=== PATIENT | female | born 1945 | race Caucasian/White ===

== ENCOUNTER 2019-02-21 10:35 | Emergency (ER) | payer MEDICARE, OTHER, SELFPAY ==
[2019-02-21 10:37] VITALS: BP 148/79; PULSE 64; RESP 17; TEMP 36.3; O2SAT 99; BMI 28.0
[2019-02-21 10:50] VITALS: BP 143/71; PULSE 74; RESP 17
--- NOTE | 2019-02-21 11:01 | ED.VISSUMM ---
- ER Visit Summary Date of Service: 02/21/19 Chief Complaint: Chest pain History of Present Illness: The patient is a 73 F who presents with intermittent chest pain for the past 4-5 days. Patient states she was doing some work in her yard 4-5 days ago. Patient states she gets some pain in her lower substernal area that only last for a couple seconds and then resolves. Patient states this has been intermittent over the last 4-5 days. Patient states nothing makes it better or worse. Patient admits to some intermittent nausea and acid reflux type symptoms. Patient states she feels like she has a weight in her shoulders and they have been sore over the past 4-5 days. Patient has a history of coronary artery disease as well as a family history of coronary artery disease. Patient states she has had 2 stents placed. Patient denies any other cardiac or PE risk factors. Physical Examination: Vital signs are stable. Patient is afebrile. Patient is in no acute distress. Oral mucosa is pink and moist. Neck is supple. Trachea is midline. There is no JVD noted. Heart was regular rate and rhythm. Lungs are clear and equal bilateral. There is some mild reproducible tenderness over the left parasternal area. Abdomen is soft. Bowel sounds are normal. There is no tenderness. There is no guarding noted. Skin is warm dry. Cranial nerves II through XII are intact. There are no focal motor or sensory deficits noted. The remaining physical exam is within normal limits. Test Results: EKG showed normal sinus rhythm with a rate of 66. There are no acute ST or T wave changes. This was unchanged compared to previous EKG dated 11/17/2016. Chest x-ray does not show any acute cardiopulmonary process. CBC, basic metabolic profile, and troponin were obtained and were essentially within normal limits. Emergency Department Course and Treatment: Patient was given aspirin here. Patient was instructed to follow-up with her primary care physician in 5-7 days. Patient understood and was agreeable with the plan. All questions were answered. Disposition: Discharge home Impression: Chest pain This note was generated with Gr[employer] dictation software. It may contain incorrect words, spelling, and punctuation that were not noted in review of the chart prior to signing ED Disposition - Plan for ED Patient: Disposition: Home or Assisted Living Diagnosis: Chest pain Referrals: Gail Turner MD [NON-STAFF] - 3-5 Days
--- NOTE | 2019-02-21 11:04 | ED.DCSUM_ITS ---
- ER Visit Summary Date of Service: 02/21/19 Chief Complaint: Chest pain History of Present Illness: The patient is a 73 F who presents with intermittent chest pain for the past 4-5 days. Patient states she was doing some work in her yard 4-5 days ago. Patient states she gets some pain in her lower substernal area that only last for a couple seconds and then resolves. Patient states this has been intermittent over the last 4-5 days. Patient states nothing makes it better or worse. Patient admits to some intermittent nausea and acid reflux type symptoms. Patient states she feels like she has a weight in her shoulders and they have been sore over the past 4-5 days. Patient has a history of jodi nary artery disease as well as a family history of coronary artery disease. Patient states she has had 2 stents placed. Patient denies any other cardiac or PE risk factors. Physical Examination: Vital signs are stable. Patient is afebrile. Patient is in no acute distress. Oral mucosa is pink and moist. Neck is supple. Trachea is midline. There is no JVD noted. Heart was regular rate and rhythm. Lungs are clear and equal bilateral. There is some mild reproducible tenderness over the left parasternal area. Abdomen is soft. Bowel sounds are normal. There is no tenderness. There is no guarding noted. Skin is warm dry. Cranial nerves II through XII are intact. There are no focal motor or sensory deficits noted. The remaining physical exam is within normal limits. Test Results: EKG showed normal sinus rhythm with a rate of 66. There are no acute ST or T wave changes. This was unchanged compared to previous EKG dated 11/17/2016. Chest x-ray does not show any acute cardiopulmonary process. CBC, basic metabolic profile, and troponin were obtained and were essentially within normal limits. Emergency Department Course and Treatment: Patient was given aspirin here. Patient was instructed to follow-up with her primary care physician in 5-7 days. Patient understood and was agreeable with the plan. All questions were answered. Disposition: Discharge home Impression: Chest pain This note was generated with [employer] dictation software. It may contain incorrect words, spelling, and punctuation that were not noted in review of the chart prior to signing ED Disposition - Plan for ED Patient: Disposition: Home or Assisted Living Diagnosis: Chest pain Referrals: Gail Turner MD [NON-STAFF] - 3-5 Days
--- NOTE | 2019-02-21 11:05 | EKG12_ITS ---
Test Reason : CP Blood Pressure : / mmHG Vent. Rate : 066 BPM Atrial Rate : 066 BPM P-R Int : 168 ms QRS Dur : 070 ms QT Int : 376 ms P-R-T Axes : 020 -25 032 degrees QTc Int : 394 ms Normal sinus rhythm Nonspecific T wave abnormality Abnormal ECG Confirmed by TATUM SY, DANIE ([id number]), scientific publications editor BRADY RODRIGUEZ ([id number]) on 02/22/2019 1:34:44 PM Referred By: CASSI/CONSTANTIN Confirmed By:DANIE WINN MD
--- NOTE | 2019-02-21 11:05 | RAD_ITS ---
STUDY: X-RAY CHEST REASON FOR EXAM: Female, 73 years old. 2 day history of left-sided chest pain and nausea. TECHNIQUE: PA and lateral views of the chest. COMPARISON: Comparison is made with prior study dated November 17, 2016. FINDINGS: EKG electrodes are seen. Stable elevation of the anterior aspect of the right hemidiaphragm. There is no demonstrated pleural abnormality. Evidence of prior coronary artery stenting. Normal mediastinum and mikaela. Normal visualized pulmonary arteries. There is atherosclerotic calcification of the aortic arch with tortuosity. There are degenerative changes of the visualized thoracic spine. Normal visualized ribs, clavicles, and shoulders. Prior cholecystectomy. RAD/Chest PA and Lateral IMPRESSION: No acute abnormality is seen. Electronically Signed: David Maravilla, at 12:12 EDT , Service support ,
[2019-02-21] MEDS: Aspirin 81 MG TAB.CHEW 324 MG PO (11:16)
[2019-02-21 11:23] LABS: Anion Gap 5 (5-15); BUN 17 mg/dL (7-18); BUN/Creat Ratio 14.3 RATIO (10-20); Calcium,Total 9.1 mg/dL (8.5-10.1); Chloride 108 mmol/L (98-107); Creatinine, Serum 1.19 mg/dL (0.55-1.02); EST Glomerular Filtration Rate 47 mL/min (>60); Est Glom Filt Rate - Afr Amer 57 mL/min (>60); Estimated Creatinine Clearance 34.31 ml/min; Glucose 106 mg/dL (74-106); POSITIVE COUNT NO; POSITIVE DIFFERENTIAL NO; Potassium 3.9 mmol/L (3.5-5.1); Sodium Level 140 mmol/L (136-145)
[2019-02-21 11:38] VITALS: BP 140/81; PULSE 63; RESP 13; O2SAT 99
[2019-02-21 11:42] LABS: Hematocrit 43.9 % (37-47); Hemoglobin 14.3 g/dl (12.0-15.0); Red Blood Count 5.07 M/mm3 (4.2-5.4); White Blood Count 5.7 K/mm3 (4.4-11.0)
[2019-02-21 11:43] LABS: Mean Corp Hgb Conc 32.6 g/gl (32-36); Mean Corpuscular Hgb 28.2 pg (27.0-32.0); Mean Corpuscular Volume 86.6 fL (81-99); RBC Distribution Width CV 14.8 % (11.6-14.6); RBC Distribution Width SD 46.8 fl (35.1-43.9)
[2019-02-21 11:44] LABS: Lymphocyte % 22.7 % (19-41); Mean Platelet Vol. 10.6 fl (6.2-12.0); POSITIVE MORPHOLOGY NO; Platelet Count 222 K/mm3 (150-450)
[2019-02-21 11:45] LABS: Absolute Neutrophil Count 3.6 X10^3/uL (2.0-7.7); Basophil% 0.4 % (0-1); Eosinophils% 3.7 % (0-5)
[2019-02-21 11:46] LABS: Absolute Lymphocyte Count 1.29 X10^3/ul (0.83-4.51); Lymphocyte # 1.29 X10^3/ul (4.0)
[2019-02-21 11:47] LABS: Basophil# 0.02 X10^3/uL; Eosinophil# 0.21 X10^3/uL; Monocyte# 0.57 X10^3/uL
[2019-02-21 12:00] VITALS: BP 115/69; PULSE 62; RESP 19; O2SAT 99
[2019-02-21 13:00] VITALS: RESP 12
[2019-02-21 13:01] VITALS: BP 123/70; PULSE 58; RESP 14; O2SAT 99
== END 2019-02-21 13:10 | disposition home or self-care (01) ==
PROVIDERS: Emergency Provider Emergency Medicine; Family Provider Internal Medicine; PCP Internal Medicine
DX: R07.9 Chest pain, unspecified (principal); R11.0 Nausea; I25.10 Atherosclerotic heart disease of native coronary artery without angina pectoris; I10 Essential (primary) hypertension; Z79.02 Long term (current) use of antithrombotics/antiplatelets; Z79.82 Long term (current) use of aspirin; Z79.899 Other long term (current) drug therapy; Z95.5 Presence of coronary angioplasty implant and graft; Z82.49 Family history of ischemic heart disease and other diseases of the circulatory system
CPT/HCPCS: 71046; 80048; 84484; 85025; 93005; 99285; A4216

== ENCOUNTER → 2019-05-02 07:35 | Outpatient (CLI) | payer MEDICARE, OTHER, SELFPAY ==
[2019-04-26 15:04] VITALS: BMI 28.1
[2019-05-02 09:08] LABS: AST(SGOT) 15 U/L (15-37); Alanine Aminotransfer ALT/SGPT 20 U/L (13-56); Albumin, Serum 3.6 g/dL (3.2-5.0); Alkaline Phosphatase 91 U/L (45-117); Bilirubin, Direct 0.16 mg/dL (0.00-0.30); Cholesterol 112 mg/dL (200); Globulin 3.6 g/dL (2.2-4.2); High Density Lipoprotein 54 mg/dL; Protein, Total 7.2 g/dL (6.4-8.2); Triglycerides 59 mg/dL; Very Low Density Lipoprotein 12 mg/dL (5-40)
== END ==
PROVIDERS: Family Provider Internal Medicine; PCP Internal Medicine; Referring Provider Internal Medicine Cardiovascular Disease; Visit Provider Internal Medicine Cardiovascular Disease
DX: I25.2 Old myocardial infarction (principal); Z86.74 Personal history of sudden cardiac arrest
CPT/HCPCS: 36415; 80061; 80076

== ENCOUNTER → 2019-05-03 09:44 | Outpatient (CLI) | payer MEDICARE, OTHER, SELFPAY ==
[2019-04-26 15:04] VITALS: BMI 28.1
--- NOTE | 2019-05-03 09:45 | ECHOD_ITS ---
Reason For Study: CHF Procedure This was a 2D Doppler, Color Flow transthoracic echocardiogram. Exam performed in department. Left Ventricle Normal size and thickness. The estimated ejection fraction is 60 %. Stage 1 diastolic dysfunction. Anterior [place] : Akinetic. Right Ventricle Normal size and thickness. Normal systolic function. Atria The left atrium is mildly enlarged. Normal right atrium. Normal atrial septum. Mitral Valve The mitral valve is structurally normal. No prolapse or stenosis seen. Tricuspid Valve Normal tricuspid valve. Trivial tricuspid valve insufficiency. Right ventricular systolic pressure estimated to be 34 mmHg. Aortic Valve Normal aortic valve. Trisinus/trileaflet aortic valve. Pulmonic Valve Normal pulmonic valve. Great Vessels Normal aortic root. Normal arch. Normal inferior vena cava. Inferior vena cava collapse with sniff. Pericardium/Pleural No pericardial effusion. MMode/2D Measurements & Calculations LVIDd: 4.8 cm IVSd: 0.93 cm Ao root diam: 2.8 cm LVIDs: 3.2 cm LVPWd: 0.87 cm RVDd: 3.4 cm FS: 34.3 % LAV(MOD-bp): 79.3 ml LA A4 area: 23.5 cm2 LA dimension(2D): 4.1 cm LAV(MOD-bp) Indexed: 45.4 ml/m2 LAV(MOD-sp2): 75.5 ml LAV(MOD-sp4): 80.0 ml RA A4 area: 13.7 cm2 Time Measurements MV dec time: 0.15 sec Doppler Measurements & Calculations MV E max demetrio: 79.3 cm/sec Lat Peak E' Demetrio: 8.7 cm/sec Med Peak E' Demetrio: 6.0 cm/sec MV A max demetrio: 70.7 cm/sec E/E' lat: 9.1 E/E' med: 13.2 MV E/A: 1.1 Ao V2 max: 122.5 cm/sec LV V1 max: 83.3 cm/sec PA V2 max: 73.8 cm/sec Ao max P.0 mmHg LV V1 max P.8 mmHg TR max demetrio: 267.2 cm/sec TR max P.8 mmHg Interpretation Summary The estimated ejection fraction is 60 %. Anterior [place] : Akinetic. Stage 1 diastolic dysfunction. The left atrium is mildly enlarged. Trivial tricuspid valve insufficiency. Right ventricular systolic pressure estimated to be 34 mmHg. The study was technically limited. There is no comparison study available. Ordering Physician: Scott Braun Referring Physician: Brianna Mcconnell Performed By: Danielle Peters RDCS, RVT
== END ==
PROVIDERS: Family Provider Internal Medicine; PCP Internal Medicine; Referring Provider Internal Medicine Cardiovascular Disease; Visit Provider Internal Medicine Cardiovascular Disease
DX: I50.9 Heart failure, unspecified (principal); Z86.74 Personal history of sudden cardiac arrest
CPT/HCPCS: 93306

== ENCOUNTER → 2019-05-11 13:11 | Outpatient (CLI) | payer MEDICARE, OTHER, SELFPAY ==
[2019-04-26 15:04] VITALS: BMI 28.1
--- NOTE | 2019-05-11 13:13 | STEWCON_ITS ---
Reason For Study: SYNCOPE/NEAR Stress Results Protocol: Jose Protocol WITH DEFINITY Maximum Predicted HR: 145 bpm Target HR: 123 bpm % Maximum Predicted HR: 98 % DurationHeart Rate Stage (mm:ss) (bpm) BP Comment BASELINE 65 142/802.5 CC DEFINITY STAGE 1 3:00 106 122/84 STAGE 2 3:00 120 142/80 STAGE 3 1:31 142 / 1 CC DEFINITY RECOVERY 78 120/78 Stress Duration: 7:31 mm:ss Maximum Stress HR: 142 bpm Baseline Echocardiogram Findings The estimated ejection fraction is 65 %. Stress Echo Wall motion Data Resting WM Intermediate WM Stress WM Resting Wall Motion Wall Motion Stress No regional wall motion No regional wall motion abnormalities noted. abnormalities noted. EKG Data The baseline ECG displays normal sinus rhythm. The patient exercised according to the regular Jose protocol for a total duration of 7:31. The maximum heart rate attained was 142 beats per minute. This was 97% of maximum predicted heart rate. The patient exercised into stage 3 of the Jose protocol. During stress, there were no ST or T wave changes noted to suggest ischemia. No clinical angina was noted. Interpretation Summary The estimated ejection fraction is 65 %. Normal, adequate, treadmill echocardiogram. Negative for ischemia by EKG and echocardiographic anterior. No anginal symptoms noted. Rare PVC noted. Appropriate blood pressure response to exercise. Average exercise capacity for age. Final LVEF is 75%. Test terminated due to dyspnea, target heart rate achieved, and leg discomfort. Decreased sensitivity due to poor echo windows requiring Definity agent. No complications. The study was technically difficult. Contrast injection was performed. Ordering Physician: Scott Braun Referring Physician: Scott Braun Performed By: Radha Nash, SIACS, RVT
== END ==
PROVIDERS: Family Provider Internal Medicine; PCP Internal Medicine; Referring Provider Internal Medicine Cardiovascular Disease; Visit Provider Internal Medicine Cardiovascular Disease
DX: R55 Syncope and collapse (principal); Z86.74 Personal history of sudden cardiac arrest; Z95.5 Presence of coronary angioplasty implant and graft
CPT/HCPCS: 93017; 93350; Q9957; A4216; C8928

== ENCOUNTER → 2019-10-28 09:11 | Outpatient (CLI) | payer MEDICARE, OTHER, SELFPAY ==
[2019-10-27 11:28] VITALS: BMI 28.0
[2019-10-28 10:37] LABS: AST(SGOT) 13 U/L (15-37); Alanine Aminotransfer ALT/SGPT 18 U/L (13-56); Albumin, Serum 3.8 g/dL (3.2-5.0); Alkaline Phosphatase 97 U/L (45-117); Bilirubin, Direct 0.21 mg/dL (0.00-0.30); Cholesterol 116 mg/dL (200); Globulin 3.6 g/dL (2.2-4.2); High Density Lipoprotein 50 mg/dL; Protein, Total 7.4 g/dL (6.4-8.2); Triglycerides 71 mg/dL; Very Low Density Lipoprotein 14 mg/dL (5-40)
== END ==
PROVIDERS: Family Provider Internal Medicine; PCP Internal Medicine; Referring Provider Internal Medicine Cardiovascular Disease; Visit Provider Internal Medicine Cardiovascular Disease
DX: E78.5 Hyperlipidemia, unspecified (principal)
CPT/HCPCS: 36415; 80061; 80076

== ENCOUNTER → 2020-05-21 08:25 | Outpatient (CLI) | payer MEDICARE, OTHER, SELFPAY ==
[2019-10-27 11:28] VITALS: BMI 28.0
[2020-05-21 10:29] LABS: AST(SGOT) 19 U/L (15-37); Alanine Aminotransfer ALT/SGPT 22 U/L (13-56); Albumin, Serum 3.7 g/dL (3.2-5.0); Alkaline Phosphatase 103 U/L (45-117); Bilirubin, Direct 0.23 mg/dL (0.00-0.30); Cholesterol 115 mg/dL (200); Globulin 3.7 g/dL (2.2-4.2); High Density Lipoprotein 52 mg/dL; Protein, Total 7.4 g/dL (6.4-8.2); Triglycerides 69 mg/dL; Very Low Density Lipoprotein 14 mg/dL (5-40)
== END ==
PROVIDERS: PCP Internal Medicine; Referring Provider Internal Medicine Cardiovascular Disease; Visit Provider Internal Medicine Cardiovascular Disease
DX: E78.5 Hyperlipidemia, unspecified (principal)
CPT/HCPCS: 36415; 80061; 80076

== ENCOUNTER → 2021-01-31 07:50 | Outpatient (CLI) | payer MEDICARE, OTHER, SELFPAY ==
[2020-05-24 10:04] VITALS: BMI 26.7
[2021-01-31 09:22] LABS: AST(SGOT) 18 U/L (15-37); Alanine Aminotransfer ALT/SGPT 23 U/L (13-56); Albumin, Serum 3.7 g/dL (3.2-5.0); Alkaline Phosphatase 110 U/L (45-117); Bilirubin, Direct 0.21 mg/dL (0.00-0.30); Cholesterol 125 mg/dL (200); Globulin 3.8 g/dL (2.2-4.2); High Density Lipoprotein 60 mg/dL; Protein, Total 7.5 g/dL (6.4-8.2); Triglycerides 66 mg/dL; Very Low Density Lipoprotein 13 mg/dL (5-40)
== END ==
PROVIDERS: Internal Medicine Cardiovascular Disease; PCP Internal Medicine; Referring Provider Nurse Practitioner Family; Visit Provider Nurse Practitioner Family
DX: E78.5 Hyperlipidemia, unspecified (principal)
CPT/HCPCS: 36415; 80061; 80076

== ENCOUNTER → 2021-07-31 08:28 | Outpatient (CLI) | payer MEDICARE, OTHER, SELFPAY ==
[2021-07-31 10:50] LABS: AST(SGOT) 19 U/L (15-37); Alanine Aminotransfer ALT/SGPT 25 U/L (13-56); Albumin, Serum 3.6 g/dL (3.2-5.0); Alkaline Phosphatase 130 U/L (45-117); Bilirubin, Direct 0.19 mg/dL (0.00-0.30); Cholesterol 132 mg/dL (200); Globulin 4.3 g/dL (2.2-4.2); High Density Lipoprotein 62 mg/dL; Protein, Total 7.9 g/dL (6.4-8.2); Triglycerides 76 mg/dL; Very Low Density Lipoprotein 15 mg/dL (5-40)
== END ==
PROVIDERS: Referring Provider Nurse Practitioner Family; Visit Provider Nurse Practitioner Family
DX: E78.5 Hyperlipidemia, unspecified (principal)
CPT/HCPCS: 36415; 80061; 80076

== ENCOUNTER 2021-12-24 07:15 | Emergency (ER) | payer MEDICARE, OTHER, SELFPAY ==
[2021-12-24 07:16] VITALS: BP 143/95; PULSE 65; RESP 18; TEMP 36.6; O2SAT 99; BMI 29.2
--- NOTE | 2021-12-24 07:35 | EX.ED.UPPERE ---
HPI History of Present Illness Chief Complaint: Upper Extremity Injury Informant: patient Narrative Narrative: Patient is a 76-year-old female, [id number], presenting with 2 to 3 days of left wrist pain. Patient states she was in [place] when she started to notice pain in her left wrist. Since then the pain has gotten worse. It radiates up to her elbow. It is worse when she moves her wrist. She takes a daily Tylenol but notes that she is on Brilinta so she is not sure what else she can take for pain. She denies a history of gout. She denies associated numbness or tingling. She does feel like her wrist is little bit swollen and warm. She denies any trauma or injury. Denies any prior difficulty with her wrist. She denies any systemic symptoms. No other complaints at this time. [facility] Medical History (Updated 12/24/21 @ 08:[address] 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) Hyperlipidemia Syncope and collapse Home Medications aspirin 81 mg PO DAILY 03/12/16 [History Last Taken 02/21/19] cholecalciferol (vitamin D3) 50 mcg (2,000 unit) capsule 2,000 unit PO DAILY 04/22/19 [History Last Taken Unknown] nitroglycerin 0.4 mg sublingual tablet 0.4 mg SUBLINGUAL Q5-15M PRN 04/22/19 [History Last Taken Unknown] amlodipine 2.5 mg tablet 2.5 mg PO DAILY #90 tab 12/23/21 [Rx Last Taken Unknown] atorvastatin 40 mg tablet 40 mg PO QHS #90 tab 12/23/21 [Rx Last Taken Unknown] esomeprazole magnesium 20 mg capsule,delayed release 20 mg PO DAILY #90 cap 12/23/21 [Rx Last Taken Unknown] metoprolol succinate 50 mg tablet,extended release 24 hr 50 mg PO DAILY #90 tab 12/23/21 [Rx Last Taken Unknown] ticagrelor 90 mg tablet 90 mg PO BID #180 tab 12/23/21 [Rx Last Taken Unknown] naproxen [Naprosyn] 500 mg PO BID PRN #14 tab 12/24/21 [Rx Last Taken Unknown] Allergy/AdvReac Type Severity Reaction Status Date / Time sertraline [From Zoloft] Allergy Unknown Verified 12/24/21 07:18 simvastatin [From Zocor] Allergy Unknown Verified 12/24/21 07:18 lisinopril AdvReac Unknown unknown Verified 12/24/21 07:18 Family History Mother CAD (coronary artery disease) Diabetes Brother CAD (coronary artery disease) Brother CAD (coronary artery disease) Diabetes Surgical History Stented coronary artery (07/21/16) Social History Smoking Status: Never smoker ROS ROS ED Constitutional Constitutional ED: Denies chills or fever(s) Eyes Eyes: Denies blurry vision ENT ENT ED: Denies sore throat Cardiovascular Cardiovascular: Denies chest pain or palpitations Respiratory/Chest Respiratory/Chest: Denies cough or dyspnea Gastrointestinal Gastrointestinal: Denies abdominal pain or nausea Musculoskeletal Musculoskeletal: Reports other Details: left wrist pain ; Denies myalgias Integumentary Denies rash Neurologic Neurologic: Denies headache(s), paresthesias or weakness Psychiatric Psychiatric: Denies depression EXAM Physical Exam Const Vital Signs: 12/24/21 07:16 Temperature 97.9 F Temperature Source Temporal Pulse Rate 65 Respiratory Rate 18 Blood Pressure 143/95 H Blood Pressure Mean 111 Pulse Ox 99 Oxygen Delivery Method Room Air Positive well nourished and well developed General Appearance ED: well developed HEENT normocephalic and atraumatic Eyes PERRL Neck supple Neck Narrative: normal ROM Chest Wall inspection of chest normal Resp normal respiratory effort and clear to auscultation bilaterally Cardio regular rate, regular rhythm and no murmurs Cardio Narrative: 2+ bilateral radial pulses Extremity Extremity Narrative: Patient has mild warmth of the left wrist most pronounced over the distal radius. No associated erythema or obvious effusion. Range of motion intact but it is tender/uncomfortable. No short arc pain. Normal movement with intrinsic and extrinsic hand movements. No pinpoint palpable bony tenderness. No snuffbox tenderness. No reproduction of pain with Tinel's test. Patient's pain is most reproduced with extension and abduction of the wrist. No tenderness of the hands, fingers, shoulder or elbow. 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 Sensorium / Orientation: alert Motor Exam: Negative for muscle tone abnormal Psych mental status grossly normal Skin Lesions: no lesions Rashes: no rashes MDM MDM MDM Narrative Medical decision making narrative: Patient evaluated for 2 to 3 days of atraumatic left wrist pain. She is left-hand dominant. No outward signs of infection or cellulitis. No systemic symptoms. Differential includes gout versus pseudogout versus tendinitis versus osteoarthritis. Vital signs are significant only for mild hypertension. Patient is given a dose of NSAID in the emergency room. X-ray obtained does show chondrocalcinosis of the left wrist. I suspect she could have pseudogout versus tendinitis causing her symptoms. Will be placed in a wrist splint for comfort and started on NSAID therapy. Discussed with patient that if she is not having systemic signs, fever or any risk factors I do not think joint aspiration is indicated at this time. Patient is agreeable with this. Patient is given referral with orthopedics for outpatient follow-up. Is counseled on return precautions such as worsening pain, developing redness, fever or chills. Discharge Plan Triage Chief Complaint: Upper Extremity Injury ED Provider: Ayana Cook Dx/Rx/DC Orders Clinical Impression: Chondrocalcinosis of left wrist Instructions: ED Osteoarthritis Prescriptions: New naproxen [Naprosyn] 500 mg tablet 500 mg PO BID PRN (Reason: pain) Qty: 14 RF: 0 No Action nitroglycerin 0.4 mg tablet, sublingual 0.4 mg SUBLINGUAL Q5-15M PRN (Reason: Chest Pain) RF: 0 cholecalciferol (vitamin D3) 2,000 unit capsule 2,000 unit PO DAILY RF: 0 aspirin 81 MG tablet,chewable 81 mg PO DAILY RF: 0 amlodipine 2.5 mg tablet 2.5 mg PO DAILY Qty: 90 RF: 3 atorvastatin 40 mg tablet 40 mg PO QHS Qty: 90 RF: 3 esomeprazole magnesium [Nexium 24HR] 20 mg capsule,delayed release(DR/EC) 20 mg PO DAILY Qty: 90 RF: 3 metoprolol succinate 50 mg tablet extended release 24 hr 50 mg PO DAILY Qty: 90 RF: 3 ticagrelor 90 mg tablet 90 mg PO BID Qty: 180 RF: 3 Primary Care Provider: Brianna Mcconnell Referrals: Brianna Mcconnell MD [Primary Care Provider] - Hermann Conde DO [STAFF PHYSICIAN] - Activity Restrictions/Additional Instructions: Wear the splint as needed for comfort. It is especially helpful at night when you are sleeping. Your x-ray shows mild chondrocalcinosis as well as some inflammation at the base of your thumb. I suspect this is from pseudogout. Disposition Disposition: Home, Self Care Discharge Date/Time: 12/24/21 08:52
--- NOTE | 2021-12-24 07:40 | RAD_ITS ---
STUDY: X-RAY - LEFT WRIST REASON FOR EXAM: Left wrist pain after crocheting last night. TECHNIQUE: 3 view(s) of the wrist were obtained. COMPARISON: None. FINDINGS: Normal visualized distal radius and ulna. Normal radiocarpal articulation. Normal distal radioulnar articulation. Normal carpal bones. Normal carpal articulations. There is joint space narrowing of the carpometacarpal articulation of the thumb. Normal second through fifth carpometacarpal articulations. Normal visualized metacarpal bones. There is mild chondrocalcinosis in the triangular fibrocartilage and lunotriquetral ligament. RAD/Wrist min 3 Views IMPRESSION: Arthrosis of the first carpometacarpal articulation. Mild chondrocalcinosis. Electronically Signed: Sudeep Cobos MD at 8:13 EST ,
[2021-12-24] MEDS: Naproxen 250 MG Tablet 500 MG PO (08:38)
[2021-12-24 08:51] VITALS: RESP 16
== END 2021-12-24 08:52 | disposition home or self-care (01) ==
PROVIDERS: Emergency Provider Emergency Medicine; PCP Internal Medicine; Visit Provider Emergency Medicine
DX: M11.232 Other chondrocalcinosis, left wrist (principal); I10 Essential (primary) hypertension; I25.10 Atherosclerotic heart disease of native coronary artery without angina pectoris; E78.5 Hyperlipidemia, unspecified; Z79.02 Long term (current) use of antithrombotics/antiplatelets; Z79.82 Long term (current) use of aspirin; Z79.1 Long term (current) use of non-steroidal anti-inflammatories (NSAID); Z79.899 Other long term (current) drug therapy
CPT/HCPCS: 73110; 99283

== ENCOUNTER 2022-01-29 07:51 | Outpatient (CLI) | payer MEDICARE, OTHER, SELFPAY ==
[2022-01-29 08:41] LABS: AST(SGOT) 19 U/L (15-37); Alanine Aminotransfer ALT/SGPT 23 U/L (13-56); Albumin, Serum 3.6 g/dL (3.2-5.0); Alkaline Phosphatase 132 U/L (45-117); Bilirubin, Direct 0.16 mg/dL (0.00-0.30); Cholesterol 132 mg/dL (200); Globulin 4.1 g/dL (2.2-4.2); High Density Lipoprotein 60 mg/dL; Protein, Total 7.7 g/dL (6.4-8.2); Triglycerides 67 mg/dL; Very Low Density Lipoprotein 13 mg/dL (5-40)
== END 2022-01-29 23:59 | disposition home or self-care (01) ==
LOC: LAB 07:54
PROVIDERS: PCP Internal Medicine; Referring Provider Nurse Practitioner Family; Visit Provider Nurse Practitioner Family
DX: E78.00 Pure hypercholesterolemia, unspecified (principal); E78.5 Hyperlipidemia, unspecified
CPT/HCPCS: 36415; 80061; 80076

== ENCOUNTER 2022-03-03 06:58 | Outpatient (CLI) | payer MEDICARE, OTHER, SELFPAY ==
--- NOTE | 2022-03-03 07:04 | ECHOD_ITS ---
Reason For Study: CAD/ASHD Procedure This was a 2D Doppler, Color Flow transthoracic echocardiogram. The exam was of adequate technical quality. Exam performed in department. Left Ventricle Normal LV size. Apical false tendon noted. Segmental dysfunction with preserved ejection fraction (see wall motion). The estimated ejection fraction is 60 %. No evidence for diastolic dysfunction. Anterior [place] : Hypokinetic. Inferior [place] : Akinetic. Lateral [place] : Hypokinetic. Septal [place] : Akinetic. Right Ventricle Normal RV size. Normal systolic function. Atria The left atrium is mildly enlarged. Normal right atrium. No doppler evidence for ASD. Mitral Valve There is no mitral annular calcification. Normal mitral valve. Trivial mitral valve insufficiency. Tricuspid Valve Normal tricuspid valve. Mild tricuspid valve insufficiency. Right ventricular systolic pressure estimated to be 24 mmHg. Aortic Valve Trisinus/trileaflet aortic valve. Mild focal aortic valve calcification. Pulmonic Valve The pulmonic valve is not well visualized. Great Vessels Normal sized aortic root. Pericardium/Pleural No pericardial effusion. MMode/2D Measurements & Calculations LVIDd: 4.2 cm IVSd: 0.95 cm Ao root diam: 2.8 cm LVIDs: 2.9 cm LVPWd: 0.94 cm RVDd: 2.7 cm FS: 31.2 % LAV(MOD-bp): 44.7 ml LA A4 area: 16.4 cm2 LA dimension(2D): 4.5 cm LAV(MOD-bp) Indexed: 25.8 ml/m2 LAV(MOD-sp2): 45.5 ml LAV(MOD-sp4): 44.6 ml RA A4 area: 14.1 cm2 Time Measurements MV dec time: 0.26 sec Doppler Measurements & Calculations MV E max demetrio: 57.9 cm/sec Lat Peak E' Demetrio: 7.2 cm/sec Med Peak E' Demetrio: 7.0 cm/sec MV A max demetrio: 78.7 cm/sec E/E' lat: 8.0 E/E' med: 8.3 MV E/A: 0.74 Ao V2 max: 135.1 cm/sec LV V1 max: 95.0 cm/sec PA V2 max: 85.6 cm/sec Ao max P.3 mmHg LV V1 max P.6 mmHg TR max demetrio: 230.4 cm/sec TR max P.2 mmHg ECHO/Echo Complete Interpretation Summary Segmental dysfunction with preserved ejection fraction (see wall motion). The estimated ejection fraction is 60 %. Apical false tendon noted. The left atrium is mildly enlarged. Trivial mitral valve insufficiency. Mild tricuspid valve insufficiency. Mild focal aortic valve calcification. Right ventricular systolic pressure estimated to be 24 mmHg. No evidence for diastolic dysfunction. Ordering Physician: Chirag Brothers Referring Physician: Brianna Mcconnell Performed By: Danielle Peters, LAURA, RVT
--- NOTE | 2022-03-03 17:37 | STRESSREP_ITS ---
Stress Test Report Date: 03-03-2022 Procedure: Exercise tolerance test/imaging study Indications: CAD; PCI Consent: Per the patient Procedure: The patient exercised on a Jose protocol for 4 minutes completing Stage I and 1 minute of Stage II achieving a peak heart rate of 134 bpm (93% predicted maximal heart rate) with a peak blood pressure 156/78 mmHg and a peak MET capacity of 7 METs. The baseline ECG demonstrated sinus rhythm; low voltage QRS; poor R wave progression. The peak exercise ECG demonstrated approximately 1 mm of horizontal/upsloping ST segment depression in leads II, III, aVF, and V4 through V6 with gradual resolution towards baseline in recovery. There were no cardiac dysrhythmias pretest, during exercise, or recovery. The functional capacity was considered average. There was no complaint of chest discomfort during exercise or recovery. The examination was discontinued secondary to dyspnea. Impression: 1. Technically adequate (percent predicted maximal heart rate greater than 85%) exercise tolerance test 2. Peak exercise ECG with approximately 1 mm of horizontal/upsloping ST segment depression in leads II, III, aVF, and V4 through V6 with gradual resolution towards baseline in recovery 3. There were no cardiac dysrhythmias pretest, during exercise, or recovery 4. Nuclear images pending Myocardial perfusion imaging study: Technique: The patient was injected with 11.1 mCi of technetium 99m Cardiolite and subsequently rest SPECT Cardiolite nuclear imaging was obtained in the horizontal long, vertical long, and short axis views. The patient exercised on a Jose protocol for 4 minutes completing Stage I and 1 minute of Stage II achieving a peak heart rate of 134 bpm (93% predicted maximal heart rate) with a peak blood pressure 156/78 mmHg and a peak MET capacity of 7 METs. The patient was injected with 33.4 mCi of technetium 99m Cardiolite and subsequently stress SPECT Cardiolite nuclear imaging was obtained in the horizontal long, vertical long, and short axis views. A gated Cardiolite study at peak stress was obtained. Interpretation: Rest and stress SPECT Cardiolite nuclear imaging status post realignment, normalization, and attenuation correction, demonstrates the appearance of diminished myocardial perfusion/tracer uptake in the apical areas without significant change between rest and stress. There is diminished end-systolic thickening and brightening in the aforementioned areas. The gated Cardiolite study demonstrates myocardial thickening and inward wall motion. The reported LVEF is 75%. Impression: 1. Rest and stress SPECT Cardiolite nuclear imaging demonstrate myocardial perfusion changes compatible with an area of previous myocardial injury/infarction involving the apical areas with no myocardial perfusion changes considered diagnostic for associated stress-induced myocardial ischemia. 2. The gated Cardiolite study reports an LVEF of 75%. This note was generated with [email or web address] software. It may contain incorrect words, spelling, and punctuation that were not noted in checking the note before signing.
== END 2022-03-03 23:59 | disposition home or self-care (01) ==
LOC: CVS 07:01
PROVIDERS: PCP Internal Medicine; Referring Provider Internal Medicine Cardiovascular Disease; Visit Provider Internal Medicine Cardiovascular Disease
DX: I25.10 Atherosclerotic heart disease of native coronary artery without angina pectoris (principal); R07.9 Chest pain, unspecified; R94.31 Abnormal electrocardiogram [ECG] [EKG]; Z95.5 Presence of coronary angioplasty implant and graft
CPT/HCPCS: 78452; 93017; 93306; A9500; A4216

== ENCOUNTER 2022-03-12 06:50 | Day surgery (SDC) | payer MEDICARE, OTHER, SELFPAY ==
--- NOTE | 2022-03-05 08:38 | RAD_ITS ---
STUDY: X-RAY CHEST REASON FOR EXAM: Female, 76 years old. Chest Pain TECHNIQUE: PA and lateral views of the chest. COMPARISON: Comparison is made with prior study dated 02/21/2019. FINDINGS: Stable elevation of the anterior aspect of the right hemidiaphragm. Evidence of prior coronary artery stenting. Normal size heart. Normal mediastinum and mikaela. Normal visualized pulmonary arteries. There is atherosclerotic calcification of the aortic arch with tortuosity. There are degenerative changes of the visualized thoracic spine. Normal visualized ribs, clavicles, and shoulders. There is no demonstrated abnormality of the visualized soft tissue structures of the upper abdomen. RAD/Chest PA and Lateral IMPRESSION: Stable examination. No acute abnormality is seen. Electronically Signed: David Maravilla MD at 15:42 EDT ,
[2022-03-05 09:14] LABS: Hematocrit 42.9 % (37-47); Hemoglobin 13.7 g/dL (12.0-15.0); Mean Corp Hgb Conc 31.9 g/dL (32-36); Mean Corpuscular Hgb 27.3 pg (27.0-32.0); Mean Corpuscular Volume 85.6 fL (81-99); Mean Platelet Vol. 10.8 fl (6.2-12.0); Platelet Count 255 K/mm3 (150-450); RBC Distribution Width SD 47.2 fl (35.1-43.9); Red Blood Count 5.01 M/mm3 (4.2-5.4); White Blood Count 5.8 K/mm3 (4.4-11.0)
[2022-03-05 09:27] LABS: Partial Thromboplast Time 25.4 Seconds (24.1-36.2); Prothrombin Time (Protime)PT. 12.7 SECONDS (11.7-14.9)
[2022-03-05 09:40] LABS: Anion Gap 5 (5-15); BUN 16 mg/dL (7-18); BUN/Creat Ratio 14.8 RATIO (10-20); Calcium,Total 9.3 mg/dL (8.5-10.1); Chloride 112 mmol/L (98-107); Creatinine, Serum 1.08 mg/dL (0.55-1.02); EST Glomerular Filtration Rate 52 mL/min (>60); Est Glom Filt Rate - Afr Amer 63 mL/min (>60); Glucose 97 mg/dL (74-106); Potassium 3.9 mmol/L (3.5-5.1); Sodium Level 142 mmol/L (136-145)
[2022-03-11 06:51] VITALS: BMI 27.4
--- NOTE | 2022-03-11 07:50 | PCM.HP.BLA ---
History and Physical Date of Admission: 03/12/22 [facility] [address] [place] [address] [phone] OFFICE VISITDate of Service: 02/05/22 MR#:[id number]: SUZANNA DEL ROSARIORep #:[id number] Provider:Dr. Chirag Brothers, STEPHANge/Sex: 76/F [facility]igned HPI HPI History of Present Illness Details: This is a 76-year-old white female who presents today for outpatient cardiovascular follow-up of a history of CAD, anterior VT, cardiopulmonary arrest, status post LAD PCI (07-21-2016-[facility]-Promus 2.75x38 drug-eluting stent), superimposed upon hyperlipidemia and hypertension who was previously been followed by my former colleague Dr. Scott Braun. She states overall she believes she is done relatively well. However she does admit she gets intermittent episodes of left upper extremity/left forearm throbbing discomfort. She is not sure if this is related to her cardiac disease process or a noncardiac issue. She states this is somewhat different than what she experienced during her acute coronary syndrome event. She notes that she has had no acute orthopnea or PND or peripheral pitting edema. There has been no ongoing palpitations. She states if she is pushed or stressed she can feel as if she might want to become weak and lose consciousness. She had lipid labs performed on 01-29-2022. Her total cholesterol was 132 with an LDL of 59 and an HDL of 60. Her triglycerides were 67. Intake Vital Signs 02/05/22 13:06 Height 5 ft 3 in Weight: 155 lb 2 oz BP 134/70 H Blood Pressure Location Lt brachial Position Sitting Respiration 16 Pulse 68 Pulse Source Auscultation Intake Visit Reasons: 1 Y FU ( DJN PATIENT ) Esol Teacher Assistant Required: No Accompanied by: Self Allergies sertraline [From Zoloft] Allergy (Verified 02/05/22 13:09) Unknown simvastatin [From Zocor] Allergy (Verified 02/05/22 13:09) Unknown lisinopril Adverse Reaction (Unknown, Verified 02/05/22 13:09) unknown Medications aspirin 81 mg PO DAILY 03/12/16 [History Confirmed 02/05/22] cholecalciferol (vitamin D3) 50 mcg (2,000 unit) capsule 2,000 unit PO DAILY 04/22/19 [History Confirmed 02/05/22] amlodipine 2.5 mg tablet 2.5 mg PO DAILY #90 tab 12/23/21 [Rx Confirmed 02/05/22] atorvastatin 40 mg tablet 40 mg PO QHS #90 tab 12/23/21 [Rx Confirmed 02/05/22] esomeprazole magnesium 20 mg capsule,delayed release 20 mg PO DAILY #90 cap 12/23/21 [Rx Confirmed 02/05/22] metoprolol succinate 50 mg tablet,extended release 24 hr 50 mg PO DAILY #90 tab 12/23/21 [Rx Confirmed 02/05/22] ticagrelor 90 mg tablet 90 mg PO BID #180 tab 12/23/21 [Rx Confirmed 02/05/22] nitroglycerin 0.4 mg sublingual tablet 0.4 mg SUBLINGUAL Q5-15M PRN #25 tab 02/05/22 [Rx Confirmed 02/05/22] FOR[facility]LY [facility], [facility] Medical History Atherosclerotic heart disease of [place] coronary artery without angina pectoris Essential hypertension 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) Hyperlipidemia Syncope and collapse Surgical History History of cholecystectomy History of hysterectomy Stented coronary artery (07/21/16) Family History Mother CAD (coronary artery disease) Diabetes Brother CAD (coronary artery disease) Brother CAD (coronary artery disease) Diabetes Social History Smoking Status: Never smoker ROS Const Const: Negative for fatigue, weakness, frequent falls, excessive sweating, weight gain or weight loss Eyes Eyes: Negative for transient loss of vision, blurry vision or change in vision ENT ENT: Positive for dizziness (when I feel Im under pressure I feel like I could pass out; random); Negative for balance problems Cardio Chest Pain: Yes Character: other (like I have indigestion) Location: epigastric Exacerbation: other (belching, takes a drink) Palpitations: No Edema: None Muscle aches with walking: None Resp Respiratory: Negative for SOB with activity or SOB at rest GI GI: Negative vomiting or vomiting blood/hematemesis : Negative for hematuria Musc Musc: Negative for muscle aches/ myalgia, muscle weakness, joint pain or balance problems Skin Skin: Negative non-healing lesions or rash Neuro Neuro: Positive for dizziness (when I feel Im under pressure I feel like I could pass out; random), lightheadedness (when I feel Im under pressure I feel like I could pass out) and near syncope; Negative for orthostatic symptoms, frequent falls, weakness or blurry vision Jayson Hematologic/Lymphatic: Negative for easy bleeding Endo Endo: Negative for fatigue or excessive sweating Psych Psych: Negative for anxiety or depression Allergy Allergy/Immunology: Negative for hives and Negative for rash Cardiology Exam Const Appearance: cooperative, healthy appearing, comfortable, no acute distress, well developed and well groomed Nutritional Appearance: well nourished and overweight Orientation: alert, awake and oriented x3 Head Head: normal to inspection Ears: hearing grossly normal bilaterally Nose: external nose normal Face and Sinus: face symmetric Eyes Eyelids: eyelids normal Conjunctivae: conjunctivae normal Pupils: PERRL EOM: EOM intact bilaterally Neck Neck: normal visual inspection, full ROM and no JVD Carotids: normal carotid upstroke Chest Chest inspection: normal inspection of the chest, symmetric chest movement and normal respiratory effort; Negative cough Auscultation: Bilateral: Clear to Auscultation Cardio Rate: regular rate Rhythm: regular rhythm Heart sounds: S1 normal and S2 normal; Negative rub, gallop or murmur GI GI: normal to inspection, soft and bowel sounds present Neuro General: patient alert, patient awake, patient oriented x3 and moves all extremities Skin Skin: no rashes or lesions noted Extremities Pulses: Normal: Right Posterior Tibial Pulse, Left Posterior Tibial Pulse, Right Radial Pulse and Left Radial Pulse Lower Extremity Edema: None: Bilateral Psych Psychological: normal affect Supplemental Info Supplemental Information Patient had an event monitor done in 2017 which showed intermittent SVT. This is been treated with metoprolol, and has not returned. Her previous stress test was a walking nuclear stress test on 03/13/2016 at [facility] was a treadmill/MPI which was negative for inducible ischemia. Patient underwent repeat echocardiogram in 04/2019 which showed the following: The estimated ejection fraction is 60 %. Anterior [place] : Akinetic. Stage 1 diastolic dysfunction. The left atrium is mildly enlarged. Trivial tricuspid valve insufficiency. Right ventricular systolic pressure estimated to be 34 mmHg. The study was technically limited. There is no comparison study available. In addition she underwent a treadmill/echocardiogram on 05/11/2019 which was negative for inducible ischemia. Labs: LDL Cholesterol 59 mg/dL (0-130) HDL Cholesterol 60 mg/dL (40-) Triglycerides 67 mg/dL (-199) VLDL Cholesterol 13 mg/dL (5-40) Diagnostics: Electrocardiogram Echocardiogram Stress Echocardiogram Stress Test NM Chest X-Ray Pulmonary: No Data to Display Assessment and Plan Assessment and Plan (1) Atherosclerotic heart disease of [place] coronary artery without angina pectoris: Status: Chronic Qualifiers: [place] vs. transplanted heart: [place] heart Qualified Code(s): I25.10 - Atherosclerotic heart disease of [place] coronary artery without angina pectoris Comment: Stent to LAD (2.5 X 14 [place] ROS[place])07/25/[address] Raj Rizzo @ [facility]; and again 07/21/2016 (Promus Premier 2.75 X 38 mm) per Dr. Samuel Brooks @ [facility]. Also, 40% tubular stenosis noted in proximal to mid RCA per [facility] 07/21/16. Orders: Orders: Echo Complete Today Nuclear Stress Test - Treadmla Today Plan - Dr. Chirag Brothers MD: At the present time she is going to continue her current medical therapy. Her left upper extremity symptoms are somewhat mixed. However, based upon her history they are concerning for any element of cardiovascular involvement. Thus she will be asked to have reassessment of her coronary physiology with an exercise tolerance test/imaging study. She will also be asked to have reassessment of her left ventricular wall motion, which has been abnormal in the past, to evaluate for any new left ventricular wall motion abnormalities that would raise additional concern of progression of CAD, etc. Depending upon her study results she may or may not need reevaluation in the cardiac catheterization laboratory. (2) Stented coronary artery: Status: Chronic Comment: Stent to LAD (2.5 X 14 [place] ROS[place])07/25/[address] Raj Rizzo @ [facility]; and again 07/21/2016 (Promus Premier 2.75 X 38 mm) per Dr. Samuel Brooks @ [facility]. Orders: Orders: Echo Complete Today Nuclear Stress Test - Treadmil Today Plan - Dr. Chirag Brothers MD: Her previous PCI procedure was reviewed. She will continue her current medical management and follow-up. 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 Chirag Brothers MD: She apparently had a history of a cardiopulmonary arrest with her acute coronary syndrome. This led to an emergent transfer to [facility] where she underwent diagnostic cardiac catheterization and subsequent LAD PCI. (4) Hyperlipidemia: Status: Chronic Qualifiers: Hyperlipidemia type: unspecified Qualified Code(s): E78.5 - Hyperlipidemia, unspecified Orders: Orders: Echo Complete Today Nuclear Stress Test - Treadmil Today Plan - Dr. Chirag Brothers MD: Her lipids were reviewed. They appear to be under reasonably good control. She will continue her medical management. (5) Essential hypertension: Status: Chronic Orders: Orders: Echo Complete Today Nuclear Stress Test - Treadmil Today Plan - Dr. Chirag Brothers MD: Her blood pressure appears to be reasonably well controlled. She will continue medical management. Plan Details Other Medications: New: nitroglycerin 0.4 mg sublingual Q5-15M PRN 25 tabs 1RF Chest Pain Additional Comments: Thank you for allowing me to participate in the care of your patient. Please don't hesitate to call if any issues arise. This note was generated using a voice recognition system and there may be incorrect words, spelling or punctuation that were not noted when reviewing the office note prior to saving. Follow Up: 6 Months (PFM ) COVID (Procedure Consent) Procedure Criteria Procedure Criteria: Yes Elective The surgeon/proceduralist and patient have discussed in detail the risk of exposure to and/or potential harm posed by the COVID-19 virus with having a surgery/procedure at this time versus the risk of delaying the surgery/procedure. It is not possible to know either the risk of delaying the surgery or procedure or chance of getting an infection with perfect accuracy, but a joint decision was made between the patient and the surgeon/proceduralist to proceed at this time with the scheduled surgery/procedure as indicated on the consent form. Coding Level of Care Code Off vis,est,level 5 Diagnoses Atherosclerotic heart disease of [place] coronary artery without angina pectoris I25.10 [place] vs. transplanted heart: [place] heart Stented coronary artery Z95.5 History of sudden cardiac arrest successfully resuscitated Z86.74 Hyperlipidemia E78.5 Hyperlipidemia type: unspecified Essential hypertension I10 Coding Level of Care Code Off vis,est,level 5 Diagnoses Atherosclerotic heart disease of [place] coronary artery without angina pectoris I25.10 [place] vs. transplanted heart: [place] heart Stented coronary artery Z95.5 History of sudden cardiac arrest successfully resuscitated Z86.74 Hyperlipidemia E78.5 Hyperlipidemia type: unspecified Essential hypertension I10 02/05/22 1357<Electronically signed by Chirag Brothers MD>Date Chirag Brothers MD Cosigner Signature:Date (if applicable) CC: Dr. Brianna Mcconnell MD ~ Assessment & Plan Addt'l Comments Addendum: The patient underwent further evaluation with a transthoracic echocardiogram on 03-03-2022. The results are noted below. Interpretation Summary Segmental dysfunction with preserved ejection fraction (see wall motion). The estimated ejection fraction is 60 %. Apical false tendon noted. The left atrium is mildly enlarged. Trivial mitral valve insufficiency. Mild tricuspid valve insufficiency. Mild focal aortic valve calcification. Right ventricular systolic pressure estimated to be 24 mmHg. No evidence for diastolic dysfunction. The patient underwent further evaluation with a stress nuclear imaging study on 03-03-2022. The results are noted below. Stress Test Report Date: 03-03-2022 Procedure: Exercise tolerance test/imaging study Indications: CAD; PCI Consent: Per the patient Procedure: The patient exercised on a Jose protocol for 4 minutes completing Stage I and 1 minute of Stage II achieving a peak heart rate of 134 bpm (93% predicted maximal heart rate) with a peak blood pressure 156/78 mmHg and a peak MET capacity of 7 METs. The baseline ECG demonstrated sinus rhythm; low voltage QRS; poor R wave progression. The peak exercise ECG demonstrated approximately 1 mm of horizontal/upsloping ST segment depression in leads II, III, aVF, and V4 through V6 with gradual resolution towards baseline in recovery. There were no cardiac dysrhythmias pretest, during exercise, or recovery. The functional capacity was considered average. There was no complaint of chest discomfort during exercise or recovery. The examination was discontinued secondary to dyspnea. Impression: 1. Technically adequate (percent predicted maximal heart rate greater than 85%) exercise tolerance test 2. Peak exercise ECG with approximately 1 mm of horizontal/upsloping ST segment depression in leads II, III, aVF, and V4 through V6 with gradual resolution towards baseline in recovery 3. There were no cardiac dysrhythmias pretest, during exercise, or recovery 4. Nuclear images pending Myocardial perfusion imaging study: Technique: The patient was injected with 11.1 mCi of technetium 99m Cardiolite and subsequently rest SPECT Cardiolite nuclear imaging was obtained in the horizontal long, vertical long, and short axis views. The patient exercised on a Jose protocol for 4 minutes completing Stage I and 1 minute of Stage II achieving a peak heart rate of 134 bpm (93% predicted maximal heart rate) with a peak blood pressure 156/78 mmHg and a peak MET capacity of 7 METs. The patient was injected with 33.4 mCi of technetium 99m Cardiolite and subsequently stress SPECT Cardiolite nuclear imaging was obtained in the horizontal long, vertical long, and short axis views. A gated Cardiolite study at peak stress was obtained. Interpretation: Rest and stress SPECT Cardiolite nuclear imaging status post realignment, normalization, and attenuation correction, demonstrates the appearance of diminished myocardial perfusion/tracer uptake in the apical areas without significant change between rest and stress. There is diminished end-systolic thickening and brightening in the aforementioned areas. The gated Cardiolite study demonstrates myocardial thickening and inward wall motion. The reported LVEF is 75%. Impression: 1. Rest and stress SPECT Cardiolite nuclear imaging demonstrate myocardial perfusion changes compatible with an area of previous myocardial injury/infarction involving the apical areas with no myocardial perfusion changes considered diagnostic for associated stress-induced myocardial ischemia. 2. The gated Cardiolite study reports an LVEF of 75%. The patient's case was reviewed. Based upon the patient's history, clinical concerns, and subsequent objective findings it was felt reasonable to patient be considered for repeat definitive evaluation of her coronary status with diagnostic cardiac catheterization. The procedure and risks have been discussed with the patient. She was agreeable to this approach. Addendum: I have re-examined the patient. There are no clinical changes since date of exam
--- NOTE | 2022-03-12 09:02 | CL.D_ITS ---
Patient Name: SUZANNA DEL ROSARIO Study Date: 03/12/2022 Performing: Chirag Brothers MD Ht: 62.99 inches 160 cm : 1945 Wt: 154.32 lbs 70 kg Age: 76 Gender: female BSA: 1.73 PROCEDURE(S) PERFORMED [id number]-([id number])[facility] CLINICAL PROFILE AND INDICATIONS Indications: Worsening Angina, Suspected CAD Heart Failure: None Stress/Imaging Date: 03/03/2022tress Test with SPECT MPI: Positive Intermediate Risk (abnormal E CG portion / unremarable perfusion portion) Angina Classification Anginal Classification w/in 2 Weeks: CCS III CAD Presentations: Other: worsening angina CONCLUSIONS [place] Multivessel CAD LAD: stent: patent RECOMMENDATIONS Risk factor modification Medical therapy Surgery consult for coronary revascularization DESCRIPTION OF PROCEDURE The patient arrived to the procedure lab. The risks and benefits of the procedure as well as a full d escription of our services here and current unavailability of surgical backup were fully explained to the patient and/or their significant other prior to the catheterization. The Timeout was completed, verifying the correct patient and procedure. The patient's procedural site was prepped and draped in the usual fashion. Local anesthetic was given subcutaneously to right radial region with Lidocaine 2% . Using a modified Seldinger technique, arterial access was obtained via the right radial artery, a 6 Fr sheath was inserted. Left Coronary Artery selective angiography was performed in multiple views u sing a 5 Fr. 4.0 [place] catheter. Right Coronary Artery selective angiography was then performed in mu ltiple views using a 5 Fr. JR 4 catheter.The arterial sheath was pulled and a TR Band was applied for hemostasis 14cc air. Sheath flushed prior to removal. CORONARY ANGIOGRAPHY DOMINANCE: Right Dominant LEFT HEART ASSESSMENT Left Ventricular Ejection Fraction: Not assessed LEFT MAIN: Mild calcification LEFT ANTERIOR DESCENDING ARTERY: OSTIAL LAD: 85 % Stenosis PROX LAD: Mild calcification MID LAD: Previously placed stent is patent CIRCUMFLEX ARTERY: Mild luminal irregularities RIGHT CORONARY ARTERY: Severe calcification Mild luminal irregularities MID RCA: eccentric: 50 % Stenosis COMPLICATIONS No Complications PROCEDURE MEDICATIONS Fentanyl 50 mcg IV Versed 1 mg IV Fentanyl 50 mcg IV Versed 1 mg IV Oxygen: 2 L/min via nasal cannula Heparin given IA 03/12/2022 08:15:37 Nitro 100 mcg INDU 03/12/2022 08:24:32 Verapamil 2.5mg, Ntg 100mcgs, 3000 units of Heparin given IA 03/12/2022 08:15:37 SUMMARY OF HEMODYNAMIC DATA Time AIR REST ECG 07:11:57 Art 140/65 (95) 08:08:28 AO 157/75 (110) SA 08:17:38 Signed By Chirag Brothers MD On 03/12/2022 09:01:35 Chirag Brothers MD
== END 2022-03-12 11:00 | disposition home or self-care (01) ==
PROVIDERS: PCP Internal Medicine; Referring Provider Internal Medicine Cardiovascular Disease; Visit Provider Internal Medicine Cardiovascular Disease
DX: I25.119 Atherosclerotic heart disease of native coronary artery with unspecified angina pectoris (principal); I10 Essential (primary) hypertension; E78.5 Hyperlipidemia, unspecified; R07.9 Chest pain, unspecified; Z79.02 Long term (current) use of antithrombotics/antiplatelets; Z79.82 Long term (current) use of aspirin; Z79.899 Other long term (current) drug therapy; I25.2 Old myocardial infarction; Z95.5 Presence of coronary angioplasty implant and graft; Z86.74 Personal history of sudden cardiac arrest
CPT/HCPCS: 36415; 71046; 80048; 85027; 85610; 85730; 93454; 99152; 99153; Q9967; C1769; C1894

== ENCOUNTER 2022-03-30 02:40 | Emergency (ER) | payer MEDICARE, OTHER, SELFPAY ==
[2022-03-30 02:41] VITALS: BP 147/78; PULSE 76; RESP 13; TEMP 36.2; O2SAT 97; BMI 27.8
--- NOTE | 2022-03-30 03:17 | EDS_ITS ---
HPI History of Present Illness Chief Complaint: Other, Pain/Inj Narrative Narrative: Patient is a 76-year-old female with history of hypertension and coronary artery disease. She states that 2 to 3 weeks ago she underwent work-up by her blow machine tender starch spraying secondary to recurrent chest discomfort. She states that they did a heart cath which showed she has some stenosis/blockage but that it would not be amenable to stent placement. Therefore is recommended she see a specialist up in [place] to discuss need for bypass or further intervention. Patient states she has been taking her medication as directed but over the past 3 to 5 days has been having persistent irritation of neck and upper back discomfort and thoughts of anxiety. She states that is difficult to sleep secondary to this and because of her persistent muscle tension and anxiety presents for evaluation [facility] Medical History Abnormal ECG during exercise stress test Atherosclerotic heart disease of [place] coronary artery without angina pectoris Chest pain Essential hypertension 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) History of left heart catheterization (LHC) (~03/12/22) Hyperlipidemia Syncope and collapse Home Medications aspirin 81 mg PO DAILY 03/12/16 [History Last Taken 03/12/22] cholecalciferol (vitamin D3) 50 mcg (2,000 unit) capsule 2,000 unit PO DAILY 04/22/19 [History Last Taken Unknown] amlodipine 2.5 mg tablet 2.5 mg PO DAILY #90 tab 12/23/21 [Rx Last Taken 03/12/22] atorvastatin 40 mg tablet 40 mg PO QHS #90 tab 12/23/21 [Rx Last Taken Unknown] esomeprazole magnesium 20 mg capsule,delayed release 20 mg PO DAILY #90 cap 12/23/21 [Rx Last Taken Unknown] metoprolol succinate 50 mg tablet,extended release 24 hr 50 mg PO DAILY #90 tab 12/23/21 [Rx Last Taken 03/12/22] nitroglycerin 0.4 mg sublingual tablet 0.4 mg SUBLINGUAL Q5-15M PRN #25 tab 02/05/22 [Rx Last Taken Unknown] isosorbide mononitrate 30 mg tablet,extended release 24 hr 30 mg PO DAILY #30 tab 03/12/22 [Rx Last Taken Unknown] diazepam [Valium] 5 mg PO TID PRN 5 Days #15 tab 03/30/22 [Rx Last Taken Unknown] ticagrelor [Brilinta] 90 mg PO BID 03/30/22 [History Last Taken Unknown] Allergy/AdvReac Type Severity Reaction Status Date / Time sertraline [From Zoloft] Allergy Unknown Verified 03/30/22 02:44 simvastatin [From Zocor] Allergy Unknown Verified 03/30/22 02:44 lisinopril AdvReac Unknown unknown Verified 03/30/22 02:44 Family History Mother CAD (coronary artery disease) Diabetes Brother CAD (coronary artery disease) Brother CAD (coronary artery disease) Diabetes Surgical History History of cholecystectomy History of hysterectomy Stented coronary artery (07/21/16) Social History Smoking Status: Never smoker ROS ROS ED Constitutional Constitutional ED: Denies chills or fever(s) ENT ENT ED: Denies sore throat Cardiovascular Cardiovascular: Denies chest pain Respiratory/Chest Respiratory/Chest: Denies cough or dyspnea Gastrointestinal Gastrointestinal: Denies abdominal pain, diarrhea, nausea or vomiting Genitourinary Genitourinary ED: Denies dysuria Musculoskeletal Musculoskeletal: Reports back pain, myalgias and neck pain Integumentary Denies rash Neurologic Neurologic: Denies headache(s) Hematologic/Lymphatic Hematologic/Lymphatic: Reports easy bleeding and easy bruising EXAM Physical Exam Const Vital Signs: 03/30/22 02:41 03/30/22 02:45 Temperature 97.2 F L Temperature Source Temporal Pulse Rate 76 Respiratory Rate 13 Respiratory Pattern Normal Blood Pressure 147/78 H Blood Pressure Mean 101 Pulse Ox 97 Oxygen Delivery Method Room Air Positive well nourished and well developed General Appearance ED: well developed Eyes PERRL and EOMs intact bilaterally Neck Neck Narrative: No bony deformity or step-off of the cervical spine no midline pain on palpation. There is bilateral paracervical tension and spasm noted that worsens with palpation. No meningeal signs Resp normal respiratory effort and clear to auscultation bilaterally Cardio regular rate and regular rhythm Rate: other Other Details: Radial pulses are plus 2 out of 4 bilaterally are equal and symmetric GI normal to inspection, nondistended, normoactive bowel sounds, non-tender, non- distended and no masses GI Narrative: No voluntary guarding or rigidity no pulsatile mass Auscultation: normoactive bowel sounds Palpation: soft Extremity normal to inspection Extremity Narrative: No asymmetric edema no pitting edema negative Homans' sign bilaterally Neuro oriented x3 and CN's II-XII intact bilaterally Sensorium / Orientation: alert Motor Exam: strength 5/5 throughout Psych Mood & Affect: anxious Skin no rashes or lesions noted Skin Narrative: No overlying soft tissue changes to suggest trauma or infection MDM MDM MDM Narrative Medical decision making narrative: Patient presented to the ER slightly hypertensive but does have a history of this and otherwise had stable vitals. She is recently underwent a cardiac work-up with stress test and echo. These results were reviewed and showed a preserved ejection fraction and overall chronic changes consistent with her previous IN. At this time her symptoms appear to be related more to anxiety and muscle tension/spasm. We discussed possible blood work and EKG because of her medical history but patient states that she is already had a work-up for her heart and knows that she needs to see the specialist and does not feel that repeat evaluation at this time would be helpful. Therefore she was given IM Toradol and Norflex because of the muscle tension and spasm as well as oral Valium. On reevaluation she has improvement of symptoms. Therefore as her history and exam is most consistent with muscle tension from anxiety and her vitals are stable I do not feel there is need for further work-up. Patient be placed on Valium to act as both a anoxia lytic and muscle relaxer to help get her through until she can see her specialist but is otherwise safe for discharge. Discharge Plan Triage Chief Complaint: Other, Pain/Inj ED Provider: Tr Hernadez Dx/Rx/DC Orders Clinical Impression: Anxiety, Essential hypertension, Muscle spasm Instructions: Anxiety Disorders Tx Therapy, ED Muscle Spasm Prescriptions: New diazepam [Valium] 5 mg tablet 5 mg PO TID PRN (Reason: anxiety/muscle spasm) 5 Days Qty: 15 RF: 0 No Action cholecalciferol (vitamin D3) 2,000 unit capsule 2,000 unit PO DAILY RF: 0 nitroglycerin 0.4 mg tablet, sublingual 0.4 mg SUBLINGUAL Q5-15M PRN (Reason: Chest Pain) Qty: 25 RF: 1 aspirin 81 MG tablet,chewable 81 mg PO DAILY RF: 0 Brilinta 90 mg tablet 90 mg PO BID RF: 0 amlodipine 2.5 mg tablet 2.5 mg PO DAILY Qty: 90 RF: 3 atorvastatin 40 mg tablet 40 mg PO QHS Qty: 90 RF: 3 esomeprazole magnesium [Nexium 24HR] 20 mg capsule,delayed release(DR/EC) 20 mg PO DAILY Qty: 90 RF: 3 metoprolol succinate 50 mg tablet extended release 24 hr 50 mg PO DAILY Qty: 90 RF: 3 isosorbide mononitrate 30 mg tablet extended release 24 hr 30 mg PO DAILY Qty: 30 RF: 12 Primary Care Provider: Brianna Mcconnell Referrals: Brianna Mcconnell MD [Primary Care Provider] - Disposition Disposition: Home, Self Care
[2022-03-30] MEDS: Orphenadrine 60 MG/2 ML Ampul IM (03:22)
[2022-03-30] MEDS: diazePAM 5 MG Tablet 2.5 MG PO (03:22)
[2022-03-30] MEDS: Ketorolac 15 MG/ML Vial IM (03:22)
[2022-03-30 04:23] VITALS: BP 142/74; PULSE 74; RESP 17; O2SAT 98
== END 2022-03-30 04:26 | disposition home or self-care (01) ==
PROVIDERS: Emergency Provider Emergency Medicine; PCP Internal Medicine; Visit Provider Emergency Medicine
DX: F41.9 Anxiety disorder, unspecified (principal); M62.838 Other muscle spasm; I10 Essential (primary) hypertension; I25.10 Atherosclerotic heart disease of native coronary artery without angina pectoris; E78.5 Hyperlipidemia, unspecified; I25.2 Old myocardial infarction; Z79.02 Long term (current) use of antithrombotics/antiplatelets; Z79.899 Other long term (current) drug therapy; Z79.82 Long term (current) use of aspirin
CPT/HCPCS: 96372; 99283

== ENCOUNTER 2022-03-31 17:26 | Emergency (ER) | payer MEDICARE, OTHER, SELFPAY ==
[2022-03-31 17:26] VITALS: BP 144/73; PULSE 76; RESP 15; TEMP 36; O2SAT 97; BMI 26.9
--- NOTE | 2022-03-31 19:34 | EDS_ITS ---
HPI History of Present Illness Chief Complaint: Other, Pain/Inj Informant: patient Onset/Context/Timing Onset: Days (3) Context: Gradual Onset Timing: Continuous Quality: Stabbing Location: Neck Worsened by: Movement Relieved by: Nothing Narrative Narrative: Patient presents with neck pain and headache that has been constant for the past 3 days. Patient was seen here in the emergency department recently and had injections in her neck which helped on the left but not on the right. Patient describes her pain as stabbing. Patient states it is worse with certain movements. Patient denies any paresthesias or weakness. Patient states the pain radiates into her shoulders bilaterally and into her head. Patient states she was given a prescription for Valium which has not been helping. [facility] Medical History Abnormal ECG during exercise stress test Atherosclerotic heart disease of [place] coronary artery without angina pectoris Chest pain Essential hypertension 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) History of left heart catheterization (LHC) (~03/12/22) Hyperlipidemia Syncope and collapse Home Medications aspirin 81 mg PO DAILY 03/12/16 [History Last Taken 03/12/22] cholecalciferol (vitamin D3) 50 mcg (2,000 unit) capsule 2,000 unit PO DAILY 04/22/19 [History Last Taken Unknown] amlodipine 2.5 mg tablet 2.5 mg PO DAILY #90 tab 12/23/21 [Rx Last Taken 03/12/22] atorvastatin 40 mg tablet 40 mg PO QHS #90 tab 12/23/21 [Rx Last Taken Unknown] esomeprazole magnesium 20 mg capsule,delayed release 20 mg PO DAILY #90 cap 12/23/21 [Rx Last Taken Unknown] metoprolol succinate 50 mg tablet,extended release 24 hr 50 mg PO DAILY #90 tab 12/23/21 [Rx Last Taken 03/12/22] nitroglycerin 0.4 mg sublingual tablet 0.4 mg SUBLINGUAL Q5-15M PRN #25 tab 02/05/22 [Rx Last Taken Unknown] isosorbide mononitrate 30 mg tablet,extended release 24 hr 30 mg PO DAILY #30 tab 03/12/22 [Rx Last Taken Unknown] ticagrelor [Brilinta] 90 mg PO BID 03/30/22 [History Last Taken Unknown] cyclobenzaprine 10 mg PO QHS PRN PRN #20 tablet 03/31/22 [Rx Last Taken Unknown] Allergy/AdvReac Type Severity Reaction Status Date / Time sertraline [From Zoloft] Allergy Unknown Verified 03/31/22 19:11 simvastatin [From Zocor] Allergy Unknown Verified 03/31/22 19:11 lisinopril AdvReac Unknown unknown Verified 03/31/22 19:11 Family History Mother CAD (coronary artery disease) Diabetes Brother CAD (coronary artery disease) Brother CAD (coronary artery disease) Diabetes Surgical History History of cholecystectomy History of hysterectomy Stented coronary artery (07/21/16) Social History Smoking Status: Never smoker ROS ROS ED Constitutional Constitutional ED: Denies chills or fever(s) Eyes Eyes: Denies blurry vision or change in vision ENT ENT ED: Denies rhinorrhea or sore throat Cardiovascular Cardiovascular: Denies chest pain or palpitations Respiratory/Chest Respiratory/Chest: Denies cough or dyspnea Gastrointestinal Gastrointestinal: Denies nausea or vomiting Genitourinary Genitourinary ED: Denies dysuria or hematuria Musculoskeletal Musculoskeletal: Reports neck pain; Denies back pain Integumentary Denies abscess or rash Neurologic Neurologic: Reports headache(s); Denies weakness Allergic/Immunologic Allergic/Immunologic ED: Denies mouth swelling or urticaria EXAM Physical Exam Const Vital Signs: 03/31/22 17:26 03/31/22 19:12 Temperature 96.8 F L Temperature Source Temporal Pulse Rate 76 Respiratory Rate 15 Respiratory Effort Normal Blood Pressure 144/73 H Blood Pressure Mean 96 Pulse Ox 97 Oxygen Delivery Method Room Air Positive well nourished and well developed General Appearance ED: well developed and NAD HEENT Reports moist mucous membranes Neck Neck Narrative: There is tenderness over the cervical spine paraspinal muscles. There is no edema or ecchymosis. There is no bony crepitance or step-off. Range of motion was limited in all motions of the cervical spine secondary to pain. Strength is 5/5 bilaterally upper extremities. There are no sensory deficits noted. Radial pulses are equal bilateral. Resp normal respiratory effort and clear to auscultation bilaterally Cardio regular rate and regular rhythm Back/Spine Cervical Spine: cervical spine tenderness Neuro oriented x3, CN's II-XII intact bilaterally and no sensory deficits noted Sensorium / Orientation: alert Motor Exam: strength 5/5 throughout Psych mental status grossly normal MDM MDM MDM Narrative Medical decision making narrative: X-rays of the cervical spine were obtained. There are 3 views. On my interpretation, there is no acute fracture or spondylolisthesis. There are degenerative changes noted. Radiologist also interpreted the x-rays and agrees. Patient was instructed to stop taking her Valium. Patient was given a prescription for Flexeril to take at bedtime. Patient was instructed to use moist heat to the area. Patient was instructed to follow-up with her primary care physician in 3-5 days. Patient understood and was agreeable with the plan. All questions were answered. Radiography Diagnostic Testing: Clinical Impression(s) from Imaging Studies Cervical Spine X-Ray 03/31/22 19:50 IMPRESSION: Multilevel degenerative changes. Electronically Signed: Cornelius Barrow MD ([place]) at 20:15 EDT Reading Location ID and State: [facility] / [place] , Service support , Discharge Plan Triage Chief Complaint: Other, Pain/Inj ED Provider: Leland Gerardo Dx/Rx/DC Orders Clinical Impression: Acute cervical myofascial strain, Muscle spasm Instructions: ED Neck Sprain or Strain, ED Neck Spasm, No Trauma Prescriptions: New cyclobenzaprine [cyclobenzaprine] 10 MG tablet 10 mg PO QHS PRN PRN (Reason: Muscle Spasm) Qty: 20 RF: 0 Discontinued diazepam [Valium] 5 mg tablet 5 mg PO TID PRN (Reason: anxiety/muscle spasm) 5 Days Qty: 15 RF: 0 No Action cholecalciferol (vitamin D3) 2,000 unit capsule 2,000 unit PO DAILY RF: 0 nitroglycerin 0.4 mg tablet, sublingual 0.4 mg SUBLINGUAL Q5-15M PRN (Reason: Chest Pain) Qty: 25 RF: 1 aspirin 81 MG tablet,chewable 81 mg PO DAILY RF: 0 Brilinta 90 mg tablet 90 mg PO BID RF: 0 amlodipine 2.5 mg tablet 2.5 mg PO DAILY Qty: 90 RF: 3 atorvastatin 40 mg tablet 40 mg PO QHS Qty: 90 RF: 3 esomeprazole magnesium [Nexium 24HR] 20 mg capsule,delayed release(DR/EC) 20 mg PO DAILY Qty: 90 RF: 3 metoprolol succinate 50 mg tablet extended release 24 hr 50 mg PO DAILY Qty: 90 RF: 3 isosorbide mononitrate 30 mg tablet extended release 24 hr 30 mg PO DAILY Qty: 30 RF: 12 Primary Care Provider: Brianna Mcconnell Referrals: Brianna Mcconnell MD [Primary Care Provider] - 3-5 Days Disposition Disposition: Home, Self Care
--- NOTE | 2022-03-31 19:50 | RAD_ITS ---
STUDY: X-RAY - CERVICAL SPINE REASON FOR EXAM: Female, 76 years old. MUSCLE NECK SORENESS. NO INJURY. VERY STIFF NECK. TECHNIQUE: 3 view(s) of the cervical spine were obtained. COMPARISON: None FINDINGS: Normal anterior atlantoaxial articulation. Normal odontoid process. There is straightening of the normal cervical lordosis. There is multi-level endplate spondylosis. There is multi-level degenerative disc disease with multilevel disc space narrowing and uncovertebral hypertrophy. No spondylolisthesis. The soft tissue structures are unremarkable. RAD/Cerv Spine 2 or 3 Views IMPRESSION: Multilevel degenerative changes. Electronically Signed: Cornelius Barrow MD ([place]) at 20:15 EDT ,
[2022-03-31] MEDS: Morphine 4 MG/ML Syringe IM (20:00)
--- NOTE | 2022-03-31 21:17 | ED.RN ---
Patient has not set up follow-up with pcp AND states she will do it if the pain is not better in a few days. states this is because she is focused on her heart appts and has that follow up soon at [facility].
[2022-03-31 21:29] VITALS: PULSE 74; RESP 17
== END 2022-03-31 21:30 | disposition home or self-care (01) ==
PROVIDERS: Emergency Provider Emergency Medicine; PCP Internal Medicine; Visit Provider Emergency Medicine
DX: S16.1XXA Strain of muscle, fascia and tendon at neck level, initial encounter (principal); M62.838 Other muscle spasm; X58.XXXA Exposure to other specified factors, initial encounter; I25.10 Atherosclerotic heart disease of native coronary artery without angina pectoris; I10 Essential (primary) hypertension; E78.5 Hyperlipidemia, unspecified; Z79.82 Long term (current) use of aspirin; Z95.5 Presence of coronary angioplasty implant and graft
CPT/HCPCS: 72040; 90471; 96372; 99284; A4216

== ENCOUNTER → 2022-07-01 | Outpatient (CLI) | payer MEDICARE, OTHER, SELFPAY ==
--- NOTE | 2022-07-01 08:06 | CR.ITP_ITS ---
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 Personal Learning Style:: Audio/Visual, Written Barriers to Learning: Vision Impairment Stage of change r/t lifestyle modifications:: Contemplation Gave educational material for:: Treating Heart Disease, Emotions & Heart Disease, Stress Management & Relaxation, Sleep Disorders & Heart Disease, How The Heart Works, What it means to have Heart Disease, How Coronary Artery Disease is Diagnosed, Heart Procedures, What Heart Medications Do, Risk Factors & Modifications, Living an Active Life, Nutrition - Education/Goals Individual Counseling: Initial Assessment: Abnormal Cholesterol Levels, High Blood Pressure Cardiac Rehabilitation Goals: 1. Maintain the individual as the primary focus of care. 2. To improve the patient's quality of life. 3. Identification of cardiac risk factors and provide cardiac risk factor management. 4. Enhance the psychosocial status of the patient. 5. Reconditioning enough to allow the patient to resume customary activities. 6. Control symptoms of cardiac disease Personal Goals: Initial Assessment: Get back to work, or to resume activities faster, Improve muscle strength and endurance Scale for measuring improvement of personal goals: Enter appropriate number in Comments. 2 = Unchanged. 3 = Slightly Better. 4 = Moderate Improvement. 5 = Met my Goal - Diagnosis & Disease Process Outcomes/Goals: Pt IDs own risk factors & lifestyle modifications by Session 10, Verbalizes symptoms of angina & response by session 3., Pt independently manages Plan/Interventions: Assist Pt to ID & engage in lifestyle modification to reduce CVD risk, Instruct on individual risk factors, Review symptoms of angina & emergency actions, Review secondary diagnosis & identify educational needs. - Safety Referral to Physical Therapy: No Referral to [facility] Case Management: No Fall Risk Assessed:: Yes Assistive Devices:: None Exercise - Initial Assessment - Visit Date of Eval: 07/01/22 Session #:: 0 - Pre-cardiac rehab evaluation Mets: Pre-: >7 METS for 30 minutes by discharge - Physician Prescribed Exercise Modalities: Treadmill, Airdyne, NuStep Frequency: 3x/week for 12 weeks [36 sessions] Intensity: 60-80% of age predicted maximum heart rate reserve Target Heart Rate:: 93-121 Resting Blood Pressure: 110/68 EKG Type: Normal Sinus Rhythm Current Physical Activity or Exercising minutes: Physically Active daily - Outcomes & Goals Goals:: Verbalizes understanding of THR, RPE & goal METS by session 6, Documents in home exercise log/reports 30 min aerobic 5 day/wk by DC, Demonstrates accurate pulse taking by DC - Intervention & Plan Exercise Program Goals: Instruct on personal THR & RPE, Instruct on MET level & personal MET goal, Show patient to take own pulse /validate performance until accurate, Instruct on home exercise - Physical Activity Home Exercise Physical Activity - Home Exercise: Safe Exercise, Warm-up, Self-monitoring, Cool-Down, Home Exercise > 30 min Daily, Sitting Time <3 hours/daily - Outcomes & Goals Outcomes/Goals: Demonstrates correct Warm-up/exercise Cool-Down (S3) if = 2.5 METs, Verbalizes symptoms of exercise intolerance by Session 3 (S3), Demonstrate safe equipment use (S3) & follows exercise prescrition (6) - Intervention & Plan Plan/Intervention: Instruct warm-up & cool-down if exercising at > 2 METs, Instruct on symptoms of exercise intolerance & actions to take, Instruct & monitor on saf, Assess intial functional capacity & safety risk Nutrition - Initial Assessment - Program Goals Nutrition Program Goals: LDL <100 optimal. 100 - 129 Near optimal. 130 - 159 Borderline High. 160 - 189 High. Total Cholesterol <200 desirable. 200 - 239 Borderline High. >/= 240 High. HDL < 40 Low >/=60 High. Triglycerides <150 desirable. <199 optimal. VlDL 5 - 40. HgbA1C <7%. BMI <25 Patient has diagnosis of Hyperlipidemia (ICD E78)?: Yes - Visit Date of Assessment:: 07/01/22 Session #:: 0 - Pre-cardiac rehab evaluation - Cholesterol/Lipids Triglycerides (mg/dL): 67 Total Cholesterol (mg/dL): 132 LDL Cholesterol (mg/dL): 59 HDL Cholesterol (mg/dL): 60 Lipid Medication: Atorvastatin Determine presence & major risk factors that modify LDL goal: Hypertension or hypertensive medication, Family history of premature CHD in Male < 55 years: female <65 yearsFa, Age men > 45 years; women >/= 55 years Outcomes/Goals: Pt IDs own risk factors & lifestyle modifications by Session 10, Verbalizes symptoms of angina & response by session 3., Pt independently manages Intervention/Plan: Instruct on personal lipid levels & lipid goals/NCEP guidelines, Instruct on cholesterol Referral to dietitian:: Yes - Diabetes (Other Core Measures) Diabetes Type: Not Applicable - Weight Mgt (Other Care) Not Applicable: Yes Height: 5 ft 3 in Weight:: 152 lb BMI: 26.9 Diagnosis Overweight/Obesity BMI> 30% ICD-10 E66: No Diagnosis High BMI/Morbid Obesity BMI> 35% ICD-10 Z68: No Outcomes/Goals: Pt sets, maintains & shows weight loss goal & trend during rehab Intervention/Plan: Instruct on ideal BMI & set weight loss goal w/patient - Healthy Eating Habits Will attend diet classes:: Yes Outcomes/Goals:: Consume diet rich in vegs,fruits,whole grain/high fiber,fish,lean meat, Limit sat/trans fats,cholesterol & added salts & sugars Intervention/Plan:: Assess current eating habits - Education Gave educational materials for:: Healthy eating Nutrition - 30-Day Assessment Nutrition - 60-Day Assessment Nutrition - 90-Day Assessment Nutrition - Final Assessment Medical - Initial Assessment - Visit Date of Eval: 07/01/22 Session #:: 0 - Pre-cardiac rehab evaluation - Medication Compliance Preventative Medication(s):: Aspirin, Statin/lipid, Beta siena H/O mental health issues: depression, anxiety, or addiction?: No Doesn?t believe in the benefits of treatment?: No Believes medications are unnecessary or harmful?: No Has a concern about medication side effects?: No Expresses concern over the cost of medications?: No Outcomes/Goals: Verbalizes medications,desired effect & common side effects @ DC, Pt self-reports following medication regimen, Keeps card in wallet w/medications listed by DC Interventions/plans: Instruct on medication effects & side effects, Review medication list w/patient every two weeks, Instruct importance of taking meds as ordered & assist problem solving - Tobacco Use Tobacco Use: Non-smoker - Hypertension Hypertension Diagnosis:: Hypertension ICD-10 I10 Resting Blood Pressure:: 110/68 [place] [employer] Hypertension Guidelines: [place] [employer] Hypertension Guidelines. Normal BP Less than 120/80. Elevated BP 120/80. Hypertension Stage 1: BP 130-139/80-89. Hypertesnion Stage 2: BP 140 or higher/90 or higher. Hypertension Crisis: BP higher than 180/120 Outcomes/Goals: Able to verbalize/achieve optimal blood pressure <130/80, Incorporates diet changes & exercise for blood pressure control by DC Interventions/plan: Instruct on optimal blood pressure, hypertension & medi cations, Instruct on effects of sodium, alcohol, stress, exercise &hypertension - Tobacco Cessation Referral Smoking Cessation Referral:: No Individual Education/Counseling:: No Education Schedule Given:: Yes Medical- 30-Day Assessment Medical- 60-Day Assessment Medical- 90-Day Assessment Medical - Final Assessment Psychosocial - Initial Assess - VIsit Date of Eval: 07/01/22 Session #:: 0 - Pre-cardiac rehab evaluation Not Applicable: Yes History of previous Mental disease:: No - Psychosocial Test Tool Used:: [employer] Power QOL Cardiac, PHQ-9 Questionnaire phq-9 Severity: Severity. 1-4 Minimal Depression. 5-9 Mild Depression. 10-14 Moderate Depression. 15-19 Moderately Sever Depression. 20-27 Severe Depression. Rule: - Referral to Behavioral Health PS - Interventions: Yes Attend Stress Management Classes, No Referral to Behavioral Health if PHQ-9 score >9:, No Referral to [facility], No Referral to Physician if PHQ-9 if score is 5-9: - Outcomes/Goals: See list Psychosocial Outcomes/Goals:: ID's personal stressors & 2 strategies to manage stress by discharge - Intervention/Plan: See List Interventions/Plan:: Assess stressors,coping strategies & signs of derpression on admission, Instruct/assist pt to develop coping & personal stress Mgt stra tegies, Instruct patient to recognize signs & symptoms of depression, Instruct patient to recog Psychosocial - 30-Day Assess Psychosocial - 60-Day Assess Psychosocial - 90-Day Assess Psychosocial - Final Assessmen Patient Health Questionnaire Initial Assessment 1. Little interest or pleasure in doing things: Not at all 2. Feeling down, depressed, or hopeless: Not at all 3. Trouble falling or staying asleep, or sleeping too much: Several days 4. Feeling tired or having little energy: Several days 5. Poor appetite or overeating: Not at all 6. Feeling bad about yourself -- or that you are a failure or have let yourself or your family down: Not at all 7. Trouble concentrating on things, such as reading the newspaper or watching television: Not at all 8. Moving or speaking so slowly that other people could have noticed. Or the opposite - being so fidgety or restless that you have been moving around a lot more than usual: Not at all 9. Thoughts that you would be better off , or of hurting yourself in some way: Not at all Total Score: 2 MIGUEL-Q SV Test - Statements CAD is a disease of the arteries in the heart: False Examples of risk factors for heart disease: True Angina is chest pain or discomfort: True The benefits of resistance training include: True Eating more meat and dairy products: I Don't Know Anti-platelet medications such as aspirin are important: I Don't Know The only effective way to manage stress: I Don't Know An exercise warm-up slowly increases heart rate: I Don't Know Prepared, processed foods usually have high sodium: I Don't Know Depression is common after a heart attack: I Don't Know The statin medications lower cholesterol: I Don't Know To control blood pressure, lower the amount of sodium: I Don't Know If someone gets chest discomfort during walking: False Transfats are partially hydrogenated vegetable oils: True Sleep apnea that is not treated increases the risk: True To control cholesterol, one should become a vegetarian: False Someone knows if he/she is exercising at the right level: True Diabetes cannot be prevented with exercise & health eating: True Stress is a large risk for heart attack: True A diet that can help lower blood pressure is rich in: True - Total Score Total Correct Responses: 10 Self-Efficacy Initial Assessment We would like to know how confident you are in doing certain activities. Please select your confidence level for:: Select your confidence level for the following using the scale 1-10 where 1 is not at all confident and 10 is totally confident. Your score is the average of all 6 responses. Fatigue: How confident are you that you can keep the fatigue caused by your disease from interfering with the things you want to do? Select Number: 8 Physical Discomfort or Pain: How confident are you that you can keep the physical discomfort or pain of your disease from interfering with the things you want to do? Select Number: 8 Emotional Distress: How confident are you that you can keep the emotional distress caused by your disease from interfering with the things you want to do? Select Number: 8 Other Symptoms or Health Problems: How confident are you that you can keep other symptoms or health problems from interfering with the things you want to do? Select Number: 9 Different Tasks and Activities: How confident are you that you can do the different tasks and activities needed to manage your health condition so as to reduce your need to see a doctor? Select Number: 8 Medication: How confident are you that you can do things other than just taking medication to reduce how much your illness affects your everyday life? Select Number: 9 Total Score:: 8 Nutrition Survey - Nutrition Survey Initial Have you lost >10 lbs over the past 2 months without trying?: No Are you following a special diet at home for diabetes, low fat, or low salt?: No Are you interested in meeting with a dietitian for help understanding your diet?: No Do you eat less than 3 meals a day?: No Do you eat fatty meats (husain, sausage, ribs, etc), fried foods, desserts, large amounts of salad dressings, margarine, butter, or cheese most days?: No Do you have food allergies? [Enter types in comment field]: No Do you eat in restaurants more than 3 times a week?: No Do you season food with salt, seasoning salt, or garlic salt?: No Do you used canned, boxed, frozen meals, or soups, seasoning packets?: No Total Score:: 0
--- NOTE | 2022-07-01 08:06 | PCM.CR.HP2 ---
CR - History & Physical - General Arrival date:: 07/01/22 Arrival time:: 08:00 Date of Referral:: 06/25/22 - Previously referred 05/13/22 and declined at that time Date of CR Evaluation:: 07/01/22 Referring Physician: Dr. Chirag Brothers Primary Diagnosis: S/P CABG - History of Present Cardiac Event Onset Date: Enter Onset Date of cardiac illnesses in Comment field below Acute Myocardial Infarction within 12 months:: Yes - anterior wall UT 07/21/2016 w/cardiac arrest Coronary Artery Bypass Graft:: Yes - 05/13/22 GARZA to LAD, SVG to OM1, SVG to OM2, SVG to PDA PTCA or coronary stenting:: Yes - LAD PCI 07/21/2016 @ [facility] Type of Symptoms:: Syncope and collapse, periods of dizziness, a lot of fatigue and lack of energy Interventions with present event:: heart cath and recommended surgery at [facility] Were there any complications?: None, recovering well. She wants to do CR but not sure she wants 12 weeks - Sleep Disorder Evaluation Hx of Sleep Apnea: No Do you snore loudly (louder than talking or can be heard through closed doors)?: No Do you often feel tired/ fatigued/ sleepy during daytime?: No Has anyone observed you stop breathing during sleep?: No History of Hypertension (for STOP score): Yes STOP Results: Negative - Medications Home Medications: Ambulatory Orders Medication Instructions Recorded aspirin 81 mg chewable tablet 81 mg PO DAILY 03/12/16 cholecalciferol (vitamin D3) 50 2,000 unit PO DAILY 04/22/19 mcg (2,000 unit) capsule atorvastatin 40 mg tablet 40 mg PO QHS #90 tabs 12/23/21 nitroglycerin 0.4 mg sublingual 0.4 mg sublingual Q5-15M PRN Chest 02/05/22 tablet Pain #25 tabs acetaminophen 500 mg tablet 500 mg PO Q6H PRN 06/24/22 esomeprazole magnesium 20 mg 20 mg PO DAILY PRN 06/24/22 capsule,delayed release (Nexium 24HR) metoprolol tartrate 50 mg tablet 50 mg PO DAILY 06/24/22 - Allergies Allergies/Adverse Reactions: Allergies sertraline [From Zoloft] Allergy (Verified 06/24/22 13:09) Unknown simvastatin [From Zocor] Allergy (Verified 06/24/22 13:09) Unknown lisinopril Adverse Reaction (Unknown, Verified 06/24/22 13:09) unknown Advanced Directives - Advanced Directives Living Will: Yes Advance Directives Information Provided: No Advance Directives on File: No - not sure but thinks it may be DNR Order?:: No - MOLST See MOLST form: No Past Medical History - Covid-19 Screening Fever: No Unexplained muscle aches: No Current respiratory symptoms: No Upper respiratory infections symptoms: No Gastro-intestinal symptoms: No Nwp-Tcps-[id number] symptoms: No Has tested positive for COVID-19 in last 30 days: No Date of testin07/01/22 - had vaccines and one booster Had contact w/person w/symptoms or Covid-19 (+) last 14 days: No Has High Risk Exposures ID'd by Health dept/Inf Control team: No 65 years or older:: Yes Lives in Assisted Living facility:: No Has a chronic lung disease or moderate to severe asthma:: No Has a serious heart condition:: Yes Immunocompromised:: No Severely obese (Body Mass Index of 40 or higher):: No Diabetic:: No Has chronic kidney disease undergoing dialysis:: No Has liver disease:: No - Past Medical Illness Medical History: Past Medical History (Last Reviewed 06/24/22 @ 13:39 by Maira Hinkle PA, PA) Abnormal ECG during exercise stress test R94.31 Atherosclerotic heart disease of [place] coronary artery without angina pectoris I25.10 Stent to LAD (2.5 X 14 [place])07/25/[address] Raj Rizzo @ [facility]; and again 07/21/2016 (Promus Premier 2.75 X 38 mm) per Dr. Samuel Brooks @ [facility]. Also, 40% tubular stenosis noted in proximal to mid RCA per [facility] 07/21/16. Chest pain R07.9 Essential hypertension I10 History of anterior wall myocardial infarction Onset Date: 07/21/16 I25.2 X2:07/25/08 and again on 07/21/16 (2nd event= v-fib arrest, resuscitated) History of left heart catheterization (LHC) Onset Date: ~03/12/22 Z98.890 LEFT MAIN: Mild calcification; LEFT ANTERIOR DESCENDING ARTERY: OSTIAL LAD: 85 % Stenosis; PROX LAD: Mild calcification MID LAD: Previously placed stent is patent; CIRCUMFLEX ARTERY: Mild luminal irregularities; RIGHT CORONARY ARTERY: Severe calcification, Mild luminal irregularities MID RCA: eccentric: 50 % Stenosis; RECOMMENDATION: Surgery consult for coronary revascularization per cardiac cath 03/12/22 Hyperlipidemia E78.5 Syncope and collapse R55 - Past Surgical History Surgical History: Past Surgical History (Last Reviewed 06/24/22 @ 13:17 by Julia Gabriel) History of cholecystectomy Z90.49 History of coronary artery bypass surgery Onset Date: ~05/13/22 Z95.1 CABG x4- GARZA to side mid LAD, SVG to side OM1, SVG to side OM2, SVG to side PDA Dr. Lakhani CF [facility] 05/13/22 History of hysterectomy Z90.710 Stented coronary artery Onset Date: 07/21/16 Z95.5 Stent to LAD (2.5 X 14 [place])07/25/[address] Raj Rizzo @ [facility]; and again 07/21/2016 (Promus Premier 2.75 X 38 mm) per Dr. Samuel Brooks @ [facility]. 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 Left click = Reports ([place]) Review of Present Symptoms: Reports: Wound Healing, Dizziness/Lightheadedness - Recently this Thursday had a syncopal episode while working outside in the heat. Most likely from the heat, was checked out by squad., Fatigue, Appetite - Normal - okay, but have always eaten small meals., Sleep - Normal. Denies: Shortness of Breath with Exertion, Angina, Heart Arrhythmia/Irregularities, Appetite - Special Diet - do try to watch salt intake, Sexual Changes - Pain Is Patient Pain Free?: Yes Pain Location: none, lower extremity - Right leg still has some minor swelling and nerve pain in the right leg from the vein grafting Pain Level: 0/10 Risk Factor Assessment - Chief Complaint Chief Complaint: 77yr old female patient of Dr. Brothers presents to cardiac rehab following S/P CABG on 05/13/2022. She is recovering well. She initially declined CR previously, but would now like to do a few weeks of CR. She is not sure she would like to do the full 12 weeks. She has done CR before following her Stent to the LAD at the [facility]. - Vital Signs Temperature: 97.1 F Respiratory Rate: 16 Pulse Ox: 96 Blood Pressure: 110/68 - Pulse Pulse Rate: 76 - Hypertension How long have you been treated?: 20 maybe longer since about the age of 49; family history of hypertension On medication(s)?: Yes; Blood Pressure Sitting - Left Arm: 110/68 - Stress Stress: - - Frustration; since January and the surgery etc. escalating issues, just want it to be done. - Blood Cholesterol/Lipids Total Cholesterol (mg/dL) Goal = less than 200 mg/dL: 132 HDL Cholesterol (mg/dL) Goal = less than 40 mg/dL: 60 LDL Cholesterol (mg/dL) Goal = less than 70 mg/dL: 59 Triglycerides (mg/dL) Goal = less than 150 mg/dL: 67 - Obesity Height: 5 ft 3 in Weight:: 152 lb Weight in Pounds: 152.0 lbs Weight Source: Estimated by Patient Body Mass Index (BMI): 26.9 Nutritional Referral for Obesity: No - Physical Inactivity Physical Inactivity: Reg Exercise 30 min/day - Risk Stratification Risk Guidelines: Lowest Risk: Risk Factor for Smoking, Risk Factor for Dyslipidemia, Risk Factor for Diabetes, Risk Factor for Obesity, Risk Factor for Hypertension, Risk Factor for Sedentary Lifestyle, Risk Factor for Depression - Family History Family History: Family History (Last Reviewed 06/24/22 @ 13:17 by Julia Gabriel) Mother CAD (coronary artery disease) Diabetes Brother CAD (coronary artery disease) Brother CAD (coronary artery disease) Diabetes Motivation - Motivation to Participate On a scale of 1 to 10, how prepared are you to commit to attending program?: 8 - Agreeable to [address] Deneen bailey maybe quit at 6 weeks. May consider the full 12 weeks. What do you see as barriers to successfully being able to complete the program?: none What do you see as the benefits of succesfully completing the program? In other words, what do you hope to get out of participating in the program?: Identify issues, being able to know limits, getting back to normal activity Are there issues you are dealing with that will interfere with completing the program?: nerve pain in right leg from vein grafting- regular Do you have a spouse or signficant other, family or friends who will help support you to complete the program?: Yes
[2022-07-01 09:01] VITALS: BP 110/68; PULSE 76; RESP 16; TEMP 36.2; O2SAT 96; BMI 26.9
[2022-07-01 10:11] VITALS: BP 110/68; BMI 26.9
== END | disposition home or self-care (01) ==
LOC: CR 07:52
PROVIDERS: PCP Internal Medicine; Referring Provider Internal Medicine Cardiovascular Disease; Visit Provider Internal Medicine Cardiovascular Disease
DX: Z00.00 Encounter for general adult medical examination without abnormal findings (principal)

== ENCOUNTER 2022-07-23 09:30 | Outpatient (RCR) | payer MEDICARE, OTHER, SELFPAY ==
[2022-07-01 10:11] VITALS: BMI 26.9
--- NOTE | 2022-07-04 09:39 | PCM.CR.ITP ---
Diagnosis Nutrition - Initial Assessment Nutrition - 30-Day Assessment Nutrition - 60-Day Assessment Nutrition - 90-Day Assessment Nutrition - Final Assessment Medical - Initial Assessment Medical- 30-Day Assessment Medical- 60-Day Assessment Medical- 90-Day Assessment Medical - Final Assessment Psychosocial - Initial Assess Psychosocial - 30-Day Assess Psychosocial - 60-Day Assess Psychosocial - 90-Day Assess Psychosocial - Final Assessmen Nutrition Survey
== END 2022-07-23 23:59 ==
LOC: CR 09:30
PROVIDERS: PCP Internal Medicine; Referring Provider Internal Medicine Cardiovascular Disease; Visit Provider Internal Medicine Cardiovascular Disease
DX: I25.10 Atherosclerotic heart disease of native coronary artery without angina pectoris (principal); Z95.1 Presence of aortocoronary bypass graft
CPT/HCPCS: 93798

== ENCOUNTER → 2022-08-06 | Outpatient (CLI) | payer MEDICARE, OTHER, SELFPAY ==
[2022-07-31 07:33] VITALS: BMI 26.9
[2022-08-06 09:49] LABS: AST(SGOT) 17 U/L (15-37); Alanine Aminotransfer ALT/SGPT 19 U/L (13-56); Albumin, Serum 3.4 g/dL (3.2-5.0); Alkaline Phosphatase 107 U/L (45-117); Bilirubin, Direct 0.13 mg/dL (0.00-0.30); Cholesterol 108 mg/dL (200); Globulin 4.1 g/dL (2.2-4.2); High Density Lipoprotein 49 mg/dL; Protein, Total 7.5 g/dL (6.4-8.2); Triglycerides 52 mg/dL; Very Low Density Lipoprotein 10 mg/dL (5-40)
== END | disposition home or self-care (01) ==
LOC: LAB 08:02
PROVIDERS: PCP Internal Medicine; Referring Provider Nurse Practitioner Family; Visit Provider Nurse Practitioner Family
DX: E78.5 Hyperlipidemia, unspecified (principal)
CPT/HCPCS: 36415; 80061; 80076

== ENCOUNTER 2022-08-22 09:30 | Outpatient (RCR) | payer MEDICARE, OTHER, SELFPAY ==
[2022-07-01 10:11] VITALS: BMI 26.9
--- NOTE | 2022-07-31 07:16 | CR.ITP_ITS ---
Diagnosis Exercise - 30-day Assessment - Visit Date of Eval: 07/31/22 Session #:: 12 - Physician Prescribed Exercise Modalities: Treadmill, Airdyne, NuStep Frequency: 3x/week for 12 weeks [36 sessions] Intensity: 60-80% of age predicted maximum heart rate reserve Duration: 30 - 45 minutes Current METSs:: 4.0 Target Heart Rate:: 93-121 Current RPE:: 12-13 Maximum Excercise HR:: 106 Resting Blood Pressure: 100/62 Maximum Exercise Blood Pressure: 122/68 EKG Type: NSR to sinus tach with rare PAC, PVC Current Physical Activity or Exercising minutes: 40:24 - Outcomes & Goals Goals:: Verbalizes understanding of THR, RPE & goal METS by session 6, Documents in home exercise log/reports 30 min aerobic 5 day/wk by DC, Demonstrates accurate pulse taking by DC Comment:: Patient is able to verbalize importance of exercising in THRR - Intervention & Plan Exercise Program Goals: Instruct on personal THR & RPE, Instruct on MET level & personal MET goal, Show patient to take own pulse /validate performance until accurate, Instruct on home exercise Comment:: Keith return demonstration of pulse taking skill - 30-day Reassessments 30 day Reassessments:: Progressing - Physical Activity Home Exercise Physical Activity - Home Exercise: Safe Exercise, Warm-up, Self-monitoring, Cool-Down, Home Exercise > 30 min Daily, Sitting Time <3 hours/daily - Outcomes & Goals Outcomes/Goals: Demonstrates correct Warm-up/exercise Cool-Down (S3) if = 2.5 METs, Verbalizes symptoms of exercise intolerance by Session 3 (S3), Demonstrate safe equipment use (S3) & follows exercise prescrition (6) - Intervention & Plan Plan/Intervention: Instruct warm-up & cool-down if exercising at > 2 METs, Instruct on symptoms of exercise intolerance & actions to take, Instruct & monitor on saf, Assess intial functional capacity & safety risk - 30-day Reassessments 30 day Reassessments:: Progressing Reassessment Notes & Comments:: Patient is able to safely operate equipment and follow her exercise prescription w/o assistance Nutrition - Initial Assessment Nutrition - 30-Day Assessment - Program Goals Nutrition Program Goals: LDL <100 optimal. 100 - 129 Near optimal. 130 - 159 Borderline High. 160 - 189 High. Total Cholesterol <200 desirable. 200 - 239 Borderline High. >/= 240 High. HDL < 40 Low >/=60 High. Triglycerides <150 desirable. <199 optimal. VlDL 5 - 40. HgbA1C <7%. BMI <25 Patient has diagnosis of Hyperlipidemia (ICD E78)?: Yes - Visit Date of Assessment:: 07/31/22 Session #:: 12 - No recent labs drawn since admitting to [facility] - Cholesterol/Lipids Determine presence & major risk factors that modify LDL goal: Hypertension or hypertensive medication, Age men > 45 years; women >/= 55 years Outcomes/Goals: Pt IDs own risk factors & lifestyle modifications by Session 10, Verbalizes symptoms of angina & response by session 3., Pt independently manages Additional outcomes/goals: Patient taking statin medication regularly. Intervention/Plan: Instruct on personal lipid levels & lipid goals/NCEP guidelines, Instruct on cholesterol Referral to dietitian:: Yes - Medical Nutrition therapy 30-day Reassessments:: Progressing - Diabetes (Other Core Measures) Diabetes Type: Not Applicable - Weight Mgt (Other Care) Not Applicable: Yes Height: 5 ft 3 in Weight:: 152 lb BMI: 26.9 Diagnosis Overweight/Obesity BMI> 30% ICD-10 E66: No Diagnosis High BMI/Morbid Obesity BMI> 35% ICD-10 Z68: No Intervention/Plan: Instruct on ideal BMI & set weight loss goal w/patient 30 day Reassessments:: Met Reassessment Notes & Comments:: patient at appropriate BMI - Healthy Eating Habits Will attend diet classes:: Yes Outcomes/Goals:: Consume diet rich in vegs,fruits,whole grain/high fiber,fish,lean meat, Limit sat/trans fats,cholesterol & added salts & sugars Intervention/Plan:: Assess current eating habits 30-day Reassessments:: Met Reassessment Notes & Comments:: patient at appropriate BMI Nutrition - 60-Day Assessment Nutrition - 90-Day Assessment Nutrition - Final Assessment Core - Initial Assessment Core - 30-Day Assessment - Visit Date of Eval: 07/31/22 Session #:: 12 - Medication Compliance Preventative Medication(s):: Aspirin, Statin/lipid, Beta siena H/O mental health issues: depression, anxiety, or addiction?: No Doesn?t believe in the benefits of treatment?: No Believes medications are unnecessary or harmful?: No Has a concern about medication side effects?: No Expresses concern over the cost of medications?: No Outcomes/Goals: Verbalizes medications,desired effect & common side effects @ DC, Pt self-reports following medication regimen, Keeps card in wallet w/medications listed by DC Comments:: Patient follows prescription medications and is able to verbalize medication safety. Interventions/plans: Instruct on medication effects & side effects, Review medication list w/patient every two weeks, Instruct importance of taking meds as ordered & assist problem solving Comment: Patient follows prescription medications and is able to verbalize medication safety. 30-day Reassessments:: Met - Tobacco Use Tobacco Use: Non-smoker - Hypertension Hypertension Diagnosis:: Hypertension ICD-10 I10 Resting Blood Pressure:: 100/62 [place] [employer] Hypertension Guidelines: [place] [employer] Hypertension Guidelines. Normal BP Less than 120/80. Elevated BP 120/80. Hypertension Stage 1: BP 130-139/80-89. Hypertesnion Stage 2: BP 140 or higher/90 or higher. Hypertension Crisis: BP higher than 180/120 Peak Exercise Blood Pressure:: 164/80 Outcomes/Goals: Able to verbalize/achieve optimal blood pressure <130/80, Incorporates diet changes & exercise for blood pressure control by DC Interventions/plan: Instruct on optimal blood pressure, hypertension & medications, Instruct on effects of sodium, alcohol, stress, exercise &hypertension 30 day Reassessments:: Met Reassessment Notes & Comments:: With medication, patient is controlling BPs - Tobacco Cessation Referral Smoking Cessation Referral:: No Individual Education/Counseling:: No Education Schedule Given:: Yes - Patient participating in group education classes Core - 60-Day Assessment Core - 90 Day Assessment Core - Final Assessment Psychosocial - Initial Assess Psychosocial - 30-Day Assess - VIsit Date of Eval: 07/31/22 Session #:: 12 Not Applicable: Yes History of previous Mental disease:: No - Psychosocial Test Tool Used:: PHQ-9 Questionnaire phq-9 Severity: Severity. 1-4 Minimal Depression. 5-9 Mild Depression. 10-14 Moderate Depression. 15-19 Moderately Sever Depression. 20-27 Severe Depression. Rule: - Referral to Behavioral Health PS - Interventions: Yes Attend Stress Management Classes, No Referral to Behavioral Health if PHQ-9 score >9:, No Referral to [facility], No Referral to Physician if PHQ-9 if score is 5-9: - Outcomes/Goals: See list Psychosocial Outcomes/Goals:: ID's personal stressors & 2 strategies to manage stress by discharge - Intervention/Plan: See List Interventions/Plan:: Assess stressors,coping strategies & signs of derpression on admission, Instruct/assist pt to develop coping & personal stress Mgt strategies, Instruct patient to recognize signs & symptoms of depression, Instruct patient to recog - 30-day Reassessments: 30 day Reassessments:: Met Reassessment Notes & Comments:: Patient utilizes stress & relaxation techniques. Psychosocial - 60-Day Assess Psychosocial - 90-Day Assess Psychosocial - Final Assessmen Patient Health Questionnaire 30-Day Re-eval Assessment 1. Little interest or pleasure in doing things: Not at all 2. Feeling down, depressed, or hopeless: Not at all 3. Trouble falling or staying asleep, or sleeping too much: Not at all 4. Feeling tired or having little energy: Not at all 5. Poor appetite or overeating: Not at all 6. Feeling bad about yourself -- or that you are a failure or have let yourself or your family down: Not at all 7. Trouble concentrating on things, such as reading the newspaper or watching television: Not at all 8. Moving or speaking so slowly that other people could have noticed. Or the opposite - being so fidgety or restless that you have been moving around a lot more than usual: Not at all 9. Thoughts that you would be better off , or of hurting yourself in some way: Not at all How difficult have these problems made it for you to do your work, take care of things at home, or get along with other people?: Not difficult at all Total Score: 0 Self-Efficacy 30-Day Re-eval Assessment We would like to know how confident you are in doing certain activities. Please select your confidence level for:: Select your confidence level for the following using the scale 1-10 where 1 is not at all confident and 10 is totally confident. Your score is the average of all 6 responses. Fatigue: How confident are you that you can keep the fatigue caused by your disease from interfering with the things you want to do? Select Number: 9 Physical Discomfort or Pain: How confident are you that you can keep the physical discomfort or pain of your disease from interfering with the things you want to do? Select Number: 9 Emotional Distress: How confident are you that you can keep the emotional distress caused by your disease from interfering with the things you want to do? Select Number: 9 Other Symptoms or Health Problems: How confident are you that you can keep other symptoms or health problems from interfering with the things you want to do? Select Number: 9 Different Tasks and Activities: How confident are you that you can do the different tasks and activities needed to manage your health condition so as to reduce your need to see a doctor? Select Number: 9 Medication: How confident are you that you can do things other than just taking medication to reduce how much your illness affects your everyday life? Select Number: 9 Total Score:: 9 Nutrition Survey
[2022-07-31 07:33] VITALS: BP 100/62; BP 164/80; BMI 26.9
== END 2022-08-22 23:59 ==
LOC: CR 09:30
PROVIDERS: PCP Internal Medicine; Referring Provider Internal Medicine Cardiovascular Disease; Visit Provider Internal Medicine Cardiovascular Disease
DX: I25.10 Atherosclerotic heart disease of native coronary artery without angina pectoris (principal); Z95.1 Presence of aortocoronary bypass graft
CPT/HCPCS: 93798

== ENCOUNTER 2022-09-12 09:30 | Outpatient (RCR) | payer MEDICARE, OTHER, SELFPAY ==
[2022-07-31 07:33] VITALS: BMI 26.9
[2022-08-23 01:36] VITALS: BP 100/62; BP 164/80
--- NOTE | 2022-09-01 11:16 | PCM.CR.ITP ---
Diagnosis Exercise - 60-day Assessment - Visit Date of Eval: 09/01/22 Session #:: 25 - Physician Prescribed Exercise Modalities: Treadmill, Rower, Airdyne, NuStep, SciFit, Lateral [place] Frequency: 3x/week for 12 weeks [36 sessions] Intensity: 60-80% of age predicted maximum heart rate reserve Current METSs:: 4.5 Target Heart Rate:: 93-121 Current RPE:: 12-16 Maximum Excercise HR:: 118 Resting Blood Pressure: 102/58 Maximum Exercise Blood Pressure: 144/80 - Outcomes & Goals Goals:: Verbalizes understanding of THR, RPE & goal METS by session 6, Documents in home exercise log/reports 30 min aerobic 5 day/wk by DC, Demonstrates accurate pulse taking by DC, Other additional outcome/goals: see below - Intervention & Plan Exercise Program Goals: Instruct on personal THR & RPE, Instruct on MET level & personal MET goal, Show patient to take own pulse /validate performance until accurate, Instruct on home exercise, Other additional plan/int - 30-day Reassessments 30 day Reassessments:: Progressing - METS explained - Physical Activity Home Exercise Physical Activity - Home Exercise: Safe Exercise, Warm-up, Self-monitoring, Cool-Down, Home Exercise > 30 min Daily, Sitting Time <3 hours/daily - Outcomes & Goals Outcomes/Goals: Demonstrates correct Warm-up/exercise Cool-Down (S3) if = 2.5 METs, Verbalizes symptoms of exercise intolerance by Session 3 (S3), Demonstrate safe equipment use (S3) & follows exercise prescrition (6), Other: See below - Intervention & Plan Plan/Intervention: Instruct warm-up & cool-down if exercising at > 2 METs, Instruct on symptoms of exercise intolerance & actions to take, Instruct & monitor on saf, Assess intial functional capacity & safety risk, Other See below - 30-day Reassessments 30 day Reassessments:: Progressing - safe exercise explained Nutrition - Initial Assessment Nutrition - 30-Day Assessment Nutrition - 60-Day Assessment - Program Goals Nutrition Program Goals: LDL <100 optimal. 100 - 129 Near optimal. 130 - 159 Borderline High. 160 - 189 High. Total Cholesterol <200 desirable. 200 - 239 Borderline High. >/= 240 High. HDL < 40 Low >/=60 High. Triglycerides <150 desirable. <199 optimal. VlDL 5 - 40. HgbA1C <7%. BMI <25 Patient has diagnosis of Hyperlipidemia (ICD E78)?: Yes - Visit Date of Assessment:: 09/01/22 Session #:: 25 - Cholesterol/Lipids (Other Core Measures) Determine presence & major risk factors that modify LDL goal: Hypertension or hypertensive medication, Low HDL cholesterol <40 mg/dL*, Family history of premature CHD in Male < 55 years: female <65 yearsFa, Age men > 45 years; women >/= 55 years Outcomes/Goals: Pt IDs own risk factors & lifestyle modifications by Session 10, Verbalizes symptoms of angina & response by session 3., Pt independently manages, Other Additional Outcomes/Goals: Intervention/Plan: Advocate for lipid panel cholesterol medication if applicable, Instruct on personal lipid levels & lipid goals/NCEP guidelines, Instruct on cholesterol, Other additional plan/int 30-day Reassessments:: Progressing - labs encouraged - Diabetes (Other Core Measures) Diabetes Type: Not Applicable - Weight Mgt (Other Care) Height: 5 ft 3 in Weight:: 68.266 kg BMI: 26.6 Diagnosis Overweight/Obesity BMI> 30% ICD-10 E66: No Diagnosis High BMI/Morbid Obesity BMI> 35% ICD-10 Z68: No Outcomes/Goals: Pt sets, maintains & shows weight loss goal & trend during rehab, Other additional outcomes/goals Intervention/Plan: Instruct on ideal BMI & set weight loss goal w/patient, Assist pt to ID & incorporate diet changes for weight loss by S9, Refer to Structured Weight Loss program as appropriate, Encourage goal of using 250-300dcal per session for weight loss, Other additional plan/interventions 30 day Reassessments:: Progressing - nutrition referral - Healthy Eating Habits Will attend diet classes:: Yes Outcomes/Goals:: Consume diet rich in vegs,fruits,whole grain/high fiber,fish,lean meat, Limit sat/trans fats,cholesterol & added salts & sugars, Other additional outcome/goals: Intervention/Plan:: Assess current eating habits, Other Additional plan/interventions 30-day Reassessments:: Progressing - nutrition referral - Education Gave educational materials for:: Signs & symptoms of hypoglycemia, Signs & symptoms of hyperglycemia, Relate diabetes to coronary artery disease, Healthy eating Nutrition - 90-Day Assessment Nutrition - Final Assessment Core - Initial Assessment Core - 30-Day Assessment Core - 60-Day Assessment - Visit Date of Eval: 09/01/22 Session #:: 25 - Medication Compliance Preventative Medication(s):: Aspirin, Statin/lipid, Beta siena H/O mental health issues: depression, anxiety, or addiction?: No Doesn?t believe in the benefits of treatment?: No Believes medications are unnecessary or harmful?: No Has a concern about medication side effects?: No Expresses concern over the cost of medications?: No Outcomes/Goals: Verbalizes medications,desired effect & common side effects @ DC, Pt self-reports following medication regimen, Keeps card in wallet w/medications listed by DC, Other additional outcome/goals: Interventions/plans: Instruct on medication effects & side effects, Review medication list w/patient every two weeks, Instruct importance of taking meds as ordered & assist problem solving, Other additional 30-day Reassessments:: Progressing - encouragfed to take meds properly - Tobacco Use Tobacco Use: Non-smoker Do you use smokeless tobacco?: No - Hypertension Hypertension Diagnosis:: Hypertension ICD-10 I10 Resting Blood Pressure:: 102/58 [place] [employer] Hypertension Guidelines: [place] [employer] Hypertension Guidelines. Normal BP Less than 120/80. Elevated BP 120/80. Hypertension Stage 1: BP 130-139/80-89. Hypertesnion Stage 2: BP 140 or higher/90 or higher. Hypertension Crisis: BP higher than 180/120 Peak Exercise Blood Pressure:: 144/80 Outcomes/Goals: Able to verbalize/achieve optimal blood pressure <130/80, Incorporates diet changes & exercise for blood pressure control by DC, Other additional outcomes/goals Interventions/plan: Instruct on optimal blood pressure, hypertension & medications, Instruct on effects of sodium, alcohol, stress, exercise &hypertension, Other additional plan/interventions 30 day Reassessments:: Progressing - encourageed to take meds - Tobacco Cessation Referral Smoking Cessation Referral:: No Individual Education/Counseling:: No Education Schedule Given:: Yes Core - 90 Day Assessment Core - Final Assessment Psychosocial - Initial Assess Psychosocial - 30-Day Assess Psychosocial - 60-Day Assess - VIsit Date of Eval: 09/01/22 Session #:: 25 History of previous Mental disease:: No Psychosocial - 90-Day Assess Psychosocial - Final Assessmen Patient Health Questionnaire 60-Day Re-eval Assessment 1. Little interest or pleasure in doing things: Not at all 2. Feeling down, depressed, or hopeless: Not at all 3. Trouble falling or staying asleep, or sleeping too much: Not at all 4. Feeling tired or having little energy: Not at all 5. Poor appetite or overeating: Not at all 6. Feeling bad about yourself -- or that you are a failure or have let yourself or your family down: Not at all 7. Trouble concentrating on things, such as reading the newspaper or watching television: Not at all 8. Moving or speaking so slowly that other people could have noticed. Or the opposite - being so fidgety or restless that you have been moving around a lot more than usual: Not at all 9. Thoughts that you would be better off , or of hurting yourself in some way: Not at all How difficult have these problems made it for you to do your work, take care of things at home, or get along with other people?: Not difficult at all Total Score: 0 Self-Efficacy 60-Day Re-eval Assessment We would like to know how confident you are in doing certain activities. Please select your confidence level for:: Select your confidence level for the following using the scale 1-10 where 1 is not at all confident and 10 is totally confident. Your score is the average of all 6 responses. Fatigue: How confident are you that you can keep the fatigue caused by your disease from interfering with the things you want to do? Select Number: 9 Physical Discomfort or Pain: How confident are you that you can keep the physical discomfort or pain of your disease from interfering with the things you want to do? Select Number: 9 Emotional Distress: How confident are you that you can keep the emotional distress caused by your disease from interfering with the things you want to do? Select Number: 9 Other Symptoms or Health Problems: How confident are you that you can keep other symptoms or health problems from interfering with the things you want to do? Select Number: 9 Different Tasks and Activities: How confident are you that you can do the different tasks and activities needed to manage your health condition so as to reduce your need to see a doctor? Medication: How confident are you that you can do things other than just taking medication to reduce how much your illness affects your everyday life? Nutrition Survey
[2022-09-01 11:22] VITALS: BP 102/58; BP 144/80; BMI 26.6
== END 2022-09-22 23:59 ==
LOC: CR 09:30
PROVIDERS: PCP Internal Medicine; Referring Provider Internal Medicine Cardiovascular Disease; Visit Provider Internal Medicine Cardiovascular Disease
DX: I25.10 Atherosclerotic heart disease of native coronary artery without angina pectoris (principal); Z95.1 Presence of aortocoronary bypass graft
CPT/HCPCS: 93798

== ENCOUNTER → 2023-02-13 | Outpatient (CLI) | payer MEDICARE, OTHER, SELFPAY ==
[2022-09-01 11:22] VITALS: BMI 26.6
[2023-02-13 10:54] LABS: AST(SGOT) 23 U/L (15-37); Alanine Aminotransfer ALT/SGPT 21 U/L (13-56); Albumin, Serum 3.6 g/dL (3.2-5.0); Alkaline Phosphatase 97 U/L (45-117); Bilirubin, Direct 0.16 mg/dL (0.00-0.30); Cholesterol 118 mg/dL (200); Globulin 3.9 g/dL (2.2-4.2); High Density Lipoprotein 57 mg/dL; Protein, Total 7.5 g/dL (6.4-8.2); Triglycerides 70 mg/dL; Very Low Density Lipoprotein 14 mg/dL (5-40)
== END | disposition home or self-care (01) ==
LOC: LAB 08:46
PROVIDERS: PCP Internal Medicine; Referring Provider Physician Assistant Medical; Visit Provider Physician Assistant Medical
DX: E78.00 Pure hypercholesterolemia, unspecified (principal)
CPT/HCPCS: 36415; 80061; 80076

== ENCOUNTER → 2023-03-16 | Outpatient (CLI) | payer MEDICARE, OTHER, SELFPAY ==
[2022-09-01 11:22] VITALS: BMI 26.6
--- NOTE | 2023-03-16 14:06 | STRESSREP ---
Stress Test Report Exercise myocardial perfusion stress test. 77-year-old lady with a history of chest pain Stress protocol: Resting EKG demonstrates normal sinus rhythm with a rate of 70 bpm resting blood pressure is 136/70 mmHg. The patient exercised according to the regular Jose protocol for a total duration of 6 minutes attaining a maximum heart rate of 137 bpm which was 96% of maximum predicted heart rate; the maximum workload was 7 metabolic equivalents. At rest there were no ST or T wave changes noted to suggest ischemia and at peak exercise upsloping ST changes only were noted which did not meet the criteria for ischemia. No clinical angina was noted the test was terminated due to the target heart rate being achieved/fatigue. The peak blood pressure was 130/72 mmHg. Rate-pressure product was 23,200. Myocardial perfusion protocol. 11.7 mCi of technetium 99m sestamibi was injected at rest. The patient exercised according to regular Jose protocol for total duration of 6 minutes and at peak exercise 33.6 mCi of technetium 99m sestamibi was injected stress images were obtained stress and rest images were reconstructed in comparing the short axis vertical long and horizontal long axis. Gated images were also obtained. Perfusion SPECT analysis: Review of the stress images demonstrate normal uptake of tracer noted in all areas of the myocardium. There is a defect however noted in the apex on the stress images. The resting images similarly demonstrate normal uptake of tracer noted in all areas of the myocardium, except the apex which has a small area of a defect. No areas of reversibility are noted to suggest ischemia, and a previous apical infarct is present. Gated SPECT analysis: The gated ejection fraction is 68%. Conclusion: Normal exercise myocardial perfusion stress test at a moderate workload. Previous apical infarct is noted Preserved ejection fraction.
== END | disposition home or self-care (01) ==
LOC: CVS 06:46
PROVIDERS: PCP Internal Medicine; Referring Provider Nurse Practitioner Gerontology; Visit Provider Nurse Practitioner Gerontology
DX: R07.9 Chest pain, unspecified (principal); Z95.1 Presence of aortocoronary bypass graft
CPT/HCPCS: 78452; 93017; A9500; A4216

== ENCOUNTER → 2023-07-29 | Outpatient (CLI) | payer MEDICARE, OTHER, SELFPAY ==
[2022-09-01 11:22] VITALS: BMI 26.6
[2023-07-29 09:47] LABS: Hematocrit 47.5 % (37-47); Hemoglobin 15.3 g/dL (12.0-15.0); Mean Corp Hgb Conc 32.2 g/dL (32-36); Mean Corpuscular Hgb 27.6 pg (27.0-32.0); Mean Corpuscular Volume 85.6 fL (81-99); Mean Platelet Vol. 10.8 fl (6.2-12.0); Platelet Count 233 K/mm3 (150-450); RBC Distribution Width CV 13.6 % (11.6-14.6); RBC Distribution Width SD 42.5 fl (35.1-43.9); Red Blood Count 5.55 M/mm3 (4.2-5.4)
[2023-07-29 10:24] LABS: Bilirubin, Direct 0.17 mg/dL (0.00-0.30); Cholesterol 120 mg/dL (200); High Density Lipoprotein 56 mg/dL; Triglycerides 80 mg/dL; Very Low Density Lipoprotein 16 mg/dL (5-40)
[2023-07-29 11:12] LABS: Hemoglobin A1c 5.7 % (3.8-5.6)
== END | disposition home or self-care (01) ==
PROVIDERS: PCP Internal Medicine; Referring Provider Physician Assistant Medical; Visit Provider Physician Assistant Medical
DX: I12.9 Hypertensive chronic kidney disease with stage 1 through stage 4 chronic kidney disease, or unspecified chronic kidney disease (principal); N18.31 Chronic kidney disease, stage 3a; E78.5 Hyperlipidemia, unspecified; R73.03 Prediabetes
CPT/HCPCS: 36415; 80061; 82248; 83036; 85027

== ENCOUNTER 2023-08-21 04:05 | Emergency (ER) | payer MEDICARE, OTHER, SELFPAY ==
[2022-09-01 11:22] VITALS: BMI 26.6
[2023-08-21 04:06] VITALS: BP 184/82; PULSE 67; RESP 18; TEMP 35.6; O2SAT 98; BMI 27.6
[2023-08-21 05:02] LABS: Bacteria 0 SEEN /hpf (None Seen); Color, Urine Yellow (Yellow); Glucose, Dipstick Normal (Normal); Ketone-Dipstick Negative (Negative); Leukocyte Esterase-Dipstick 100 /ul (Negative); Mucous, Urine 0 SEEN /hpf (<or=2+); Nitrite-Dipstick Negative (Negative); Occult Blood-Urine Negative /ul (Negative); Protein-Dipstick 15 mg/dl (Negative); Red Blood Cells-Urine 0 SEEN /hpf (0-5); Urine Bilirubin Dipstick Negative (Negative); Urine Clarity Clear (Clear); Urine Urobilinogen Normal (Normal)
--- NOTE | 2023-08-21 05:06 | EDS_ITS ---
HPI History of Present Illness Chief Complaint: Complaint Informant: patient and spouse/S.O. Narrative Narrative: Patient is a 78-year-old female with past medical history of CAD hypertension hyperlipidemia. She states that she was treated for a urinary tract infection on July 29. She states she was treated with Keflex and did feel like symptoms improved while she was on the medication. However she states that after stopping it she has had return of a burning sensation in the genital region with lower abdominal pain. She states that she was also placed on a prescription cream that she rubs on the vaginal tissue as this appears to be sore as well. She denies any lesions. She states that despite doing this she still had persistent burning and has concerned that the UTI may be returning and therefore comes in for evaluation. [facility] Medical History Abnormal ECG during exercise stress test Atherosclerotic heart disease of [place] coronary artery without angina pectoris Chest pain Essential hypertension 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) History of left heart catheterization (LHC) (~03/12/22) Hyperlipidemia Syncope and collapse Home Medications aspirin 81 mg chewable tablet 81 mg PO DAILY 03/12/16 [History Last Taken 03/12/22] cholecalciferol (vitamin D3) 50 mcg (2,000 unit) capsule 2,000 unit PO DAILY 04/22/19 [History Last Taken Unknown] acetaminophen 500 mg tablet 500 mg PO Q6H PRN pain 06/24/22 [History Last Taken Unknown] nitroglycerin 0.4 mg sublingual tablet 0.4 mg sublingual Q5-15M PRN Chest Pain #25 tabs 08/11/22 [Rx Last Taken Unknown] atorvastatin 40 mg tablet 40 mg PO QHS #90 tabs 02/19/23 [Rx Last Taken Unknown] metoprolol succinate 50 mg tablet,extended release 24 hr 50 mg PO DAILY #90 tabs 02/19/23 [Rx Last Taken Unknown] phenazopyridine 200 mg tablet (Pyridium) 200 mg PO TID 3 days #9 tabs 08/21/23 [Rx Last Taken Unknown] Allergy/AdvReac Type Severity Reaction Status Date / Time sertraline [From Zoloft] Allergy Unknown Verified 08/21/23 04:06 simvastatin [From Zocor] Allergy Unknown Verified 08/21/23 04:06 lisinopril AdvReac Unknown unknown Verified 08/21/23 04:06 Family History (Reviewed 08/03/23 @ 09:24 by Brittany Gutierrez INSULATION BATTING MACHINE OPERATOR, INSULATION BATTING MACHINE OPERATOR-C) Mother CAD (coronary artery disease) Diabetes Brother CAD (coronary artery disease) Brother CAD (coronary artery disease) Diabetes Surgical History (Reviewed 08/03/23 @ 09:24 by Brittany Gutierrez INSULATION BATTING MACHINE OPERATOR, INSULATION BATTING MACHINE OPERATOR-C) History of cholecystectomy History of coronary artery bypass surgery (~05/13/22) History of hysterectomy Stented coronary artery (07/21/16) Social History Smoking Status: Never smoker alcohol intake: never substance use type: does not use caffeine: No ROS ROS ED Constitutional Constitutional ED: Denies chills or fever(s) ENT ENT ED: Denies sore throat Cardiovascular Cardiovascular: Denies chest pain Respiratory/Chest Respiratory/Chest: Denies cough or dyspnea Gastrointestinal Gastrointestinal: Reports abdominal pain; Denies diarrhea, nausea or vomiting Genitourinary Genitourinary ED: Reports dysuria; Denies hematuria or urinary frequency Musculoskeletal Musculoskeletal: Reports back pain Integumentary Denies rash Neurologic Neurologic: Denies headache(s) Hematologic/Lymphatic Hematologic/Lymphatic: Denies easy bleeding or easy bruising EXAM Physical Exam Const Vital Signs: 08/21/23 04:06 Temperature 96.1 F L Temperature Source Temporal Pulse Rate 67 Respiratory Rate 18 Blood Pressure 184/82 H Blood Pressure Mean 116 Pulse Ox 98 Oxygen Delivery Method Room Air Positive well nourished and well developed General Appearance ED: well developed HEENT HEENT Narrative: Normocephalic atraumatic Eyes PERRL and EOMs intact bilaterally General Eye ED: Negative for scleral icterus Neck supple Resp normal respiratory effort and clear to auscultation bilaterally Cardio regular rate and regular rhythm Rate: other Other Details: Radial and carotid pulses are equal and symmetric GI non-distended and no masses GI Narrative: Abdomen is soft and nondistended with normoactive bowel sounds. There is mild pain to palpation in the suprapubic region without voluntary guarding or rigidity. No organomegaly noted. No pulsatile mass or fluid wave. Auscultation: normoactive bowel sounds Palpation: soft Narrative: Patient has mild excoriation of the labial [place] consistent with vulvovaginitis. No obvious abscess or cellulitis noted. No physical exam findings suggest Kevon's gangrene. Back/Spine no CVA tenderness Extremity normal to inspection Neuro oriented x3, CN's II-XII intact bilaterally and no sensory deficits noted Sensorium / Orientation: alert Motor Exam: strength 5/5 throughout Psych mental status grossly normal Skin no rashes or lesions noted MDM MDM MDM Narrative Medical decision making narrative: Patient presented to ER hypertensive which she has a past medical history of and otherwise with stable vitals. With her report of burning in the genital region there is concern for retained or new urinary tract infection. There is also concern for allergic or chemical urethritis or even potential vulvovaginitis. Patient could also have soft tissue skin infection such as cellulitis or herpes. Based on her stable vitals and lack of flank pain I do not feel need for laboratory testing other than a urine sample at this time. The urine sample shows 100 leukocyte esterase but no bacteria and there is mild contamination with 5-10 epithelial cells. The patient's general exam reveals mild soft tissue irritation consistent with a vulvovaginitis but no secondary findings of infection such as cellulitis abscess or Kevon's gangrene. Therefore at this time patient be given Pyridium to help with the burning sensation while urine culture is pending but do not feel need for antibiotics as no bacteria was noted on today's urine sample. History & Record Review Discussion w/independent historian: Patient and Significant other Lab Data Attestation: I reviewed the patient's lab results. Labs: Laboratory Results - last 24 hr 08/21/23 04:20 Urine Color Yellow Urine Clarity Clear Urine pH 7.0 Ur Specific [place] 1.010 Urine Protein 15 H Urine Glucose (UA) Normal Urine Ketones Negative Urine Occult Blood Negative Urine Nitrite Negative Urine Bilirubin Negative Urine Urobilinogen Normal Ur Leukocyte Esterase 100 H Urine RBC 0 SEEN Urine WBC 0-5 SEEN Ur Squamous Epith Cells 5-10 SEEN Urine Bacteria 0 SEEN Urine Mucus 0 SEEN Discharge Plan Triage Chief Complaint: Complaint ED Provider: Tr Hernadez Dx/Rx/DC Orders Clinical Impression: Dysuria, Essential hypertension, History of anterior wall myocardial infarction Instructions: ED Dysuria, Uncertain Cause (Adult), ED Urethritis Infec Vs Inflam ... Prescriptions: New phenazopyridine [Pyridium] 200 mg tablet 200 mg PO TID 3 Days Qty: 9 0RF No Action cholecalciferol (vitamin D3) 2,000 unit capsule 2,000 unit PO DAILY nitroglycerin 0.4 mg tablet, sublingual 0.4 mg SUBLINGUAL Q5-15M PRN (Reason: Chest Pain) Qty: 25 3RF metoprolol succinate 50 mg tablet extended release 24 hr 50 mg PO DAILY Qty: 90 3RF atorvastatin 40 mg tablet 40 mg PO QHS Qty: 90 3RF aspirin 81 MG tablet,chewable 81 mg PO DAILY Patient Comments: Heart health acetaminophen 500 mg tablet 500 mg PO Q6H PRN (Reason: pain) Primary Care Provider: Brianna Mcconnell Referrals: Brianna Mcconnell MD [Primary Care Provider] - Activity Restrictions/Additional Instructions: Your urine sample showed no bacteria today. The urine be sent for culture because of your persistent pain with urination however. If the culture grows out infection you will be notified and placed on an antibiotic. If you develop a fever over 100.4 or have any further concerns or worsening symptoms please return to the ER for repeat evaluation. It typically takes 48 to 72 hours for culture to result Disposition Disposition: Home, Self Care
[2023-08-21 05:10] LABS: Squamous Epithelial Cells - UA 5-10 SEEN /hpf (5-10); White Blood Cells 0-5 SEEN /hpf (0-5)
[2023-08-21] MEDS: Phenazopyridine 95 MG Tablet 190 MG PO (06:14)
[2023-08-21 06:44] VITALS: BP 156/61; PULSE 78; RESP 18
== END 2023-08-21 06:45 | disposition home or self-care (01) ==
PROVIDERS: Emergency Provider Emergency Medicine; PCP Internal Medicine; Visit Provider Emergency Medicine
DX: R30.0 Dysuria (principal); I25.10 Atherosclerotic heart disease of native coronary artery without angina pectoris; I10 Essential (primary) hypertension; R10.30 Lower abdominal pain, unspecified; E78.5 Hyperlipidemia, unspecified; Z79.82 Long term (current) use of aspirin; Z79.899 Other long term (current) drug therapy
CPT/HCPCS: 81001; 87086; 87088; 99282

== ENCOUNTER → 2024-02-15 | Outpatient (CLI) | payer MEDICARE, OTHER, SELFPAY ==
[2022-09-01 11:22] VITALS: BMI 26.6
[2024-02-15 10:21] LABS: AST(SGOT) 20 U/L (15-37); Alanine Aminotransfer ALT/SGPT 17 U/L (13-56); Albumin, Serum 3.6 g/dL (3.2-5.0); Alkaline Phosphatase 102 U/L (45-117); Bilirubin, Direct 0.34 mg/dL (0.00-0.30); Cholesterol 113 mg/dL (200); Globulin 3.6 g/dL (2.2-4.2); High Density Lipoprotein 56 mg/dL; Protein, Total 7.2 g/dL (6.4-8.2); Triglycerides 61 mg/dL; Very Low Density Lipoprotein 12 mg/dL (5-40)
== END | disposition home or self-care (01) ==
LOC: LAB 08:23
PROVIDERS: PCP Internal Medicine; Referring Provider Physician Assistant Medical; Visit Provider Physician Assistant Medical
DX: E78.00 Pure hypercholesterolemia, unspecified (principal)
CPT/HCPCS: 36415; 80061; 80076

== ENCOUNTER → 2024-10-10 | Outpatient (CLI) | payer MEDICARE, OTHER, SELFPAY ==
[2022-09-01 11:22] VITALS: BMI 26.6
[2024-10-10 11:36] LABS: AST(SGOT) 17 U/L (15-37); Alanine Aminotransfer ALT/SGPT 20 U/L (13-56); Albumin, Serum 3.7 g/dL (3.2-5.0); Alkaline Phosphatase 118 U/L (45-117); Bilirubin, Direct 0.19 mg/dL (0.00-0.30); Cholesterol 117 mg/dL (200); High Density Lipoprotein 56 mg/dL; Protein, Total 7.7 g/dL (6.4-8.2); Triglycerides 82 mg/dL; Very Low Density Lipoprotein 16 mg/dL (5-40)
== END | disposition home or self-care (01) ==
PROVIDERS: PCP Internal Medicine; Referring Provider Physician Assistant Medical; Visit Provider Physician Assistant Medical
DX: E78.00 Pure hypercholesterolemia, unspecified (principal)
CPT/HCPCS: 36415; 80061; 80076

== ENCOUNTER → 2025-07-28 | Outpatient (CLI) | payer MEDICARE, OTHER, SELFPAY ==
[2022-09-01 11:22] VITALS: BMI 26.6
[2025-07-28 10:34] LABS: AST(SGOT) 23 U/L (<=31); Alanine Aminotransfer ALT/SGPT 15 U/L (<=34); Albumin, Serum 4.1 g/dL (3.4-4.8); Alkaline Phosphatase 99 U/L (35-104); Bilirubin, Direct 0.32 mg/dL (0.00-0.30); Cholesterol 116 mg/dL (<=200); Globulin 3.1 g/dL (2.2-4.2); Low Density Lipoprotein Calc. 46 mg/dL; Triglycerides 60 mg/dL; Very Low Density Lipoprotein 12 mg/dL (5-40); cholesterol:hdl ratio screen 2.00
== END | disposition home or self-care (01) ==
LOC: LAB 09:18
PROVIDERS: PCP Internal Medicine; Referring Provider Nurse Practitioner Gerontology; Visit Provider Nurse Practitioner Gerontology
DX: E78.00 Pure hypercholesterolemia, unspecified (principal)
CPT/HCPCS: 36415; 80061; 80076

== ENCOUNTER 2025-10-25 10:28 | Emergency (ER) | payer MEDICARE, OTHER, SELFPAY ==
[2022-09-01 11:22] VITALS: BMI 26.6
[2025-10-25 10:31] VITALS: BP 162/77; PULSE 62; RESP 18; TEMP 36.6; O2SAT 97; BMI 28.2
[2025-10-25 10:35] VITALS: BP 173/67; PULSE 62; RESP 16; O2SAT 98
--- NOTE | 2025-10-25 10:48 | EKG12_ITS ---
Test Reason : Blood Pressure : */* mmHG Vent. Rate : 65 BPM Atrial Rate : 65 BPM P-R Int : 168 ms QRS Dur : 74 ms QT Int : 406 ms P-R-T Axes : 4 -28 38 degrees QTcB Int : 422 ms Normal sinus rhythm Inferior infarct , age undetermined Possible Anterior infarct , age undetermined Abnormal ECG Confirmed by TATUM SY, DANIE ([id number]), medical editor DALI GRAHAM ([id number]) on 10/27/2025 9:03:12 AM Referred By: Confirmed By: DANIE WINN MD
--- NOTE | 2025-10-25 10:49 | EX.ED.DYSGE1 ---
HPI History of Present Illness Chief Complaint: Syncope Detail of Chief Complaint: Syncope Informant: patient and spouse/S.O. Narrative Narrative: Patient presents to the emergency department with complaint syncopal episode this morning. Patient states that she was standing in the kitchen stirring some oatmeal to go on top of a dessert when she started feeling hot and lightheaded and nauseated. She tried to sit down and states that she became unresponsive and twitched a few times. She then came to again and then passed out again. Patient vomited and had an episode of diarrhea. states she has had syncopal episodes before but patient does not recall. She has not been ill recently. She does have heart history with four-vessel CABG in 2021. She denies chest pain or palpitations or racing heart. Currently feels improved. [facility] Medical History History of left heart catheterization (LHC) (~03/12/22) Chest pain Abnormal ECG during exercise stress test Syncope and collapse 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) Essential hypertension Hyperlipidemia Atherosclerotic heart disease of [place] coronary artery without angina pectoris Home Medications ?Medication ?Instructions ?Recorded ?Last Taken ?Type aspirin 81 mg chewable tablet 81 mg PO DAILY 03/12/16 03/12/22 History cholecalciferol (vitamin D3) 50 2,000 unit PO DAILY 04/22/19 Unknown History mcg (2,000 unit) capsule nitroglycerin 0.4 mg sublingual 0.4 mg sublingual Q5-15M PRN Chest 02/18/24 Unknown Rx tablet Pain #25 tabs atorvastatin 40 mg tablet 40 mg PO QHS #90 tabs 08/03/25 Unknown Rx metoprolol succinate 50 mg 50 mg PO DAILY #90 tabs 08/03/25 Unknown Rx tablet,extended release 24 hr cephalexin 500 mg capsule 500 mg PO Q8H #21 caps 10/25/25 Unknown Rx Allergy/AdvReac Type Severity Reaction Status Date / Time sertraline (From Zoloft) Allergy Unknown Verified 10/25/25 10:30 simvastatin (From Zocor) Allergy Unknown Verified 10/25/25 10:30 lisinopril AdvReac Unknown unknown Verified 10/25/25 10:30 Family History Mother CAD (coronary artery disease) Diabetes Brother CAD (coronary artery disease) Brother CAD (coronary artery disease) Diabetes Surgical History History of coronary artery bypass surgery (~05/13/22) History of hysterectomy History of cholecystectomy Stented coronary artery (07/21/16) Social History Smoking Status: Never smoker alcohol intake: never substance use type: does not use caffeine: No ROS ROS ED Review of Systems ROS Unobtainable: other Constitutional Constitutional ED: Reports lethargy; Denies chills, fever(s), sweats or weight loss Eyes Eyes: Denies blurry vision, change in vision or diplopia ENT ENT ED: Denies rhinorrhea or sore throat Cardiovascular Cardiovascular: Reports chest pain and racing heartbeat; Denies orthopnea Respiratory/Chest Respiratory/Chest: Denies cough, dyspnea, dyspnea on exertion, orthopnea or sputum Gastrointestinal Gastrointestinal: Reports diarrhea, nausea and vomiting; Denies abdominal pain Genitourinary Genitourinary ED: Denies dysuria, hematuria or urinary frequency Musculoskeletal Musculoskeletal: Denies arthralgias, back pain, myalgias or neck pain Integumentary Denies abscess, Abrasions or rash Neurologic Neurologic: Denies headache(s) or weakness Psychiatric Psychiatric: Denies anxiety, depression or suicidal thoughts Endocrine Endocrinology: Denies polydipsia, polyphagia or polyuria Hematologic/Lymphatic Hematologic/Lymphatic: Denies easy bleeding, easy bruising or lymphadenopathy Allergic/Immunologic Allergic/Immunologic ED: Denies mouth swelling, tongue swelling or urticaria EXAM Physical Exam Const Vital Signs: 10/25/25 10:31 10/25/25 10:31 10/25/25 10:35 Temperature 98 F Temperature Source Oral Pulse Rate 62 62 Pulse Rate [Lying] Pulse Rate [Sitting (for 1 minute prior to obtaining)] Pulse Rate [Standing (for 1 minute prior to obtaining)] Respiratory Rate 18 16 Respiratory Effort Normal Non-Labored Respiratory Pattern Normal Blood Pressure 162/77 H 173/67 H Blood Pressure [Lying] Blood Pressure [Sitting (for 1 minute prior to obtaining)] Blood Pressure [Standing (for 1 minute prior to obtaining)] Blood Pressure Mean 105 102 Blood Pressure Mean [Lying] Blood Pressure Mean [Sitting (for 1 minute prior to obtaining)] Blood Pressure Mean [Standing (for 1 minute prior to obtaining)] Pulse Ox 97 98 Oxygen Delivery Method Room Air Room Air 10/25/25 11:04 10/25/25 12:33 10/25/25 13:15 Temperature Temperature Source Pulse Rate 65 74 Pulse Rate [Lying] 70 Pulse Rate [Sitting (for 1 minute prior to obtaining)] 73 Pulse Rate [Standing (for 1 minute prior to obtaining)] 72 Respiratory Rate 18 16 Respiratory Effort Respiratory Pattern Blood Pressure 135/84 H 159/77 H Blood Pressure [Lying] 137/69 H Blood Pressure [Sitting (for 1 minute prior to obtaining)] 155/81 H Blood Pressure [Standing (for 1 minute prior to obtaining)] 159/77 H Blood Pressure Mean 101 104 Blood Pressure Mean [Lying] 91 Blood Pressure Mean [Sitting (for 1 minute prior to obtaining)] 105 Blood Pressure Mean [Standing (for 1 minute prior to obtaining)] 104 Pulse Ox 100 100 Oxygen Delivery Method Room Air Room Air Positive well nourished and well developed General Appearance ED: well developed and NAD HEENT Reports TM's clear and moist mucous membranes normocephalic and atraumatic; Negative for trauma or tenderness Tympanic Membrane ED: Yes TM's clear Eyes PERRL and EOMs intact bilaterally General Eye ED: Negative for pale conjunctiva or scleral icterus Neck no lymphadenopathy, supple and no JVD General: Negative for tenderness Chest Wall inspection of chest normal and palpation of chest normal Chest: Negative for tenderness Resp normal respiratory effort and clear to auscultation bilaterally Effort and Inspection: Negative for respiratory distress or pain with movement Auscultation: Negative for rhonchi, wheezes or diminished lung sounds Cardio regular rate, regular rhythm, S1 normal heart sound, S2 normal heart sound and no murmurs Peripheral Pulses: pulses 2+ throughout GI normal to inspection, nondistended, normoactive bowel sounds, soft to palpation, non-tender, non-distended and no masses Back/Spine no CVA tenderness and no thoracic nor lumbar tenderness Extremity normal to inspection General Extremety ED: Negative for edema General Extremity: Negative for edema Neuro oriented x3, CN's II-XII intact bilaterally, no sensory deficits noted and gait normal Sensorium / Orientation: awake, alert, oriented to person, oriented to place and oriented to time Motor Exam: strength 5/5 throughout and strength abnormal Psych mental status grossly normal Skin no rashes or lesions noted and no wounds MDM MDM MDM Narrative Medical decision making narrative: Patient presents to the emergency department with syncopal episode at home while in the kitchen standing in working. Clinically suspect vasovagal episode. She feels markedly improved currently. She had no chest pain or shortness of breath or palpitations. She does have coronary artery disease history. IV line established. EKG obtained on arrival shows sinus rhythm with rate of 65 bpm with old inferior infarct noted. CBC with differential obtained showed a WBC count of 6.7 with hemoglobin 14 and platelet count of 230. Chemistries unremarkable. Troponin was normal at 10. 2-hour delta troponin was normal at 7. Urinalysis obtained was positive for UTI. Patient had orthostatic vital signs that were negative. I did start patient on Rocephin 1 g IV. I also sent a urine culture. Again suspect vasovagal episode. Will also treat for UTI. Advised to push fluids and follow-up with primary care physician within next 3 to 5 days. Advised to return if chest pain, recurrent syncope, or condition should worsen anyway. Lab Data Attestation: I reviewed the patient's lab results. Labs: Laboratory Results - last 24 hr 10/25/25 10/25/25 10/25/25 10:33 12:00 13:05 WBC 6.7 RBC 5.20 Hgb 14.4 Hct 45.4 MCV 87.3 MCH 27.7 MCHC 31.7 L RDW Std Deviation 44.8 H RDW Coeff of [place] 14.0 Plt Count 230 MPV 10.7 Immature Gran % (Auto) 0.400 Neut % (Auto) 53.6 Lymph % (Auto) 24.0 [place] % (Auto) 8.8 Eos % (Auto) 12.3 H Baso % (Auto) 0.9 Absolute Neuts (auto) 3.6 Absolute Lymphs (auto) 1.60 Nucleated RBC % 0 Sodium 142 Potassium 4.4 Chloride 105 Carbon Dioxide 26.6 Anion Gap 10 BUN 13 Creatinine 1.12 Estim Creat Clear Calc 37.54 L Est GFR (MDRD) Non-Af 49 L BUN/Creatinine Ratio 11.7 Glucose 108 H Calcium 9.7 Troponin T High Sens 10 Troponin T Hi Sens 2 Hr 7 Urine Color Yellow Urine Clarity [place]. Cloud[place] Urine pH 7.0 Ur Specific [place] 1.010 Urine Protein 30 H Urine Glucose (UA) Normal Urine Ketones Negative Urine Occult Blood 10 H Urine Nitrite Positive H Urine Bilirubin Negative Urine Urobilinogen Normal Ur Leukocyte Esterase 500 H Urine RBC 0 SEEN Urine WBC 10-25 SEEN Ur Squamous Epith Cells 0-5 SEEN Urine Bacteria 2+ Urine Mucus 0 SEEN EKG Initial EKG: Attestation: I personally reviewed and interpreted this EKG as follows: Comments: Sinus rhythm with ventricular rate of 65 bpm with old inferior infarct noted Discharge Plan Triage Chief Complaint: Syncope ED Provider: Nunu Cruz Dx/Rx/DC Orders Clinical Impression: Syncope and collapse, Urinary tract infection Instructions: ED Fainting, Vagal Reaction, ED Cystitis Female Adult Prescriptions: New cephalexin 500 mg capsule 500 mg PO Q8H Qty: 21 0RF No Action cholecalciferol (vitamin D3) 2,000 unit capsule 2,000 unit PO DAILY nitroglycerin 0.4 mg tablet, sublingual 0.4 mg SUBLINGUAL Q5-15M PRN (Reason: Chest Pain) Qty: 25 3RF atorvastatin 40 mg tablet 40 mg PO QHS Qty: 90 3RF metoprolol succinate 50 mg tablet extended release 24 hr 50 mg PO DAILY Qty: 90 3RF aspirin 81 MG tablet,chewable 81 mg PO DAILY Patient Comments: Heart health Primary Care Provider: Brianna Mcconnell Referrals: Brianna Mcconnell MD [Primary Care Provider, Internal Medicine] - 3-5 Days Print Language: Sami Disposition Disposition: Home, Self Care
[2025-10-25 11:04] VITALS: BP 135/84; PULSE 65; RESP 18; O2SAT 100
[2025-10-25] MEDS: 0.9% Normal Saline (1000mL) 1,000 ML 1000 ML IV (11:04)
[2025-10-25 11:11] LABS: Hematocrit 45.4 % (37-47); Hemoglobin 14.4 g/dL (12.0-15.0); Immature Granulocytes Count 0.030 X10^3/uL (0.0-0.0); Mean Corp Hgb Conc 31.7 g/dL (32-36); Mean Corpuscular Volume 87.3 fL (81-99); Mean Platelet Vol. 10.7 fl (6.2-12.0); NRBC Flagged by Analyzer 0 % (0-5); Platelet Count 230 K/mm3 (150-450); RBC Distribution Width CV 14.0 % (11.6-14.6); RBC Distribution Width SD 44.8 fl (35.1-43.9); Red Blood Count 5.20 M/mm3 (4.2-5.4); White Blood Count 6.7 K/mm3 (4.4-11.0)
[2025-10-25 11:30] LABS: Troponin T High Sensitivity 10 ng/L (<=14)
[2025-10-25 11:31] LABS: Anion Gap 10 (5-15); BUN 13 mg/dL (4-19); BUN/Creat Ratio 11.7 RATIO (10-20); Calcium,Total 9.7 mg/dL (7.6-11.0); Carbon Dioxide 26.6 mmol/L (21.0-32.0); Chloride 105 mmol/L (98-108); Estimated Creatinine Clearance 37.54 ml/min (50-250); Glucose 108 mg/dL (70-99); Potassium 4.4 mmol/L (3.3-5.1)
[2025-10-25 12:09] LABS: Mucous, Urine 0 SEEN /hpf (<or=2+); Red Blood Cells-Urine 0 SEEN /hpf (0-5)
[2025-10-25 12:15] LABS: Color, Urine Yellow (Yellow); Glucose, Dipstick Normal (Normal); Ketone-Dipstick Negative (Negative); Leukocyte Esterase-Dipstick 500 /ul (Negative); Nitrite-Dipstick Positive (Negative); Occult Blood-Urine 10 /ul (Negative); Protein-Dipstick 30 mg/dl (Negative); Specific Gravity, Urine 1.010 (1.002-1.030); Urine Bilirubin Dipstick Negative (Negative)
[2025-10-25 12:26] LABS: Squamous Epithelial Cells - UA 0-5 SEEN /hpf (5-10)
[2025-10-25 12:33] VITALS: BP 137/69; BP 155/81; BP 159/77; PULSE 70; PULSE 72; PULSE 73
[2025-10-25 13:15] VITALS: BP 159/77; PULSE 74; RESP 16; O2SAT 100
[2025-10-25 13:43] LABS: Troponin T High Sens 2 HR 7 ng/L (<=14)
[2025-10-25 14:36] VITALS: BP 148/77; PULSE 74; RESP 16; TEMP 36.7; O2SAT 100
== END 2025-10-25 14:37 | disposition home or self-care (01) ==
PROVIDERS: Emergency Provider Emergency Medicine; PCP Internal Medicine; Visit Provider Emergency Medicine
DX: N39.0 Urinary tract infection, site not specified (principal); R55 Syncope and collapse; I10 Essential (primary) hypertension; E78.5 Hyperlipidemia, unspecified; I25.2 Old myocardial infarction; I25.10 Atherosclerotic heart disease of native coronary artery without angina pectoris; Z95.1 Presence of aortocoronary bypass graft; Z79.82 Long term (current) use of aspirin; Z79.899 Other long term (current) drug therapy
CPT/HCPCS: 80048; 81001; 84484; 85025; 87077; 87086; 87088; 87186; 93005; 96361; 96365; 96366; 99285; A4216

== ENCOUNTER 2025-11-04 23:38 | Emergency (ER) | payer MEDICARE, OTHER, SELFPAY ==
[2022-09-01 11:22] VITALS: BMI 26.6
[2025-11-04 23:39] VITALS: BP 160/95; PULSE 69; RESP 15; TEMP 36.8; O2SAT 99; BMI 28.3
--- NOTE | 2025-11-05 00:05 | EX.ED.DYSGE1 ---
HPI History of Present Illness Chief Complaint: Chest Pain Informant: patient and spouse/S.O. Narrative Narrative: Patient is 80-year-old female with history of hypertension hyperlipidemia and known CAD with quadruple bypass in 2021. She states that she was at home this evening and she laid down in bed and then she noticed some upper abdominal discomfort and nausea. She states that she got up and took some Tums but did not have any symptom improvement and then felt like the pain was trying to radiate towards the left shoulder. Because of her past cardiac history she called EMS and was brought in for evaluation Patient does state however that they were recently around her son who has been sick with nausea and vomiting for the last few days. [facility] Medical History History of left heart catheterization (LHC) (~03/12/22) Chest pain Abnormal ECG during exercise stress test Syncope and collapse 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) Essential hypertension Hyperlipidemia Atherosclerotic heart disease of [place] coronary artery without angina pectoris Home Medications ?Medication ?Instructions ?Recorded ?Last Taken ?Type aspirin 81 mg chewable tablet 81 mg PO DAILY 03/12/16 03/12/22 History cholecalciferol (vitamin D3) 50 2,000 unit PO DAILY 04/22/19 Unknown History mcg (2,000 unit) capsule nitroglycerin 0.4 mg sublingual 0.4 mg sublingual Q5-15M PRN Chest 02/18/24 Unknown Rx tablet Pain #25 tabs atorvastatin 40 mg tablet 40 mg PO QHS #90 tabs 08/03/25 Unknown Rx metoprolol succinate 50 mg 50 mg PO DAILY #90 tabs 08/03/25 Unknown Rx tablet,extended release 24 hr cephalexin 500 mg capsule 500 mg PO Q8H #21 caps 10/25/25 Unknown Rx dicyclomine 20 mg tablet 20 mg PO 4X/DAY PRN Abdominal 11/05/25 Unknown Rx bloating/spasm #28 tabs ondansetron 4 mg disintegrating 4 mg PO TID PRN nausea and 11/05/25 Unknown Rx tablet vomiting #21 tabs Allergy/AdvReac Type Severity Reaction Status Date / Time sertraline (From Zoloft) Allergy Unknown Verified 11/04/25 23:39 simvastatin (From Zocor) Allergy Unknown Verified 11/04/25 23:39 lisinopril AdvReac Unknown unknown Verified 11/04/25 23:39 Family History Mother CAD (coronary artery disease) Diabetes Brother CAD (coronary artery disease) Brother CAD (coronary artery disease) Diabetes Surgical History History of coronary artery bypass surgery (~05/13/22) History of hysterectomy History of cholecystectomy Stented coronary artery (07/21/16) Social History Smoking Status: Never smoker alcohol intake: never substance use type: does not use caffeine: No ROS ROS ED Constitutional Constitutional ED: Denies chills or fever(s) Eyes Eyes: Denies blurry vision or change in vision ENT ENT ED: Denies sore throat Cardiovascular Cardiovascular: Reports chest pain; Denies palpitations or racing heartbeat Respiratory/Chest Respiratory/Chest: Denies cough or dyspnea Gastrointestinal Gastrointestinal: Reports abdominal pain and nausea; Denies diarrhea or vomiting Genitourinary Genitourinary ED: Denies dysuria Musculoskeletal Musculoskeletal: Denies back pain or myalgias Integumentary Denies rash Neurologic Neurologic: Denies headache(s) Hematologic/Lymphatic Hematologic/Lymphatic: Denies easy bleeding or easy bruising EXAM Physical Exam Const Vital Signs: 11/04/25 23:39 11/04/25 23:41 11/05/25 00:38 Temperature 98.2 F Temperature Source Oral Pulse Rate 69 59 L Respiratory Rate 15 14 Respiratory Effort Normal Non-Labored Blood Pressure 160/95 H 141/63 H Blood Pressure Mean 116 89 Pulse Ox 99 96 Oxygen Delivery Method Room Air Room Air 11/05/25 01:00 11/05/25 02:00 11/05/25 02:44 Temperature 98.2 F Temperature Source Pulse Rate 59 L 58 L 62 Respiratory Rate 16 16 16 Respiratory Effort Blood Pressure 141/63 H 125/75 H 157/71 H Blood Pressure Mean 89 91 99 Pulse Ox 97 96 97 Oxygen Delivery Method Room Air Room Air 11/05/25 03:00 11/05/25 04:00 Temperature Temperature Source Pulse Rate 59 L 62 Respiratory Rate 16 16 Respiratory Effort Blood Pressure 151/71 H 148/71 H Blood Pressure Mean 97 96 Pulse Ox 100 100 Oxygen Delivery Method Room Air Room Air Positive well nourished and well developed General Appearance ED: well developed; Negative for pallor HEENT HEENT Narrative: Normocephalic atraumatic Eyes PERRL and EOMs intact bilaterally General Eye ED: Negative for scleral icterus Neck supple and no JVD Chest Wall palpation of chest normal Chest Narrative: No bony deformity or subcutaneous emphysema noted Resp normal respiratory effort and clear to auscultation bilaterally Cardio regular rate and regular rhythm Rate: other Other Details: Regular rate and rhythm without murmurs rubs or gallops Radial and carotid pulses are equal and symmetric GI non-distended and no masses GI Narrative: Abdomen is soft and nondistended with hyperactive bowel sounds. There is mild pain with palpation in the midepigastric region No voluntary guarding or rigidity or pulsatile mass No peritoneal sign Auscultation: hyperactive bowel sounds Palpation: soft Extremity normal to inspection Extremity Narrative: No asymmetric edema no pitting edema negative Homans' sign bilaterally Neuro oriented x3, CN's II-XII intact bilaterally and no sensory deficits noted Sensorium / Orientation: alert Motor Exam: strength 5/5 throughout Psych Mood & Affect: anxious Skin no rashes or lesions noted and no wounds General Skin Exam: Negative for jaundice or pallor MDM MDM MDM Narrative Medical decision making narrative: Patient arrived to the ER hypertensive but has a past medical history of this and otherwise with stable vitals. She reported experiencing upper abdominal discomfort and nausea this evening. There is a possibility that her symptoms are related to gastritis or gastroenteritis especially as she reports that her son was recently sick with similar symptoms. Patient also could have potential pancreatitis. However she does have a significant cardiovascular history and as a female could present atypically so in order to assess for acute coronary syndrome or cardiac dysrhythmia an EKG was obtained and she was placed on the administrative volunteer. EKG revealed normal sinus rhythm without ischemic changes. This was compared to her EKG from October 25 and was very similar in nature. She was kept on administrative volunteer and there was no cardiac dysrhythmia noted. Chest x-ray revealed no acute lung pathology such as pneumonia or pneumothorax or perforated viscus. Her initial troponin was 15 with a 2-hour trended up to 22 and the 4-hour trended back down to a value of 16. These values are slightly elevated from October 25 when they were 10 and 7. However as they are overall flat and ultimately downtrending at this time and the patient is pain-free I do feel that she would be safe for discharge. I did discuss with the patient because of her significant cardiac history and the fact these values are slightly elevated compared to October 25 about potential admission. When I discussed the case with the hospitalist as well she inform me that if she is brought in for further cardiac workup that she would not have any further testing such as stress test or echo until Thursday. I informed the patient and her that we can admit her for further cardiac workup but for essentially the next 24 hours she would just be sitting in the hospital bed as we do not perform those test on the weekend. The patient states she is pain-free and her enzymes are downtrending and therefore she would prefer to follow-up with her lab systems analyst and have these test performed as an outpatient. She does understand that if her symptoms worsen at any point that she can return to the ER and possibly be admitted for further workup at that time. However as patient's blood pressure has improved her pain has remained resolved and her troponins are downtrending we will discharge home with outpatient follow-up History & Record Review Discussion w/independent historian: Patient and Significant other Lab Data Attestation: I reviewed the patient's lab results. Labs: Laboratory Results - last 24 hr 11/04/25 11/05/25 11/05/25 23:45 00:15 02:10 WBC 7.7 RBC 4.88 Hgb 13.5 Hct 42.4 MCV 86.9 MCH 27.7 MCHC 31.8 L RDW Std Deviation 43.6 RDW Coeff of Sylvester 13.7 Plt Count 248 MPV 10.8 Immature Gran % (Auto) 0.300 Neut % (Auto) 46.8 L Lymph % (Auto) 32.8 [place] % (Auto) 7.7 Eos % (Auto) 11.5 H Baso % (Auto) 0.9 Absolute Neuts (auto) 3.6 Absolute Lymphs (auto) 2.51 Nucleated RBC % 0 Sodium 142 Potassium 4.0 Chloride 103 Carbon Dioxide 27.4 Anion Gap 11 BUN 17 Creatinine 1.09 Estim Creat Clear Calc 38.60 L Est GFR (MDRD) Non-Af 51 L BUN/Creatinine Ratio 16.0 Glucose 99 Calcium 10.5 Magnesium 2.1 Total Bilirubin 0.42 Direct Bilirubin 0.21 AST 17 ALT 13 Alkaline Phosphatase 109 H Troponin T High Sens 15 H D Troponin T Hi Sens 2 Hr 22 H Troponin T Hi Sens 4Hr Total Protein 6.9 Albumin 3.9 Globulin 3.0 Lipase 61 11/05/25 04:04 WBC RBC Hgb Hct MCV MCH MCHC RDW Std Deviation RDW Coeff of Sylvester Plt Count MPV Immature Gran % (Auto) Neut % (Auto) Lymph % (Auto) [place] % (Auto) Eos % (Auto) Baso % (Auto) Absolute Neuts (auto) Absolute Lymphs (auto) Nucleated RBC % Sodium Potassium Chloride Carbon Dioxide Anion Gap BUN Creatinine Estim Creat Clear Calc Est GFR (MDRD) Non-Af BUN/Creatinine Ratio Glucose Calcium Magnesium Total Bilirubin Direct Bilirubin AST ALT Alkaline Phosphatase Troponin T High Sens Troponin T Hi Sens 2 Hr Troponin T Hi Sens 4Hr 16 H Total Protein Albumin Globulin Lipase Radiography Diagnostic Testing: Clinical Impression(s) from Imaging Studies Chest X-Ray 11/05/25 00:10 IMPRESSION: No Acute Findings. Reading Location: [facility] Chest x-ray as interpreted by the emergency medicine physician reveals no acute infiltrate pneumothorax or pleural effusion Management Discussion w/another healthcare provider: Hospitalist Discharge Plan Triage Chief Complaint: Chest Pain ED Provider: Tr Hernadez Dx/Rx/DC Orders Clinical Impression: Nonspecific chest pain, Hyperlipidemia, Essential hypertension Instructions: ED Chest Pain, Uncertain Cause, ED Gastroenteritis, Viral (Adult) Prescriptions: New dicyclomine 20 mg tablet 20 mg PO 4X/DAY PRN (Reason: Abdominal bloating/spasm) Qty: 28 0RF ondansetron 4 mg tablet,disintegrating 4 mg PO TID PRN (Reason: nausea and vomiting) Qty: 21 0RF No Action cholecalciferol (vitamin D3) 2,000 unit capsule 2,000 unit PO DAILY nitroglycerin 0.4 mg tablet, sublingual 0.4 mg SUBLINGUAL Q5-15M PRN (Reason: Chest Pain) Qty: 25 3RF atorvastatin 40 mg tablet 40 mg PO QHS Qty: 90 3RF metoprolol succinate 50 mg tablet extended release 24 hr 50 mg PO DAILY Qty: 90 3RF aspirin 81 MG tablet,chewable 81 mg PO DAILY Patient Comments: Heart DediServe cephalexin 500 mg capsule 500 mg PO Q8H Qty: 21 0RF Primary Care Provider: CRISTIAN COLLINS Referrals: Brianna Mcconnell MD [Med Staff - Job Service Consultant, Internal Medicine] Hardik Adame MD [Med Staff - Active Staff, Cardiology] Activity Restrictions/Additional Instructions: Your workup today revealed just mild elevation to your troponin/heart marker compared to October 25. Your EKG did not show any signs of heart attack or active heart damage. However because of your significant past cardiac history and the fact has been almost 3 years since your last complete cardiac workup I recommend you contact your lab systems analyst/Dr. Adame and discussed outpatient stress test and/or echocardiogram to further evaluate your heart. Continue all your home medications as directed by your doctor. If you have any worsening symptoms or further concerns return to the ER for repeat evaluation Print Language: Cuban Disposition Disposition: Home, Self Care
--- NOTE | 2025-11-05 00:10 | RAD_ITS ---
PROCEDURE: CHEST 1 VIEW (PORTABLE) 11/04/2025 REASON FOR EXAM: CHEST PAIN TECHNIQUE: Frontal view of the chest. COMPARISON: 03/05/2022 FINDINGS: Hardware: Sternotomy wires are present. Heart: The heart size is normal. Lungs: The lungs are clear. No pneumothorax or pleural effusion. Bones: The bones are unremarkable. RAD/Chest 1 View (Portable) IMPRESSION: No Acute Findings. Reading Location: [facility]
--- OUTSIDE RECORDS SUMMARY | 2025-11-05 00:13 | XMS RPT_ITS | CCD ---
Author Organization [facility] Care Team Providers Care Return Agent Name Role Phone MIKEYJUANCHO MCCRAYNETH Unavailable Unavailable MIKEY, DAWSON Unavailable Unavailable [facility] Unavailable Unavailable MIKEY, DAWSON Unavailable Unavailable MIKEY, DAWSON Unavailable Unavailable [facility] Unavailable Unavailable Dr. Marielena Ramirez Primary Care Provider Dr. Marielena Ramirez Referring Provider Dr. Chirag Brothers Attending Provider Dr. Chirag Brothers Referring Provider [phone] Dr. Chirag Brothers Other Provider Marielena Ramirez MD Primary Care Provider Chirag Brothers F Unavailable Jihan RN, Rani Unavailable Unavailable Marielena Ramirez MD Primary Care Provider Chirag Brothers F Unavailable Dr. Marielena Ramirez Primary Care Provider Dr. Chirag Brothers Attending Provider [phone] Dr. Marielena Ramirez Referring Provider Manan BERNSTEIN, AMANDEEP Bunch Attending Provider Dr. Marielena Ramirez Primary Care Provider Dr. Chirag Brothers Attending Provider [phone] Matt CAMPO, LIZ Soto Attending Provider Marielena Ramirez MD Primary Care Provider Chirag Brothers F Unavailable Dr. Marielena Ramirez Primary Care Provider Dr. Marielena Ramirez Referring Provider Matt TONGUE STITCHER, TONGUE STITCHER-C Brittany Attending Provider Matt TONGUE STITCHER, TONGUE STITCHER-C Brittany Referring Provider Matt TONGUE STITCHER, TONGUE STITCHER-C Brittany Other Provider [phone] Dr. Sanjeev Márquez Attending Provider Dr. Marielena Ramirez Primary Care Provider Dr. Marielena Ramirez Referring Provider Matt TONGUE STITCHER, TONGUE STITCHER-C Brittany Attending Provider Deneen SY, Chirag Metz Unavailable Dr. Marielena Ramirez Primary Care Provider Dr. 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 Marielena Ramirez MD Primary Care Provider Matt CAMPO-C, Brittany Attending Provider Matt CAMPO-C, Brittany Referring Provider [phone] Dr. Marielena Ramirez MD Referring Provider Dr. Hardik Adame MD Attending Provider Enedina, Marielena Primary Care Unavailable Brittany Gutierrez Referring Unavailable Brittany Gutierrez Attending Unavailable Ganta, Marielena Referring Unavailable Ganta, Marielena Primary Care Unavailable Maira Travis Attending Unavail able Ganta, Marielena Primary Care Unavailable Maira Travis Referring Unavail able Maira Travis Attending Unavail able Hardik Adame Attending Unavailable Ganta, Marielena Referring Unavailable Ganta, Marielena Primary Care Unavailable GANTA, MARIELENA Referring Unavailable GANTA, MARIELENA Primary Care Unavailable ARLEEN RIVERA Attending Unavailable GANTA, MARIELENA Primary Care Unavailable GANTA, MARIELENA Primary Care Unavailable OLDER ARLEEN Attending Unavailable Allergies Allergy Classification Reported Allergen(s) Allergy Type Date of Onset Reaction(s) Facility (20 sources) lisinopril; Translations: [LISINOPRIL] Drug Allergy 5 Unknown [facility] Repository (20 sources) sertraline; Translations: [SERTRALINE HCL] Drug Allergy 5 Unknown [facility] Repository (17 sources) Sertraline Drug Allergy 2 Unknown [facility] (20 sources) Simvastatin; Translations: [SIMVASTATIN] Drug Allergy 2 Unknown [facility] Work Phone: (20 sources) Isosorbide; Translations: [ISOSORBIDE] Drug Allergy 2 Other: See Comments [facility] (1 source) Sertraline Drug Allergy 5 [facility] Repository (1 source) Simvastatin Drug Allergy 5 [facility] Repository Medications Current Medications Medication Drug Class(es) Dates Sig (Normalized) Sig (Original) aspirin 81 mg chewable tablet (20 sources) Platelet Aggregation Inhibitor, Nonsteroidal Anti-inflammatory Drug Start: 05-19-2022 End: 06-18-2023 take 2 tablets by mouth once daily, then take 1 tablet by mouth once daily aspirin 81 mg chewable tablet Take 2 tablets by mouth once daily for 30 days, THEN 1 tablet once daily. 420 tablet 0 05/19/2022 06/16/2022 Discontinued Start: 03-12-2016 End: 07-16-2023 take 1 tablet by mouth once daily Aspirin 81 MG tablet,chewable Active 81 mg PO DAILY March 12, 2016 12:00am Start: 02-19-2009 aspirin(ECOTRI N LOW STRENGTH 81 MG TAB) Take one(1) tablet daily. 0 02/19/2009 Active Comment on above: Take one(1) tablet d aily. Take 2 tablets by mo uth once daily for 30 days, THEN 1 tablet once daily. Take 1 tablet by andree once daily for 30 days, THEN 1 tablet once daily. cephalexin 500 mg oral capsule (4 sources) Cephalosporin Antibacterial Start: 3 End: 3 take 1 capsule by mouth twice daily cephALEXin (KEFLEX) 500 mg capsule Take 1 capsule by mouth twice daily for 7 days. 14 capsule 0 07/29/2023 08/05/2023 Active Start: 04-22-2022 End: 04-29-2022 take 1 capsule by mouth twice daily cephALEXin (KEFLEX) 500 mg capsule Take 1 capsule by mouth twice daily for 7 days. 14 capsule 0 04/22/2022 04/29/2022 Discontinued (Course of therapy completed) Comment on above: Take 1 capsule by mo [facility] twice daily for 7 days. chlorhexidine gluconate 1.2 mg/ml mouthwash (3 sources) Start: End: Chlorhexidine Gluconate (PERIDEX) 0.12 % solution Use 15 mL as instructed twice daily for 5 days. Rinse around mouth for 30 seconds then expectorate 150 mL 0 05/07/2022 05/12/2022 Active Comment on above: Use 15 mL as instruc raymond twice daily for 5 days. Rinse around mouth for 30 seconds then expectorate cholecalciferol 0.05 mg oral capsule (20 sources) Vitamin D Start: take 1 capsule by mouth once daily Cholecalciferol (Vitamin D3) 2,000 unit capsule Active 2000 U PO DAILY April 22, 2019 12:00am Start: 03-12-2016 End: 04-22-2019 take 1 capsule by mouth once daily Cholecalciferol (Vitamin D3) 5,000 UNIT capsule Discontinued 5000 U PO DAILY March 12, 2016 12:00am April 22, 2019 3:52pm Start: 08-31-2012 take 1 tablet by andree once daily Cholecalciferol, Vitamin D3, 2,000 unit Tab Take 1 tablet by mouth once daily. 0 08/31/2012 Active Comment on above: Take 1 tablet by andree once daily. miconazole nitrate 40 mg/ml vaginal cream (3 sources) Azole Antifungal Start: 02-20-2023 End: 02-23-2023 Miconazole Nitrate (MONISTAT 3) 200 mg/5 gram (4 %) crea Indications: Burning with urination Use 1 Applicator vaginally once daily for 3 days. 25 g 0 02/20/2023 02/23/2023 Active Comment on above: Use 1 Applicator vag inally once daily for 3 days. mupirocin 0.02 mg/mg topical ointment (3 sources) RNA Synthetase Inhibitor Antibacterial Start: 05-08-2022 End: 05-14-2022 mupirocin (BACTROBAN) 2 % ointment Apply a small amount in each nostril using a cotton swab twice daily for 5 days before surgery and once the morning of surgery. 22 g 0 05/08/2022 05/14/2022 Active Comment on above: Apply a small amount in each nostril using a cotton swab twice daily for 5 days before surgery and once the morning of surgery. nystatin 100 unt/mg / triamcinolone acetonide 0.001 mg/mg topical ointment (16 sources) Polyene Antifungal, Corticosteroid Start: 07-23-2023 End: 04-25-2024 nystatin-triamcinolon e (MYCOLOG) ointment use sparingly twice daily 15 g 04/25/2024 Active Comment on above: use sparingly twice daily predniSONE 10 mg oral tablet (1 source) Start: 04-26-2024 End: 05-11-2024 predniSONE (DELTASONE) 10 mg tablet Take 4 tabs daily x5 days, then 2 tabs daily for 5 days, then 1 tab daily for 5 days. 35 tablet 0 04/26/2024 05/11/2024 Active Completed/Discontinued Medications Medication Drug Class(es) Dates Sig (Normalized) Sig (Original) acetaminophen 500 mg oral tablet (20 sources) Start: 06-24-2022 End: 10-17-2024 take 1 tablet by mouth every six hours as needed for pain Acetaminophen 500 mg tablet Discontinued 500 mg PO EVERY 6 HOURS as needed for pain June 24, 2022 1:12pm October 17, 2024 11:53am Start: 05-30-2022 End: 06-24-2022 take 2 tablets by mouth every six hours as needed Acetaminophen 500 mg tablet Discontinued 1000 mg PO EVERY 6 HOURS as needed May 30, 2022 12:00am June 24, 2022 1:15pm Start: 05-30-2022 End: 06-24-2022 take 1000 mg by mouth every six hours Acetaminophen Discontinued 1000 MG PO EVERY 6 HOURS May 30, 2022 12:00am June 24, 2022 1:15pm Start: 05-18-2022 take 2 tablets by mo ut four times daily acetaminophen (TYLENOL) 500 mg tablet Take 2 tablets by mouth four times daily. 05/18/2022 Active Start: 04-29-2022 End: 04-29-2022 take 2 tablets by mouth once acetaminophen (TYLENOL EX TRA STRENGTH) 500 mg tablet Take 2 tablets by mouth one time only for 1 dose. 2 tablet 0 04/29/2022 04/29/2022 acetaminophen (T YLENOL ORAL) Take 1,000 mg by mouth. Am of 05-13-22 0 Active Comment on above: Take 2 tablets by mo uth one time only for 1 dose. Take 1,000 mg by andree th. Am of 05-13-22 Take 2 tablets by mo uth four times daily. amLODIPine 2.5 mg oral tablet (20 sources) Dihydropyridine Calcium Channel [facility] Start: 04-22-20 End: 05-30-20 take 1 tablet by mouth once daily Amlodipine 2.5 mg tablet Discontinued 2.5 mg PO DAILY 90 December 23, 2021 10:14am May 30, 2022 9:11am Start: 03-12-2016 End: 04-22-2019 take 2.5 mg by mouth once daily Amlodipine 5 MG tablet Discontinued 2.5 mg PO DAILY March 12, 2016 12:00am April 22, 2019 3:51pm Start: 03-12-2016 End: 04-22-2019 take 2.5 mg by mouth once daily Amlodipine Discontinued 2.5 MG PO DAILY March 12, 2016 12:00am April 22, 2019 3:51pm Comment on above: Take 1 tablet by andree once daily. ascorbic acid 500 mg oral tablet (20 sources) Vitamin C Start: 2 End: 2 take 1 tablet by mouth once daily Ascorbic Acid (Vitamin C) 500 mg tablet Discontinued 500 mg PO DAILY May 30, 2022 12:00am June 24, 2022 1:13pm Comment on above: Take 1 tablet by andree once daily. atorvastatin 40 mg oral tablet (20 sources) HMG-CoA Reductase Inhibitor Start: 9 End: 5 take 1 tablet by mouth at bedtime Atorvastatin 40 mg tablet Discontinued 40 mg PO AT BEDTIME 90 December 23, 2021 10:14am August 11, 2022 11:29am Start: 11-17-2016 End: 04-22-2019 Atorvastatin 80 MG tablet Discontinued 40 mg PO DAILY November 17, 2016 1:00am April 22, 2019 3:51pm Start: 11-17-2016 End: 04-22-2019 take 40 mg by mouth once daily Atorvastatin Discontinu ed 40 MG PO DAILY November 17, 2016 1:00am April 22, 2019 3:51pm Comment on above: Take 1 tablet by andree th once daily. betamethasone 0.5 mg/ml / clotrimazole 10 mg/ml topical cream (11 sources) Azole Antifungal, Corticosteroid Start: End: clotrimazole-betameth asone (LOTRISONE) cream Indications: Dermatitis contact , Chafing Apply 1 application to affected area twice daily. 45 g 2 02/26/2023 04/25/2024 Discontinued (Course of therapy completed) Comment on above: Apply 1 application to affected area twice daily. cyclobenzaprine hydrochloride 10 mg oral tablet (13 sources) Muscle Relaxant Start: End: take 1 tablet by mouth at bedtime as needed for muscle spasms Cyclobenzaprine 10 MG tablet Discontinued 10 mg PO AT BEDTIME NEEDED as needed for Muscle Spasm 20 0 March 31, 2022 9:19pm June 24, 2022 1:13pm diazePAM 5 mg oral tablet (20 sources) Benzodiazepine Start: End: take 1 tablet by mouth three times daily as needed for anxiety Diazepam (Valium) 5 mg tablet Discontinued 5 mg PO THREE TIMES A DAY as needed for anxiety/muscle spasm 15 5 0 March 30, 2022 4:14am March 31, 2022 9:20pm Anxiety Muscle spasm Anxiety disorder, unspecified Other muscle spasm Comment on above: Take 5 mg by mouth t hree times daily. docusate sodium 50 mg / sennosides, long-term 8.6 mg oral tablet (18 sources) Start: End: Sennosides-Docusate Sodium (Senna-S) 8.6-50 mg tablet Discontinued 1 NMA PO TWICE A DAY May 30, 2022 12:00am June 24, 2022 1:15pm Start: 05-18-2022 End: 05-21-2022 take 1 tablet by mouth twice daily senna-docusate (SENNA-S) 8.6-50 mg per tablet Take 1 tablet by mouth twice daily. 0 05/18/2022 05/21/2022 Discontinued (Course of therapy completed) Comment on above: Take 1 tablet by andree th twice daily. esomeprazole 20 mg delayed release oral capsule (20 sources) Proton Pump Inhibitor Start: 1 End: 3 take 1 capsule by mouth once daily Esomeprazole Magnesium (Nexium 24hr) 20 mg capsule,delayed release(DR/EC) Discontinued 20 mg PO DAILY 90 December 23, 2021 10:14am June 24, 2022 1:15pm Comment on above: Take 1 capsule by mo [facility] once daily. famotidine 20 mg oral tablet (20 sources) Histamine-2 Receptor Antagonist Start: 1 End: 1 take 1 tablet by mouth twice daily Famotidine 20 mg tablet Discontinued 20 mg PO TWICE A DAY February 06, 2021 12:00am February 06, 2021 10:32am Start: 10-27-2019 End: 05-24-2020 take 10 mg by mouth twice daily Famotidine 20 mg tablet Discontinued 10 mg PO TWICE A DAY October 27, 2019 1:00am May 24, 2020 10:14am Start: 10-27-2019 End: 05-24-2020 take 10 mg by mouth twice daily Famotidine Discontinued 10 MG PO TWICE A DAY October 27, 2019 1:00am May 24, 2020 10:14am ferrous sulfate 325 mg oral tablet (20 sources) Start: 05-30-2022 End: 06-24-2022 take 1 tablet by mouth once daily Ferrous Sulfate 325 mg (65 mg iron) tablet Discontinued 325 mg PO DAILY May 30, 2022 12:00am June 24, 2022 1:13pm Start: 05-18-2022 End: 06-17-2022 take 1 tablet by mouth once daily at breakfast ferrous sulfate 325 mg (65 mg iron) tablet Take 1 tablet by mouth daily with breakfast. 30 tablet 0 05/18/2022 06/16/2022 Discontinued (Course of therapy completed) Comment on above: Take 1 tablet by andree daily with breakfast. fluconazole 150 mg oral tablet (9 sources) Azole Antifungal Start: 07-23-20 End: 04-25-20 fluconazole (DIFLUCAN) 150 mg tablet Take 1 tablet today and Repeat in 3 days 2 tablet 0 07/23/2023 04/25/2024 Discontinued (Course of therapy completed) Comment on above: Take 1 tablet today and Repeat in 3 days folic acid 1 mg oral tablet (20 sources) Start: 05-19-20 End: 06-24-20 take 1 tablet by mouth once daily Folic Acid 1 mg tablet Discontinued 1 mg PO DAILY May 30, 2022 12:00am June 24, 2022 1:14pm Comment on above: Take 1 tablet by andree th once daily. 24 hr isosorbide mononitrate 30 mg extended release oral tablet (20 sources) Nitrate Vasodilator Start: 03-12-20 End: 05-30-20 take 1 tablet by mouth once daily, then take 1 tablet by mouth every twenty-four hours Isosorbide Mononitrate 30 mg tablet extended release 24 hr Discontinued 30 mg PO DAILY 21 11March 12, 2022 9:18am May 30, 2022 9:10am Comment on above: Take 30 mg by mouth once daily. lidocaine 0.04 mg/mg medicated patch (6 sources) Antiarrhythmic, Amide Local Anesthetic Start: 05-19-20 End: 05-21-20 apply 1 dose transdermal route once daily lidocaine (SALONPAS) 4 % patch Apply 1 Patch as directed once daily. 0 05/19/2022 05/21/2022 Discontinued (Course of therapy completed) Comment on above: Apply 1 Patch as dir ected once daily. magnesium oxide 400 mg oral capsule (20 sources) Start: 05-30-20 End: 06-24-20 take 1 capsule by mouth once daily Magnesium Oxide 400 mg magnesium capsule Discontinued 400 mg PO DAILY May 30, 2022 12:00am June 24, 2022 1:14pm Start: 05-19-2022 End: 06-16-2022 take 1 tablet by mouth once daily magnesium oxide (MAG-OX) 400 mg (241.3 mg magnesium) tablet Take 1 tablet by mouth once daily for 14 days. 14 tablet 0 05/19/2022 06/16/2022 Discontinued (Course of therapy completed) Comment on above: Take 1 tablet by andree th once daily for 14 days. 24 hr metoprolol succinate 50 mg extended release oral tablet (20 sources) beta-Adrenergic [facility] Start: 05-14-2023 take 1 tablet by mouth every hour metoprolol succinate ER (TOPROL XL) 50 mg 24 hr tablet Take 1 tablet by mouth every afternoon. 05/14/2023 Active Start: 08-11-2022 End: 08-03-2025 take 1 tablet by mouth once daily Metoprolol Succinate 50 mg tablet extended release 24 hr Discontinued 50 mg PO DAILY 90 October 17, 2024 11:57am August 03, 2025 10:55am Start: 06-24-2022 End: 08-11-2022 take 1 tablet by mouth once daily Metoprolol Tartrate 50 mg tablet Discontinued 50 mg PO DAILY June 24, 2022 1:11pm August 11, 2022 11:03am Start: 05-30-2022 End: 06-24-2022 take 1 tablet by mouth twice daily Metoprolol Tartrate 50 mg tablet Discontinued 50 mg PO TWICE A DAY May 30, 2022 12:00am June 24, 2022 1:15pm Start: 05-18-2022 End: 07-23-2023 take 1 tablet by mouth every twelve hours metoprolol tartrate, short acting, (LOPRESSOR) 50 mg tablet Take 1 tablet by mouth every 12 hours. 60 tablet 0 05/18/2022 07/23/2023 Discontinued Start: 05-13-2022 End: 05-13-2022 metoprolol tartrate, short a cting, (LOPRESSOR) 25 mg tablet Take 1 tablet by mouth one time only for 1 dose. Take am of surgery, once dose, by 0530 am 1 tablet 0 05/13/2022 05/13/2022 Active Start: 04-22-2019 End: 05-30-2022 take 1 tablet by mouth once daily Metoprolol Succinate 50 mg tablet extended release 24 hr Discontinued 50 mg PO DAILY 90 December 23, 2021 10:14am May 30, 2022 9:08am Start: 03-12-2016 End: 04-22-2019 take 1 tablet by mouth once daily Metoprolol Tartrate 50 MG tablet Discontinued 50 mg PO DAILY March 12, 2016 12:00am April 22, 2019 3:50pm Comment on above: Take 1 tablet by andree once daily. Take 1 tablet by [facility] one time only for 1 dose. Take am of surgery, once dose, by 0530 am Take 1 tablet by andree every 12 hours. Take 1 tablet by andree every afternoon. naproxen 500 mg oral tablet (17 sources) Nonsteroidal Anti-inflammatory Drug Start: End: take 1 tablet by mouth twice daily as needed for pain Naproxen (Naprosyn) 500 mg tablet Discontinued 500 mg PO TWICE A DAY as needed for pain 14 0 December 24, 2021 1:00am February 05, 2022 1:10pm nitroglycerin 0.4 mg sublingual tablet (20 sources) Nitrate Vasodilator Start: End: Nitroglycerin 0.4 mg tablet, sublingual Discontinued 0.4 mg SL every 5 to 15 minutes as needed for Chest Pain 25 August 11, 2022 11:29am February 18, 2024 10:09am Comment on above: Dissolve 1 tablet un yolanda the tongue as needed. FOR CHEST PAIN. IF NO RELIEF CALL 911 Dissolve 1 tablet un yolanda the tongue every 5 minutes as needed for chest pain. Place one(1) tablet on tongue as needed for chest pain. If no pain relief call 911. omeprazole 20 mg delayed release oral capsule (20 sources) Proton Pump Inhibitor Start: End: take 1 capsule by mouth once daily Omeprazole 20 mg capsule,delayed release(DR/EC) Discontinued 20 mg PO DAILY April 22, 2019 12:00am April 26, 2019 3:24pm Comment on above: Take 20 mg by mouth once daily. pantoprazole 20 mg delayed release oral tablet (7 sources) Proton Pump Inhibitor Start: End: take 1 tablet by mouth once daily pantoprazole DR (PROTONIX) 20 mg tablet Take 1 tablet by mouth once daily. 30 tablet 2 03/23/2020 04/29/2022 Discontinued Comment on above: Take 1 tablet by andree once daily. phenazopyridine hydrochloride 200 mg oral tablet (4 sources) Start: 023 End: take 1 tablet by mouth three times daily Phenazopyridine (Pyridium) 200 mg tablet Discontinued 200 mg PO THREE TIMES A DAY 9 3 0 August 21, 2023 12:00am February 18, 2024 9:52am polyethylene glycol 3350 01376 mg powder for oral solution (6 sources) Osmotic Laxative Start: End: polyethylene glycol 3350 (MIRALAX, GLYCOLAX) 17 gram packet Take 1 Packet by mouth once daily. Dissolve dose in 4 - 8 ounces of liquid and take as directed. 0 05/19/2022 05/21/2022 Discontinued (Course of therapy completed) Comment on above: Take 1 Packet by andree once daily. Dissolve dose in 4 - 8 ounces of liquid and take as directed. raNITIdine 150 mg oral tablet (20 sources) Histamine-2 Receptor Antagonist Start: End: take 1 tablet by mouth once daily Ranitidine Hcl (Acid Control (Ranitidine)) 150 mg tablet Discontinued 150 mg PO DAILY April 26, 2019 12:00am October 27, 2019 12:33pm Start: 03-12-2016 End: 04-22-2019 take 1 tablet by mouth twice daily Ranitidine Hcl 150 MG tablet Discontinued 150 mg PO TWICE A DAY March 12, 2016 12:00am April 22, 2019 3:53pm ticagrelor 90 mg oral tablet (20 sources) Start: 11-17-2016 End: 05-30-2022 take 1 tablet by mouth twice daily Ticagrelor 90 mg tablet Discontinued 90 mg PO TWICE A DAY 180 3 December 23, 2021 10:14am March 30, 2022 2:44am Comment on above: Take 1 tablet by [facility] twice daily. traMADol hydrochloride 50 mg oral tablet (18 sources) Opioid Agonist Start: 05-30-2022 End: 06-24-2022 take 1 tablet by mouth twice daily as needed Tramadol 50 mg tablet Discontinued 50 mg PO TWICE A DAY as needed May 30, 2022 12:00am June 24, 2022 1:14pm Start: 05-18-2022 End: 05-23-2022 take 1 tablet by mouth every twelve hours traMADol (ULTRAM) 50 mg tablet Indications: S/P CABG x 3 Take 1 tablet by mouth every 12 hours for 5 days. 10 tablet 0 05/18/2022 05/21/2022 Discontinued (Course of therapy completed) Comment on above: Take 1 tablet by andree th every 12 hours for 5 days. Problems Active Problems Problem Classification Problem Date Documented Date Episodic/Chronic Abdominal pain (2 sources) Left inguinal pain; Translations: [Left lower quadrant pain] 04-25-2024 Episodic Acute posthemorrhagic anemia (2 sources) Acute posthemorrhagic anemia; Translations: [Acute posthemorrhagic anemia] Episodic Allergic reactions (1 source) Contact dermatitis; Translations: [Unspecified contact dermatitis, unspecified cause] Episodic Anxiety disorders (14 sources) Anxiety; Translations: [Anxiety disorder, unspecified] 2022 Chronic Chronic kidney disease (20 sources) Chronic kidney disease stage 3; Translations: [CKD (chronic kidney disease) stage 3, GFR 30-59 ml/min] Onset: 8 10-21-2018 Chronic Chronic kidney disease (2 sources) Chronic kidney disease; Translations: [Stage 3a chronic kidney disease (HCC)] Onset: 3 Coronary atherosclerosis and other heart disease (20 sources) Atherosclerotic heart disease of [place] coronary artery without angina pectoris; Translations: [History of myocardial infarction] Onset: 9 Resolved: 3 Chronic Comment on above: X2:07/25/08 and again on 07/21/16 (2nd event= v-fib arrest, resuscitated) Stent to LAD (2.5 X 14 [place])07/25/[address] Raj Rizzo @ [facility]; and again 07/21/2016 (Promus Premier 2.75 X 38 mm) per Dr. Samuel Brooks @ [facility]. Also, 40% tubular stenosis noted in proximal to mid RCA per [facility] 07/21/16. Deficiency and other anemia (1 source) Anemia; Translations: [Anemia, unspecified] Episodic Disorders of lipid metabolism (20 sources) Hyperlipidemia; Translations: [Hyperlipidemia, unspecified] Onset: 5 Chronic Esophageal disorders (20 sources) Gastroesophageal reflux disease without esophagitis; Translations: [Gastro-esophageal reflux disease without esophagitis] Onset: 8 10-21-2018 Chronic Essential hypertension (20 sources) Essential hypertension; Translations: [Essential (primary) hypertension] Onset: 08-29-200 5 Chronic Genitourinary symptoms and ill-defined conditions (10 sources) Scalding pain on urination ; Translations: [Dysuria] Episodic Gout and other crystal arthropathies (17 sources) Chondrocalcinosis of joint of left wrist; Translations: [Other chondrocalcinosis, left wrist] 01-01-2022 Chronic Hypertension with complications and secondary hypertension (20 sources) Hypertensive renal disease; Translations: [Hypertensive chronic kidney disease with stage 1 through stage 4 chronic kidney disease, or unspecified chronic kidney disease] Onset: 3 02-03-2023 Chronic Immunizations and screening for infectious disease (1 source) Encounter for immunization; Translations: [Need for influenza vaccination] Onset: Episodic Mycoses (2 sources) Candidiasis; Translations: [Candidiasis, unspecified] 07-23-2023 Episodic Nonspecific chest pain (20 sources) Chest pain; Translations: [Chest pain, unspecified] Episodic Nutritional deficiencies (20 sources) Vitamin D deficiency; Translations: [Vitamin D deficiency, unspecified] Onset: 2 08-31-2012 Chronic Other aftercare (5 sources) Patient encounter status; Translations: [Other assisted (current) drug therapy] 07-07-2023 Episodic Other circulatory disease (1 source) History of angioplasty; Translations: [Peripheral vascular angioplasty status with implants and grafts] Chronic Other circulatory disease (17 sources) H/O: cardiovascular disease; Translations: [Personal history of sudden cardiac arrest] 04-22-2019 Episodic Comment on above: V-fib arrest, defibr illated X 3 on 07/21/2016>stent to LAD @ [facility] 07/21/2016 Other circulatory disease (5 sources) Personal history of sudden cardiac arrest; Translations: [Personal history of sudden cardiac arrest] Episodic Other circulatory disease (1 source) Carotid bruit; Translations: [Other specified symptoms and signs involving the circulatory and respiratory systems] Episodic Other connective tissue disease (14 sources) Spasm; Translations: [Other muscle spasm] 2022 Episodic Other inflammatory condition of skin (1 source) Chafing of skin; Translations: [Erythema intertrigo] Episodic Other lower respiratory disease (3 sources) Multiple nodules of lung; Translations: [Other nonspecific abnormal finding of lung field] Episodic Other non-traumatic joint disorders (1 source) Pain in left hip; Translations: [Left hip pain] Onset: 5 Episodic Other nutritional; endocrine; and metabolic disorders (1 source) Hypocalcemia; Translations: [Hypocalcemia] Chronic Other screening for suspected conditions (not mental disorders or infectious disease) (16 sources) Cardiovascular stress test abnormal; Translations: [Abnormal electrocardiogram [ECG] [EKG]] 03-04-2022 Episodic Other skin disorders (7 sources) Keloidal surgical scar; Translations: [Hypertrophic scar] 02-19-2023 Episodic Other skin disorders (1 source) Hypertrophic scar; Translations: [Keloid scar] 02-19-2023 Episodic Other upper respiratory infections (1 source) Viral upper respiratory tract infection; Translations: [Acute upper respiratory infection, unspecified] 10-23-2023 Episodic Screening and history of mental health and substance abuse codes (2 sources) Encounter for screening for depression; Translations: [Encounter for screening examination for other mental health and behavioral disorders] Onset: 5 Episodic Sprains and strains (13 sources) Strain of neck muscle; Translations: [Strain of muscle, fascia and tendon at neck level, initial encounter] 04-08-2022 Episodic Syncope (19 sources) Syncope and collapse; Translations: [Syncope and collapse] Episodic Unclassified (1 source) Unknown / UNK(Unknown) Onset: 8 Past or Other Problems Problem Classification Problem Date Documented Date Episodic/Chronic Coronary atherosclerosis and other heart disease (20 sources) Stented coronary artery; Translations: [Presence of coronary angioplasty implant and graft] Onset: 6 Episodic Comment on above: Stent to LAD (2.5 X 14 [place] ROSAL[place])07/25/[address] Raj Rizzo @ [facility]; and again 07/21/2016 (Promus Premier 2.75 X 38 mm) per Dr. Samuel Brooks @ [facility]. Diabetes mellitus without complication (8 sources) Diabetes mellitus; Translations: [Type 2 diabetes mellitus without complications] Onset: 5 Resolved: 3 10-27-2013 Chronic Diabetes mellitus without complication (20 sources) Impaired glucose tolerance; Translations: [Impaired glucose tolerance (oral)] Onset: 3 10-27-2013 Episodic Epilepsy; convulsions (20 sources) Seizure; Translations: [Unspecified convulsions] Onset: 8 Resolved: 3 04-11-2008 Episodic Other aftercare (1 source) Other assisted (current) drug therapy; Translations: [Medication management] Onset: 5 Episodic Other bone disease and musculoskeletal deformities (20 sources) Osteopenia; Translations: [Other specified disorders of bone density and structure, unspecified site] Onset: 2 08-20-2012 Episodic Residual codes; unclassified (15 sources) History of cardiac catheterization; Translations: [Other specified postprocedural states] Onset: 2 03-12-2022 Episodic Comment on above: LEFT MAIN: Mild calc ification; LEFT ANTERIOR DESCENDING ARTERY: OSTIAL LAD: 85 % Stenosis; PROX LAD: Mild calcificationMID LAD: Previously placed stent is patent;CIRCUMFLEX ARTERY: Mild luminal irregularities; RIGHT CORONARY ARTERY: Severe calcification, Mild luminal irregularitiesMID RCA: eccentric: 50 % Stenosis; RECOMMENDATION: Surgery consult for coronary revascularization per cardiac cath 03/12/22 Urinary tract infections (10 sources) Cystitis; Translations: [Cystitis, unspecified without hematuria] Onset: 7 Resolved: 5 Episodic Results Test Name Value Interpretation Reference Range Facility [facility] 08-16-2025 CNOV Office Visit (INTMWS ) DANIELJessicaVENUS E ([id number]) 1945 F Date Time Provider Department 08/16/25 10:20 AM ARLEEN RIVERA INTJAMES During your visit today, we recorded the following information about you: Pulse Respiration Blood pressure Weight 61/minute 16/minute 130/78 69.4 kg Arleen Rivera APRN.CNP 08/16/2025 11:00 AM Signed Venus Lopez Marilyn is a 80 year old female here for a Medicare wellness visit. Medicare Health Risk Assessment General Health Very good Exercise: Minutes/Day 30 min Exercise: Days/Week 5 days Alcohol: Daily Use Never Alcohol: Drinks/Day Patient does not drink Alcohol: 6 or more drinks Never Feel off balance No Concerns: Teeth/Dentures No Concerns: Sexual function No Troubled by feelings None of the above Frequency: Eating healthy diet Nearly every day ADLs requiring help None of the above Safety precautions in home/vehicle Yes Smoke, vape, chews tobacco No Difficulty hearing No Difficulty seeing No Current Providers Specialists: I have reviewed specialist-related care of the patient in the medical record. Medical/Family history review Reviewed and updated problem list, medical/surgical/fami ly/social history, medications, and allergies. Opioid use review Opioid Medications (last 90 days) No data to display Anxiety/Depression screening PHQ-2 Score: 0 (Lower risk for depression) EMILY-2 Score: 0 (Lower risk for anxiety) Recommendation: no further intervention at this time Cognitive screening Mini Cog Score: 3 Cognitive screening reviewed and No further action needed (score 3-5). Functional Observation Was the patient's Timed Up AND Go test unsteady or >= 12 seconds? No Advance Care Planning Patient did not wish or was not able to name a surrogate decision maker or provide an advance care plan Measurements BP 130/78 Pulse 61 Resp 16 Wt 69.4 kg (153 lb) SpO2 99% BMI 27.10 kg/m? Vision Screening: Follows with optometry/ophthalmolo gy Assessment/Plan Medicare annual wellness visit, subsequent (Z00.00) - Counseled on healthy diet and regular exercise - Fall avoidance information provided - Personalized prevention plan provided - Discussed need for and benefit of weight loss. BMI 27.10 kg/(m2) CC: Patient presents with: Medicare Wellness Exam: Annual Medicare Wellness Immunizations: Flu vaccination HPI Venus Sanders is a 80 year old female who presents today for medicare wellness and has questions about arthritic pain. Has chronic left hip arthritic pain which tylenol does not help with and was wondering if she could take naproxen. Her takes this and she has taken his and it helps better. Last xray in 2023 showing mild hip arthritis. Denies weakness, falls, edema, redness, fever, chills, or injury. REVIEW OF SYSTEMS General: no fevers, no chills, no night sweats, no recurrent infections, no change in appetite, no change in energy, and no significant changes in weight Respiratory: no cough, no wheezing, no shortness of breath, no hemoptysis Cardiovascular: no chest pain, no chest pressure, no palpitations, and no swelling PAST MEDICAL HISTORY Diagnosis Date Cardiac arrest with ventricular fibrillation (HCC) defibrillated x 3 on 07/21/2016 Coronary disease stent in 2007 with balloon angioplasty of left circumflex Depressive disorder, not elsewhere classified Esophageal reflux Herpes zoster without mention of complication Other acute and subacute form of ischemic heart disease 07/23/08 [place] Other and unspecified hyperlipidemia 07/21/2005 Other convulsions 04/11/2008 STEMI (ST elevation myocardial infarction) (HCC) 07/21/2016 Type II or unspecified type diabetes mellitus without mention of complication, not stated as uncontrolled 07/21/2005 Unspecified essential hypertension 07/21/2005 PAST SURGICAL HISTORY Procedure Laterality Date CABG (4) VEIN GRAFTS AND ARTERIAL GRAFT(S) 05/13/2022 GARZA to LAD, SVG to OM1, OM2, and PDA CHOLECYSTECTOMY 11/23/1982 STENT PLACEMENT 07/25/2008 Thru heart cath. at [facility] TOTAL ABDOMINAL HYSTERECT W/WO RMVL TUBE OVARY at age 48 ALLERGIES Imdur [Isosorbide], Simvastatin, Zestril [Lisinopril], and Zoloft [Sertraline Hcl] MEDICATIONS nystatin-triamcinolon e (MYCOLOG) ointment use sparingly twice daily metoprolol succinate ER (TOPROL XL) 50 mg 24 hr tablet Take 1 tablet by mouth every afternoon. nitroglycerin sublingual (NITROQUICK) 0.4 mg SL tablet Dissolve 1 tablet under the tongue every 5 minutes as needed for chest pain. aspirin 81 mg chewable tablet Take 1 tablet by mouth once daily for 30 days, THEN 1 tablet once daily. acetaminophen (TYLENOL) 500 mg tablet Take 2 tablets by mouth four times daily. atorvastatin (LIPITOR) 40 mg tablet Take 1 tablet by mouth once daily. Cholecalciferol, Vitamin D3, 2,000 unit Tab Take 1 tablet by mouth once daily. FAMILY HIST (more content not included)... [facility] Telephone (INTMWS) MARILYNVENUS ([id number]) 1945 F Date Time Provider Department 08/16/25 MARIELENA RAMIREZ During your visit today, we recorded the following information about you: Julio C Linda RN 08/16/2025 3:04 PM Signed Pt reports she was seen in Arleen's office today and there is a medication on her list she would like removed. Tylenol 500 mg take 2 tabs 4 x's daily. States she has not taken this in years and doesn't want it on her list in case she goes to the hospital and they think she has to take tylenol 4 x's a day, and start giving it to her. Arleen Rivera APRN.CNP 08/18/2025 12:53 PM Signed Removed Arleen Rivera APRN.CNP Allergies As of Date: 08/16/2025 Noted Allergy Reaction IMDUR (ISOSORBIDE) 04/29/2022 14 - Other: See Comments Comments: Severe headaches SIMVASTATIN 07/07/2022 16 - Unknown ZESTRIL (LISINOPRIL) 07/21/2005 16 - Unknown ZOLOFT (SERTRALINE HCL) 07/21/2005 16 - Unknown Date Reviewed: 08/16/2025 Reviewed by: Arleen Rivera APRN.CNP - Fully Assessed Reason for Visit: Medication Problem [65] Prescriptions as of 08/18/2025 - nystatin-triamcinolon e (MYCOLOG) ointment use sparingly twice daily - metoprolol succinate ER (TOPROL XL) 50 mg 24 hr tablet Take 1 tablet by mouth every afternoon. - nitroglycerin sublingual (NITROQUICK) 0.4 mg SL tablet Dissolve 1 tablet under the tongue every 5 minutes as needed for chest pain. - aspirin 81 mg chewable tablet Take 1 tablet by mouth once daily for 30 days, THEN 1 tablet once daily. - atorvastatin (LIPITOR) 40 mg tablet Take 1 tablet by mouth once daily. - Cholecalciferol, Vitamin D3, 2,000 unit Tab Take 1 tablet by mouth once daily. Problem List As Of Date 08/16/2025 Noted Resolved Hyperlipidemia [E78.5] 07/21/2005 Type II or unspecified type diabetes mellitus w*07/21/2005 10/27/2013 Essential hypertension [I10] 07/21/2005 UTI (urinary tract infection) [N39.0] 10/21/2007 09/05/2015 Other convulsions [R56.9] 04/11/2008 10/23/2023 Atherosclerosis of [place] coronary artery of na*02/14/2009 Osteopenia [M85.80] 08/20/2012 Vitamin d deficiency [E55.9] 08/31/2012 Glucose intolerance (impaired glucose tolerance*10/27/2013 Other and unspecified hyperlipidemia [E78.5] 07/21/2005 S/P coronary artery stent placement [Z95.5] 10/01/2016 Gastroesophageal reflux disease without esophag*10/21/2018 Stage 3a chronic kidney disease (HCC) [N18.31] 10/21/2018 CAD in [place] artery [I25.10] 05/13/2022 02/03/2023 Hypertensive kidney disease with stage 3a chron*02/03/2023 Medications Discontinued During This Encounter Prescriptions - acetaminophen (TYLENOL) 500 mg tablet (Discontinued) Take 2 tablets by mouth four times daily. Encounter Status:Closed by ARLEEN RIVERA on 08/18/25 [facility] Cardiology Visit Reporton Cardiology Visit Report [facility] [address] [place] [address]. [address] [place] [address] OFFICE VISIT Date of Service: 08/03/25 MR#: [id number] Acct: [id number] Name: VENUS SANDERS Rep #: [id number] : 1945 Provider: Dr. Hardik hoover MD Age/Sex: 80/F Location: [facility] [place] Status: Signed HPI HPI History of Present Illness Details: Patient is 80-year-old white female that comes in today for monitoring of her cardiovascular status. Patient gives a long history of coronary disease status post stenting followed by bypass graft surgery in April 2022. She received a GARZA to the LAD and a vein graft to the OM1 branch OM 2 branch and PDA of the right coronary artery 3 different vein grafts. She also has a history of hypertension and hyperlipidemia. The patient reports that she has been doing fairly well in her home environment she works in the garden in her flower bed without restrictions. She denies any PND orthopnea denies any lower extremity edema. She does not remember the events leading up to her cardiac issues as she had a sudden cardiac . She was resuscitated and then life flighted to [place] where she underwent the bypass graft surgery. The patient's last stress test February 2023 showed an old previous apical infarct with a preserved ejection fraction and was otherwise unremarkable. Intake Vital Signs 10/17/24 10:36 08/03/25 10:31 Height 5 ft 3 in 5 ft 3 in Weight: 150 lb 151 lb BMI 26.5 26.7 BP 134/79 H 133/81 H Blood Pressure Location Lt brachial Rt brachial Position Sitting Sitting Respiration 18 18 Pulse 58 L 54 L Pulse Source Monitor Monitor Pulse Oximetry (%) 99 97 Oxygen Delivery Method room air Intake Visit Reasons: 10 M Corporate Buyer Required: No Accompanied by: Is patient in pain?: No Allergies sertraline (From Zoloft) Allergy (Verified 08/03/25 10:31) Unknown simvastatin (From Zocor) Allergy (Verified 08/03/25 10:31) Unknown lisinopril Adverse Reaction (Unknown, Verified 08/03/25 10:31) unknown Medications ???Medication ???Instructions ???Recorded ???Confirmed ???Type aspirin 81 mg chewable tablet 81 mg PO DAILY 03/12/16 08/03/25 H istory cholecalciferol (vitamin D3) 50 2,000 unit PO DAILY 04/22/1908/03 History mcg (2,000 unit) capsule nitroglycerin 0.4 mg sublingual 0.4 mg sublingual Q5-15M PRN Chest 02/18/24 08/03/25 Rx tablet Pain #25 tabs atorvastatin 40 mg tablet 40 mg PO QHS #90 tabs 08/03/2510/17 Rx metoprolol succinate 50 mg 50 mg PO DAILY #90 tabs 08/03/25 0 08/03/25 Rx tablet,extended release 24 hr Have you fallen in the past year?: No PFSH Medical History History of left heart catheterization (LHC) ( 03/12/22) Chest pain Abnormal ECG during exercise stress test Syncope and collapse 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) Essential hypertension Hyperlipidemia Atherosclerotic heart disease of [place] coronary artery without angina pectoris Surgical History History of coronary artery bypass surgery ( 05/13/22) History of hysterectomy History of cholecystectomy Stented coronary artery (07/21/16) Family History Mother CAD (coronary artery disease) Diabetes Brother CAD (coronary artery disease) Brother CAD (coronary artery disease) Diabetes Social History Smoking Status: Never smoker alcohol intake: never substance use type: does not use caffeine: No ROS Const Const: Positive for fatigue; Negative for weakness ENT ENT: Negative for dizziness or balance problems Cardio Chest Pain: No Palpitations: No Edema: None Muscle aches with walking: None Resp Respiratory: Negative for SOB with activity, SOB at rest or SOB orthopnea SOB lying down GI GI: Negative nausea, vomiting or heartburn Musc Musc: Negative for muscle weakness or balance problems Neuro Neuro: Negative for dizziness, lightheadedness, near syncope, syncope or weakness Endo Endo: Positive for fatigue Cardiology Exam Const Appearance: cooperative, healthy appearing, comfortable, no acute distress and well developed Head Head: normal to inspection Eyes General: appearance normal, both eyes and all related structures Neck Neck: normal visual inspection and no JVD Carotids: Negative bruit Chest Chest inspection: normal inspection of the chest and midline sternotomy incision Auscultation: Bilateral: Clear to Auscultation Cardio Rate: regular rate Rhythm: regular rhythm Heart sounds: S1 normal and S2 normal; Negative rub, gallop or murmur GI GI: normal to inspection Neur (more content not included)... Normal [facility] Bilirubin directOrdered By: Brittany Gutierrez on 07-28-2025 Bilirubin.direct [Mass/Vol] 0.32 mg/dL High 0.00-0.30 [facility] Bilirubin, totalOrdered By: Brittany Gutierrez on 07-28-2025 Bilirubin [Mass/Vol] 0.71 mg/dL 0.00-1.30 [facility] Calculated very low density lipoprotein (VLDL) cholesterol measurementOrdered By: Brittany Gutierrez on 07-28-2025 Calculated very low density lipoprotein (VLDL) cholesterol measurement 12 mg/dL 5-40 [facility] LDL calc ser/plasOrdered By: Brittany Gutierrez on 07-28-2025 Cholesterol in LDL [Mass/Vol] 46 mg/dL [facility] Comment on above: Xobdigvvdh=814-549 m g/dL & Higher Hvhv=338 mg/dL or greaterFriedwald Equation for LDL-C Laboratory - Chemistry and C hemistry - challengeOrdered By: Brittany Gutierrez on 07-28-2025 AST [Catalytic activity/Vol] 23 U/L <32 [facility] Lipid Profileon 07-28-2025 CHOL:HDL 2.00 Normal [facility] Comment on above: Performed By: #### L 500.3400, L500.4100 #### [facility] [address] [place], [place], [id number] Cholesterol [Mass/Vol] 116 mg/dL Normal <=200 [facility] Comment on above: Result Comment: Chol esterol level, Desirable <200 mg/dL Borderline high cholesterol 200-239 mg/dL High cholesterol >=240 mg/dL Recommendations of the NCEP Adult Treatment Panel for the following risk-cutoff thresholds for the [place] population. Performed By: #### L 500.3400, L500.4100 #### [facility] [address] [place], [place], [id number] Cholesterol in HDL [Mass/Vol] 58 mg/dL Normal [facility] Comment on above: Result Comment: Christie onal Cholesterol Education Program (NCEP) guidelines: <40 mg/dL: Low HDL-cholesterol (major risk factor for CHD) >= 60 mg/dL: High HDL-cholesterol (negative risk factor for CHD) HDL-cholesterol is affected by a number of factors, e.g. smoking, exercise, hormones, sex and age. Performed By: #### L 500.3400, L500.4100 #### [facility] [address] [place], [address] (841) Cholesterol in LDL [Mass/Vol] 46 mg/dL Normal [facility] Comment on above: Result Comment: Bord npgtyr=529-438 mg/dL Higher Twrg=192 mg/dL or greater Friedwald Equation for LDL-C Performed By: #### L 500.3400, L500.4100 #### [facility] [address] [place], [address] Cholesterol in VLDL [Mass/Vol] 12 mg/dL Normal 5-40 [facility] Comment on above: Performed By: #### L 500.3400, L500.4100 #### [facility] [address] [place], [address] Triglyceride [Mass/Vol] 60 mg/dL Normal [facility] Comment on above: Result Comment: The drugs N-Acetylcysteine and Metamizole may falsely depress this assay. Normal range: <150 mg/dL Borderline High: 150-199 mg/dL High: 200-499 mg/dL Very High: >500 mg/dL Performed By: #### L 500.3400, L500.4100 #### [facility] [address] [place], [address] Liver Profileon 07-28-2025 Albumin [Mass/Vol] 4.1 g/dL Normal 3.4-4.8 [facility] Comment on above: Performed By: #### L 500.3400, L500.4100 #### [facility] [address] [place], [address] ALK PHOS 99 U/L Normal 35-104 [facility] Comment on above: Performed By: #### L 500.3400, L500.4100 #### [facility] [address] [place], [address] ALT [Catalytic activity/Vol] 15 U/L Normal <=34 [facility] Comment on above: Performed By: #### L 500.3400, L500.4100 #### [facility] [address] [place], [address] AST [Catalytic activity/Vol] 23 U/L Normal <=31 [facility] Comment on above: Performed By: #### L 500.3400, L500.4100 #### [facility] [address] [place], [address] Bilirubin [Mass/Vol] 0.71 mg/dL Normal 0.00-1.30 [facility] Comment on above: Performed By: #### L 500.3400, L500.4100 #### [facility] [address] [place], [address] Bilirubin.direct [Mass/Vol] 0.32 mg/dL High 0.00-0.30 [facility] Comment on above: Performed By: #### L 500.3400, L500.4100 #### [facility] [address] [place], [address] Globulin (S) [Mass/Vol] 3.1 g/dL Normal 2.2-4.2 [facility] Comment on above: Performed By: #### L 500.3400, L500.4100 #### [facility] [address] [place], [address] T PROT 7.2 g/dL Normal 5.9-8.4 [facility] Comment on above: Performed By: #### L 500.3400, L500.4100 #### [facility] [address] [place], [address] Screening total cholesterol/ high density lipoprotein (HDL) cholesterol ratioOrdered By: Brittany Gutierrez on 07-28-2025 Cholesterol.total/Choles terol in HDL [Mass ratio] 2.00 {ratio} [facility] Serum globulin measurementOr dered By: Brittany Gutierrez on 07-28-2025 Globulin (S) [Mass/Vol] 3.1 g/dL 2.2-4.2 [facility] Serum or plasma alanine anderson otransferase (ALT) measurementOrdered By: Brittany Gutierrez on 07-28-2025 ALT [Catalytic activity/Vol] 15 U/L <35 [facility] Serum or plasma albumin lindsey urement (mass/volume)Ordered By: Brittany Gutierrez on 07-28-2025 Albumin [Mass/Vol] 4.1 g/dL 3.4-4.8 [facility] Serum or plasma alkaline adrienne sphatase measurementOrdered By: Brittany Gutierrez on 07-28-2025 ALP [Catalytic activity/Vol] 99 U/L 35-104 [facility] Serum or plasma cholesterol in HDL measurement (mass/volume)Ordered By: Brittany Gutierrez on 07-28-2025 Cholesterol in HDL [Mass/Vol] 58 mg/dL >40 [facility] Comment on above: National Cholesterol Education Program (NCEP) guidelines:<40 mg/dL: Low HDL-cholesterol (major risk factor for CHD)>= 60 mg/dL: High HDL-cholesterol (negative risk factor for CHD)HDL-cholesterol is affected by a number of factors, e.g. smoking, exercise, hormones, sex and age. Serum or plasma cholesterol measurement (mass/volume)Ordered By: Brittany Gutierrez on 07-28-2025 Cholesterol [Mass/Vol] 116 mg/dL <201 [facility] Comment on above: Cholesterol level, D esirable <200 mg/dLBorderline high cholesterol 200-239 mg/dLHigh cholesterol >=240 mg/dLRecommendations of the NCEP Adult Treatment Panel for the following risk-cutoff thresholds for the [place] population. Total proteinOrdered By: Thang Gutierrez on 07-28-2025 Protein [Mass/Vol] 7.2 g/dL 5.9-8.4 [facility] Triglycerides measurementOrd ered By: Brittany Gutierrez on 07-28-2025 Triglyceride [Mass/Vol] 60 mg/dL <199 [facility] Comment on above: The drugs N-Acetylcy steine and Metamizole may falsely depress this assay. Normal range: <150 mg/dLBorderline High: 150-199 mg/dLHigh: 200-499 mg/dLVery High: >500 mg/dL CNOVon 02-06-2025 CNOV Office Visit (INTMWS ) VENUS SANDERS ([id number]) 1945 F Date Time Provider Department 02/06/25 10:40 AM ARLEEN RIVERA During your visit today, we recorded the following information about you: Pulse Respiration Blood pressure Weight 68/minute 16/minute 112/70 68 kg Arleen Rivera APRN.CNP 02/06/2025 12:01 PM Signed CC: Patient presents with: Recheck: Follow up HPI Venus Sanders is a 79 year old female who presents today for routine follow up. HTN w/CKD and HLD: Ms. Sanders denies headache, chest pain, palpitations, dyspnea, and peripheral edema. Patient denies any side effects of her medication(s) and is compliant with their regimen. She does not check BP's generally. Venus denies regular aerobic exercise. She watches her diet for sodium, low fat and low cholesterol most of the time. Last 3 Encounter BP Readings: Date: BP: 02/06/2025 112/70 04/25/2024 112/72 10/23/2023 120/72 Known osteoarthritis of left hip. Currently not taking anything for hip. Started with some throbbing pain to area last night. Currently not bad but was there last night Just wants to know what she can take if it hurts again at night. No injury or cause and just seems come certain times a year. Denies swelling, redness, falls, loss of feeling, fever, or injury. REVIEW OF SYSTEMS See HPI PAST MEDICAL HISTORY Diagnosis Date Cardiac arrest with ventricular fibrillation (HCC) defibrillated x 3 on 07/21/2016 Coronary disease stent in 2007 with balloon angioplasty of left circumflex Depressive disorder, not elsewhere classified Esophageal reflux Herpes zoster without mention of complication Other acute and subacute form of ischemic heart disease 07/23/08 [place] Other and unspecified hyperlipidemia 07/21/2005 Other convulsions 04/11/2008 STEMI (ST elevation myocardial infarction) (HCC) 07/21/2016 Type II or unspecified type diabetes mellitus without mention of complication, not stated as uncontrolled 07/21/2005 Unspecified essential hypertension 07/21/2005 PAST SURGICAL HISTORY Procedure Laterality Date CABG (4) VEIN GRAFTS AND ARTERIAL GRAFT(S) 05/13/2022 GARZA to LAD, SVG to OM1, OM2, and PDA CHOLECYSTECTOMY 11/23/1982 STENT PLACEMENT 07/25/2008 Thru heart cath. at [facility] TOTAL ABDOMINAL HYSTERECT W/WO RMVL TUBE OVARY at age 48 ALLERGIES Imdur [Isosorbide], Simvastatin, Zestril [Lisinopril], and Zoloft [Sertraline Hcl] MEDICATIONS nystatin-triamcinolon e (MYCOLOG) ointment use sparingly twice daily metoprolol succinate ER (TOPROL XL) 50 mg 24 hr tablet Take 1 tablet by mouth every afternoon. nitroglycerin sublingual (NITROQUICK) 0.4 mg SL tablet Dissolve 1 tablet under the tongue every 5 minutes as needed for chest pain. aspirin 81 mg chewable tablet Take 1 tablet by mouth once daily for 30 days, THEN 1 tablet once daily. acetaminophen (TYLENOL) 500 mg tablet Take 2 tablets by mouth four times daily. atorvastatin (LIPITOR) 40 mg tablet Take 1 tablet by mouth once daily. Cholecalciferol, Vitamin D3, 2,000 unit Tab Take 1 tablet by mouth once daily. FAMILY HISTORY Problem Relation Age of Onset Heart Mother Diabetes Mother Coronary Artery Disease Mother Cataract Mother Social History Tobacco Use Smoking status: Never Smokeless tobacco: Never Vaping Use Vaping status: Never Used Substance Use Topics Alcohol use: No Drug use: No PHYSICAL EXAM BP 112/70 Pulse 68 Resp 16 Wt 68 kg (150 lb) SpO2 97% BMI 26.57 kg/m? General Appearance: well appearing, in no acute distress, alert Lungs: Lungs clear to auscultation. No wheezing, rhonchi, rales. Heart: RRR without murmur, gallop, or rubs. No ectopy Extremities: No deformities, edema, skin discoloration, full Strength Musculoskeletal: Left Hip Full ROM, no tenderness Health maintenance reviewed with patient: Depression Screening Never done Anxiety Screening Never done DTaP,Tdap,Td Vaccine(2 - Td or Tdap) due on 02/14/2019 Shingrix Vaccine(2 of 2) due on 09/23/2022 Covid-19 Vaccine( season) due on 07/24/2024 Advance Directive Discussion due on 11/23/2024 Annual PCP Team Chronic Disease Visit due on 04/25/2025 BP Controlled (<130/80) due on 04/25/2025 LDL Cholesterol due on 01/30/2026 Serum Creatinine due on 01/30/2026 Hemoglobin/Hematocrit due on 01/30/2026 Diabetes Screening due on 01/31/2028 Bone Density Screening Completed Influenza Vaccine Completed RSV Vaccine Completed Pneumococcal Vaccine: 50+ Completed Colorectal Cancer Screening Discontinued DATA REVIEWED: Most recent labs ASSESSMENT/PLAN: 1. Hypertensive kidney disease with stage 3a chronic kidney disease (HCC) - ICD9: 403.90, 585.3, ICD10: I12.9, N18.31 (primary diagnosis) - Controlled - Continue current medications - Recommend home blood pressure monitoring, to bring results to next visit - Encouraged sodium re (more content not included)... Normal [facility] Basic metabolic 2000 panelon 01-30-2025 Anion gap [Moles/Vol] 8 mmol/L Normal 8-15 [facility] Comment on above: Order Comment: Speci men Type: BLOOD SPECIMEN Ordering Facility: [facility] Address: [address] [place] [address] Performed By: #### 2 4331-1, 24231-6 #### [facility] CLIA [id number] [address] [place] [address] [place] Calcium [Mass/Vol] 9.7 mg/dL Normal 8.5-10.2 [facility] Comment on above: Order Comment: Speci men Type: BLOOD SPECIMEN Ordering Facility: [facility] Address: [address] [place] [address] Performed By: #### 2 4331-1, 80323-3 #### [facility] CLIA [id number] [address] [place] [address] [place] Chloride [Moles/Vol] 105 mmol/L Normal 98-107 [facility] Comment on above: Order Comment: Speci men Type: BLOOD SPECIMEN Ordering Facility: [facility] Address: [address] [place] [address] Performed By: #### 2 4331-1, 05215-1 #### [facility] CLIA [id number] [address] [place] [address] [place] CO2 [Moles/Vol] 28 mmol/L Normal 22-30 [facility] Comment on above: Order Comment: Speci men Type: BLOOD SPECIMEN Ordering Facility: [facility] Address: [address] [place] [address] Performed By: #### 2 4331-1, 55135-8 #### [facility] CLIA [id number] [address] [place] [address] [place] Creatinine [Mass/Vol] 1.07 mg/dL High 0.58-0.96 [facility] Comment on above: Order Comment: Speci men Type: BLOOD SPECIMEN Ordering Facility: [facility] Address: [address] [place] [address] Performed By: #### 2 4331-, 93139-8 #### [facility] CLIA [id number] [address] [place] [address] [place] Creatinine and Glomerular filtration rate.predicted panel (S/P/Bld) 53 mL/min/1.73m??? Low >=60 [facility] Comment on above: Order Comment: Speci men Type: BLOOD SPECIMEN Ordering Facility: [facility] Address: [address] [place] [address] Result Comment: Kateryna mated Glomerular Filtration Rate (eGFR) is calculated using the 2020 CKD-EPI creatinine equation. This equation utilizes serum creatinine, sex, and age as parameters. The creatinine assay has traceable calibration to isotope dilution-mass spectrometry. Refer to KDIGO guidelines for clinical interpretation. In patients with unstable renal function, e.g. those with acute kidney injury, the eGFR may not accurately reflect actual GFR. Performed By: #### 2 4331-1, 35207-3 #### [facility] CLIA [id number] [address] [place], [place] [id number] [place] Glucose [Mass/Vol] 91 mg/dL Normal 74-99 [facility] Comment on above: Order Comment: Specclaudia you Type: BLOOD SPECIMEN Ordering Facility: [facility] Address: [address] [place] [address] Result Comment: The [place] Diabetes Association (ADA) provides guidance for cutoff values for fasting glucose and random glucose. The ADA defines fasting as no caloric intake for at least 8 hours. Fasting plasma glucose results between 100 to 125 mg/dL indicate increased risk for diabetes (prediabetes). Fasting plasma glucose results greater than or equal to 126 mg/dL meet the criteria for diagnosis of diabetes. In the absence of unequivocal hyperglycemia, results should be confirmed by repeat testing. In a patient with classic symptoms of hyperglycemia or hyperglycemic crisis, random plasma glucose results greater than or equal to 200 mg/dL meet the criteria for diagnosis of diabetes. Reference: Standards of Medical Care in Diabetes 2016, [place] Diabetes Association. Diabetes Care. 2016.39(Suppl 1). Performed By: #### 2 4331-1, 60257-2 #### [facility] CLIA [id number] [address] [place] [address] [place] Potassium [Moles/Vol] 4.6 mmol/L Normal 3.7-5.1 [facility] Comment on above: Order Comment: Tatyana you Type: BLOOD SPECIMEN Ordering Facility: [facility] Address: [address] [place] [address] Performed By: #### 2 4331-1, 42804-1 #### [facility] CLIA [id number] [address] [place] [address] [place] Sodium [Moles/Vol] 141 mmol/L Normal 136-144 [facility] Comment on above: Order Comment: Tatyana you Type: BLOOD SPECIMEN Ordering Facility: [facility] Address: [address] [place] [address] Performed By: #### 2 4331-1, 61595-1 #### [facility] CLIA [id number] [address] [place] [address] [place] Urea nitrogen [Mass/Vol] 18 mg/dL Normal 7-21 [facility] Comment on above: Order Comment: Speci men Type: BLOOD SPECIMEN Ordering Facility: [facility] Address: [address] [place] [address] Performed By: #### 2 4331-1, 29018-7 #### [facility] CLIA [id number] [address] [place] [address] [place] CBC panel Auto (Bld)on 01-30 Erythrocyte distribution width (RBC) [Ratio] 14.2 % Normal 11.5-15.0 [facility] Comment on above: Order Comment: Speci men Type: BLOOD SPECIMEN Ordering Facility: [facility] Address: [address] [place] [address] Performed By: #### 5 8410-2 #### [facility] CLIA [id number] [address] [place] [address] [place] Hematocrit (Bld) [Volume fraction] 43.5 % Normal 36.0-46.0 [facility] Comment on above: Order Comment: Speci men Type: BLOOD SPECIMEN Ordering Facility: [facility] Address: [address] [place] [address] Performed By: #### 5 8410-2 #### [facility] CLIA [id number] [address] [place] [address] [place] Hemoglobin (Bld) [Mass/Vol] 13.7 g/dL Normal 11.5-15.5 [facility] Comment on above: Order Comment: Speci men Type: BLOOD SPECIMEN Ordering Facility: [facility] Address: [address] [place] [address] Performed By: #### 5 8410-2 #### [facility] CLIA [id number] [address] [place] [address] [place] MCH (RBC) [Entitic mass] 27.2 pg Normal 26.0-34.0 [facility] Comment on above: Order Comment: Speci men Type: BLOOD SPECIMEN Ordering Facility: [facility] Address: [address] [place] [address] Performed By: #### 5 8410-2 #### [facility] CLIA [id number] [address] [place] [address] [place] MCHC (RBC) [Mass/Vol] 31.5 g/dL Normal 30.5-36.0 [facility] Comment on above: Order Comment: Speci men Type: BLOOD SPECIMEN Ordering Facility: [facility] Address: [address] [place] [address] Performed By: #### 5 8410-2 #### [facility] CLIA [id number] [address] [place] [address] [place] MCV (RBC) [Entitic vol] 86.5 fL Normal 80.0-100.0 [facility] Comment on above: Order Comment: Speci men Type: BLOOD SPECIMEN Ordering Facility: [facility] Address: [address] [place] [address] Performed By: #### 5 8410-2 #### [facility] CLIA [id number] [address] [place] [address] [place] Nucleated RBC (Bld) [#/Vol] 10*3/uL Normal <0.01 [facility] Comment on above: Order Comment: Speci men Type: BLOOD SPECIMEN Ordering Facility: [facility] Address: [address] [place] [address] Performed By: #### 5 8410-2 #### [facility] CLIA [id number] [address] [place] [address] [place] Platelet mean volume (Bld) [Entitic vol] 10.5 fL Normal 9.0-12.7 [facility] Comment on above: Order Comment: Speci men Type: BLOOD SPECIMEN Ordering Facility: [facility] Address: [address] [place] [address] Performed By: #### 5 8410-2 #### [facility] CLIA [id number] [address] [place] [address] [place] Platelets (Bld) [#/Vol] 250 10*3/uL Normal 150-400 [facility] Comment on above: Order Comment: Speci men Type: BLOOD SPECIMEN Ordering Facility: [facility] Address: [address] [place] [address] Performed By: #### 5 8410-2 #### [facility] CLIA [id number] [address] [place] [address] [place] RBC (Bld) [#/Vol] 5.03 10*6/uL Normal 3.90-5.20 [facility] Comment on above: Order Comment: Speci men Type: BLOOD SPECIMEN Ordering Facility: [facility] Address: [address] [place] [address] Performed By: #### 5 8410-2 #### [facility] CLIA [id number] [address] [place] [address] [place] WBC (Bld) [#/Vol] 6.60 10*3/uL Normal 3.70-11.00 [facility] Comment on above: Order Comment: Speci men Type: BLOOD SPECIMEN Ordering Facility: [facility] Address: [address] [place] [address] Performed By: #### 5 8410-2 #### [facility] CLIA [id number] [address] [place] [address] [place] Lipid 1996 panelon 5 Cholesterol [Mass/Vol] 117 mg/dL Normal <200 [facility] Comment on above: Order Comment: Speci men Type: BLOOD SPECIMEN Ordering Facility: [facility] Address: [address] [place] [address] Result Comment: <200 mg/dL, Desirable 200-239 mg/dL, Borderline high >239 mg/dL, High Performed By: #### 2 4331-1, 02668-8 #### [facility] CLIA [id number] [facility] [address] OF [facility] Cholesterol in HDL [Mass/Vol] 48 mg/dL Normal >39 [facility] Comment on above: Order Comment: Tatyana you Type: BLOOD SPECIMEN Ordering Facility: [facility] Address: [address] [place] [address] Result Comment: 40-5 9 mg/dL, Acceptable >59 mg/dL, High: Negative risk factor for coronary heart disease <40 mg/dL, Low: Positive risk factor for coronary heart disease Performed By: #### 2 4331-1, 46643-5 #### [facility] CLIA [id number] [address] [place] [address] Cholesterol in LDL [Mass/Vol] 58 mg/dL Normal <100 [facility] Comment on above: Order Comment: Tatyana you Type: BLOOD SPECIMEN Ordering Facility: [facility] Address: [address] [place] [address] Result Comment: <100 mg/dL, Optimal 100-129 mg/dL, Near optimal/above optimal 130-159 mg/dL, Borderline high 160-189 mg/dL, High >189 mg/dL, Very high Secondary prevention optimal LDL Cholesterol levels are recommended to be < 70 mg/dL Performed By: #### 2 4331-1, 57937-6 #### [facility] CLIA [id number] [address] [place] [address] OF [facility] Cholesterol in LDL/Cholesterol in HDL [Mass ratio] 1.21 {ratio} Normal <2.54 [facility] Comment on above: Order Comment: Randyclaudia you Type: BLOOD SPECIMEN Ordering Facility: [facility] Address: [address] [place] [address] Result Comment: Wing curran: 1. National Cholesterol Education Program ATP III Guideline At-A-Glance Quick Desk Reference: National Heart, Lung, and Blood [place]. National Institutes of Health. 2001: NIH Publication No. 01-3305. 2. An International Atherosclerosis Society position paper: global recommendations for the management of dyslipidemia: executive summary, Atherosclerosis. 2014: 232(2):410-413. Performed By: #### 2 4331-1, 38529-0 #### [facility] CLIA [id number] [address] [place] [address] [place] Cholesterol in VLDL [Mass/Vol] 11 mg/dL Normal <30 [facility] Comment on above: Order Comment: Speci men Type: BLOOD SPECIMEN Ordering Facility: [facility] Address: [address] [place] [address] Performed By: #### 2 4331-1, 17369-4 #### [facility] CLIA [id number] [address] [place] [address] [place] Cholesterol non HDL [Mass/Vol] 69 mg/dL Normal <130 [facility] Comment on above: Order Comment: Speci men Type: BLOOD SPECIMEN Ordering Facility: [facility] Address: [address] [place] [address] Result Comment: <130 mg/dL, Optimal 130-159 mg/dL, Near optimal/above optimal 160-189 mg/dL, Borderline high 190-219 mg/dL, High >219 mg/dL, Very high Secondary prevention optimal non HDL Cholesterol levels are recommended to be <100 mg/dL Performed By: #### 2 4331-1, 43350-2 #### [facility] CLIA [id number] [address] [place] [address] [place] Cholesterol.total/Choles terol in HDL [Mass ratio] 2.44 {ratio} Normal <5.10 [facility] Comment on above: Order Comment: Speci men Type: BLOOD SPECIMEN Ordering Facility: [facility] Address: [address] [place] [address] Performed By: #### 2 4331-1, 61502-5 #### [facility] CLIA [id number] [address] [place], [place] [address] [place] FASTING TIME 14 hrs Normal [facility] Comment on above: Order Comment: Speci men Type: BLOOD SPECIMEN Ordering Facility: [facility] Address: [address] [place] [address] Performed By: #### 2 4331-1, 66439-2 #### [facility] CLIA [id number] [address] [place] [address] [place] Triglyceride [Mass/Vol] 56 mg/dL Normal <150 [facility] Comment on above: Order Comment: Speci men Type: BLOOD SPECIMEN Ordering Facility: [facility] Address: [address] [place] [address] Result Comment: <150 mg/dL, Normal 150-199 mg/dL, Borderline high 200-499 mg/dL, High >499 mg/dL, Very high Performed By: #### 2 4331-1, 53623-8 #### [facility] CLIA [id number] [address] [place] [address] [place] CNCOon 01-26-2025 CNCO Letter Text Normal [facility] Cardiology Visit Reporton Cardiology Visit Report [facility] [address] [place] [address] OFFICE VISIT Date of Service: 10/17/24 MR#: [id number] Acct: [id number] Name: VENUS SANDERS Rep #: [id number] : 1945 Provider: AMANDEEP Corrigan Age/Sex: 79/F Location: [facility] Status: Signed HPI HPI History of Present Illness Details: Venus Sanders is a 79-year-old white female who presents today for outpatient cardiovascular follow- up visit. She has a history of CAD, anterior [place], cardiopulmonary arrest, status post LAD PCI (07-21-2016-[facility]-Promus 2.75x38 drug-eluting stent), superimposed upon hyperlipidemia and hypertension. In January of 2022, she was in our office for routine office visit, and she had noted chest discomfort. She underwent a stress test which was abnormal. She then underwent a diagnostic heart catheterization in which she was referred to [facility] for CT surgery. She underwent coronary artery bypass surgery on 05-13-2022 with a GARZA to the LAD, SVG to OM1, SVG to OM 2, SVG to the PDA. From a cardiac standpoint, patient is doing well. She does not have any chest discomfort/heaviness/ tightness. She does not have any worsening symptoms of shortness of breath. She does not have any orthopnea. She denies PND. She does not have any symptoms of congestive heart failure. She does not have any palpitations that she is aware of. She does not have any lightheadedness or dizziness. She does not have any near-syncope or syncope. She does not have any lower extremity edema. She does not have any symptoms of claudication. Intake Vital Signs 02/18/24 09:50 10/17/24 10:36 Height 5 ft 3 in 5 ft 3 in Weight: 156 lb 150 lb BMI 27.6 26.5 BP 112/74 134/79 H Blood Pressure Location Lt brachial Lt brachial Position Sitting Sitting Respiration 18 18 Pulse 86 58 L Pulse Source Monitor Monitor Pulse Oximetry (%) 99 99 Intake Visit Reasons: 9 M [employer]er Required: No Is patient in pain?: No Allergies sertraline (From Zoloft) Allergy (Verified 10/17/24 10:36) Unknown simvastatin (From Zocor) Allergy (Verified 10/17/24 10:36) Unknown lisinopril Adverse Reaction (Unknown, Verified 10/17/24 10:36) unknown Medications ???Medication ???Instructions ???Recorded ???Confirmed ???Type aspirin 81 mg chewable tablet 81 mg PO DAILY 03/12/16 10/17/24 History cholecalciferol (vitamin D3) 50 2,000 unit PO DAILY 04/22/19 10/17/24 History mcg (2,000 unit) capsule nitroglycerin 0.4 mg sublingual 0.4 mg sublingual Q5-15M PRN Chest 02/18/24 10/17/24 Rx tablet Pain #25 tabs atorvastatin 40 mg tablet 40 mg PO QHS #90 tabs 10/17/24 10/17/24 Rx metoprolol succinate 50 mg 50 mg PO DAILY #90 tabs 10/17/24 10/17/24 Rx tablet,extended release 24 hr Have you fallen in the past year?: No Nurse's Note: no medication list, does not know what she is taking [facility] Medical History History of left heart catheterization (LHC) ( 03/12/22) Chest pain Abnormal ECG during exercise stress test Syncope and collapse 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) Essential hypertension Hyperlipidemia Atherosclerotic heart disease of [place] coronary artery without angina pectoris Surgical History History of coronary artery bypass surgery ( 05/13/22) History of hysterectomy History of cholecystectomy Stented coronary artery (07/21/16) Family History Mother CAD (coronary artery disease) Diabetes Brother CAD (coronary artery disease) Brother CAD (coronary artery disease) Diabetes Social History Smoking Status: Never smoker alcohol intake: never substance use type: does not use caffeine: No ROS Const Const: Positive for fatigue; Negative for weakness, fever(s), headache(s), chills, frequent falls, weight gain or weight loss Eyes Eyes: Negative for blind spots, loss of peripheral vision, transient loss of vision, blurry vision, change in vision, double vision, floaters or tunnel vision ENT ENT: Negative for headache(s), dizziness, Nosebleed/epistaxis, balance problems or neck pain Cardio Chest Pain: No Palpitations: No Edema: None Muscle aches with walking: None Resp Respiratory: Negative for SOB with activity, SOB at rest or SOB orthopnea SOB lying down GI GI: Negative nausea, vomiting, heartburn, bloating, vomiting blood/hematemesis, bright, red blood in stools or black,tarry stools Musc Musc: Negative for muscle aches/ myalgia, muscle weakness, joint pain or balance problems Neuro Neuro: Negative for dizzi (more content not included)... Normal [facility] Lipid Profileon 10-10-2024 Cholesterol [Mass/Vol] 117 mg/dL Normal 200 [facility] Comment on above: Result Comment: <200 mg/dL Desirable 200-240 mg/dL Borderline >240 mg/dL High Risk Performed By: #### L 500.3400, L500.4100 #### [facility] [address] [place], [address] Cholesterol in HDL [Mass/Vol] 56 mg/dL Normal [facility] Comment on above: Result Comment: The drugs N-Acetylcysteine and Metamizole may falsely depress this assay. Reference Range HDL <40 mg/dL Low HDL Cholesterol HDL >or= 60 mg/dL High HDL Cholesterol Performed By: #### L 500.3400, L500.4100 #### [facility] [address] [place], [address] Cholesterol in LDL [Mass/Vol] 45 mg/dL Normal 0-130 [facility] Comment on above: Performed By: #### L 500.3400, L500.4100 #### [facility] [address] [place], [address] Cholesterol in VLDL [Mass/Vol] 16 mg/dL Normal 5-40 [facility] Comment on above: Performed By: #### L 500.3400, L500.4100 #### [facility] [address] [place], [address] Triglyceride [Mass/Vol] 82 mg/dL Normal [facility] Comment on above: Result Comment: The drugs N-Acetylcysteine and Metamizole may falsely depress this assay. Serum Triglycerides Reference Interval Normal <150 mg/dL Borderline high 150 - 199 mg/dL High 200 - 499 mg/dL Very High > or = 500 mg/dL Performed By: #### L 500.3400, L500.4100 #### [facility] [address] [place], [address] Liver Profileon 10-10-2024 Albumin [Mass/Vol] 3.7 g/dL Normal 3.2-5.0 [facility] Comment on above: Performed By: #### L 500.3400, L500.4100 #### [facility] [address] [place], [address] ALK P 118 U/L High 45-117 [facility] Comment on above: Performed By: #### L 500.3400, L500.4100 #### [facility] [address] [place], [address] ALT [Catalytic activity/Vol] 20 U/L Normal 13-56 [facility] Comment on above: Performed By: #### L 500.3400, L500.4100 #### [facility] [address] [place], [address] AST [Catalytic activity/Vol] 17 U/L Normal 15-37 [facility] Comment on above: Performed By: #### L 500.3400, L500.4100 #### [facility] [address] [place], [address] Bilirubin [Mass/Vol] 0.60 mg/dL Normal 0.20-1.00 [facility] Comment on above: Result Comment: For patients on eltrombopag therapy, use of Dimension [place] TBIL is not recommended. Performed By: #### L 500.3400, L500.4100 #### [facility] [address] [place], [address] Bilirubin.direct [Mass/Vol] 0.19 mg/dL Normal 0.00-0.30 [facility] Comment on above: Performed By: #### L 500.3400, L500.4100 #### [facility] [address] [place], [address] Globulin (S) [Mass/Vol] 4.0 g/dL Normal 2.2-4.2 [facility] Comment on above: Performed By: #### L 500.3400, L500.4100 #### [facility] [address] [place], [address] T PROT 7.7 g/dL Normal 6.4-8.2 [facility] Comment on above: Performed By: #### L 500.3400, L500.4100 #### [facility] [address] [place], [address] Urinalysis complete panel (U )on 04-25-2024 Bacteria LM.HPF (Urine sed) [#/Area] Negative Negative /HPF [facility] Bilirubin Ql (U) Negative Negative [facility] Clarity (Unsp spec) Clear Clear [facility] Color (U) Yellow Yellow [facility] Epithelial cells LM.HPF (Urine sed) [#/Area] Few /HPF [facility] Glucose Test strip (U) [Mass/Vol] Negative Negative [facility] Hemoglobin Ql (U) Negative Negative [facility] Hyaline casts (Urine sed) [#/Area] 0 /[LPF] 0 /LPF [facility] Interpretation and review of laboratory results Abnormal [facility] Ketones Ql (U) Negative Negative [facility] Leukocyte esterase Test strip Ql (U) 3+ Abnormal Negative [facility] Nitrite Ql (U) Negative Negative [facility] pH (U) 6.0 [pH] NINF - 8.5 [facility] Protein (U) [Mass/Vol] Negative Negative [facility] RBC LM.HPF (Urine sed) [#/Area] 0-2 /HPF 0-2 /HPF [facility] Specific gravity (U) [Rel density] 1.012 1.005 - 1.030 [facility] Urobilinogen Ql (U) 0.2 EU/dL 0.2-1.0 EU/dL [facility] WBC LM.HPF (Urine sed) [#/Area] /[HPF] Abnormal 0-5 /HPF [facility] This test was developed and its performance characteristics determined by [facility]'s Amari Obrien [facility] Pathology and Laboratory Medicine [place] ([facility]). It has not been cleared or approved by the FDA. [facility] is regulated under CLIA as qualified to perform high-complexity testing. This test is used for clinical purposes. It should not be regarded as investigational or for research. [facility] XR Pelvis and Hip - left AP and Lateral frogon 04-25-2024 IMPRESSION: 1. Mild bilateral hip degenerative changes. 2. Bilateral hip chondrocalcinosis. 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: [employer] Transcribe Date/Time: Apr 25 2024 11:18A Dictated by : DARRYL WAGNER MD This examination was interpreted and the report reviewed and electronically signed by: DARRYL WAGNER MD on Apr 25 2024 11:19AM EST DIVISION OF RADIOLOGY * * *Final Report* * * DATE OF EXAM: Apr 25 2024 11:17AM WOX [id number] - XR HIP 3V PELV+ AP/LAT LT / PROCEDURE REASON: Left groin pain * * * * Physician Interpretation * * * * TITLE: XR HIP 3V PELV+ AP/LAT LT CLINICAL INDICATION: Left hip pain TECHNIQUE: AP radiograph of the pelvis and AP/frog leg lateral radiographs of the left hip COMPARISON: None FINDINGS: No acute fracture or dislocation identified. Mild bilateral hip joint space narrowing. Bilateral hip chondrocalcinosis. Degenerative changes of the visualized lower lumbar spine. DIVISION OF RADIOLOGY [facility] * * *Final Report* * * DATE OF EXAM: Apr 25 2024 11:17AM WOX [id number] - XR HIP 3V PELV+ AP/LAT LT / PROCEDURE REASON: Left groin pain * * * * Physician Interpretation * * * * TITLE: XR HIP 3V PELV+ AP/LAT LT CLINICAL INDICATION: Left hip pain TECHNIQUE: AP radiograph of the pelvis and AP/frog leg lateral radiographs of the left hip COMPARISON: None FINDINGS: No acute fracture or dislocation identified. Mild bilateral hip joint space narrowing. Bilateral hip chondrocalcinosis. Degenerative changes of the visualized lower lumbar spine. IMPRESSION IMPRESSION: 1. Mild bilateral hip degenerative changes. 2. Bilateral hip chondrocalcinosis. 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: [facility] Transcribe Date/Time: Apr 25 2024 11:18A Dictated by : DARRYL WAGNER MD This examination was interpreted and the report reviewed and electronically signed by: DARRYL WAGNER MD on Apr 25 2024 11:19AM EST [facility] Radiology Study observation (narrative) [facility] XR Pelvis and Hip - left AP and Lateral frogOrdered By: [facility]cf Provider on 04-25-2024 [facility] Basophil percentageOrdered B y: Maira Hinkle on 02-15-2024 Bilirubin [Mass/Vol] 1.00 mg/dL 0.20-1.00 [facility] Comment on above: For patients on eltr ombopag therapy, use of Dimension [place] TBIL is not recommended. Cholesterol [Mass/Vol] 113 mg/dL <200 [facility] Comment on above: <200 mg/dL Desirable 200-240 mg/dL Borderline >240 mg/dL High Risk Protein [Mass/Vol] 7.2 g/dL 6.4-8.2 [facility] Triglyceride [Mass/Vol] 61 mg/dL <199 [facility] Comment on above: The drugs N-Acetylcy steine and Metamizole may falsely depress this assay.Serum Triglycerides Reference Interval Normal <150 mg/dL Borderline high 150 - 199 mg/dL High 200 - 499 mg/dL Very High > or = 500 mg/dL Direct bilirubinOrdered By: Maira Hinkle on 02-15-2024 Bilirubin.direct [Mass/Vol] 0.34 mg/dL 0.00-0.30 [facility] Laboratory - Chemistry and C hemistry - challengeOrdered By: Maira Hinkle on 02-15-2024 ALP [Catalytic activity/Vol] 102 U/L 45-117 [facility] ALT [Catalytic activity/Vol] 17 U/L 13-56 [facility] Cholesterol in HDL [Mass/Vol] 56 mg/dL >40 [facility] Comment on above: The drugs N-Acetylcy steine and Metamizole may falsely depress this assay. Reference Range HDL <40 mg/dL Low HDL Cholesterol HDL >or= 60 mg/dL High HDL Cholesterol Cholesterol in LDL [Mass/Vol] 45 mg/dL 0-130 [facility] Globulin (S) [Mass/Vol] 3.6 g/dL 2.2-4.2 [facility] No Panel InformationOrdered By: Maira Hinkle on 02-15-2024 VLDL Cholesterol 12 mg/dL 5-40 [facility] Thin prep Papanicolaou smear with manual screeningOrdered By: Maira Hinkle on 02-15-2024 Thin prep Papanicolaou smear with manual screening 3.6 g/dL 3.2-5.0 [facility] Thin prep Papanicolaou smear with manual screening 20 U/L 15-37 [facility] Basophil percentageOrdered B y: Tr Hernadez on 08-21-2023 Basophil percentage 0-5 SEEN /hpf 0-5 [facility] Bilirubin Test strip Ql (U)O rdered By: Tr Hernadez on 08-21-2023 Bilirubin Ql (U) Negative Negative [facility] Ketones Test strip Ql (U)Ord ered By: Tr Hernadez on 08-21-2023 Ketones Ql (U) Negative Negative [facility] Mucus LM Ql (Urine sed)Order ed By: Tr Hernadez on 08-21-2023 Mucus Ql (Urine sed) 0 SEEN /hpf [facility] Nitrite Test strip Ql (U)Ord ered By: Tr Hernadez on 08-21-2023 Nitrite Ql (U) Negative Negative [facility] Protein Test strip Ql (U)Ord ered By: Tr Hernadez on 08-21-2023 Protein Ql (U) 15 mg/dl Negative [facility] Squamous epithelial cells de tection in urine sediment by light microscopyOrdered By: Tr Hernadez on 08-21-2023 Epithelial cells.squamous LM Ql (Urine sed) 5-10 SEEN /hpf 5-10 [facility] Urine blood detectionOrdered By: Tr Hernadez on 08-21-2023 RBC Ql (U) Negative Negative [facility] RBC Ql (U) 0 SEEN /hpf 0-5 [facility] Urine clarityOrdered By: Ramin Hernadez on 08-21-2023 Clarity (U) Clear Clear [facility] Urine color determinationOrd ered By: Tr Hernadez on 08-21-2023 Color (U) Yellow Yellow [facility] Urine glucose detectionOrder ed By: Tr Hernadez on 08-21-2023 Glucose Ql (U) Normal mg/dl Normal [facility] Urine leukocyte esterase det ection by dipstickOrdered By: Tr Hernadez on 08-21-2023 Leukocyte esterase Test strip Ql (U) 100 /ul Negative [facility] Urine pHOrdered By: Tr mon on 08-21-2023 pH (U) 7.0 [pH] 5.0 - 8.0 [facility] Urine sediment bacteria coun t by microscopy (number/high power field)Ordered By: Tr Hernadez on 08-21-2023 Bacteria LM.HPF (Urine sed) [#/Area] 0 /[HPF] None Seen [facility] Urine specific gravity measu rementOrdered By: Tr Hernadez on 08-21-2023 Specific gravity (U) [Rel density] 1.010 1.002-1.030 [facility] Urobilinogen Auto test strip Ql (U)Ordered By: Tr Hernadez on 08-21-2023 Urobilinogen Ql (U) Normal mg/dl Normal [facility] UA DIP, URINE (POC)on 2022 BILIRUBIN UA (POCT) Negative Negative [facility] CLARITY UA (POCT) Slightly Cloudy Cl [facility] COLOR UA (POCT) Other [facility] GLUCOSE UA (POCT) Negative Negative mg/dL [facility] Hemoglobin Ql (U) Negative Negative [facility] KETONE UA (POCT) Negative Negative mg/dL [facility] LEUKOCYTES UA (POCT) Small Abnormal Negative [facility] NITRITE UA (POCT) Negative Negative [facility] PH UA (POCT) 7.0 4.5 - 8.0 [facility] Protein Ql (U) Negative Negative mg/dL [facility] SPECIFIC GRAVITY UA (POCT) 1.010 1.005 - 1.030 [facility] UROBILINOGEN UA (POCT) 0.2 E.U./dL Grec[place] l E.U./dL [facility] Basophil percentageOrdered B y: Maira Hinkle on 07-29-2023 WBC (Bld) [#/Vol] 8.0 10*3/uL 4.4-11.0 [facility] Cholesterol [Mass/Vol] 120 mg/dL <200 [facility] Comment on above: <200 mg/dL Desirable 200-240 mg/dL Borderline >240 mg/dL High Risk Triglyceride [Mass/Vol] 80 mg/dL <199 [facility] Comment on above: The drugs N-Acetylcy steine and Metamizole may falsely depress this assay.Serum Triglycerides Reference Interval Normal <150 mg/dL Borderline high 150 - 199 mg/dL High 200 - 499 mg/dL Very High > or = 500 mg/dL Blood erythrocytes count (nu mber/volume)Ordered By: Maira Hinkle on 07-29-2023 RBC (Bld) [#/Vol] 5.55 10*6/uL 4.2-5.4 [facility] Blood hemoglobin measurement (mass/volume)Ordered By: Maira Hinkle on 07-29-2023 Hemoglobin (Bld) [Mass/Vol] 15.3 g/dL 12.0-15.0 [facility] Blood platelet mean volumeOr dered By: Maira Hinkle on 07-29-2023 Platelet mean volume (Bld) [Entitic vol] 10.8 fL 6.2-12.0 [facility] Determination of erythrocyte mean corpuscular volume (MCV)Ordered By: Maira Hinkle on 07-29-2023 MCV (RBC) [Entitic vol] 85.6 fL 81-99 [facility] Direct bilirubinOrdered By: Maira Hinkle on 07-29-2023 Bilirubin.direct [Mass/Vol] 0.17 mg/dL 0.00-0.30 [facility] Hematocrit Auto (Bld) [Volum e fraction]Ordered By: Maira Hinkle on 07-29-2023 Hematocrit (Bld) [Volume fraction] 47.5 % 37-47 [facility] Laboratory - Hematology and Cell countsOrdered By: Maira Hinkle on 07-29-2023 Erythrocyte distribution width (RBC) [Entitic vol] 42.5 fL 35.1-43.9 [facility] Erythrocyte distribution width (RBC) [Ratio] 13.6 % 11.6-14.6 [facility] MCH (RBC) [Entitic mass] 27.6 pg 27.0-32.0 [facility] MCHC Auto (RBC) [Mass/Vol]Or dered By: Maira Hinkle on 07-29-2023 MCHC (RBC) [Mass/Vol] 32.2 g/dL 32-36 [facility] Platelets bldOrdered By: Garcia Hinkle on 07-29-2023 Platelets (Bld) [#/Vol] 233 10*3/uL 150-450 [facility] Serum or plasma cholesterol in HDL measurement (mass/volume)Ordered By: Maira Hinkle on 07-29-2023 Cholesterol in HDL [Mass/Vol] 56 mg/dL >40 [facility] Comment on above: The drugs N-Acetylcy steine and Metamizole may falsely depress this assay. Reference Range HDL <40 mg/dL Low HDL Cholesterol HDL >or= 60 mg/dL High HDL Cholesterol Serum or plasma cholesterol in VLDL measurement (mass/volume)Ordered By: Maira Hinkle on 07-29-2023 Cholesterol in VLDL [Mass/Vol] 16 mg/dL 5-40 [facility] Serum or plasma low density lipoprotein (LDL) cholesterol measurement (mass/volume)Ordered By: Maira Hinkle on 07-29-2023 Cholesterol in LDL [Mass/Vol] 48 mg/dL 0-130 [facility] Whole blood hemoglobin A1c/t otal hemoglobin ratio (mass fraction)Ordered By: Maira Hinkle on 07-29-2023 HbA1c (Bld) [Mass fraction] 5.7 % 3.8-5.6 [facility] Comment on above: Normal < 5.7 % Predi abetic 5.7 - 6.4 % Diabetic >or= 6.5 % Please note range changes. UA DIP, URINE (POC)on 2022 BILIRUBIN UA (POCT) Negative Negative [facility] CLARITY UA (POCT) Clear [facility] COLOR UA (POCT) Yellow [facility] GLUCOSE UA (POCT) Negative Negative mg/dL [facility] HEMOGLOBIN/BLOOD UA (POCT) Negative Negative [facility] KETONE UA (POCT) Negative Negative mg/dL [facility] LEUKOCYTES UA (POCT) Small Abnormal Negative [facility] NITRITE UA (POCT) Negative Negative [facility] PH UA (POCT) 6.0 4.5 - 8.0 [facility] Protein Ql (U) Negative Negative mg/dL [facility] SPECIFIC GRAVITY UA (POCT) <=1.005 Abnormal 1.005 - 1.030 [facility] UROBILINOGEN UA (POCT) 0.2 E.U./dL Grecia l E.U./dL [facility] Basophil percentageOrdered B y: Maira Hinkle on 02-13-2023 Bilirubin [Mass/Vol] 0.90 mg/dL 0.20-1.00 [facility] Comment on above: For patients on eltr ombopag therapy, use of Dimension [place] TBIL is not recommended. Cholesterol [Mass/Vol] 118 mg/dL <200 [facility] Comment on above: <200 mg/dL Desirable 200-240 mg/dL Borderline >240 mg/dL High Risk Protein [Mass/Vol] 7.5 g/dL 6.4-8.2 [facility] Triglyceride [Mass/Vol] 70 mg/dL <199 [facility] Comment on above: The drugs N-Acetylcy steine and Metamizole may falsely depress this assay.Serum Triglycerides Reference Interval Normal <150 mg/dL Borderline high 150 - 199 mg/dL High 200 - 499 mg/dL Very High > or = 500 mg/dL Direct bilirubinOrdered By: Maira Hinkle on 02-13-2023 Bilirubin.direct [Mass/Vol] 0.16 mg/dL 0.00-0.30 [facility] Laboratory - Chemistry and C hemistry - challengeOrdered By: Maira Hinkle on 02-13-2023 ALP [Catalytic activity/Vol] 97 U/L 45-117 [facility] ALT [Catalytic activity/Vol] 21 U/L 13-56 [facility] Globulin (S) [Mass/Vol] 3.9 g/dL 2.2-4.2 [facility] Serum or plasma albumin lindsey urement (mass/volume)Ordered By: Maira Hinkle on 02-13-2023 Albumin [Mass/Vol] 3.6 g/dL 3.2-5.0 [facility] Serum or plasma cholesterol in HDL measurement (mass/volume)Ordered By: Maira Hinkle on 02-13-2023 Cholesterol in HDL [Mass/Vol] 57 mg/dL >40 [facility] Comment on above: The drugs N-Acetylcy steine and Metamizole may falsely depress this assay. Reference Range HDL <40 mg/dL Low HDL Cholesterol HDL >or= 60 mg/dL High HDL Cholesterol Serum or plasma cholesterol in VLDL measurement (mass/volume)Ordered By: Maira Hinkle on 02-13-2023 Cholesterol in VLDL [Mass/Vol] 14 mg/dL 5-40 [facility] Serum or plasma low density lipoprotein (LDL) cholesterol measurement (mass/volume)Ordered By: Maira Hinkle on 02-13-2023 Cholesterol in LDL [Mass/Vol] 47 mg/dL 0-130 [facility] Thin prep Papanicolaou smear with manual screeningOrdered By: Maira Hinkle on 02-13-2023 Thin prep Papanicolaou smear with manual screening 23 U/L 15-37 [facility] Comment on above: Slight Hemolysis, Re sult may be falsely increased. Basophil percentageon 2021 Bilirubin [Mass/Vol] 0.30 mg/dL 0.20-1.00 [facility] Work Phone: Comment on above: For patients on eltr ombopag therapy, use of Dimension [place] TBIL is not recommended. Cholesterol [Mass/Vol] 108 mg/dL <200 [facility] Work Phone: Comment on above: <200 mg/dL Desirable 200-240 mg/dL Borderline >240 mg/dL High Risk Protein [Mass/Vol] 7.5 g/dL 6.4-8.2 [facility] Work Phone: Triglyceride [Mass/Vol] 52 mg/dL <199 [facility] Work Phone: Comment on above: The drugs N-Acetylcy steine and Metamizole may falsely depress this assay.Serum Triglycerides Reference Interval Normal <150 mg/dL Borderline high 150 - 199 mg/dL High 200 - 499 mg/dL Very High > or = 500 mg/dL Direct bilirubinon 2 Bilirubin.direct [Mass/Vol] 0.13 mg/dL 0.00-0.30 [facility] Work Phone: Laboratory - Chemistry and C hemistry - challengeon 08-06-2022 ALP [Catalytic activity/Vol] 107 U/L 45-117 [facility] Work Phone: ALT [Catalytic activity/Vol] 19 U/L 13-56 [facility] Work Phone: [phone] Globulin (S) [Mass/Vol] 4.1 g/dL 2.2-4.2 [facility] Work Phone: Serum or plasma albumin lindsey urement (mass/volume)on 08-06-2022 Albumin [Mass/Vol] 3.4 g/dL 3.2-5.0 [facility] Work Phone: Serum or plasma cholesterol in HDL measurement (mass/volume)on 08-06-2022 Cholesterol in HDL [Mass/Vol] 49 mg/dL >40 [facility] Work Phone: Comment on above: The drugs N-Acetylcy steine and Metamizole may falsely depress this assay. Reference Range HDL <40 mg/dL Low HDL Cholesterol HDL >or= 60 mg/dL High HDL Cholesterol Serum or plasma cholesterol in VLDL measurement (mass/volume)on 08-06-2022 Cholesterol in VLDL [Mass/Vol] 10 mg/dL 5-40 [facility] Work Phone: Serum or plasma low density lipoprotein (LDL) cholesterol measurement (mass/volume)on 08-06-2022 Cholesterol in LDL [Mass/Vol] 49 mg/dL 0-130 [facility] Work Phone: Thin prep Papanicolaou smear with manual screeningon 08-06-2022 Thin prep Papanicolaou smear with manual screening 17 U/L 15-37 [facility] Work Phone: CNOVon 06-16-2022 CNOV Office Visit (AGVASACC) VENUS SANDERS ([id number]) 1945 F Date Time Provider Department 06/16/22 10:30 AM JENNIFER ADDISON During your visit today, we recorded the following information about you: Pulse Respiration Blood pressure Weight 82/minute 18/minute 118/66 68.9 kg Height 1.6 m Jennifer Addison APRN.[facility] 06/17/2022 7:06 AM Signed HPI: This is a 77 year old woman referred for evaluation of multivessel coronary artery disease and for consideration for bypass surgery. ?She has history of coronary artery disease. ?In 2007 she underwent stenting to the left anterior descending artery. ?In 2015 she presented with acute myocardial infarction and had repeat stenting to the left anterior descending artery. ?Stress echo in 2018 was negative for inducible ischemia and ejection fraction was 65% with a resting wall motion abnormality. She then noted returning symptoms and experienced a syncopal episode.?Cardiolite stress test performed in February of this year showed ejection fraction 75% with resting wall motion abnormality involving the apex with no stress-induced changes. ?Recent eft heart catheterization revealed multivessel coronary disease and she was therefore scheduled for CABG with Dr. Martinez. ? Mrs. Alaniz underwent CABG x?4 (- S/p CABG x?4; (GARZA to LAD, SVG to?OM1, OM2, and PDA)?with Dr. Martinez on 05/13/2022., was transferred to the CVICU in stable condition, successfully extubated in a timely manner. She continued to recover well without complications, and was deemed stable for discharge to home with home healthcare on 05/18/22. Interval events: none, states she is feeling great Venus Sanders reports home recovery as listed below: Episodes of dizziness or syncope: no Chest pain: no Palpitations: no BP: reviewed per home log: not available for review Tolerating diet well without changing bowel habits: yes Fever, chills: no Activities at home with/without SOB or EVRDUZCO: walks - states she is out running errands and grocery shopping without issues. Post surgical pain without pain medications - denies sternal discomfort- ocassional left foot discomfort with swelling. Leg edema: let foot ocassional Sleep: good Energy: good Subjective: Current Outpatient Medications Medication Sig - aspirin 81 mg chewable tablet Take 2 tablets by mouth once daily for 30 days, THEN 1 tablet once daily. - ascorbic acid, vitamin C, (VITAMIN C) 500 mg tablet Take 1 tablet by mouth once daily. - ferrous sulfate 325 mg (65 mg iron) tablet Take 1 tablet by mouth daily with breakfast. - folic acid 1 mg tablet Take 1 tablet by mouth once daily. - metoprolol tartrate, short acting, (LOPRESSOR) 50 mg tablet Take 1 tablet by mouth every 12 hours. - atorvastatin (LIPITOR) 40 mg tablet Take 1 tablet by mouth once daily. - Cholecalciferol, Vitamin D3, 2,000 unit Tab Take 1 tablet by mouth once daily. - acetaminophen (TYLENOL) 500 mg tablet Take 2 tablets by mouth four times daily. (Patient not taking: Reported on 06/16/2022 ) - magnesium oxide (MAG-OX) 400 mg (241.3 mg magnesium) tablet Take 1 tablet by mouth once daily for 14 days. - diazePAM (VALIUM) 5 mg tablet Take 5 mg by mouth three times daily. (Patient not taking: Reported on 05/21/2022) - esomeprazole (NEXIUM) 20 mg capsule Take 1 capsule by mouth once daily. No current facility-administered medications for this visit. Imdur [Isosorbide], Zestril [Lisinopril], and Zoloft [Sertraline Hcl] PAST MEDICAL HISTORY Diagnosis Date - Cardiac arrest with ventricular fibrillation (HCC) defibrillated x 3 on 07/21/2016 - Coronary disease stent in 2007 with balloon angioplasty of left circumflex - Depressive disorder, not elsewhere classified - Esophageal reflux - Herpes zoster without mention of complication - Other acute and subacute form of ischemic heart disease 07/23/08 [place] - Other and unspecified hyperlipidemia 07/21/2005 - Other convulsions 04/11/2008 - STEMI (ST elevation myocardial infarction) (HCC) 07/21/2016 - Type II or unspecified type diabetes mellitus without mention of complication, not stated as uncontrolled 07/21/2005 - Unspecified essential hypertension 07/21/2005 PAST SURGICAL HISTORY Procedure Laterality Date - CABG (4) VEIN GRAFTS AND ARTERIAL GRAFT(S) 05/13/2022 GARZA to LAD, SVG to OM1, OM2, and PDA - CHOLECYSTECTOMY 11/23/1982 - STENT PLACEMENT 07/25/2008 Thru heart cath. at [facility] - TOTAL ABDOMINAL HYSTERECT W/WO RMVL TUBE OVARY at age 48 FAMILY HISTORY Problem Relation Age of Onset - Heart Mother - Diabetes Mother - Coronary Artery Disease Mother - Cataract Mother - Heart Brother - Heart Brother - Diabetes Brother Social History Tobacco Use - Smoking status: Never Smoker - Smokeless tobacco: Never Used Substance Use Topics - Alcohol use: No - Drug use: No (more content not included)... Normal [facility] No Panel Informationon 06-16 [facility] BILLIECristina 05-28-2022 CNPN Telephone ([employer]) VENUS SANDERS ([id number]) 1945 F Date Time Provider Department 05/28/22 HERMANN MARTINEZ BERNADETTEACC During your visit today, we recorded the following information about you: Marcelino José Antonio Chantebeau 05/28/2022 1:16 PM Signed [facility] [phone] fax [phone]. Order forms, operative report and 05/21/22 office visit notes faxed on 05/28/22. Allergies As of Date: 05/28/2022 Noted Allergy Reaction IMDUR (ISOSORBIDE) 04/29/2022 14 - Other: See Comments Comments: Severe headaches ZESTRIL (LISINOPRIL) 07/21/2005 16 - Unknown ZOLOFT (SERTRALINE HCL) 07/21/2005 16 - Unknown Date Reviewed: 05/21/2022 Reviewed by: Jamaica Crenshaw MA - Fully Assessed Reason for Visit: Cardiac Rehab [8264] Cmt: referral to [facility] Prescriptions as of 05/28/2022 - aspirin 81 mg chewable tablet Take 2 tablets by mouth once daily for 30 days, THEN 1 tablet once daily. - acetaminophen (TYLENOL) 500 mg tablet Take 2 tablets by mouth four times daily. - ascorbic acid, vitamin C, (VITAMIN C) 500 mg tablet Take 1 tablet by mouth once daily. - ferrous sulfate 325 mg (65 mg iron) tablet Take 1 tablet by mouth daily with breakfast. - folic acid 1 mg tablet Take 1 tablet by mouth once daily. - magnesium oxide (MAG-OX) 400 mg (241.3 mg magnesium) tablet Take 1 tablet by mouth once daily for 14 days. - metoprolol tartrate, short acting, (LOPRESSOR) 50 mg tablet Take 1 tablet by mouth every 12 hours. - diazePAM (VALIUM) 5 mg tablet Take 5 mg by mouth three times daily. - esomeprazole (NEXIUM) 20 mg capsule Take 1 capsule by mouth once daily. - atorvastatin (LIPITOR) 40 mg tablet Take 1 tablet by mouth once daily. - Cholecalciferol, Vitamin D3, 2,000 unit Tab Take 1 tablet by mouth once daily. Problem List As Of Date 05/28/2022 Noted Resolved Hyperlipidemia [E78.5] 07/21/2005 Type II or unspecified type diabetes mellitus w*07/21/2005 10/27/2013 Essential hypertension [I10] 07/21/2005 UTI (urinary tract infection) [N39.0] 10/21/2007 09/05/2015 CONVULSIONS NEC [R56.9] 04/11/2008 Atherosclerosis of [place] coronary artery of na*02/14/2009 Osteopenia [M85.80] 08/20/2012 Vitamin d deficiency [E55.9] 08/31/2012 Glucose intolerance (impaired glucose tolerance*10/27/2013 Other and unspecified hyperlipidemia [E78.5] 07/21/2005 S/P coronary artery stent placement [Z95.5] 10/01/2016 Gastroesophageal reflux disease without esophag*10/21/2018 CKD (chronic kidney disease) stage 3, GFR 30-59*10/21/2018 CAD in [place] artery [I25.10] 05/13/2022 Encounter Status:Closed by MARCELINO GARCIA on 05/28/22 [facility] CNPN Telephone (AKCRL) VENUS SANDERS ([id number]) 1945 F Date Time Provider Department 05/28/22 JONATHAN MORENO During your visit today, we recorded the following information about you: Jonathan Moreno 05/28/2022 1:52 PM Signed Called and spoke with PT. PT lives closer to [place] and will be conducting her rehab there. Allergies As of Date: 05/28/2022 Noted Allergy Reaction IMDUR (ISOSORBIDE) 04/29/2022 14 - Other: See Comments Comments: Severe headaches ZESTRIL (LISINOPRIL) 07/21/2005 16 - Unknown ZOLOFT (SERTRALINE HCL) 07/21/2005 16 - Unknown Date Reviewed: 05/21/2022 Reviewed by: Jamaica Crenshaw MA - Fully Assessed Reason for Visit: Cardiac Rehab [3551] Cmt: Deferred Prescriptions as of 05/28/2022 - aspirin 81 mg chewable tablet Take 2 tablets by mouth once daily for 30 days, THEN 1 tablet once daily. - acetaminophen (TYLENOL) 500 mg tablet Take 2 tablets by mouth four times daily. - ascorbic acid, vitamin C, (VITAMIN C) 500 mg tablet Take 1 tablet by mouth once daily. - ferrous sulfate 325 mg (65 mg iron) tablet Take 1 tablet by mouth daily with breakfast. - folic acid 1 mg tablet Take 1 tablet by mouth once daily. - magnesium oxide (MAG-OX) 400 mg (241.3 mg magnesium) tablet Take 1 tablet by mouth once daily for 14 days. - metoprolol tartrate, short acting, (LOPRESSOR) 50 mg tablet Take 1 tablet by mouth every 12 hours. - diazePAM (VALIUM) 5 mg tablet Take 5 mg by mouth three times daily. - esomeprazole (NEXIUM) 20 mg capsule Take 1 capsule by mouth once daily. - atorvastatin (LIPITOR) 40 mg tablet Take 1 tablet by mouth once daily. - Cholecalciferol, Vitamin D3, 2,000 unit Tab Take 1 tablet by mouth once daily. Problem List As Of Date 05/28/2022 Noted Resolved Hyperlipidemia [E78.5] 07/21/2005 Type II or unspecified type diabetes mellitus w*07/21/2005 10/27/2013 Essential hypertension [I10] 07/21/2005 UTI (urinary tract infection) [N39.0] 10/21/2007 09/05/2015 CONVULSIONS NEC [R56.9] 04/11/2008 Atherosclerosis of [place] coronary artery of na*02/14/2009 Osteopenia [M85.80] 08/20/2012 Vitamin d deficiency [E55.9] 08/31/2012 Glucose intolerance (impaired glucose tolerance*10/27/2013 Other and unspecified hyperlipidemia [E78.5] 07/21/2005 S/P coronary artery stent placement [Z95.5] 10/01/2016 Gastroesophageal reflux disease without esophag*10/21/2018 CKD (chronic kidney disease) stage 3, GFR 30-59*10/21/2018 CAD in [place] artery [I25.10] 05/13/2022 Encounter Status:Closed by JONATHAN MORENO on 05/28/22 [facility] ANES PRE-OPon 05-23-2022 ANES PRE-OP HNO ID: [id number] Author: Leland Loyola MD Service: Anesthesiology Author Type: Physician Type: Anesthesia Preprocedure Evaluation Filed: 05/29/2022 6:55 AM Note Text: ANESTHESIOLOGY DAY OF SURGERY NOTE : 1945 Procedure Information Anesthesia Start Date/Time: 05/13/22 1447 Procedures: BYPASS GRAFT ARTERY CORONARY ON-PUMP SINGLE CORONARY ARTERIAL GRAFT (N/A Chest) - GARZA TO LAD, SVG TO OM, SVG TO OM, SVG TO PDA BYPASS GRAFT ARTERY CORONARY ON-PUMP USING VENOUS GRAFT(S) AND ARTERIAL GRAFT(S) THREE VENOUS GRAFTS (N/A Chest) ENDOSCOPIC HARVEST VEIN FOR CORONARY ARTERY BYPASS PROCEDURE (N/A ) Location: [place] [address] [place] [address] OR Surgeons: Hermann Martinez MD Estimated body mass index is 30.29 kg/m? as calculated from the following: Height as of this encounter: 160 cm (5' 3). Weight as of this encounter: 77.6 kg (171 lb). Most recent hematocrit and potassium results: Hematocrit 33.0 05/23/2022 Hematocrit (POCT) 20 05/13/2022 Potassium 3.9 05/18/2022 Potassium (POCT) 3.5 05/13/2022 Relevant Problems CARDIO (+) Atherosclerosis of [place] coronary artery of [place] heart without angina pectoris (+) CAD in [place] artery (+) Essential hypertension GI (+) Gastroesophageal reflux disease without esophagitis -RENAL (+) CKD (chronic kidney disease) stage 3, GFR 30-59 ml/min (HCC) NEURO-PSYCH (+) Other convulsions I - PHYSICAL EVALUATION AIRWAY Patient intubated: No. Tracheostomy tube not present Mallampati: II. TM distance: >3 FB. Neck ROM: full ROM without neurological symptoms. Mouth opening: adequate. Short neck: no. Thick neck: no DENTAL Dental findings: teeth intact and poor dentition. II - ANESTHESIA PLAN ASA Score: 4 Anesthetic Plan: general Airway type: ETT NPO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 Treatment Team: Attending Provider: Hermann Martinez MD Transitions of Care Critical Issues: SPECIALIST FOLLOW-UP: Patient could benefit from being seen by senior backup administrator for long-term dietary planning. FOLLOW-UP APPOINTMENTS ALREADY SCHEDULED WITH A [facility] PROVIDER: Follow up with dr martinez/jennifer addison set up technician requested. ALLERGIES Allergen Reactions - Imdur [Isosorbide] Other: See Comments Severe headaches - Zestril [Lisinopril] Unknown - Zoloft [Sertraline * Unknown DISCHARGE MEDICATION: Current Discharge Medication List START taking these medications aspirin 81 mg chewable tablet Take 2 tablets by mouth once daily for 30 days, THEN 1 tablet once (more content not included)... [facility] NURSING PROGon 05-18-2022 NURSING PROG HNO ID: [id number] Author: Nataly Arnold, RN Service: ? Author Type: Registered Nurse Type: Nursing Progress Note Filed: 05/18/2022 10:47 AM Note Text: Nursing Progress Note Patient Name: Venus Sanders Patient Location: [id number]/[place] [address]- Daily Note:spoke with daughter Ann on phone, updated about patient's discharge today. Family will be in to see patient and review instructions with LIP. This note was completed by: Nataly Arnold [facility] XR CHEST 1V FRONTALon 2021 XR CHEST 1V FRONTAL * * *Final Report* * * DATE OF EXAM: May 18 2022 6:34AM AKX [id number] - XR CHEST 1V FRONTAL / PROCEDURE REASON: Post-operative / post-procedure assessment, asymptomatic * * * * Physician Interpretation * * * * EXAMINATION: CHEST RADIOGRAPH (SINGLE VIEW AP OR PA) CLINICAL HISTORY: Post-operative / post-procedure assessment, asymptomatic MQ: XC1_5 Comparison: 05/17/2022 at 07 33 RESULT: Lines, tubes, and devices: Overlying quality assurance monitor leads. Intact median sternotomy wires and sternal plate. Lungs and pleura: Diminished aeration left lung base with atelectasis versus consolidation/pneumon ia and small pleural effusion. No pneumothorax. Cardiomediastinal silhouette: Stable. Other: No significant additional findings. IMPRESSION: Stable appearance of the chest. 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: PSCB Transcribe Date/Time: May 19 2022 7:14A Dictated by : BECKY CANADA MD This examination was interpreted and the report reviewed and electronically signed by: BECKY CANADA MD on May 19 2022 7:15AM EST [id number] Normal [facility] ALLIED HEALTHon 05-17-2022 ALLIED HEALTH HNO ID: [id number] Author: RT Maren(R) Service: Radiology Author Type: Technologist Type: Allied Health Filed: 05/17/2022 7:47 AM Note Text: Radiology Service Progress Note PATIENT NAME: Venus Sanders DATE OF SERVICE: May 17, 2022 TIME: 7:47 AM PATIENT IDENTITY VERIFICATION COMPLETED USING TWO (2) IDENTIFIERS: Name and Date of confirmed by patient verbally and Name and Date of confirmed by identification band. FALL SCREENING: Has the patient had 2 falls in the last year or 1 fall with injury or currently using an Ambulatory Assistive Device (Walker, Cane, Wheelchair, Crutches, etc.)? Inpatient: Screened on floor PATIENT GENDER DATA: Female. status: : No status: NO. PATIENT RELEVANT IMPLANT DATA REVIEWED: Not Applicable RADIOLOGY DEPARTMENT: General X-ray: Exam(s) Completed: Chest X-Ray PERIPHERAL IV DATA: Not applicable SIGNED BY: RT Andrés(R) May 17, 2022 7:47 AM Normal [facility] Basic metabolic 2000 panelon 05-17-2022 Anion gap [Moles/Vol] 5 mmol/L Low 9-18 [facility] Comment on above: Order Comment: Tatyana you Type: BLOOD SPECIMEN Ordering Facility: [facility] Address: [address] [place] [id number] Performed By: #### 2 4321-2 #### [facility] CLIA [id number] 1 [place] [address] [place] Calcium [Mass/Vol] 8.4 mg/dL Low 8.5-10.2 [facility] Comment on above: Order Comment: Tatyana you Type: BLOOD SPECIMEN Ordering Facility: [facility] Address: [address] [address] Performed By: #### 2 4321-2 #### [facility] CLIA [id number] [address] STATES OF [facility] Chloride [Moles/Vol] 109 mmol/L High 97-105 [facility] Comment on above: Order Comment: Speci men Type: BLOOD SPECIMEN Ordering Facility: [facility] Address: [address] [place] [address] Performed By: #### 2 4321-2 #### [facility] CLIA [id number] [address] OF [facility] CO2 [Moles/Vol] 24 mmol/L Normal 22-30 [facility] Comment on above: Order Comment: Speci men Type: BLOOD SPECIMEN Ordering Facility: [facility] Address: [address] [place] [address] Performed By: #### 2 4321-2 #### [facility] CLIA [id number] [address] OF [facility] Creatinine [Mass/Vol] 0.71 mg/dL Normal 0.58-0.96 [facility] Comment on above: Order Comment: Speci men Type: BLOOD SPECIMEN Ordering Facility: [facility] Address: [address] [place] [address] Performed By: #### 2 4321-2 #### [facility] CLIA [id number] [address] [place] [address] ESTIMATED GLOMERULAR FILTRATION RATE 87 mL/min/1.73m??? Normal >=60 [facility] Comment on above: Order Comment: Speci men Type: BLOOD SPECIMEN Ordering Facility: [facility] Address: [address] [place] [address] Result Comment: Kateryna mated Glomerular Filtration Rate (eGFR) is calculated using the 2020 CKD-EPI creatinine equation. This equation utilizes serum creatinine, sex, and age as parameters. The creatinine assay has traceable calibration to isotope dilution-mass spectrometry. Refer to KDIGO guidelines for clinical interpretation. In patients with unstable renal function, e.g. those with acute kidney injury, the eGFR may not accurately reflect actual GFR. Performed By: #### 2 4321-2 #### [facility] CLIA [id number] 1 [place] [address] [place] Glucose [Mass/Vol] 107 mg/dL High 74-99 [facility] Comment on above: Order Comment: Tatyana you Type: BLOOD SPECIMEN Ordering Facility: [facility] Address: [address] [place] [address] Result Comment: The [place] Diabetes Association (ADA) provides guidance for cutoff values for fasting glucose and random glucose. The ADA defines fasting as no caloric intake for at least 8 hours. Fasting plasma glucose results between 100 to 125 mg/dL indicate increased risk for diabetes (prediabetes). Fasting plasma glucose results greater than or equal to 126 mg/dL meet the criteria for diagnosis of diabetes. In the absence of unequivocal hyperglycemia, results should be confirmed by repeat testing. In a patient with classic symptoms of hyperglycemia or hyperglycemic crisis, random plasma glucose results greater than or equal to 200 mg/dL meet the criteria for diagnosis of diabetes. Reference: Standards of Medical Care in Diabetes 2016, [place] [employer] Association. Diabetes Care. 2016.39(Suppl 1). Performed By: #### 2 4321-2 #### [facility] CLIA [id number] 1 [place] [address] [place] Potassium [Moles/Vol] 4.1 mmol/L Normal 3.7-5.1 [facility] Comment on above: Order Comment: Tatyana you Type: BLOOD SPECIMEN Ordering Facility: [facility] Address: [address] [address] Performed By: #### 2 4321-2 #### [facility] CLIA [id number] 1 [place] [address] [place] Sodium [Moles/Vol] 138 mmol/L Normal 136-144 [facility] Comment on above: Order Comment: Tatyana you Type: BLOOD SPECIMEN Ordering Facility: [facility] Address: [address] [address] Performed By: #### 2 4321-2 #### [facility] CLIA [id number] [address] [facility] Urea nitrogen [Mass/Vol] 15 mg/dL Normal 7-21 [facility] Comment on above: Order Comment: Speci men Type: BLOOD SPECIMEN Ordering Facility: [facility] Address: [address] [place] [address] Performed By: #### 2 4321-2 #### [facility] CLIA [id number] [address] CBC panel Auto (Bld)on 05-17 Erythrocyte distribution width (RBC) [Ratio] 15.6 % High 11.5-15.0 [facility] Comment on above: Order Comment: Speci men Type: BLOOD SPECIMENOrdering Facility: [facility] Address: [address] [place] [address] Performed By: #### 5 8410-2 ####[facility] [id number] [address] Hematocrit (Bld) [Volume fraction] 25.0 % Low 36.0-46.0 [facility] Comment on above: Order Comment: Speci men Type: BLOOD SPECIMENOrdering Facility: [facility] Address: [address] [place] [address] Performed By: #### 5 8410-2 ####[facility] [id number] [address] Hemoglobin (Bld) [Mass/Vol] 8.0 g/dL Low 11.5-15.5 [facility] Comment on above: Order Comment: Speci men Type: BLOOD SPECIMENOrdering Facility: [facility] Address: [address] [place] [address] Performed By: #### 5 8410-2 ####[facility] [id number] [address] MCH (RBC) [Entitic mass] 27.2 pg Normal 26.0-34.0 [facility] Comment on above: Order Comment: Speci men Type: BLOOD SPECIMENOrdering Facility: [facility] Address: [address] [place] [address] Performed By: #### 5 8410-2 ####[facility] [id number] [address] MCHC (RBC) [Mass/Vol] 32.0 g/dL Normal 30.5-36.0 [facility] Comment on above: Order Comment: Speci men Type: BLOOD SPECIMENOrdering Facility: [facility] Address: [address] [place] [address] Performed By: #### 5 8410-2 ####[facility] [id number] [address] MCV (RBC) [Entitic vol] 85.0 fL Normal 80.0-100.0 [facility] Comment on above: Order Comment: Speci men Type: BLOOD SPECIMENOrdering Facility: [facility] Address: [address] [place] [address] Performed By: #### 5 8410-2 ####[facility] [id number] [address] Nucleated RBC (Bld) [#/Vol] 10*3/uL Normal <0.01 [facility] Comment on above: Order Comment: Speci men Type: BLOOD SPECIMENOrdering Facility: [facility] Address: [address] [place] [address] Performed By: #### 5 8410-2 ####[facility] LABORATORYCLIA [id number] [address] Platelet mean volume (Bld) [Entitic vol] 10.7 fL Normal 9.0-12.7 [facility] Comment on above: Order Comment: Speci men Type: BLOOD SPECIMENOrdering Facility: [facility] Address: [address] [place] [address] Performed By: #### 5 8410-2 ####[facility] LABORATORYCLIA [id number] [address] [place] Platelets (Bld) [#/Vol] 179 10*3/uL Normal 150-400 [facility] Comment on above: Order Comment: Speci men Type: BLOOD SPECIMENOrdering Facility: [facility] Address: [address] [place] [address] Performed By: #### 5 8410-2 ####[facility] LABORATORYCLIA [id number] [place] [address] [place] RBC (Bld) [#/Vol] 2.94 10*6/uL Low 3.90-5.20 [facility] Comment on above: Order Comment: Speci men Type: BLOOD SPECIMENOrdering Facility: [facility] Address: [address] [place] [address] Performed By: #### 5 8410-2 ####[facility] LABORATORYCLIA [id number] [address] WBC (Bld) [#/Vol] 6.44 10*3/uL Normal 3.70-11.00 [facility] Comment on above: Order Comment: Speci men Type: BLOOD SPECIMENOrdering Facility: [facility] Address: [address] [place] [address] Performed By: #### 5 8410-2 ####[facility] LABORATORYCLIA [id number] [place] [id number] [facility] NURSING PROGon 05-17-2022 NURSING PROG HNO ID: [id number] Author: Brittany Lou RN Service: Nursing Author Type: Registered Nurse Type: Nursing Progress Note Filed: 05/17/2022 8:58 PM Note Text: Spoke with patient's daughter who is a RN and is here from [place] to be Mom's caregiver at discharge. She is very concerned about her parent's nutritional intake. She said they have admitted that together they are really trying to loose weight and seem to be hyper-focused, borderline obsessed with the idea. She said that her Mom admitted that often she just eats a phi cracker for her meal. She has tried to reiterate to the patient how important it is for her to eat enough calories right now to promote healing, especially protein. Her mother did not seem very agreeable to the idea. RN educated patient on the importance of her nutrition to her healing process at this time as well. Patient nodded her head but did not seem happy about the idea. Patient has been eating partial meals yesterday and today. See flow sheet for details. Normal [facility] XR CHEST 2V FRONTAL/LATon XR CHEST 2V FRONTAL/LAT * * *Final Repor t* * * DATE OF EXAM: May 17 2022 7:50AM AKX [id number] - XR CHEST 2V FRONTAL/LAT / PROCEDURE REASON: Post-operative / post-procedure assessment, asymptomatic * * * * Physician Interpretation * * * * EXAMINATION: CHEST RADIOGRAPH (2 VIEW FRONTAL and LATERAL) CLINICAL HISTORY: Post-operative / post-procedure assessment, asymptomatic MQ: XC2_6 EXAM DATE/TIME: 05/17/2022 7:50 AM COMPARISON: 05/16/2022 RESULT: Lines, tubes, and devices: Interval removal of right internal jugular central venous catheter. Lungs and pleura: Small bilateral pleural effusions with associated compressive atelectasis versus consolidation involving the lower lobes bilaterally, left worse than right. No discrete pneumothorax. Pulmonary vascularity within normal limits. Cardiomediastinal silhouette: Cardiac silhouette not enlarged. Status post median sternotomy, hardware intact. Bones and soft tissues: Multilevel age-related degenerative changes of the thoracic and upper lumbar spine. Visualized vertebral body heights appear to be maintained. Cholecystectomy clips. Retained epicardial leads. IMPRESSION: Status post removal of right internal jugular central venous catheter. Small bilateral pleural effusions, left greater than right with associated compressive atelectasis versus consolidation involving the lower lobes. 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: PSCFidel Transcribe Date/Time: May 19 2022 8:34A Dictated by : SHAYLEE VARGAS MD This examination was interpreted and the report reviewed and electronically signed by: SHAYLEE VARGAS MD on May 19 2022 8:42AM EST [id number] Normal [facility] ALLIED HEALTHon 05-16-2022 ALLIED HEALTH HNO ID: [id number] Author: RT Meliton(R) Service: Radiology Author Type: Technologist Type: Allied Health Filed: 05/16/2022 4:59 AM Note Text: Radiology Service Progress Note PATIENT NAME: Venus Sanders DATE OF SERVICE: May 16, 2022 TIME: 4:59 AM PATIENT IDENTITY VERIFICATION COMPLETED USING TWO (2) IDENTIFIERS: Name and Date of confirmed by identification band. FALL SCREENING: Has the patient had 2 falls in the last year or 1 fall with injury or currently using an Ambulatory Assistive Device (Walker, Cane, Wheelchair, Crutches, etc.)? Inpatient: Screened on floor PATIENT GENDER DATA: Female. status: : No status: NO. PATIENT RELEVANT IMPLANT DATA REVIEWED: Not Applicable RADIOLOGY DEPARTMENT: General X-ray: Exam(s) Completed: Chest X-Ray PERIPHERAL IV DATA: Not applicable SIGNED BY: RT Meliton(R) May 16, 2022 4:59 AM Normal [facility] Basic metabolic 2000 panelon 05-16-2022 Anion gap [Moles/Vol] 6 mmol/L Low 9-18 [facility] Comment on above: Order Comment: Speci men Type: BLOOD SPECIMEN [facility]ing Facility: [facility] Address: [address] [place] [address] Performed By: #### 5 8410-2 #### [facility] CLIA [id number] [address] [place] [address] [place] Calcium [Mass/Vol] 7.8 mg/dL Low 8.5-10.2 [facility] Comment on above: Order Comment: Speci avelino Type: BLOOD SPECIMEN Ordering Facility: [facility] Address: [address] [place] [address] Performed By: #### 5 8410-2 #### [facility] CLIA [id number] [address] [place] [address] [place] Chloride [Moles/Vol] 102 mmol/L Normal 97-105 [facility] Comment on above: Order Comment: Speci men Type: BLOOD SPECIMEN [facility]ing Facility: [facility] Address: [address] [place] [address] Performed By: #### 5 8410-2 #### [facility] CLIA [id number] [address] CO2 [Moles/Vol] 19 mmol/L Low 22-30 [facility] Comment on above: Order Comment: Speci men Type: BLOOD SPECIMEN [facility]ing Facility: [facility] Address: [address] [place] [address] Performed By: #### 5 8410-2 #### [facility] CLIA [id number] [address] Creatinine [Mass/Vol] 0.71 mg/dL Normal 0.58-0.96 [facility] Comment on above: Order Comment: Speci men Type: BLOOD SPECIMEN Ordering Facility: [facility] Address: [address] [place] [address] Performed By: #### 5 8410-2 #### [facility] CLIA [id number] [address] ESTIMATED GLOMERULAR FILTRATION RATE 87 mL/min/1.73m??? Normal >=60 [facility] Comment on above: Order Comment: Speci men Type: BLOOD SPECIMEN Ordering Facility: [facility] Address: [address] [place] [address] Result Comment: Kateryna mated Glomerular Filtration Rate (eGFR) is calculated using the 2020 CKD-EPI creatinine equation. This equation utilizes serum creatinine, sex, and age as parameters. The creatinine assay has traceable calibration to isotope dilution-mass spectrometry. Refer to KDIGO guidelines for clinical interpretation. In patients with unstable renal function, e.g. those with acute kidney injury, the eGFR may not accurately reflect actual GFR. Performed By: #### 5 8410-2 #### [facility] CLIA [id number] [address] OF [facility] Glucose [Mass/Vol] 121 mg/dL High 74-99 [facility] Comment on above: Order Comment: Speci men Type: BLOOD SPECIMEN Ordering Facility: [facility] Address: [address] [place] [address] Result Comment: The [place] Diabetes Association (ADA) provides guidance for cutoff values for fasting glucose and random glucose. The ADA defines fasting as no caloric intake for at least 8 hours. Fasting plasma glucose results between 100 to 125 mg/dL indicate increased risk for diabetes (prediabetes). Fasting plasma glucose results greater than or equal to 126 mg/dL meet the criteria for diagnosis of diabetes. In the absence of unequivocal hyperglycemia, results should be confirmed by repeat testing. In a patient with classic symptoms of hyperglycemia or hyperglycemic crisis, random plasma glucose results greater than or equal to 200 mg/dL meet the criteria for diagnosis of diabetes. Reference: Standards of Medical Care in Diabetes 2016, [place] [employer]. Diabetes Care. 2016.39(Suppl 1). Performed By: #### 5 8410-2 #### [facility] CLIA [id number] [address] STATES [facility] Potassium [Moles/Vol] 4.4 mmol/L Normal 3.7-5.1 [facility] Comment on above: Order Comment: Speci men Type: BLOOD SPECIMEN Ordering Facility: [facility] Address: [address] [place] [address] Performed By: #### 5 8410-2 #### [facility] CLIA [id number] [address] [place] Sodium [Moles/Vol] 127 mmol/L Low 136-144 [facility] Comment on above: Order Comment: Randyi avelino Type: BLOOD SPECIMEN Ordering Facility: [facility] Address: [address] [place] [address] Performed By: #### 5 8410-2 #### [facility] CLIA [id number] [address] [place] [facility] Urea nitrogen [Mass/Vol] 18 mg/dL Normal 7-21 [facility] Comment on above: Order Comment: Randyi men Type: BLOOD SPECIMEN Ordering Facility: [facility] Address: [address] [place] [address] Performed By: #### 5 8410-2 #### [facility] CLIA [id number] [address] [facility] CASE MANAGEMon 05-16-2022 CASE MANAGEM HNO ID: [id number] Author: SAUL Whitaker Service: ? Author Type: Business Unit Director Type: Care Mgt Progress Note Filed: 05/16/2022 4:05 PM Note Text: CARE MANAGEMENT PROGRESS NOTE SERVICE DATE: 05/16/2022 SERVICE TIME: 14:30 LOS: 3 days SW attempted to meet with patient to complete initial assessment, but she was not present in her room. SIGNATURE: SAUL Whitaker PATIENT NAME: Venus Sanders DATE: May 16, 2022 TIME: 4:04 PM PAGER/CONTACT #: [phone] Normal [facility] CBC panel Auto (Bld)on 05-16 Erythrocyte distribution width (RBC) [Ratio] 15.2 % High 11.5-15.0 [facility] Comment on above: Order Comment: Tatyana you Type: BLOOD SPECIMEN Ordering Facility: [facility] Address: [address] [place] [address] Performed By: #### 5 8410-2 #### [facility] CLIA [id number] [address] [place] [address] [place] Hematocrit (Bld) [Volume fraction] 22.7 % Low 36.0-46.0 [facility] Comment on above: Order Comment: Tatyana you Type: BLOOD SPECIMEN Ordering Facility: [facility] Address: [address] [place] [address] Performed By: #### 5 8410-2 #### [facility] CLIA [id number] [address] [place] Hemoglobin (Bld) [Mass/Vol] 7.3 g/dL Low 11.5-15.5 [facility] Comment on above: Order Comment: Specclaudia you Type: BLOOD SPECIMEN Ordering Facility: [facility] Address: [address] [place] [address] Performed By: #### 5 8410-2 #### [facility] CLIA [id number] [address] [place] MCH (RBC) [Entitic mass] 27.1 pg Normal 26.0-34.0 [facility] Comment on above: Order Comment: Speci men Type: BLOOD SPECIMEN Ordering Facility: [facility] Address: [address] [place] [address] Performed By: #### 5 8410-2 #### [facility] CLIA [id number] [address] MCHC (RBC) [Mass/Vol] 32.2 g/dL Normal 30.5-36.0 [facility] Comment on above: Order Comment: Speci men Type: BLOOD SPECIMEN Ordering Facility: [facility] Address: [address] [place] [address] Performed By: #### 5 8410-2 #### [facility] CLIA [id number] [address] MCV (RBC) [Entitic vol] 84.4 fL Normal 80.0-100.0 [facility] Comment on above: Order Comment: Speci men Type: BLOOD SPECIMEN Ordering Facility: [facility] Address: [address] [place] [address] Performed By: #### 5 8410-2 #### [facility] CLIA [id number] [address] Nucleated RBC (Bld) [#/Vol] 10*3/uL Normal <0.01 [facility] Comment on above: Order Comment: Speci men Type: BLOOD SPECIMEN [facility]ing Facility: [facility] Address: [address] [place] [address] Performed By: #### 5 8410-2 #### [facility] CLIA [id number] [address] Platelet mean volume (Bld) [Entitic vol] 10.8 fL Normal 9.0-12.7 [facility] Comment on above: Order Comment: Speci men Type: BLOOD SPECIMEN Ordering Facility: [facility] Address: [address] [place] [address] Performed By: #### 5 8410-2 #### [facility] CLIA [id number] [address] [place] Platelets (Bld) [#/Vol] 142 10*3/uL Low 150-400 [facility] Comment on above: Order Comment: Speci men Type: BLOOD SPECIMEN Ordering Facility: [facility] Address: [address] [place] [address] Performed By: #### 5 8410-2 #### [facility] CLIA [id number] [address] [place] [address] [place] RBC (Bld) [#/Vol] 2.69 10*6/uL Low 3.90-5.20 [facility] Comment on above: Order Comment: Speci men Type: BLOOD SPECIMEN Ordering Facility: [facility] Address: [address] [place] [address] Performed By: #### 5 8410-2 #### [facility] CLIA [id number] [address] WBC (Bld) [#/Vol] 7.61 10*3/uL Normal 3.70-11.00 [facility] Comment on above: Order Comment: Speci men Type: BLOOD SPECIMEN Ordering Facility: [facility] Address: [address] [place] [address] Performed By: #### 5 8410-2 #### [facility] CLIA [id number] [address] [facility] NURSING PROGon 05-16-2022 NURSING PROG HNO ID: [id number] Author: Aniya Nicolas RN Service: ? Author Type: Registered Nurse Type: Nursing Progress Note Filed: 05/16/2022 1:56 PM Note Text: 12:54 - Report attempted to 4200 13:05 - Report attempted to 4200, RN unavailable 13:20 - Report given 13:45 - Pt transferred to 4233, VSS, SHAE, RN at bedside, belongings with pt Normal [facility] XR CHEST 1V FRONTALon 2021 XR CHEST 1V FRONTAL * * *Final Report* * * DATE OF EXAM: May 16 2022 4:57AM AKX [id number] - XR CHEST 1V FRONTAL / PROCEDURE REASON: Post-operative / post-procedure assessment, asymptomatic * * * * Physician Interpretation * * * * EXAMINATION: CHEST RADIOGRAPH (SINGLE VIEW AP OR PA) CLINICAL HISTORY: Post-operative / post-procedure assessment, asymptomatic MQ: XC1_5 Comparison: Daily prior chest radiographs. RESULT: Lines, tubes, and devices: Interval removal of left-sided chest tube. Right internal jugular central venous catheter terminating in the cavoatrial region. Overlying cardiac monitoring leads. Lungs and pleura: Improved lung volumes. Improved right basilar aeration. Hypoventilatory changes at the left lung base with possible trace apical pneumothorax and small pleural effusion blunting the lateral costophrenic angle.. Cardiomediastinal silhouette: Stable cardiomediastinal silhouette. Other: Median sternotomy with cerclage wires and stabilization plate. IMPRESSION: Interval removal of left sided chest tube. Improved lung volumes. Improved right basilar aeration. Hypoventilatory changes at the left lung base with possible trace apical pneumothorax and small pleural effusion blunting the lateral costophrenic angle.. 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: MARGARITA Transcribe Date/Time: May 16 2022 6:14A Dictated by : NAINA ZALDIVAR MD This examination was interpreted and the report reviewed and electronically signed by: NAINA ZALDIVAR MD on May 16 2022 6:16AM EST [id number] Normal [facility] ALLIED HEALTHon 05-15-2022 ALLIED HEALTH HNO ID: [id number] Author: RT Marisol(R) Service: Radiology Author Type: Technologist Type: Allied Health Filed: 05/15/2022 4:48 AM Note Text: Radiology Service Progress Note PATIENT NAME: Venus Sanders DATE OF SERVICE: May 15, 2022 TIME: 4:48 AM PATIENT IDENTITY VERIFICATION COMPLETED USING TWO (2) IDENTIFIERS: Name and Date of confirmed by patient verbally and Name and Date of confirmed by identification band. FALL SCREENING: Has the patient had 2 falls in the last year or 1 fall with injury or currently using an Ambulatory Assistive Device (Walker, Cane, Wheelchair, Crutches, etc.)? Inpatient: Screened on floor PATIENT GENDER DATA: Female. status: : No status: NO. PATIENT RELEVANT IMPLANT DATA REVIEWED: Not Applicable RADIOLOGY DEPARTMENT: General X-ray: Exam(s) Completed: Chest X-Ray PERIPHERAL IV DATA: Not applicable SIGNED BY: RT Marisol(R) May 15, 2022 4:48 AM Normal [facility] Basic metabolic 2000 panelon 05-15-2022 Anion gap [Moles/Vol] 5 mmol/L Low 9-18 [facility] Comment on above: Order Comment: Speci men Type: BLOOD SPECIMENOrdering Facility: [facility] Address: [address] [place] [address] Performed By: #### 2 1-2, ####[facility] LABORATORYCLIA [id number] [place] [address] [place] Calcium [Mass/Vol] 7.4 mg/dL Low 8.5-10.2 [facility] Comment on above: Order Comment: Speci men Type: BLOOD SPECIMENOrdering Facility: [facility] Address: [address] [place] [address] Performed By: #### 2 4320-12, ####[facility] LABORATORYCLIA [id number] [place] [address] [place] Chloride [Moles/Vol] 105 mmol/L Normal 97-105 [facility] Comment on above: Order Comment: Speci men Type: BLOOD SPECIMENOrdering Facility: [facility] Address: [address] [place] [address] Performed By: #### 2 2, ####[facility] LABORATORYCLIA [id number] [place] [address] [place] CO2 [Moles/Vol] 20 mmol/L Low 22-30 [facility] Comment on above: Order Comment: Speci men Type: BLOOD SPECIMENOrdering Facility: [facility] Address: [address] [place] [address] Performed By: #### 2 4320-2, ####[facility] LABORATORYCLIA [id number] [address] [place] [facility] Creatinine [Mass/Vol] 0.73 mg/dL Normal 0.58-0.96 [facility] Comment on above: Order Comment: Tatyana you Type: BLOOD SPECIMENOrdering Facility: [facility] Address: [address] [place] [address] Performed By: #### 2 4321-2, 36465-7 ####[facility] [id number] [address] ESTIMATED GLOMERULAR FILTRATION RATE 84 mL/min/1.73m??? Normal >=60 [facility] Comment on above: Order Comment: Tatyana you Type: BLOOD SPECIMENOrdering Facility: [facility] Address: [address] [place] [address] Result Comment: Kateryna mated Glomerular Filtration Rate (eGFR) is calculated using the 2020 CKD-EPI creatinine equation. This equation utilizes serum creatinine, sex, and age as parameters. The creatinine assay has traceable calibration to isotope dilution-mass spectrometry. Refer to KDIGO guidelines for clinical interpretation. In patients with unstable renal function, e.g. those with acute kidney injury, the eGFR may not accurately reflect actual GFR. Performed By: #### 2 4321-2, 87604-4 ####[facility]ITAL[facility] [id number] [address] [place] [facility] Glucose [Mass/Vol] 74 mg/dL Normal 74-99 [facility] Comment on above: Order Comment: Tatyana avelino Type: BLOOD SPECIMENOrdering Facility: [facility] Address: [address] [address] Result Comment: The [place] Diabetes [employer] (ADA) provides guidance for cutoff values for fasting glucose and random glucose. The ADA defines fasting as no caloric intake for at least 8 hours. Fasting plasma glucose results between 100 to 125 mg/dL indicate increased risk for diabetes (prediabetes). Fasting plasma glucose results greater than or equal to 126 mg/dL meet the criteria for diagnosis of diabetes. In the absence of unequivocal hyperglycemia, results should be confirmed by repeat testing. In a patient with classic symptoms of hyperglycemia or hyperglycemic crisis, random plasma glucose results greater than or equal to 200 mg/dL meet the criteria for diagnosis of diabetes. Reference: Standards of Medical Care in Diabetes 2016, [place] [employer]. Diabetes Care. 2016.39(Suppl 1). Performed By: #### 2 4320-2, ####[facility]ORATORYCLIA [id number] [address] [place] Potassium [Moles/Vol] 3.6 mmol/L Low 3.7-5.1 [facility] Comment on above: Order Comment: Speci men Type: BLOOD SPECIMENOrdering Facility: [facility] Address: [address] [place] [address] Performed By: #### 2 2, ####[facility]ORATORYCLIA [id number] [address] [place] [facility] Sodium [Moles/Vol] 130 mmol/L Low 136-144 [facility] Comment on above: Order Comment: Speci men Type: BLOOD SPECIMENOrdering Facility: [facility] Address: [address] [address] Performed By: #### 2 4320-12, ####[facility]ORATORYCLIA [id number] [address] [facility] Urea nitrogen [Mass/Vol] 14 mg/dL Normal 7-21 [facility] Comment on above: Order Comment: Speci men Type: BLOOD SPECIMENOrdering Facility: [facility] Address: [address] [address] Performed By: #### 2 2, ####[facility]ATORYCLIA [id number] [address] [place] CBC panel Auto (Bld)on 05-15 Erythrocyte distribution width (RBC) [Ratio] 15.2 % High 11.5-15.0 [facility] Comment on above: Order Comment: Speci men Type: BLOOD SPECIMEN Ordering Facility: [facility] Address: [address] [address] Performed By: #### 2 4321-2 #### [facility] CLIA [id number] [address] Hematocrit (Bld) [Volume fraction] 22.9 % Low 36.0-46.0 [facility] Comment on above: Order Comment: Speci men Type: BLOOD SPECIMEN Ordering Facility: [facility] Address: [address] [place] [address] Performed By: #### 2 4321-2 #### [facility] CLIA [id number] [address] OF [facility] Hemoglobin (Bld) [Mass/Vol] 7.2 g/dL Low 11.5-15.5 [facility] Comment on above: Order Comment: Speci men Type: BLOOD SPECIMEN Ordering Facility: [facility] Address: [address] [place] [address] Performed By: #### 2 4321-2 #### [place] [facility] CLIA [id number] [address] MCH (RBC) [Entitic mass] 27.6 pg Normal 26.0-34.0 [facility] Comment on above: Order Comment: Speci men Type: BLOOD SPECIMEN Ordering Facility: [facility] Address: [address] [place] [address] Performed By: #### 2 4321-2 #### [facility] CLIA [id number] [address] OF [facility] MCHC (RBC) [Mass/Vol] 31.4 g/dL Normal 30.5-36.0 [facility] Comment on above: Order Comment: Speci men Type: BLOOD SPECIMEN Ordering Facility: [facility] Address: [address] [place] [address] Performed By: #### 2 4321-2 #### [facility] CLIA [id number] [address] MCV (RBC) [Entitic vol] 87.7 fL Normal 80.0-100.0 [facility] Comment on above: Order Comment: Speci men Type: BLOOD SPECIMEN Ordering Facility: [facility] Address: [address] [address] Performed By: #### 2 4321-2 #### [facility] CLIA [id number] [address] Nucleated RBC (Bld) [#/Vol] 10*3/uL Normal <0.01 [facility] Comment on above: Order Comment: Speci men Type: BLOOD SPECIMEN Ordering Facility: [facility] Address: [address] [address] Performed By: #### 2 4321-2 #### [facility] CLIA [id number] [address] [place] Platelet mean volume (Bld) [Entitic vol] 10.7 fL Normal 9.0-12.7 [facility] Comment on above: Order Comment: Speci men Type: BLOOD SPECIMEN Ordering Facility: [facility] Address: [address] [place] [address] Performed By: #### 2 4321-2 #### [facility] CLIA [id number] [address] [place] Platelets (Bld) [#/Vol] 134 10*3/uL Low 150-400 [facility] Comment on above: Order Comment: Speci men Type: BLOOD SPECIMEN Ordering Facility: [facility] Address: [address] [place] [address] Result Comment: Plat elet count confirmed by manual review of peripheral blood smear Performed By: #### 2 4321-2 #### [facility] CLIA [id number] [address] [place] RBC (Bld) [#/Vol] 2.61 10*6/uL Low 3.90-5.20 [facility] Comment on above: Order Comment: Speci men Type: BLOOD SPECIMEN Ordering Facility: [facility] Address: [address] [address] Performed By: #### 2 4321-2 #### [facility] CLIA [id number] 1 [place] [address] [place] WBC (Bld) [#/Vol] 6.88 10*3/uL Normal 3.70-11.00 [facility] Comment on above: Order Comment: Speci men Type: BLOOD SPECIMEN Ordering Facility: [facility] Address: [address] [place] [address] Performed By: #### 2 4321-2 #### [facility] CLIA [id number] [address] [place] Magnesium SerPl-mCncon 05-15 Magnesium [Mass/Vol] 1.9 mg/dL Normal 1.7-2.3 [facility] Comment on above: Order Comment: Speci men Type: BLOOD SPECIMENOrdering Facility: [facility] Address: [address] [place] [address] Performed By: #### 2 4321-2, 38009-4 ####[facility] [id number] [address] [place] PT EDon 05-15-2022 PT ED HNO ID: [id number] Author: Sabi Garibay DTR Service: Nutrition Therapy Author Type: Public Policy Professor Type: Patient Education Filed: 05/15/2022 2:18 PM Note Text: NUTRITION THERAPY PATIENT EDUCATION SERVICE DATE: 05/15/2022 SERVICE TIME: 8 TOPIC: Diet: heart healthy LEARNING ASSESSMENT Individuals Assessed: Patient Preferred Learning Method: : No Preference Barriers to Learning: : None Evident LEARNING RESPONSE Instruction Provided to: Patient and family members: daughter and Patient / Family Response: Verbalizes Understanding Method of Instruction: Teach Back . Individual instruction Written instruction - handouts Verbal instruction Material(s) Provided to Patient: Mediterranean Diet Guidelines and Nutrition Therapy instruction material: Your Sodium-Controlled Diet Follow-Up Plan: Complete - No need for follow-up Referral (Recommendation): n/a MNT Billing: $ Routine Care : 16-30 minutes SIGNATURE: Sabi Garibay DTR PATIENT NAME: Venus Sanders DATE: May 15, 2022 TIME: 2:17 PM PAGER: Normal [facility] XR CHEST 1V FRONTALon 2021 XR CHEST 1V FRONTAL * * *Final Report* * * DATE OF EXAM: May 15 2022 4:48AM AKX 5290 - XR CHEST 1V FRONTAL / PROCEDURE REASON: Post-operative / post-procedure assessment, asymptomatic * * * * Physician Interpretation * * * * EXAMINATION: CHEST RADIOGRAPH (SINGLE VIEW AP OR PA) CLINICAL HISTORY: Post-operative / post-procedure assessment, asymptomatic MQ: XC1_5 Comparison: 05/14/2022 at 04 40 RESULT: Lines, tubes, and devices: Right internal jugular central line with tip in the right atrium. Left-sided chest tube paralleling the left hemidiaphragm. Intact median sternotomy wires and sternal plate. Overlying quality assurance monitor leads. Lungs and pleura: Patchy diminished aeration centrally in both lungs with small lung volumes. Probable trace bilateral pleural effusions. No pneumothorax. Cardiomediastinal silhouette: Stable. Other: No significant additional findings. IMPRESSION: Small lung volumes with probable subsegmental atelectasis. Trace bilateral pleural effusions. 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: PSCFidel Transcribe Date/Time: May 15 2022 7:08A Dictated by : BECKY CANADA MD This examination was interpreted and the report reviewed and electronically signed by: BECKY CANADA MD on May 15 2022 7:09AM EST [id number] Normal [facility] ALLIED HEALTHon 05-14-2022 ALLIED HEALTH HNO ID: [id number] Author: RT Meliton(R) Service: Radiology Author Type: Technologist Type: Allied Health Filed: 05/14/2022 4:53 AM Note Text: Radiology Service Progress Note PATIENT NAME: Venus Sanders DATE OF SERVICE: May 14, 2022 TIME: 4:53 AM PATIENT IDENTITY VERIFICATION COMPLETED USING TWO (2) IDENTIFIERS: Name and Date of confirmed by identification band. FALL SCREENING: Has the patient had 2 falls in the last year or 1 fall with injury or currently using an Ambulatory Assistive Device (Walker, Cane, Wheelchair, Crutches, etc.)? Inpatient: Screened on floor PATIENT GENDER DATA: Female. status: : No status: NO. PATIENT RELEVANT IMPLANT DATA REVIEWED: Not Applicable RADIOLOGY DEPARTMENT: General X-ray: Exam(s) Completed: Chest X-Ray PERIPHERAL IV DATA: Not applicable SIGNED BY: RT Meilton(R) May 14, 2022 4:53 AM Normal [facility] ALLIED HEALTH HNO ID: [id number] Author: RT Patricia(R) Service: Radiology Author Type: Technologist Type: Allied Health Filed: 05/13/2022 10:21 PM Note Text: Radiology Service Progress Note PATIENT NAME: Venus Sanders DATE OF SERVICE: May 13, 2022 TIME: 10:21 PM PATIENT IDENTITY VERIFICATION COMPLETED USING TWO (2) IDENTIFIERS: Name and Date of confirmed by identification band. FALL SCREENING: Has the patient had 2 falls in the last year or 1 fall with injury or currently using an Ambulatory Assistive Device (Walker, Cane, Wheelchair, Crutches, etc.)? Inpatient: Screened on floor PATIENT GENDER DATA: Female. status: : No status: NO. PATIENT RELEVANT IMPLANT DATA REVIEWED: Not Applicable RADIOLOGY DEPARTMENT: General X-ray: Exam(s) Completed: Chest X-Ray PERIPHERAL IV DATA: Not applicable SIGNED BY: RT Patricia(R) May 13, 2022 10:21 PM Normal [facility] ANES POSTPROC EVALon 022 ANES POSTPROC EVAL HNO ID: [id number] Author: Elliot Mejia MD Service: ? Author Type: Physician Type: Anesthesia Postprocedure Evaluation Filed: 05/15/2022 11:22 AM Note Text: POST ANESTHESIA EVALUATION NOTE : 1945 Procedure Summary Date: 05/13/22 Room / Location: [facility] OR 05 / [facility] OR Anesthesia Start: 1446 Anesthesia Stop: 2144 Procedures: BYPASS GRAFT ARTERY CORONARY ON-PUMP SINGLE CORONARY ARTERIAL GRAFT (N/A Chest) BYPASS GRAFT ARTERY CORONARY ON-PUMP USING VENOUS GRAFT(S) AND ARTERIAL GRAFT(S) THREE VENOUS GRAFTS (N/A Chest) ENDOSCOPIC HARVEST VEIN FOR CORONARY ARTERY BYPASS PROCEDURE (N/A ) Diagnosis: Atherosclerosis of [place] coronary artery of [place] heart without angina pectoris Surgeons: Hermann Martinez MD Responsible Provider: Elliot Mejia MD Anesthesia Type: general ASA Status: Not recorded Anesthesia Type: general Airway Type: ETT Last Vitals Vitals Value Taken Time BP 114/67 05/15/22 1100 Temp 36.8 ?C (98.2 ?F) 05/15/22 1100 Pulse 93 05/15/22 1121 Resp 23 05/15/22 1121 SpO2 95 % 05/15/22 1121 Vitals shown include unvalidated device data. Post Anesthesia Patient Status Patient Evaluation: ICU. PACU/ICU Patient Condition: stable. Anticipated Disposition: ICU planned admission. Neurological Status: sedated. Pulmonary Status: on mechanical ventilation Airway Control: intubated on mechanical ventilation. Cardiovascular Status: stable. Pain Management: clinically adequate Postoperative Hydration: acceptable. Intraoperative Events: no significant anesthesia events Post Operative Nausea/Vomiting Status: no significant post operative nausea or vomiting Anesthetic Observations: Recommendation: continue current plan of care and further care per PACU/ICU/floor team. Anesthesia Observations No Documentation SIGNATURE: Elliot Mejia MD PATIENT NAME: Venus Sanders DATE: May 15, 2022 TIME: 11:22 AM CSN: [id number] Normal [facility] ARTERIAL BLOOD GASESon 05-14 BASE DEFICIT, ARTERIAL -6 mmol/L Low -2-0 [facility] Comment on above: Order Comment: Tatyana you Type: BLOOD SPECIMEN Ordering Facility: [facility] Address: [address] [place] [address] Performed By: #### 2 4321-2 #### [facility] CLIA [id number] [address] [place] [address] STATES OF [facility] Body temperature 98.24 [degF] Normal [facility] Comment on above: Order Comment: Tatyana you Type: BLOOD SPECIMEN Ordering Facility: [facility] Address: [address] [address] Performed By: #### 2 4321-2 #### [facility] CLIA [id number] [address] [place] [address] [place] CALCIUM IONIZED, PH CORRECTED 1.13 mmol/L Normal 1.08-1.30 [facility] Comment on above: Order Comment: Tatyana you Type: BLOOD SPECIMEN Ordering Facility: [facility] Address: [address] [address] Performed By: #### 2 4321-2 #### [facility] CLIA [id number] [address] Calcium.ionized (BldV) [Mass/Vol] 1.21 mmol/L Normal 1.08-1.30 [facility] Comment on above: Order Comment: Speci men Type: BLOOD SPECIMEN Ordering Facility: [facility] Address: [address] [place] [address] Performed By: #### 2 4321-2 #### [facility] CLIA [id number] [address] Carboxyhemoglobin (BldA) [Mass fraction] 1.0 % Normal 0.0-2.0 [facility] Comment on above: Order Comment: Speci men Type: BLOOD SPECIMEN Ordering Facility: [facility] Address: [address] [place] [address] Result Comment: Carb oxyhemoglobin Reference Range for Smokers: 2.0-8.0% Performed By: #### 2 4321-2 #### [facility] CLIA [id number] [address] CO2 (Bld) [Partial pressure] 44 mm Hg Normal 36-46 [facility] Comment on above: Order Comment: Speci men Type: BLOOD SPECIMEN Ordering Facility: [facility] Address: [address] [place] [address] Performed By: #### 2 4321-2 #### [facility] CLIA [id number] [address] [place] CO2 [Moles/Vol] 19 mmol/L Low 22-28 [facility] Comment on above: Order Comment: Speci men Type: BLOOD SPECIMEN Ordering Facility: [facility] Address: [address] [place] [address] Performed By: #### 2 4321-2 #### [facility] CLIA [id number] [address] CO2 adjusted to patient's actual temperature (Bld) [Partial pressure] 44 mmHg Normal 36-46 [facility] Comment on above: Order Comment: Speci men Type: BLOOD SPECIMEN Ordering Facility: [facility] Address: [facility] [address] Performed By: #### 2 4321-2 #### [facility] CLIA [id number] [address] FIO2 30 % Normal [facility] Comment on above: Order Comment: Speci men Type: BLOOD SPECIMEN Ordering Facility: [facility] Address: [address] [place] [address] Performed By: #### 2 4321-2 #### [facility] CLIA [id number] [address] Glucose [Mass/Vol] 95 mg/dL Normal 60-105 [facility] Comment on above: Order Comment: Speci men Type: BLOOD SPECIMEN Ordering Facility: [facility] Address: [address] [place] [address] Performed By: #### 2 4321-2 #### [facility] CLIA [id number] [address] HCO3 (Bld) [Moles/Vol] 20 mmol/L Low 22-26 [facility] Comment on above: Order Comment: Speci men Type: BLOOD SPECIMEN Ordering Facility: [facility] Address: [address] [place] [address] Performed By: #### 2 4321-2 #### [facility] CLIA [id number] [address] Hematocrit (Bld) [Volume fraction] 28.7 % Low 36.0-46.0 [facility] Comment on above: Order Comment: Speci men Type: BLOOD SPECIMEN Ordering Facility: [facility] Address: [address] [place] [address] Performed By: #### 2 4321-2 #### [facility] CLIA [id number] [address] Hemoglobin (Bld) [Mass/Vol] 9.3 g/dL Low 11.5-15.5 [facility] Comment on above: Order Comment: Speci men Type: BLOOD SPECIMEN Ordering Facility: [facility] Address: [address] [address] Performed By: #### 2 4321-2 #### [facility] CLIA [id number] [address] Methemoglobin (Bld) [Mass fraction] 1.0 % Normal 0.0-1.5 [facility] Comment on above: Order Comment: Speci men Type: BLOOD SPECIMEN Ordering Facility: [facility] Address: [address] [place] [address] Performed By: #### 2 4321-2 #### [facility] CLIA [id number] [address] O2 THERAPY Positive Normal [facility] Comment on above: Order Comment: Speci men Type: BLOOD SPECIMEN Ordering Facility: [facility] Address: [address] [place] [address] Performed By: #### 2 4321-2 #### [facility] CLIA [id number] [address] Oxygen (Bld) [Partial pressure] 105 mm Hg High 85-95 [facility] Comment on above: Order Comment: Speci men Type: BLOOD SPECIMEN Ordering Facility: [facility] Address: [address] [place] [address] Performed By: #### 2 4321-2 #### [facility] CLIA [id number] [address] Oxygen adjusted to patient's actual temperature (Bld) [Partial pressure] 104 mmHg High 85-95 [facility] Comment on above: Order Comment: Speci men Type: BLOOD SPECIMEN Ordering Facility: [facility] Address: [address] [address] Performed By: #### 2 4321-2 #### [facility] CLIA [id number] [address] OXYGEN SATURATION, ARTERIAL 98 % Normal 95-98 [facility] Comment on above: Order Comment: Speci men Type: BLOOD SPECIMEN Ordering Facility: [facility] Address: [address] [place] [address] Performed By: #### 2 4321-2 #### [facility] CLIA [id number] [address] [place] Oxyhemoglobin (BldA) [Mass fraction] 96 % Normal 95-98 [facility] Comment on above: Order Comment: Speci men Type: BLOOD SPECIMEN Ordering Facility: [facility] Address: [address] [place] [address] Performed By: #### 2 4321-2 #### [facility] CLIA [id number] [address] [place] pH (Bld) 7.27 [pH] Low 7.35-7.45 [facility] Comment on above: Order Comment: Speci men Type: BLOOD SPECIMEN Ordering Facility: [facility] Address: [address] [place] [address] Performed By: #### 2 4321-2 #### [facility] CLIA [id number] [address] pH adjusted to patient's actual temperature (Bld) 7.27 Low 7.35-7.45 [facility] Comment on above: Order Comment: Speci men Type: BLOOD SPECIMEN Ordering Facility: [facility] Address: [address] [place] [address] Performed By: #### 2 4321-2 #### [facility] CLIA [id number] [address] [place] Potassium [Moles/Vol] 4.1 mmol/L Normal 3.5-5.0 [facility] Comment on above: Order Comment: Speci men Type: BLOOD SPECIMEN Ordering Facility: [facility] Address: [address] [place] [address] Performed By: #### 2 4321-2 #### [facility] CLIA [id number] [address] Sodium [Moles/Vol] 138 mmol/L Normal 136-144 [facility] Comment on above: Order Comment: Speci men Type: BLOOD SPECIMEN Ordering Facility: [facility] Address: [address] [place] [address] Performed By: #### 2 4321-2 #### [facility] CLIA [id number] [address] [place] BASE DEFICIT, ARTERIAL -7 mmol/L Low -2-0 [facility] Comment on above: Order Comment: Speci men Type: BLOOD SPECIMEN Ordering Facility: [facility] Address: [address] [place] [address] Performed By: #### 5 8410-2 #### [facility] CLIA [id number] [address] Body temperature 98.6 [degF] Normal [facility] Comment on above: Order Comment: Speci men Type: BLOOD SPECIMEN Ordering Facility: [facility] Address: [address] [place] [address] Performed By: #### 5 8410-2 #### [facility] CLIA [id number] [address] OF [facility] CALCIUM IONIZED, PH CORRECTED 1.17 mmol/L Normal 1.08-1.30 [facility] Comment on above: Order Comment: Speci men Type: BLOOD SPECIMEN Ordering Facility: [facility] Address: [address] [address] Performed By: #### 5 8410-2 #### [facility] CLIA [id number] [address] Calcium.ionized (BldV) [Mass/Vol] 1.22 mmol/L Normal 1.08-1.30 [facility] Comment on above: Order Comment: Speci men Type: BLOOD SPECIMEN Ordering Facility: [facility] Address: [address] [place] [address] Performed By: #### 5 8410-2 #### [facility] CLIA [id number] [address] OF [facility] Carboxyhemoglobin (BldA) [Mass fraction] <1.0 Normal 0.0-2.0 [facility] Comment on above: Order Comment: Speci men Type: BLOOD SPECIMEN Ordering Facility: [facility] Address: [address] [place] [address] Result Comment: Carb oxyhemoglobin Reference Range for Smokers: 2.0-8.0% Performed By: #### 5 8410-2 #### [facility] CLIA [id number] [address] STATES OF [facility] CO2 (Bld) [Partial pressure] 36 mm Hg Normal 36-46 [facility] Comment on above: Order Comment: Speci men Type: BLOOD SPECIMEN Ordering Facility: [facility] Address: [address] [place] [address] Performed By: #### 5 8410-2 #### [facility] CLIA [id number] [address] [place] CO2 [Moles/Vol] 17 mmol/L Low 22-28 [facility] Comment on above: Order Comment: Speci men Type: BLOOD SPECIMEN Ordering Facility: [facility] Address: [address] [place] [address] Performed By: #### 5 8410-2 #### [facility] CLIA [id number] [address] [place] Glucose [Mass/Vol] 141 mg/dL High 60-105 [facility] Comment on above: Order Comment: Speci men Type: BLOOD SPECIMEN Ordering Facility: [facility] Address: [address] [place] [address] Performed By: #### 5 8410-2 #### [facility] CLIA [id number] [address] [place] HCO3 (Bld) [Moles/Vol] 18 mmol/L Low 22-26 [facility] Comment on above: Order Comment: Speci men Type: BLOOD SPECIMEN Ordering Facility: [facility] Address: [address] [place] [address] Performed By: #### 5 8410-2 #### [facility] CLIA [id number] [address] OF [facility] Hematocrit (Bld) [Volume fraction] 29.6 % Low 36.0-46.0 [facility] Comment on above: Order Comment: Speci men Type: BLOOD SPECIMEN Ordering Facility: [facility] Address: [address] [place] [address] Performed By: #### 5 8410-2 #### [facility] CLIA [id number] [address] [place] [facility] Hemoglobin (Bld) [Mass/Vol] 9.6 g/dL Low 11.5-15.5 [facility] Comment on above: Order Comment: Speci men Type: BLOOD SPECIMEN Ordering Facility: [facility] Address: [address] [place] [address] Performed By: #### 5 8410-2 #### [facility] CLIA [id number] [address] OF [facility] Methemoglobin (Bld) [Mass fraction] 1.0 % Normal 0.0-1.5 [facility] Comment on above: Order Comment: Speci men Type: BLOOD SPECIMEN Ordering Facility: [facility] Address: [address] [place] [address] Performed By: #### 5 8410-2 #### [facility] CLIA [id number] [address] OF [facility] O2 THERAPY Ventilator Normal [facility] Comment on above: Order Comment: Speci men Type: BLOOD SPECIMEN Ordering Facility: [facility] Address: [address] [place] [address] Performed By: #### 5 8410-2 #### [facility] CLIA [id number] [address] [place] Oxygen (Bld) [Partial pressure] 131 mm Hg High 85-95 [facility] Comment on above: Order Comment: Speci men Type: BLOOD SPECIMEN Ordering Facility: [facility] Address: [address] [address] Performed By: #### 5 8410-2 #### [facility] CLIA [id number] [address] [place] OXYGEN SATURATION, ARTERIAL 98 % Normal 95-98 [facility] Comment on above: Order Comment: Speci men Type: BLOOD SPECIMEN Ordering Facility: [facility] Address: [address] [place] [address] Performed By: #### 5 8410-2 #### [facility] CLIA [id number] [address] Oxyhemoglobin (BldA) [Mass fraction] 97 % Normal 95-98 [facility] Comment on above: Order Comment: Speci men Type: BLOOD SPECIMEN Ordering Facility: [facility] Address: [address] [place] [address] Performed By: #### 5 8410-2 #### [facility] CLIA [id number] [address] [place] pH (Bld) 7.32 [pH] Low 7.35-7.45 [facility] Comment on above: Order Comment: Speci men Type: BLOOD SPECIMEN Ordering Facility: [facility] Address: [address] [address] Performed By: #### 5 8410-2 #### [facility] CLIA [id number] [address] [place] Potassium [Moles/Vol] 2.6 mmol/L Low 3.5-5.0 [facility] Comment on above: Order Comment: Speci men Type: BLOOD SPECIMEN Ordering Facility: [facility] Address: [address] [place] [address] Performed By: #### 5 8410-2 #### [facility] CLIA [id number] 1 [place] [address] [place] Sodium [Moles/Vol] 139 mmol/L Normal 136-144 [facility] Comment on above: Order Comment: Speci men Type: BLOOD SPECIMEN Ordering Facility: [facility] Address: [address] [place] [address] Performed By: #### 5 8410-2 #### [facility] CLIA [id number] [address] [place] Basic metabolic 2000 panelon 05-14-2022 Anion gap [Moles/Vol] 7 mmol/L Low 9-18 [facility] Comment on above: Order Comment: Speci men Type: BLOOD SPECIMEN Ordering Facility: [facility] Address: [address] [place] [address] Performed By: #### 5 8410-2 #### [facility] CLIA [id number] [address] [place] Calcium [Mass/Vol] 7.7 mg/dL Low 8.5-10.2 [facility] Comment on above: Order Comment: Speci men Type: BLOOD SPECIMEN Ordering Facility: [facility] Address: [address] [place] [address] Performed By: #### 5 8410-2 #### [facility] CLIA [id number] [address] [place] Chloride [Moles/Vol] 112 mmol/L High 97-105 [facility] Comment on above: Order Comment: Speci men Type: BLOOD SPECIMEN Ordering Facility: [facility] Address: [address] [place] [address] Performed By: #### 5 8410-2 #### [facility] CLIA [id number] [address] [place] CO2 [Moles/Vol] 20 mmol/L Low 22-30 [facility] Comment on above: Order Comment: Speci men Type: BLOOD SPECIMEN Ordering Facility: [facility] Address: [address] [place] [address] Performed By: #### 5 8410-2 #### [facility] CLIA [id number] [address] STATES OF [facility] Creatinine [Mass/Vol] 0.75 mg/dL Normal 0.58-0.96 [facility] Comment on above: Order Comment: Specclaudia you Type: BLOOD SPECIMEN Ordering Facility: [facility] Address: [address] [place] [address] Performed By: #### 5 8410-2 #### [facility] CLIA [id number] [address] OF [facility] ESTIMATED GLOMERULAR FILTRATION RATE 82 mL/min/1.73m??? Normal >=60 [facility] Comment on above: Order Comment: Tatyana you Type: BLOOD SPECIMEN Ordering Facility: [facility] Address: [address] [place] [address] Result Comment: Kateryna mated Glomerular Filtration Rate (eGFR) is calculated using the 2020 CKD-EPI creatinine equation. This equation utilizes serum creatinine, sex, and age as parameters. The creatinine assay has traceable calibration to isotope dilution-mass spectrometry. Refer to KDIGO guidelines for clinical interpretation. In patients with unstable renal function, e.g. those with acute kidney injury, the eGFR may not accurately reflect actual GFR. Performed By: #### 5 8410-2 #### [facility] CLIA [id number] [address] OF [facility] Glucose [Mass/Vol] 97 mg/dL Normal 74-99 [facility] Comment on above: Order Comment: Tatyana you Type: BLOOD SPECIMEN Ordering Facility: [facility] Address: [address] [address] Result Comment: The [place] Diabetes Association (ADA) provides guidance for cutoff values for fasting glucose and random glucose. The ADA defines fasting as no caloric intake for at least 8 hours. Fasting plasma glucose results between 100 to 125 mg/dL indicate increased risk for diabetes (prediabetes). Fasting plasma glucose results greater than or equal to 126 mg/dL meet the criteria for diagnosis of diabetes. In the absence of unequivocal hyperglycemia, results should be confirmed by repeat testing. In a patient with classic symptoms of hyperglycemia or hyperglycemic crisis, random plasma glucose results greater than or equal to 200 mg/dL meet the criteria for diagnosis of diabetes. Reference: Standards of Medical Care in Diabetes 2016, [place] [employer] Association. Diabetes Care. 2016.39(Suppl 1). Performed By: #### 5 8410-2 #### [facility] CLIA [id number] [address] [place] Potassium [Moles/Vol] 4.2 mmol/L Normal 3.7-5.1 [facility] Comment on above: Order Comment: Speci men Type: BLOOD SPECIMEN Ordering Facility: [facility] Address: [address] [place] [address] Performed By: #### 5 8410-2 #### [facility] CLIA [id number] [address] [place] Sodium [Moles/Vol] 139 mmol/L Normal 136-144 [facility] Comment on above: Order Comment: Speci men Type: BLOOD SPECIMEN Ordering Facility: [facility] Address: [address] [place] [address] Performed By: #### 5 8410-2 #### [facility] CLIA [id number] 1 [place] [address] [place] Urea nitrogen [Mass/Vol] 9 mg/dL Normal 7-21 [facility] Comment on above: Order Comment: Speci men Type: BLOOD SPECIMEN Ordering Facility: [facility] Address: [address] [place] [address] Performed By: #### 5 8410-2 #### [facility] CLIA [id number] 1 [place] [address] [place] Anion gap [Moles/Vol] 12 mmol/L Normal 9-18 [facility] Comment on above: Order Comment: Speci men Type: BLOOD SPECIMEN Ordering Facility: [facility] Address: [address] [address] Performed By: #### 2 4321-2 #### [facility] CLIA [id number] [address] [place] Calcium [Mass/Vol] 7.9 mg/dL Low 8.5-10.2 [facility] Comment on above: Order Comment: Speci men Type: BLOOD SPECIMEN Ordering Facility: [facility] Address: [address] [address] Performed By: #### 2 4321-2 #### [facility] CLIA [id number] [address] [place] Chloride [Moles/Vol] 111 mmol/L High 97-105 [facility] Comment on above: Order Comment: Speci men Type: BLOOD SPECIMEN Ordering Facility: [facility] Address: [address] [place] [address] Performed By: #### 2 4321-2 #### [facility] CLIA [id number] [address] [facility] CO2 [Moles/Vol] 18 mmol/L Low 22-30 [facility] Comment on above: Order Comment: Speci men Type: BLOOD SPECIMEN Ordering Facility: [facility] Address: [address] [place] [address] Performed By: #### 2 4321-2 #### [facility] CLIA [id number] [address] OF [facility] Creatinine [Mass/Vol] 0.82 mg/dL Normal 0.58-0.96 [facility] Comment on above: Order Comment: Speci men Type: BLOOD SPECIMEN Ordering Facility: [facility] Address: [address] [address] Performed By: #### 2 4321-2 #### [facility] CLIA [id number] [address] [place] ESTIMATED GLOMERULAR FILTRATION RATE 73 mL/min/1.73m??? Normal >=60 [facility] Comment on above: Order Comment: Speci men Type: BLOOD SPECIMEN Ordering Facility: [facility] Address: [address] [place] [address] Result Comment: Kateryna mated Glomerular Filtration Rate (eGFR) is calculated using the 2020 CKD-EPI creatinine equation. This equation utilizes serum creatinine, sex, and age as parameters. The creatinine assay has traceable calibration to isotope dilution-mass spectrometry. Refer to KDIGO guidelines for clinical interpretation. In patients with unstable renal function, e.g. those with acute kidney injury, the eGFR may not accurately reflect actual GFR. Performed By: #### 2 4321-2 #### [facility] CLIA [id number] 1 [place] [address] [place] Glucose [Mass/Vol] 135 mg/dL High 74-99 [facility] Comment on above: Order Comment: Specclaudia you Type: BLOOD SPECIMEN Ordering Facility: [facility] Address: [address] [place] [address] Result Comment: The [place] Diabetes Association (ADA) provides guidance for cutoff values for fasting glucose and random glucose. The ADA defines fasting as no caloric intake for at least 8 hours. Fasting plasma glucose results between 100 to 125 mg/dL indicate increased risk for diabetes (prediabetes). Fasting plasma glucose results greater than or equal to 126 mg/dL meet the criteria for diagnosis of diabetes. In the absence of unequivocal hyperglycemia, results should be confirmed by repeat testing. In a patient with classic symptoms of hyperglycemia or hyperglycemic crisis, random plasma glucose results greater than or equal to 200 mg/dL meet the criteria for diagnosis of diabetes. Reference: Standards of Medical Care in Diabetes 2016, [place] [employer]. Diabetes Care. 2016.39(Suppl 1). Performed By: #### 2 4321-2 #### [facility] CLIA [id number] 1 [place] [address] [place] Potassium [Moles/Vol] 3.0 mmol/L Low 3.7-5.1 [facility] Comment on above: Order Comment: Tatyana you Type: BLOOD SPECIMEN Ordering Facility: [facility] Address: [address] [id number] Performed By: #### 2 4321-2 #### [facility] CLIA [id number] 1 [place] [address] [place] Sodium [Moles/Vol] 141 mmol/L Normal 136-144 [facility] Comment on above: Order Comment: Speci men Type: BLOOD SPECIMEN Ordering Facility: [facility] Address: [address] [address] Performed By: #### 2 4321-2 #### [facility] CLIA [id number] [address] STATES [place] [facility] Urea nitrogen [Mass/Vol] 10 mg/dL Normal 7-21 [facility] Comment on above: Order Comment: Speci men Type: BLOOD SPECIMEN Ordering Facility: [facility] Address: [address] [address] Performed By: #### 2 4321-2 #### [facility] CLIA [id number] [address] [place] [facility] CBC panel Auto (Bld)on 05-14 Erythrocyte distribution width (RBC) [Ratio] 15.0 % Normal 11.5-15.0 [facility] Comment on above: Order Comment: Speci men Type: BLOOD SPECIMEN Ordering Facility: [facility] Address: [address] [address] Performed By: #### 2 4321-2 #### [facility] CLIA [id number] [address] [place] [facility] Hematocrit (Bld) [Volume fraction] 27.7 % Low 36.0-46.0 [facility] Comment on above: Order Comment: Speci men Type: BLOOD SPECIMEN Ordering Facility: [facility] Address: [address] [address] Performed By: #### 2 4321-2 #### [facility] CLIA [id number] [address] [place] Hemoglobin (Bld) [Mass/Vol] 8.9 g/dL Low 11.5-15.5 [facility] Comment on above: Order Comment: Speci men Type: BLOOD SPECIMEN Ordering Facility: [facility] Address: [address] [address] Performed By: #### 2 4321-2 #### [facility] CLIA [id number] [address] MCH (RBC) [Entitic mass] 27.6 pg Normal 26.0-34.0 [facility] Comment on above: Order Comment: Speci men Type: BLOOD SPECIMEN Ordering Facility: [facility] Address: [address] [place] [address] Performed By: #### 2 4321-2 #### [facility] CLIA [id number] [address] MCHC (RBC) [Mass/Vol] 32.1 g/dL Normal 30.5-36.0 [facility] Comment on above: Order Comment: Speci men Type: BLOOD SPECIMEN Ordering Facility: [facility] Address: [address] [place] [address] Performed By: #### 2 4321-2 #### [facility] CLIA [id number] [address] MCV (RBC) [Entitic vol] 85.8 fL Normal 80.0-100.0 [facility] Comment on above: Order Comment: Speci men Type: BLOOD SPECIMEN Ordering Facility: [facility] Address: [address] [place] [address] Performed By: #### 2 4321-2 #### [facility] CLIA [id number] [address] Nucleated RBC (Bld) [#/Vol] 10*3/uL Normal <0.01 [facility] Comment on above: Order Comment: Speci men Type: BLOOD SPECIMEN Ordering Facility: [facility] Address: [address] [place] [address] Performed By: #### 2 4321-2 #### [facility] CLIA [id number] [address] Platelet mean volume (Bld) [Entitic vol] 10.4 fL Normal 9.0-12.7 [facility] Comment on above: Order Comment: Speci men Type: BLOOD SPECIMEN Ordering Facility: [facility] Address: [address] [address] Performed By: #### 2 4321-2 #### [facility] CLIA [id number] [address] Platelets (Bld) [#/Vol] 200 10*3/uL Normal 150-400 [facility] Comment on above: Order Comment: Speci men Type: BLOOD SPECIMEN Ordering Facility: [facility] Address: [address] [place] [address] Performed By: #### 2 4321-2 #### [facility] CLIA [id number] [address] RBC (Bld) [#/Vol] 3.23 10*6/uL Low 3.90-5.20 [facility] Comment on above: Order Comment: Speci men Type: BLOOD SPECIMEN Ordering Facility: [facility] Address: [address] [place] [address] Performed By: #### 2 4321-2 #### [facility] CLIA [id number] [address] [place] [address] WBC (Bld) [#/Vol] 11.58 10*3/uL High 3.70-11.00 [facility] Comment on above: Order Comment: Speci men Type: BLOOD SPECIMEN Ordering Facility: [facility] Address: [address] [place] [address] Performed By: #### 2 4321-2 #### [facility] CLIA [id number] [address] [place] [address] Erythrocyte distribution width (RBC) [Ratio] 14.7 % Normal 11.5-15.0 [facility] Comment on above: Order Comment: Speci men Type: BLOOD SPECIMENOrdering Facility: [facility] Address: [address] [place] [address] Performed By: #### 5 8410-2 ####[facility] [id number] [address] Hematocrit (Bld) [Volume fraction] 29.3 % Low 36.0-46.0 [facility] Comment on above: Order Comment: Speci men Type: BLOOD SPECIMENOrdering Facility: [facility] Address: [address] [place] [address] Performed By: #### 5 8410-2 ####[facility] [id number] [address] OF [facility] Hemoglobin (Bld) [Mass/Vol] 9.4 g/dL Low 11.5-15.5 [facility] Comment on above: Order Comment: Speci men Type: BLOOD SPECIMENOrdering Facility: [facility] Address: [address] [place] [address] Performed By: #### 5 8410-2 ####[facility] [id number] [address] MCH (RBC) [Entitic mass] 27.6 pg Normal 26.0-34.0 [facility] Comment on above: Order Comment: Speci men Type: BLOOD SPECIMENOrdering Facility: [facility] Address: [address] [place] [address] Performed By: #### 5 8410-2 ####[facility] [id number] [address] [place] OF [facility] MCHC (RBC) [Mass/Vol] 32.1 g/dL Normal 30.5-36.0 [facility] Comment on above: Order Comment: Speci men Type: BLOOD SPECIMENOrdering Facility: [facility] Address: [address] [place] [address] Performed By: #### 5 8410-2 ####[facility] [id number] [address] MCV (RBC) [Entitic vol] 85.9 fL Normal 80.0-100.0 [facility] Comment on above: Order Comment: Speci men Type: BLOOD SPECIMENOrdering Facility: [facility] Address: [address] [address] Performed By: #### 5 8410-2 ####[facility]IA [id number] [address] Nucleated RBC (Bld) [#/Vol] 10*3/uL Normal <0.01 [facility] Comment on above: Order Comment: Speci men Type: BLOOD SPECIMENOrdering Facility: [facility] Address: [address] [place] [address] Performed By: #### 5 8410-2 ####[facility] [id number] [address] [place] Platelet mean volume (Bld) [Entitic vol] 10.0 fL Normal 9.0-12.7 [facility] Comment on above: Order Comment: Speci men Type: BLOOD SPECIMENOrdering Facility: [facility] Address: [address] [place] [address] Performed By: #### 5 8410-2 ####[facility]ORYCLIA [id number] [address] [place] Platelets (Bld) [#/Vol] 188 10*3/uL Normal 150-400 [facility] Comment on above: Order Comment: Speci men Type: BLOOD SPECIMENOrdering Facility: [facility] Address: [address] [place] [address] Performed By: #### 5 8410-2 ####[facility]IA [id number] [address] RBC (Bld) [#/Vol] 3.41 10*6/uL Low 3.90-5.20 [facility] Comment on above: Order Comment: Speci men Type: BLOOD SPECIMENOrdering Facility: [facility] Address: [address] [place] [address] Performed By: #### 5 8410-2 ####[facility]ORYCLIA [id number] [address] [place] WBC (Bld) [#/Vol] 12.36 10*3/uL High 3.70-11.00 [facility] Comment on above: Order Comment: Speci men Type: BLOOD SPECIMENOrdering Facility: [facility] Address: [address] [phone] Performed By: #### 5 8410-2 ####[facility]ORYCLIA [id number] [place] [address] [facility] CONSULTon 05-14-2022 CONSULT HNO ID: [id number] Author: Gurpreet Vázquez MD Service: Critical Care Author Type: Physician Type: Consults Filed: 05/14/2022 2:42 AM Note Text: CRITICAL CARE CONSULT NOTE SERVICE DATE: 05/14/2022 SERVICE TIME: 2:08 AM REASON FOR CONSULT: s/p CABG REQUESTING PHYSICIAN: Hermann Martinez MD ADMITTING PROVIDER: Hermann Martinez MD SERVICE DATE: 05/14/2022 SERVICE TIME: 2:08 AM Admission Date: 05/13/2022 AGE: [age] year old LOS: 1 days Subjective Patient seen after CABG 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 and underwent CABG today She was transferred back to the CVICU still waking up Currently on low-dose phenylephrine and a minimal oxygen requirement Objective PROBLEMS: ACTIVE PROBLEM LIST Hyperlipidemia Essential Hypertension Other Convulsions Atherosclerosis of [place] Coronary Artery of [place] Heart Without Angina Pectoris Osteopenia Vitamin D Deficiency Glucose Intolerance (Impaired Glucose Tolerance) Other and Unspecified Hyperlipidemia S/P Coronary Artery Stent Placement Gastroesophageal Reflux Disease Without Esophagitis Ckd (Chronic Kidney Disease) Stage 3, Gfr 30-59 Ml/Min ([facility]) Cad in [place] Artery PAST MEDICAL HISTORY Diagnosis Date - Cardiac arrest with ventricular fibrillation (HCC) defibrillated x 3 on 07/21/2016 - Coronary disease stent in 2007 with balloon angioplasty of left circumflex - Depressive disorder, not elsewhere classified - Esophageal reflux - Herpes zoster without mention of complication - Other acute and subacute form of ischemic heart disease 07/23/08 [place] - Other and unspecified hyperlipidemia 07/21/2005 - Other convulsions 04/11/2008 - STEMI (ST elevation myocardial infarction) ([facility]) 07/21/2016 - Type II or unspecified type diabetes mellitus without mention of complication, not stated as uncontrolled 07/21/2005 - Unspecified essential hypertension 07/21/2005 PAST SURGICAL HISTORY Procedure Laterality Date - CHOLECYSTECTOMY 1982 - STENT PLACEMENT 07/25/08 Thru heart cath. at [facility] - TOTAL ABDOMINAL HYSTERECT W/WO RMVL TUBE OVARY at age 48 Social History Tobacco Use - Smoking status: Never Smoker - Smokeless tobacco: Never Used Substance Use Topics - Alcohol use: No - Drug use: No VITAL SIGNS (last 24hrs min/max): Temp Av.4 ?C (95.8 ?F) Min: 35.2 ?C (95.36 ?F) Max: 36.4 ?C (97.5 ?F) Pulse Av.9 Min: 0 Max: 181 Arterial BP 1 Min: 5/1 Max: 176/113 Cuff BP Min: 93/54 Max: 177/144 Pain Level: 0 Vital signs reviewed. BP 146/73 Pulse 73 Temp (Src) 96.08 ([employer] Thermistor) Resp 31 SpO2 99% O2 Therapy: Ventilator, %FIO2: 30 Temp (24hrs), Av.4 ?C (95.8 ?F), Min:35.2 ?C (95.36 ?F), Max:36.4 ?C (97.5 ?F) NET FLUID BALANCE Intake/Output Summary (Last 24 hours) at 05/14/2022 0208 Last data filed at 05/14/2022 0200 Gross per 24 hour Intake 4907.23 ml Output 2860 ml Net 2047.23 ml MEDICATIONS Current Facility-Administered Medications Medication Dose Route Frequency - cholecalciferol 2,000 Units tab(s) (VITAMIN D3) 2,000 Units ORAL DAILY - atorvastatin 40 mg tab(s) (LIPITOR) 40 mg ORAL DAILY - sodium chloride 0.9 % (flush) 10 mL (BD POSIFLUSH) 10 mL INTRAVENOUS q 12 H - sodium chloride 0.9 % (flush) 20 mL (BD POSIFLUSH) 20 mL INTRAVENOUS PRN - NaCl 0.9% iv flush bag 20 mL INTRAVENOUS PRN - lactated ringers iv infusion 50 mL/hr INTRAVENOUS CONTINUOUS - insulin regular 100 units in NaCl 0.9% 100 mL - [place] CARD SURG NOMOGRAM 0-12 Units/hr INTRAVENOUS CONTINUOUS - insulin regular human 10 Units bolus from bag 10 Units INTRAVENOUS PRN - dextrose 10% iv bolus 12.5 g INTRAVENOUS PRN - albuterol 2.5 mg /3 mL (0.083 %) 2.5 mg (PROVENTIL) 2.5 mg INHALATION q 2 H PRN - vancomycin iv piggyback 1 g in D5W 200 mL (VANCOCIN) 1 g INTRAVENOUS q 12 HR - pantoprazole 40 mg injection (PROTONIX) 40 mg INTRAVENOUS DAILY (6 AM) - ondansetron (PF) 4 mg injection (ZOFRAN) 4 mg INTRAVENOUS q 6 H PRN - potassium chloride iv piggyback 20 mEq/100 mL 20 mEq INTRAVENOUS PRN - magnesium sulfate 2 g in sterile water 50 ml 2 g INTRAVENOUS PRN(NO DISPENSE) - midazolam (PF) 2 mg injection (VERSED) 2 mg INTRAVENOUS q 6 H PRN - acetaminophen 1,000 mg tab(s) (TYLENOL) 1,000 mg ORAL QID - gabapentin 200 mg cap(s) (NEURONTIN) 200 mg ORAL BID - lidocaine 4 % 1 Patch (SALONPAS) 1 Patch TRANSDERMAL DAILY And - lidocaine patch - REMOVE OTHER AT BEDTIME And - lidocaine - VERIFY PATCH OTHER q 8 H - magnesium oxide 400 mg tab(s) (MAG-OX) 400 mg ORAL DAILY - traMADol 50-100 mg tab(s) (ULTRAM) 50-100 mg ORAL q 6 H PRN - morphine 2-4 mg injection 2-4 mg INTRAVENOUS q 1 H PRN - EPINEPHrine 4 mg in NaCl 0.9% 250 mL 0.6-10 mcg/min INTRAVENOUS CONTINUOUS - PHENYLephrine iv infusion 10 mg in NaCl 0.9% 250 mL (MARIXA-SYNEPHRINE) 0-100 mcg/min INTRAVENOUS CONTINUOUS - lactated ringers 250 mL iv bolus 250 mL INTRAVENOUS PRN - dexmedeTOMIDine 400 mcg in (more content not included)... Normal [facility] Magnesium SerPl-mCncon 05-14 Magnesium [Mass/Vol] 2.0 mg/dL Normal 1.7-2.3 [facility] Comment on above: Order Comment: Speci men Type: BLOOD SPECIMEN Ordering Facility: [facility] Address: [address] [place] [address] Performed By: #### 5 8410-2 #### [facility] CLIA [id number] 1 [place] [address] [place] Magnesium [Mass/Vol] 2.3 mg/dL Normal 1.7-2.3 [facility] Comment on above: Order Comment: Speci men Type: BLOOD SPECIMEN Ordering Facility: [facility] Address: [address] [place] [address] Performed By: #### 2 4321-2 #### [facility] CLIA [id number] [address] [place] [id number] [facility] NUTRITIONon 05-14-2022 NUTRITION HNO ID: [id number] Author: Brielle Peres RD Service: Nutrition Therapy Author Type: Registered Dietitian Type: Nutrition Filed: 05/14/2022 11:41 AM Note Text: NUTRITION THERAPY INITIAL ASSESSMENT SERVICE DATE: 05/14/2022 SERVICE TIME: 10:05 REASON FOR VISIT: ERAS Nutrition Assessment: Recommended Malnutrition Diagnosis: No Malnutrition Identified Nutrition Diagnosis: Problem: Increased nutrient needs Related to: Mechanical cause As evidenced by: Procedure/surgery Estimated kilocalorie needs: 5006-7247 Calorie Calculation Method: 25-30 kcals/kg Estimated protein needs (grams): 62-78 Grams protein determined by: 1.2 - 1.5 g/kg;[place] body weight Care Plan: Follow for diet advancement to goal Supplements: Impact AR BID x 5 days post-op per ERAS protocol Monitor and Evaluation: Meet greater than 75% of estimated needs;Monitor fluid/electrolyte balance;Monitor bowel function;Monitor labs, I/Os, vital signs, weight Discharge Recommendations: Diet Diet: Heart Healthy HPI: Patient admitted s/p CABG 05/13. Extubated to BiPAP. Weaned to 2 L NC this morning. Past medical history includes T2DM and HTN Intake History: Nutrition Intake Prior to Admission: Greater than 75% estimated energy needs greater than or equal to 3 months (Family present at bedside report no changes in appetite or intake prior to admission. Normally eats well and is active) Current Intake: NPO Over: 1 day LOS s/p CABG 05/13. Diet advanced to Heart Healthy this morning. Patient has not received anything yet. Reports she does not have an appetite and is out of if from the pain medications Diet Orders (From admission, onward) Start Ordered 05/14/22 0930 DIET HEART HEALTHY START NOW Question: Heart Healthy Answer: 2 GM SODIUM (LOW SAT FAT) 05/14/22 0922 Anthropometrics: Dosing Weight: 52.2 kg (115 lb) Usual Weight: 70.8 kg (156 lb) (Family at bedside report UBW 152 lb, deny any recent changes) Over the last month. Appears stable over the last 2 years per EMR Usual Weight Obtained From: Chart Review There is no height or weight on file to calculate BMI. Overweight Last Wt 04/30/22 : 70.9 kg (156 lb 3.2 oz) 04/29/22 : 70.8 kg (156 lb) 04/22/22 : 70.6 kg (155 lb 9.6 oz) 04/10/22 : 71.7 kg (158 lb) Weight change percentage over time: No significant weight changes Physical Exam: Subcutaneous fat loss: No fat loss Muscle loss: No muscle loss Potential micronutrient deficiency: No deficiency identified Edema/Ascites: No edema GI Symptoms: None Functional Status: Not related to malnutrition status Potential Signs of Inflammation: Angélica-operative period;Tachycardia;Hy pothermia;Leukocytosi s MNT Billing: $ Initial Assessment: 1-15 minutes SIGNATURE: Brielle Peres RD PATIENT NAME: Venus Sanders DATE: May 14, 2022 TIME: 11:37 AM Normal [facility] PT panel Coag (PPP)on 2021 INR Coag (PPP) [Relative time] 1.1 {INR} Normal 0.9-1.3 [facility] Comment on above: Order Comment: Speci men Type: BLOOD SPECIMEN Ordering Facility: [facility] Address: [address] [place] [id number] Result Comment: Sandi min K Antagonist (VKA) Therapeutic Range: INR 2 to 3 (Target INR of 2.5) Note: For patients treated with VKA drugs, such as warfarin, the [place] [employer] 2012 Guideline recommends a therapeutic INR range of 2 to 3 (target INR of 2.5). This recommendation includes high-risk patients with antiphospholipid syndrome with previous arterial or venous thromboembolism, current-generation mechanical or bioprosthetic aortic heart valve replacement. Note: Patients with mechanical aortic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 men Type: BLOOD SPECIMEN Ordering Facility: [facility] Address: [address] [place] [address] Performed By: #### 5 8410-2 #### [facility] CLIA [id number] [address] [place] Platelets (Bld) [#/Vol] 339 10*3/uL Normal 150-400 [facility] Comment on above: Order Comment: Speci men Type: BLOOD SPECIMEN Ordering Facility: [facility] Address: [address] [place] [address] Performed By: #### 5 8410-2 #### [facility] CLIA [id number] [address] [place] RBC (Bld) [#/Vol] 5.06 10*6/uL Normal 3.90-5.20 [facility] Comment on above: Order Comment: Speci men Type: BLOOD SPECIMEN Ordering Facility: [facility] Address: [address] Performed By: #### 5 8410-2 #### [facility] CLIA [id number] [address] [place] WBC (Bld) [#/Vol] 7.75 10*3/uL Normal 3.70-11.00 [facility] Comment on above: Order Comment: Speci men Type: BLOOD SPECIMEN Ordering Facility: [facility] Address: [address] [address] Performed By: #### 5 8410-2 #### [facility] CLIA [id number] [address] [id number] [place] [facility] CNOVon 04-29-2022 CNOV Office Visit (AGVASACC) VENUS SANDERS ([id number]) 1945 F Date Time Provider Department 04/29/22 10:00 AM JENNIFER ADDISON During your visit today, we recorded the following information about you: Pulse Respiration Blood pressure Weight 74/minute 16/minute 130/70 70.8 kg Height 1.6 m Jennifer Addison APRN.CNP 04/30/2022 10:02 AM Signed HISTORY and PHYSICAL CARDIOTHORACIC SURGERY NAME: Venus Sanders HEIGHT: 160 cm WEIGHT: 70.8 kg Intended Procedure: Isolated CABG REDO: No STS SCORE: Prelim STS for isolated CABG: ? Risk of Mortality: 1.197% Renal Failure: 0.629% Permanent Stroke: 1.061% Prolonged Ventilation: 4.093% DSW Infection: 0.095% Reoperation: 2.600% Morbidity or Mortality: 7.330% Short Length of Stay: 46.660% Long Length of Stay: 2.389% HPI: This is a 77 year old woman referred for evaluation of multivessel coronary artery disease and for consideration for bypass surgery. She has history of coronary artery disease. In 2008 she underwent stenting to the left anterior descending artery. In 2015 she presented with acute myocardial infarction and had repeat stenting to the left anterior descending artery. Stress echo in 2018 was negative for inducible ischemia and ejection fraction was 65% with a resting wall motion abnormality. She is now noting exertional fatigue, lack of energy. She denies chest pressure, heaviness, burning. She had a single episode of near syncope in January. Cardiolite stress test performed in February of this year shows ejection fraction 75% with resting wall motion abnormality involving the apex with no stress-induced changes. Left heart catheterization however now shows multivessel coronary disease including: ? Left main: Mild calcification Left anterior descending artery: Ostial 85% stenosis; patent stent Circumflex artery: Mild luminal irregularities Right coronary artery: Severe calcification, mid eccentric 50% stenosis ? Echo shows: Normal ejection fraction 60%; anterior apica hypokinesia; inferoapical akinesia; lateral apical hypokinesia; septal apex akinetic; no valve abnormalities ? Risk factors for coronary disease include hypertension; possible diabetes (she carries diagnosis however hemoglobin A1c was only 5.8 couple of years ago she is on no medications). There is no history of smoking, or other vascular disease. ?She is on chronic Brilinta therapy. Mrs. Sanders presents today for PAT prior to her scheduled CABG with Dr. Martinez 05/13/22. Reports she has continued fatigue and shortness of breath with moderate to heavy exertional activities like climbing a flight of stairs. Denies any recent inpatient hospitalizations, but was treated in urgent care for dysuria and UTI last week. Finished her course of keflex and currently denies any urinary complaints. Repeat UA today reveals normal findings except for high specific gravity. She was recently placed on Imdur, but experienced significant headaches sending her to ER for evaluation last month. She has since stopped the Imdur, and has had cessation of the headaches and no chest pain. Denies any fevers/chills. Denies any prior issues with anesthesia. CXR completed 03/05/22 at outside hospital with no acute abnormalities. Chest CT 04/23/[address] evidence of acute abnormality. A few lung nodules measuring up to 4 mm. Incidental Finding: ?Follow-up Acuity: Incidental Finding: Solid: <6 mm (solitary or multiple) Routing Code: ?N/A Recommendation: No imaging follow-up is recommended Time Frame: ?N/A Comments: ?If there are risk factors for lung malignancy, a follow-up chest CT exam could be obtained in 12 months. I informed Mrs. Sanders of these findings and recommendations at today's visit. PAST MEDICAL HISTORY: PAST MEDICAL HISTORY Diagnosis Date - Cardiac arrest with ventricular fibrillation (HCC) defibrillated x 3 on 07/21/2016 - Coronary disease stent in 2007 with balloon angioplasty of left circumflex - Depressive disorder, not elsewhere classified - Esophageal reflux - Herpes zoster without mention of complication - Other acute and subacute form of ischemic heart disease 07/23/08 [place] - Other and unspecified hyperlipidemia 07/21/2005 - Other convulsions 04/11/2008 - STEMI (ST elevation myocardial infarction) (HCC) 07/21/2016 - Type II or unspecified type diabetes mellitus without mention of complication, not stated as uncontrolled 07/21/2005 - Unspecified essential hypertension 07/21/2005 PAST SURGICAL HISTORY: PAST SURGICAL HISTORY Procedure Laterality Date - CHOLECYSTECTOMY 1982 - STENT PLACEMENT 07/25/08 Thru heart cath. at [facility] - TOTAL ABDOMINAL HYSTERECT W/WO RMVL TUBE OVARY at age 48 FAMILY HISTORY: FAMILY HISTORY Problem Relation Age of Onset - Heart Mother - Diabetes Mother - Coronary Artery (more content not included)... Normal [facility] Comprehensive metabolic 2000 panelon 04-29-2022 Albumin [Mass/Vol] 4.3 g/dL Normal 3.9-4.9 [facility] Comment on above: Order Comment: Speci avelino Type: BLOOD SPECIMEN Ordering Facility: [facility] Address: [address] [place] [address] Performed By: #### 2 4321-2 #### [facility] CLIA [id number] [address] [place] [facility] ALP [Catalytic activity/Vol] 136 U/L High 34-123 [facility] Comment on above: Order Comment: Speci men Type: BLOOD SPECIMEN Ordering Facility: [facility] Address: [address] [place] [address] Performed By: #### 2 4321-2 #### [facility] CLIA [id number] [address] [place] [facility] ALT With P-5'-P [Catalytic activity/Vol] 11 U/L Normal 7-38 [facility] Comment on above: Order Comment: Speci men Type: BLOOD SPECIMEN Ordering Facility: [facility] Address: [address] [place] [address] Performed By: #### 2 4321-2 #### [facility] CLIA [id number] [address] OF [facility] Anion gap [Moles/Vol] 11 mmol/L Normal 9-18 [facility] Comment on above: Order Comment: Speci men Type: BLOOD SPECIMEN Ordering Facility: [facility] Address: [address] [address] Performed By: #### 2 4321-2 #### [facility] CLIA [id number] [address] [place] AST With P-5'-P [Catalytic activity/Vol] 16 U/L Normal 13-35 [facility] Comment on above: Order Comment: Speci men Type: BLOOD SPECIMEN Ordering Facility: [facility] Address: [address] [place] [address] Performed By: #### 2 4321-2 #### [facility] CLIA [id number] [address] [place] Bilirubin [Mass/Vol] 0.7 mg/dL Normal 0.2-1.3 [facility] Comment on above: Order Comment: Speci men Type: BLOOD SPECIMEN Ordering Facility: [facility] Address: [address] [place] [address] Performed By: #### 2 4321-2 #### [facility] CLIA [id number] [address] [place] Calcium [Mass/Vol] 10.1 mg/dL Normal 8.5-10.2 [facility] Comment on above: Order Comment: Speci men Type: BLOOD SPECIMEN Ordering Facility: [facility] Address: [address] [address] Performed By: #### 2 4321-2 #### [facility] CLIA [id number] 1 [place] [address] [place] Chloride [Moles/Vol] 103 mmol/L Normal 97-105 [facility] Comment on above: Order Comment: Speci men Type: BLOOD SPECIMEN Ordering Facility: [facility] Address: [address] [place] [address] Performed By: #### 2 4321-2 #### [facility] CLIA [id number] [address] [place] CO2 [Moles/Vol] 25 mmol/L Normal 22-30 [facility] Comment on above: Order Comment: Specclaudia you Type: BLOOD SPECIMEN Ordering Facility: [facility] Address: [address] [address] Performed By: #### 2 4321-2 #### [facility] CLIA [id number] [address] Creatinine [Mass/Vol] 1.09 mg/dL High 0.58-0.96 [facility] Comment on above: Order Comment: Speci men Type: BLOOD SPECIMEN Ordering Facility: [facility] Address: [address] [place] [address] Performed By: #### 2 4321-2 #### [facility] CLIA [id number] [address] ESTIMATED GLOMERULAR FILTRATION RATE 52 mL/min/1.73m??? Low >=60 [facility] Comment on above: Order Comment: Speci men Type: BLOOD SPECIMEN Ordering Facility: [facility] Address: [address] [place] [address] Result Comment: Kateryna mated Glomerular Filtration Rate (eGFR) is calculated using the 2020 CKD-EPI creatinine equation. This equation utilizes serum creatinine, sex, and age as parameters. The creatinine assay has traceable calibration to isotope dilution-mass spectrometry. Refer to KDIGO guidelines for clinical interpretation. In patients with unstable renal function, e.g. those with acute kidney injury, the eGFR may not accurately reflect actual GFR. Performed By: #### 2 4321-2 #### [facility] CLIA [id number] [address] Glucose [Mass/Vol] 107 mg/dL High 74-99 [facility] Comment on above: Order Comment: Tatyana you Type: BLOOD SPECIMEN Ordering Facility: [facility] Address: [address] [address] Result Comment: The [place] Diabetes Association (ADA) provides guidance for cutoff values for fasting glucose and random glucose. The ADA defines fasting as no caloric intake for at least 8 hours. Fasting plasma glucose results between 100 to 125 mg/dL indicate increased risk for diabetes (prediabetes). Fasting plasma glucose results greater than or equal to 126 mg/dL meet the criteria for diagnosis of diabetes. In the absence of unequivocal hyperglycemia, results should be confirmed by repeat testing. In a patient with classic symptoms of hyperglycemia or hyperglycemic crisis, random plasma glucose results greater than or equal to 200 mg/dL meet the criteria for diagnosis of diabetes. Reference: Standards of Medical Care in Diabetes 2016, [place] Diabetes Association. Diabetes Care. 2016.39(Suppl 1). Performed By: #### 2 4321-2 #### [facility] CLIA [id number] 1 [place] [address] [place] Potassium [Moles/Vol] 4.4 mmol/L Normal 3.7-5.1 [facility] Comment on above: Order Comment: Speci men Type: BLOOD SPECIMEN Ordering Facility: [facility] Address: [address] [place] [address] Performed By: #### 2 4321-2 #### [facility] CLIA [id number] 1 [place] [address] [place] Protein [Mass/Vol] 7.8 g/dL Normal 6.3-8.0 [facility] Comment on above: Order Comment: Speci men Type: BLOOD SPECIMEN Ordering Facility: [facility] Address: [address] [place] [address] Performed By: #### 2 4321-2 #### [facility] CLIA [id number] 1 [place] [address] [place] Sodium [Moles/Vol] 139 mmol/L Normal 136-144 [facility] Comment on above: Order Comment: Speci men Type: BLOOD SPECIMEN Ordering Facility: [facility] Address: [address] [place] [address] Performed By: #### 2 4321-2 #### [facility] CLIA [id number] 1 [place] [address] [place] Urea nitrogen [Mass/Vol] 14 mg/dL Normal 7-21 [facility] Comment on above: Order Comment: Speci men Type: BLOOD SPECIMEN Ordering Facility: [facility] Address: [address] [place] [address] Performed By: #### 2 4321-2 #### [facility] CLIA [id number] [address] [place] [address] HGB A1Con 04-29-2022 Average glucose Estimated from glycated hemoglobin (Bld) [Mass/Vol] 134 mg/dL Normal [facility] Comment on above: Order Comment: Tatyana [facility] Type: BLOOD SPECIMEN Ordering Facility: [facility] Address: [address] [place] [address] Result Comment: eAG: (Estimated average glucose) is a calculated value from HgbA1c and is senior patient account representative of the average blood glucose level in the last 2-3 month period. Performed By: #### 5 8410-2 #### [facility] CLIA [id number] [address] [place] [address] HbA1c (Bld) [Mass fraction] 6.3 % High 4.3-5.6 [facility] Comment on above: Order Comment: [facility] Type: BLOOD SPECIMEN Ordering Facility: [facility] Address: [address] [place] [address] Result Comment: [place] Diabetes Association guidelines indicate that patients with HgbA1c in the range 5.7-6.4% are at increased risk for development of diabetes, and intervention by lifestyle modification may be beneficial. HgbA1c greater or equal to 6.5% is considered diagnostic of diabetes. Performed By: #### 5 8410-2 #### [facility] CLIA [id number] [address] [place] [address] [place] Magnesium SerPl-mCncon 04-29 Magnesium [Mass/Vol] 2.4 mg/dL High 1.7-2.3 [facility] Comment on above: Order Comment: Tatyana [facility] Type: BLOOD SPECIMENOrdering Facility: [facility] Address: [address] [place] [address] Performed By: #### 1 9123-9, 3016-3 ####[employer] [facility]ORYCLIA [id number] [address] [place] PT panel Coag (PPP)on 2021 INR Coag (PPP) [Relative time] {INR} Low 0.9-1.3 [facility] Comment on above: Order Comment: Specclaudia you Type: BLOOD SPECIMEN Ordering Facility: [facility] Address: [address] [place] [address] Result Comment: Sandi min K Antagonist (VKA) Therapeutic Range: INR 2 to 3 (Target INR of 2.5) Note: For patients treated with VKA drugs, such as warfarin, the [place] [employer] 2012 Guideline recommends a therapeutic INR range of 2 to 3 (target INR of 2.5). This recommendation includes high-risk patients with antiphospholipid syndrome with previous arterial or venous thromboembolism, current-generation mechanical or bioprosthetic aortic heart valve replacement. Note: Patients with mechanical aortic valve replacement and additional risk factors for thromboembolic events (atrial fibrillation, previous thromboembolism, LV dysfunction, hypercoagulable conditions) or an older generation mechanical AVR (i.e., ball in-Cage) or any mechanical MVR should have a INR therapeutic range of 2.5 to 3.5 (target INR of 3). Faratt GH, et al. Chest 2012, 141:7S-47S Teresita RA, et al. [facility] 2017, 70: 252-289 Performed By: #### 2 4321-2 #### [facility] CLIA [id number] [address] [place] [facility] PT Coag (PPP) [Time] 10.3 s Normal 9.7-13.0 [facility] Comment on above: Order Comment: Speci avelino Type: BLOOD SPECIMEN Ordering Facility: [facility] Address: [address] [place], [place] [address] Performed By: #### 2 4321-2 #### [facility] CLIA [id number] [address] [place] TSH SerPl-aCncon 04-29-2022 TSH Qn 2.610 m[IU]/L Normal 0.270-4.200 [facility] Comment on above: Order Comment: Speci men Type: BLOOD SPECIMEN Ordering Facility: [facility] Address: [address] [place] [address] Performed By: #### 5 8410-2 #### [facility] CLIA [id number] [address] TYPE AND SCREEN,30 DAYon ABO O Normal [facility] Comment on above: Order Comment: Speci men Type: BLOOD SPECIMENOrdering Facility: [facility] Address: [address] [place] [address] Performed By: #### T SCR30 ####[facility]ANKCLIA [id number] [address] HISTORICAL AB SCR STATUS Negative Normal [facility] Comment on above: Order Comment: Speci men Type: BLOOD SPECIMENOrdering Facility: [facility] Address: [address] [place] [address] Performed By: #### T SCR30 ####[facility]ANKCLIA [id number] [address] Rh Nom (Bld) Positive Normal [facility] Comment on above: Order Comment: Speci men Type: BLOOD SPECIMENOrdering Facility: [facility] Address: [address] [place] [address] Performed By: #### T SCR30 ####[facility]ANKCLIA [id number] 48 [address] [facility] [place] Urinalysis complete panel (U )on 04-29-2022 Bilirubin Ql (U) Negative Negative [facility] Clarity (Unsp spec) Clear Clear [facility] Color (U) Yellow Yellow [facility] Epithelial cells LM.HPF (Urine sed) [#/Area] Few [facility] Glucose Test strip (U) [Mass/Vol] Negative Negative [facility] Hemoglobin Ql (U) Negative Negative [facility] Ketones Ql (U) Negative Negative [facility] Leukocyte esterase Test strip Ql (U) Negative Negative [facility] Nitrite Ql (U) Negative Negative [facility] pH (U) 6.0 [pH] 5.0 - 8.0 [facility] Protein (U) [Mass/Vol] Negative Negative Cl [facility] RBC LM.HPF (Urine sed) [#/Area] 0-3 /HPF 0-3 /HPF [facility] Specific gravity (U) [Rel density] >=1.030 High 1.005 - 1.030 [facility] Urobilinogen Ql (U) 0.2 EU/dL 0.2-1.0 EU/dL Cl [facility] WBC LM.HPF (Urine sed) [#/Area] 0-5 /HPF 0-5 /HPF [facility] Bilirubin Ql (U) Negative Normal Negative [facility] Comment on above: Order Comment: Speci men Type: URINE SPECIMENOrdering Facility: [facility] Address: [address] [place] [address] Performed By: #### 2 4356-8 ####[facility] LABORATORYCLIA [id number] [address] Clarity (Unsp spec) Clear Normal Clear [facility] Comment on above: Order Comment: Speci men Type: URINE SPECIMENOrdering Facility: [facility] Address: [address] [place] [address] Performed By: #### 2 4356-8 ####[facility] HOSPITALIA [id number] [address] [facility] Color (U) Yellow Normal Yellow [facility] Comment on above: Order Comment: Speci men Type: URINE SPECIMENOrdering Facility: [facility] Address: [address] [address] Performed By: #### 2 4356-8 ####[facility] LABORATORYCLIA [id number] [address] Epithelial cells LM.HPF (Urine sed) [#/Area] Few Normal [facility] Comment on above: Order Comment: Speci men Type: URINE SPECIMENOrdering Facility: [facility] Address: [address] [address] Performed By: #### 2 4356-8 ####[facility] LABORATORYCLIA [id number] [address] Glucose Test strip (U) [Mass/Vol] Negative Normal Negative [facility] Comment on above: Order Comment: Speci men Type: URINE SPECIMENOrdering Facility: [facility] Address: [address] [address] Performed By: #### 2 4356-8 ####[facility] LABORATORYCLIA [id number] [address] [facility] Hemoglobin Ql (U) Negative Normal Negative [facility] Comment on above: Order Comment: Speci men Type: URINE SPECIMENOrdering Facility: [facility] Address: [address] [place] [address] Performed By: #### 2 4356-8 ####[facility] LABORATORYCLIA [id number] [address] Ketones Ql (U) Negative Normal Negative [facility] Comment on above: Order Comment: Speci men Type: URINE SPECIMENOrdering Facility: [facility] Address: [address] [place] [address] Performed By: #### 2 4356-8 ####[facility] LABORATORYCLIA [id number] [address] Leukocyte esterase Test strip Ql (U) Negative Normal Negative [facility] Comment on above: Order Comment: Speci men Type: URINE SPECIMENOrdering Facility: [facility] Address: [address] [address] Performed By: #### 2 4356-8 ####[facility] LABORATORYCLIA [id number] [address] [place] Nitrite Ql (U) Negative Normal Negative [facility] Comment on above: Order Comment: Speci men Type: URINE SPECIMENOrdering Facility: [facility] Address: [address] [address] Performed By: #### 2 4356-8 ####[facility]ORATORYCLIA [id number] [place] [address] pH (U) 6.0 [pH] Normal 5.0-8.0 [facility] Comment on above: Order Comment: Speci men Type: URINE SPECIMENOrdering Facility: [facility] Address: [address] [place] [address] Performed By: #### 2 4356-8 ####[facility] LABORATORYCLIA [id number] [address] Protein (U) [Mass/Vol] Negative Normal Negative [facility] Comment on above: Order Comment: Speci men Type: URINE SPECIMENOrdering Facility: [facility] Address: [address] [place] [address] Performed By: #### 2 4356-8 ####[facility] LABORATORYCLIA [id number] [address] [facility] RBC LM.HPF (Urine sed) [#/Area] 0-3 /HPF Normal 0-3 /HPF [facility] Comment on above: Order Comment: Speci men Type: URINE SPECIMENOrdering Facility: [facility] Address: [address] [place] [address] Performed By: #### 2 4356-8 ####[facility] LABORATORYCLIA [id number] [address] Specific gravity (U) [Rel density] >=1.030 High 1.005-1.030 [facility] Comment on above: Order Comment: Speci men Type: URINE SPECIMENOrdering Facility: [facility] Address: [address] [place] [address] Performed By: #### 2 4356-8 ####[facility] LABORATORYCLIA [id number] [address] Urobilinogen Ql (U) 0.2 EU/dL Normal 0.2-1.0 EU/dL [facility] Comment on above: Order Comment: Speci men Type: URINE SPECIMENOrdering Facility: [facility] Address: [address] [place] [address] Performed By: #### 2 4356-8 ####[facility] LABORATORYCLIA [id number] [place] [address] [facility] WBC LM.HPF (Urine sed) [#/Area] 0-5 /HPF Normal 0-5 /HPF [facility] Comment on above: Order Comment: Speci men Type: URINE SPECIMENOrdering Facility: [facility] Address: [address] [address] Performed By: #### 2 4356-8 ####[facility] LABORATORYCLIA [id number] [place] [address] [place] UA DIP, URINE (POC)on 2021 BILIRUBIN UA (POCT) Negative Negative [facility] CLARITY UA (POCT) Slightly Cloudy Cl [facility] COLOR UA (POCT) Other [facility] GLUCOSE UA (POCT) Negative Negative mg/dL [facility] HEMOGLOBIN/BLOOD UA (POCT) Small Abnormal Negative [facility] KETONE UA (POCT) Negative Negative mg/dL [facility] LEUKOCYTES UA (POCT) Moderate Abnormal Negative [facility] NITRITE UA (POCT) Negative Negative [facility] PH UA (POCT) 6.0 4.5 - 8.0 [facility] Protein Ql (U) Trace Abnormal Negative mg/dL [facility] SPECIFIC GRAVITY UA (POCT) 1.015 1.005 - 1.030 [facility] UROBILINOGEN UA (POCT) 0.2 E.U./dL Grecia l E.U./dL [facility] CNPCristina 04-15-2022 CNPN Telephone (AGZA) VENUS SANDERS ([id number]) 1945 F Date Time Provider Department 04/15/22 JENNIFER ADDISON During your visit today, we recorded the following information about you: Jennifer Addison APRN.BILLIE 04/15/2022 9:10 AM Signed MULTI DISCIPLINARY HIGH RISK CARDIAC / AVR TEAM Members present: Dr. Maza, Dr. Martinez, Dr. Jean, Dr. Galdamez, Dr. Brooks, Dr. Astudillo, Dr. Corrales, Kings Stevenson WOOL GRADER, LOGISTICS SUPPORT, Shira Hou WOOL GRADER, LOGISTICS SUPPORT, Camille Clinton, LOGISTICS SUPPORT, Shira Addison WOOL GRADER, LOGISTICS SUPPORT, Radha Dunham PA, Radha Knapp PA, Víctor BERNSTEIN Presenting Physician: Dr. Martinez PATIENT NAME: Venus Sanders DATE: April 15, 2022 Outcome: Venus Sanders 's history and imaging were reviewed by the physicians in attendance. The collaborative recommendation would be to continue with plans for CABG with Dr. Martinez Called patient to communicate this recommendation, and left VM requesting call back. She is already scheduled for PAT on 04/29/22 Jennifer Addison APRN.BILLIE 04/15/22 Allergies As of Date: 04/15/2022 Noted Allergy Reaction ZESTRIL (LISINOPRIL) 07/21/2005 16 - Unknown ZOLOFT (SERTRALINE HCL) 07/21/2005 16 - Unknown Date Reviewed: 04/10/2022 Reviewed by: Jonathan Olson LPN - Fully Assessed Reason for Visit: Patient Update [1234] Prescriptions as of 04/15/2022 - isosorbide mononitrate ER (IMDUR) 30 mg 24 hr tablet Take 30 mg by mouth once daily. - omeprazole (PRILOSEC) 20 mg capsule Take 20 mg by mouth once daily. - pantoprazole DR (PROTONIX) 20 mg tablet Take 1 tablet by mouth once daily. - metoprolol succinate ER (TOPROL XL) 50 mg 24 hr tablet Take 1 tablet by mouth once daily. - amLODIPine (NORVASC) 2.5 mg tablet Take 1 tablet by mouth once daily. - atorvastatin (LIPITOR) 40 mg tablet Take 1 tablet by mouth once daily. - ticagrelor (BRILINTA) 90 mg tablet Take 1 tablet by mouth twice daily. - nitroglycerin sublingual (NITROQUICK) 0.4 mg SL tablet Dissolve 1 tablet under the tongue as needed. FOR CHEST PAIN. IF NO RELIEF CALL 911 - Cholecalciferol, Vitamin D3, 2,000 unit Tab Take 1 tablet by mouth once daily. - aspirin(ECOTRIN LOW STRENGTH 81 MG TAB) Take one(1) tablet daily. Problem List As Of Date 04/15/2022 Noted Resolved Hyperlipidemia [E78.5] 07/21/2005 Type II or unspecified type diabetes mellitus w*07/21/2005 10/27/2013 Essential hypertension [I10] 07/21/2005 UTI (urinary tract infection) [N39.0] 10/21/2007 09/05/2015 CONVULSIONS NEC [R56.9] 04/11/2008 Atherosclerosis of [place] coronary artery of na*02/14/2009 Osteopenia [M85.80] 08/20/2012 Vitamin d deficiency [E55.9] 08/31/2012 Glucose intolerance (impaired glucose tolerance*10/27/2013 Other and unspecified hyperlipidemia [E78.5] 07/21/2005 S/P coronary artery stent placement [Z95.5] 10/01/2016 Gastroesophageal reflux disease without esophag*10/21/2018 CKD (chronic kidney disease) stage 3, GFR 30-59*10/21/2018 Encounter Status:Closed by JENNIFER ADDISON CNP on 04/15/22 [facility] 04-11-2022 ДМИТРИЙ Telephone ([employer]) VENUS SANDERS ([id number]) 1945 F Date Time Provider Department 04/11/22 HERMANN MARTINEZ During your visit today, we recorded the following information about you: Marcelino Garcia 04/11/2022 3:44 PM Signed Phoned pt regarding future appts. Itinerary mailed to pt's home. Carotid US 04/15/22 2:30pm at [facility] on the 1st floor CT Chest 04/22/22 at [facility] on the 1st floor Preadmission instructions 04/29/22 10am COVID test 05/10/22 1pm at Urgent Care is located on the 1st floor at the [facility], [address] [address] CABG 05/13/22 arrival time 6am procedure time 7:30am at [facility]. Allergies As of Date: 04/11/2022 Noted Allergy Reaction ZESTRIL (LISINOPRIL) 07/21/2005 16 - Unknown ZOLOFT (SERTRALINE HCL) 07/21/2005 16 - Unknown Date Reviewed: 04/10/2022 Reviewed by: Jonathan Olson LPN - Fully Assessed Reason for Visit: Orders [681] Schedule Surgery [1330] Primary Visit Diagnosis:Syncope and collapse [R55] Other Visit Diagnoses:Atheroscler osis of [place] coronary artery of [place] heart without angina pectoris [I25.10] Carotid bruit, unspecified laterality [R09.89] Preoperative testing [Z01.818] Stage 3a chronic kidney disease (HCC) [N18.31] Essential hypertension [I10] Glucose intolerance (impaired glucose tolerance) [R73.02] Order(s):SURGICAL REQUEST - ELECTIVE (06/2020) [6916460] Order #: [id number]: 1 US CAROTID ARTERIES [facility] [0573595] Order #: [id number] FUTURE CBC [SQCBC] Order #: [id number] FUTURE COMP METABOLIC PANEL [SQCMP] Order #: [id number] FUTURE PROTHROMBIN TIME/PT [SQPT] Order #: [id number] FUTURE XR CHEST 2V FRONTAL/LAT [2700883] Order #: [id number] FUTURE PRE-PROCEDURE AND PRE-OPERATIVE COVID [SQPOCOVD] Order #: [id number] FUTURE TYPE AND SCREEN,30 DAY [RZJQRB75] Order #: [id number] FUTURE RED BLOOD CELLS, ADULT [SQRCAD] Order #: [id number] HGB A1C [CQEAQ1X] Order #: [id number] FUTURE MAGNESIUM BLD [SQMG1] Order #: [id number] FUTURE TSH BLD [SQTSH] Order #: [id number] FUTURE UA WITH CULTURE IF INDICATED [SQUACII] Order #: [id number] FUTURE Prescriptions as of 04/11/2022 - isosorbide mononitrate ER (IMDUR) 30 mg 24 hr tablet Take 30 mg by mouth once daily. - omeprazole (PRILOSEC) 20 mg capsule Take 20 mg by mouth once daily. - pantoprazole DR (PROTONIX) 20 mg tablet Take 1 tablet by mouth once daily. - metoprolol succinate ER (TOPROL XL) 50 mg 24 hr tablet Take 1 tablet by mouth once daily. - amLODIPine (NORVASC) 2.5 mg tablet Take 1 tablet by mouth once daily. - atorvastatin (LIPITOR) 40 mg tablet Take 1 tablet by mouth once daily. - ticagrelor (BRILINTA) 90 mg tablet Take 1 tablet by mouth twice daily. - nitroglycerin sublingual (NITROQUICK) 0.4 mg SL tablet Dissolve 1 tablet under the tongue as needed. FOR CHEST PAIN. IF NO RELIEF CALL 911 - Cholecalciferol, Vitamin D3, 2,000 unit Tab Take 1 tablet by mouth once daily. - aspirin(ECOTRIN LOW STRENGTH 81 MG TAB) Take one(1) tablet daily. Problem List As Of Date 04/11/2022 Noted Resolved Hyperlipidemia [E78.5] 07/21/2005 Type II or unspecified type diabetes mellitus w*07/21/2005 10/27/2013 Essential hypertension [I10] 07/21/2005 UTI (urinary tract infection) [N39.0] 10/21/2007 09/05/2015 CONVULSIONS NEC [R56.9] 04/11/2008 Atherosclerosis of [place] coronary artery of na*02/14/2009 Osteopenia [M85.80] 08/20/2012 Vitamin d deficiency [E55.9] 08/31/2012 Glucose intolerance (impaired glucose tolerance*10/27/2013 Other and unspecified hyperlipidemia [E78.5] 07/21/2005 S/P coronary artery stent placement [Z95.5] 10/01/2016 Gastroesophageal reflux disease without esophag*10/21/2018 CKD (chronic kidney disease) stage 3, GFR 30-59*10/21/2018 Encounter Status:Closed by JENNIFER ADDISON CNP on 04/11/22 [facility] [place] 04-10-2022 CNOV Office Visit (AGVASACC) VENUS SANDERS ([id number]) 1945 F Date Time Provider Department 04/10/22 10:00 AM HERMANN MARTINEZ During your visit today, we recorded the following information about you: Pulse Respiration Blood pressure Weight 74/minute 16/minute 126/70 71.7 kg Height 1.6 m Jonathan Olson LPN 04/10/2022 10:01 AM Signed CARDIAC REHAB 5 METER WALK TEST SERVICE DATE: 04/10/2022 SERVICE TIME: 0950 ASSESSMENT: 1. 6.00 sec 2. 5.89 sec 3. 5.78 sec SIGNATURE: Jonathan Olson LPN PATIENT NAME: Venus Sanders DATE: April 10, 2022 TIME: 10:00 AM PAGER/CONTACT #: [phone] Luz Hou APRN.CNP 04/10/2022 11:06 AM Signed Prelim STS for isolated CABG: Risk of Mortality: 1.197% Renal Failure: 0.629% Permanent Stroke: 1.061% Prolonged Ventilation: 4.093% DSW Infection: 0.095% Reoperation: 2.600% Morbidity or Mortality: 7.330% Short Length of Stay: 46.660% Long Length of Stay: 2.389% Luz Hou APRN.CNP April 10, 2022 10:29 AM Luz Hou APRN.CNP 04/10/2022 10:55 AM Addendum You came in to see Dr. Martinez today for surgical evaluation of coronary artery disease, by reviewing your images/clinical data, Dr. Martinez recommend the following: - Your coronary artery disease meets indication for bypass surgery. - CT Chest: our office will call you to schedule this test. - Your images will be presented at our multidisciplinary heart team meeting - You will need lab tests prior to surgery: our office will tell you when to get these done, they need to be completed 1-2 weeks prior to your surgery. We can complete the same day as your pre-op teaching appointment. - Our office will call you with your surgery date and time, you will need to be seen by our office one week before surgery for pre-op teaching and to tell you when you should stop your Brilinta. Thanks for coming in to see us today. Please call us if you have any concerns/questions: [phone] Luz Hou APRN.LOGISTICS SUPPORT Cardiothoracic surgery TONGUE STITCHER Hermann Martinez MD 04/10/2022 11:06 AM Signed CARDIOTHORACIC SURGERY CONSULT / HANDP SERVICE DATE: 04/10/2022 SERVICE TIME: 10:56 AM Subjective PRIMARY SERVICE: Cardiothoracic Surgery CHIEF COMPLAINT: Multivessel coronary artery disease HPI: This is a 77 year old woman referred for evaluation of multivessel coronary artery disease and for consideration for bypass surgery. She has history of coronary artery disease. In 2007 she underwent stenting to the left anterior descending artery. In 2015 she presented with acute myocardial infarction and had repeat stenting to the left anterior descending artery. Stress echo in 2018 was negative for inducible ischemia and ejection fraction was 65% with a resting wall motion abnormality. She is now noting exertional fatigue, lack of energy. She denies chest pressure, heaviness, burning. She had a single episode of near syncope in January. Cardiolite stress test performed in February of this year shows ejection fraction 75% with resting wall motion abnormality involving the apex with no stress-induced changes. Left heart catheterization however now shows multivessel coronary disease including: Left main: Mild calcification Left anterior descending artery: Ostial 85% stenosis; patent stent Circumflex artery: Mild luminal irregularities Right coronary artery: Severe calcification, mid eccentric 50% stenosis Echo shows: Normal ejection fraction 60%; anterior apica hypokinesia; inferoapical akinesia; lateral apical hypokinesia; septal apex akinetic; no valve abnormalities Risk factors for coronary disease include hypertension; possible diabetes (she carries diagnosis however hemoglobin A1c was only 5.8 couple of years ago she is on no medications). There is no history of smoking, or other vascular disease. She is on chronic Brilinta therapy. PAST MEDICAL HISTORY Diagnosis Date - Cardiac arrest with ventricular fibrillation (HCC) defibrillated x 3 on 07/21/2016 - Coronary disease stent in 2007 with balloon angioplasty of left circumflex - Depressive disorder, not elsewhere classified - Esophageal reflux - Herpes zoster without mention of complication - Other acute and subacute form of ischemic heart disease 07/23/08 [place] - Other and unspecified hyperlipidemia 07/21/2005 - Other convulsions 04/11/2008 - STEMI (ST elevation myocardial infarction) (HCC) 07/21/2016 - Type II or unspecified type diabetes mellitus without mention of complication, not stated as uncontrolled 07/21/2005 - Unspecified essential hypertension 07/21/2005 PAST SURGICAL HISTORY Procedure Laterality Date - CHOLECYSTECTOMY 1982 - STENT PLACEMENT 07/25/08 Thru heart cath. at [facility] - TOTAL ABDOMINAL HYSTERECT W/WO RMVL TUBE OVARY at age 48 FAMILY HISTORY Problem Relation Age of Onset - Heart Mother (more content not included)... Normal [facility] Basophil percentageon 2021 Chloride [Moles/Vol] 112 mmol/L 98-107 [facility] Work Phone: Glucose [Mass/Vol] 97 mg/dL 74-106 [facility] Work Phone: Potassium [Moles/Vol] 3.9 mmol/L 3.5-5.1 [facility] Work Phone: Sodium [Moles/Vol] 142 mmol/L 136-145 [facility] Work Phone: WBC (Bld) [#/Vol] 5.8 10*3/uL 4.4-11.0 [facility] Work Phone: Blood erythrocytes count (nu mber/volume)on 03-05-2022 RBC (Bld) [#/Vol] 5.01 10*6/uL 4.2-5.4 [facility] Work Phone: Blood hemoglobin measurement (mass/volume)on 03-05-2022 Hemoglobin (Bld) [Mass/Vol] 13.7 g/dL 12.0-15.0 [facility] Work Phone: Blood platelet mean volumeon 03-05-2022 Platelet mean volume (Bld) [Entitic vol] 10.8 fL 6.2-12.0 [facility] Work Phone: Determination of erythrocyte mean corpuscular volume (MCV)on 03-05-2022 MCV (RBC) [Entitic vol] 85.6 fL 81-99 [facility] Work Phone: [phone] Hematocrit Auto (Bld) [Volum e fraction]on 03-05-2022 Hematocrit (Bld) [Volume fraction] 42.9 % 37-47 [facility] Work Phone: [phone] INR in Blood by Coagulation assayon 03-05-2022 INR Coag (Bld) [Relative time] 1.0 {INR} [facility] Work Phone: [phone] Laboratory - Chemistry and C hemistry - challengeon 03-05-2022 CO2 [Moles/Vol] 25.0 mmol/L 21.0-32.0 [facility] Work Phone: [phone] Urea nitrogen/Creatinine [Mass ratio] 14.8 mg/mg 10-20 [facility] Work Phone: Laboratory - Coagulationon 0 03-05-2022 aPTT Coag (Bld) [Time] 25.4 s 24.1-36.2 [facility] Work Phone: [phone] PT Coag (PPP) [Time] 12.7 s 11.7-14.9 [facility] Work Phone: [phone] Laboratory - Hematology and Cell countson 03-05-2022 Erythrocyte distribution width (RBC) [Entitic vol] 47.2 fL 35.1-43.9 [facility] Work Phone: [phone] Erythrocyte distribution width (RBC) [Ratio] 15.0 % 11.6-14.6 [facility] Work Phone: [phone] MCH (RBC) [Entitic mass] 27.3 pg 27.0-32.0 [facility] Work Phone: [phone] MCHC Auto (RBC) [Mass/Vol]on 03-05-2022 MCHC (RBC) [Mass/Vol] 31.9 g/dL 32-36 [facility] Work Phone: No Panel Informationon 03-05 Estimated GFR (MDRD) Amer 63 mL/min >60 [facility] Work Phone: Comment on above: GFR Calc Estimated GFR (MDRD) Non-Af Amer 52 mL/min >60 [facility] Work Phone: Comment on above: Non- GFR Calc Platelets bldon 03-05-2022 Platelets (Bld) [#/Vol] 255 10*3/uL 150-450 [facility] Work Phone: Serum or plasma calcium lindsey urement (mass/volume)on 03-05-2022 Calcium [Mass/Vol] 9.3 mg/dL 8.5-10.1 [facility] Work Phone: Serum or plasma creatinine m easurement (mass/volume)on 03-05-2022 Creatinine [Mass/Vol] 1.08 mg/dL 0.55-1.02 [facility] Work Phone: Comment on above: The validity of the calculated GFR & GFRAA in patients over 70 years has not been determined. Clinical correlation is essential. Serum or plasma urea nitroge n measurement (mass/volume)on 03-05-2022 Urea nitrogen [Mass/Vol] 16 mg/dL 7-18 [facility] Work Phone: Thin prep Papanicolaou smear with manual screeningon 03-05-2022 Thin prep Papanicolaou smear with manual screening 5 5-15 [facility] Work Phone: Basophil percentageon 2021 Bilirubin [Mass/Vol] 0.60 mg/dL 0.20-1.00 [facility] Work Phone: Comment on above: For patients on eltr ombopag therapy, use of Dimension [place] TBIL is not recommended. Cholesterol [Mass/Vol] 132 mg/dL <200 [facility] Work Phone: Comment on above: <200 mg/dL Desirable 200-240 mg/dL Borderline >240 mg/dL High Risk Protein [Mass/Vol] 7.7 g/dL 6.4-8.2 [facility] Work Phone: Triglyceride [Mass/Vol] 67 mg/dL [facility] Work Phone: Comment on above: The drugs N-Acetylcy steine and Metamizole may falsely depress this assay.Serum Triglycerides Reference Interval Normal <150 mg/dL Borderline high 150 - 199 mg/dL High 200 - 499 mg/dL Very High > or = 500 mg/dL Direct bilirubinon Bilirubin.direct [Mass/Vol] 0.16 mg/dL 0.00-0.30 [facility] Work Phone: Laboratory - Chemistry and C hemistry - challengeon 01-29-2022 ALP [Catalytic activity/Vol] 132 U/L 45-117 [facility] Work Phone: ALT [Catalytic activity/Vol] 23 U/L 13-56 [facility] Work Phone: Globulin (S) [Mass/Vol] 4.1 g/dL 2.2-4.2 [facility] Work Phone: Serum or plasma albumin lindsey urement (mass/volume)on 01-29-2022 Albumin [Mass/Vol] 3.6 g/dL 3.2-5.0 [facility] Work Phone: Serum or plasma cholesterol in HDL measurement (mass/volume)on 01-29-2022 Cholesterol in HDL [Mass/Vol] 60 mg/dL [facility] Work Phone: Comment on above: The drugs N-Acetylcy steine and Metamizole may falsely depress this assay. Reference Range HDL <40 mg/dL Low HDL Cholesterol HDL >or= 60 mg/dL High HDL Cholesterol Serum or plasma cholesterol in VLDL measurement (mass/volume)on 01-29-2022 Cholesterol in VLDL [Mass/Vol] 13 mg/dL 5-40 [facility] Work Phone: Serum or plasma low density lipoprotein (LDL) cholesterol measurement (mass/volume)on 01-29-2022 Cholesterol in LDL [Mass/Vol] 59 mg/dL 0-130 [facility] Work Phone: Thin prep Papanicolaou smear with manual screeningon 01-29-2022 Thin prep Papanicolaou smear with manual screening 19 U/L 15-37 [facility] Work Phone: Vital Signs Date Time Vital Sign Value Performing Clinician Joe rivas 08-03-2025 10:31-0400 Body height 160.[address] Marielena Ramirez MD Work Phone: [facility] 08-03-2025 10:31-0400 Body mass index (BMI) [Ratio] 26.7 kg/m2 Dr. Marielena Ramirez MD Work Phone: 8(399)[phone] [place] [address] 08-03-2025 10:31-0400 Body weight 68.[address] Marielena Ramirez MD Work Phone: 1(525)[phone] [place] [address] 08-03-2025 10:31-0400 Diastolic blood pressure 81 mm[Hg] Dr. Marielena Ramirez MD Work Phone: [facility] 08-03-2025 10:31-0400 Heart rate 54 /min Dr. Marielena Ramirez MD Work Phone: 0(025)[phone] [place] [address] 08-03-2025 10:31-0400 Respiratory rate 18 /min Dr. Marielena Ramirez MD Work Phone: [facility] 08-03-2025 10:31-0400 SaO2% (BldA) [Mass fraction] 97 % Dr. Marielena Ramirez MD Work Phone: [facility] 08-03-2025 10:31-0400 Systolic blood pressure 133 mm[Hg] Dr. Marielena Ramirez MD Work Phone: [facility] 02-06-2025 10:34-0400 Body mass index (BMI) [Ratio] 26.57 kg/m2 Arleen Older [employer] Work Phone: [facility] 02-06-2025 10:34-0400 Body weight 68.04 kg Arleen Older [employer] Work Phone: [facility] 02-06-2025 10:34-0400 Diastolic blood pressure 70 mm[Hg] Arleen Older [employer] Work Phone: [facility] 02-06-2025 10:34-0400 Heart rate 68 /min Arleen Older [employer] Work Phone: [facility] 02-06-2025 10:34-0400 Respiratory rate 16 /min Arleen Older [employer] Work Phone: [facility] 02-06-2025 10:34-0400 SaO2% (BldA) [Mass fraction] 97 % Arleen Older [employer] Work Phone: [facility] 02-06-2025 10:34-0400 Systolic blood pressure 112 mm[Hg] Arleen Older [employer] Work Phone: [facility] 04-25-2024 10:35-0400 Diastolic blood pressure 72 mm[Hg] Jenny Kory [employer] Work Phone: [facility] 04-25-2024 10:35-0400 Systolic blood pressure 112 mm[Hg] Jenny Kory [employer] Work Phone: [facility] 04-25-2024 10:16-0400 Body mass index (BMI) [Ratio] 27.1 kg/m2 Jenny Kory [employer] Work Phone: [facility] 04-25-2024 10:16-0400 Body weight 69.4 kg Jenny Kory [employer] Work Phone: [facility] 04-25-2024 10:16-0400 Heart rate 67 /min Jenny Kory [employer] Work Phone: [facility] 04-25-2024 10:16-0400 Respiratory rate 14 /min Jenny Kory [employer] Work Phone: [facility] 04-25-2024 10:16-0400 SaO2% (BldA) [Mass fraction] 99 % Jenny Kory [employer] Work Phone: [facility] 02-18-2024 09:50-0400 Body height 160.[address] Marielena Ramirez Work Phone: [facility] 02-18-2024 09:50-0400 Body mass index (BMI) [Ratio] 27.6 kg/m2 Dr. Marielena Ramirez Work Phone: [facility] 02-18-2024 09:50-0400 Body weight 70.[address] Marielena Ramirez Work Phone: [facility] 02-18-2024 09:50-0400 Diastolic blood pressure 74 mm[Hg] Dr. Marielena Ramirez Work Phone: [facility] 02-18-2024 09:50-0400 Heart rate 86 /min Dr. Marielena Ramirez Work Phone: [facility] 02-18-2024 09:50-0400 Respiratory rate 18 /min Dr. Marielena Ramirez Work Phone: [facility] 02-18-2024 09:50-0400 SaO2% (BldA) [Mass fraction] 99 % Dr. Marielena Ramirez Work Phone: [facility] 02-18-2024 09:50-0400 Systolic blood pressure 112 mm[Hg] Dr. Marielena Ramirez Work Phone: [facility] 10-23-2023 09:46-0500 Body temperature 97.81 [degF] Arleen Older [employer] Work Phone: [facility] 10-23-2023 09:46-0500 Body weight 69.49 kg Arleen Older [employer] Work Phone: [facility] 10-23-2023 09:46-0500 Diastolic blood pressure 72 mm[Hg] Arleen Older [employer] Work Phone: [facility] 10-23-2023 09:46-0500 Heart rate 71 /min Arleen Older [employer] Work Phone: [facility] 10-23-2023 09:46-0500 Respiratory rate 16 /min Arleen Older [employer] Work Phone: [facility] 10-23-2023 09:46-0500 SaO2% (BldA) [Mass fraction] 98 % Arleen Older [employer] Work Phone: [facility] 10-23-2023 09:46-0500 Systolic blood pressure 120 mm[Hg] Arleen Older [employer] Work Phone: [facility] 08-21-2023 06:44-0400 Diastolic blood pressure 61 mm[Hg] Dr. Marielena Ramirez Work Phone: 9(571)458-589205 [place] [address] 08-21-2023 06:44-0400 Heart rate 78 /min Dr. Marielena Ramirez Work Phone: 1(004)058-885748 [place] [address] 08-21-2023 06:44-0400 Respiratory rate 18 /min Dr. Marielena Ramirez Work Phone: 3(756)914-156705 [place] [address] 08-21-2023 06:44-0400 Systolic blood pressure 156 mm[Hg] Dr. Marielena Ramirez Work Phone: 2(354)780-980405 [place] [address] 08-21-2023 04:06-0400 Body height 160.[address] Marielena Ramirez Work Phone: 6(339)190-091348 [place] [address] 08-21-2023 04:06-0400 Body mass index (BMI) [Ratio] 27.6 kg/m2 Dr. Marielena Ramirez Work Phone: 0(283)[phone] [place] [address] 08-21-2023 04:06-0400 Body temperature 96.1 [degF] Dr. Marielena Ramirez Work Phone: 7(026)124-885905 [place] [address] 08-21-2023 04:06-0400 Body weight 70.[address] Marielena Ramirez Work Phone: 1(414)618-763605 [place] [address] 08-21-2023 04:06-0400 SaO2% (BldA) [Mass fraction] 98 % Dr. Marielena Ramirez Work Phone: 4(111)[phone] [place] [address] 08-07-2023 10:01-0400 Body weight 70.76 kg Radha Denbow PA-C Work Phone: [facility] 08-07-2023 10:01-0400 Diastolic blood pressure 72 mm[Hg] Radha Denbow PA-C Work Phone: [facility] 08-07-2023 10:01-0400 Heart rate 60 /min Radha Denbow PA-C Work Phone: [facility] 08-07-2023 10:01-0400 Respiratory rate 16 /min Radha Denbow PA-C Work Phone: [facility] 08-07-2023 10:01-0400 SaO2% (BldA) [Mass fraction] 100 % Radha Denbow PA-C Work Phone: [facility] 08-07-2023 10:01-0400 Systolic blood pressure 118 mm[Hg] Radhatristen Glasgowbow PA-C Work Phone: [facility] 08-03-2023 09:25-0400 Body height 160.[address] Marielena Ramirez Work Phone: [facility] 08-03-2023 09:25-0400 Body mass index (BMI) [Ratio] 27.3 kg/m2 Dr. Marielena Ramirez Work Phone: [facility] 08-03-2023 09:25-0400 Body weight 69.[address] Marielena Ramirez Work Phone: [facility] 08-03-2023 09:25-0400 Diastolic blood pressure 79 mm[Hg] Dr. Marielena Ramirez Work Phone: [facility] 08-03-2023 09:25-0400 Heart rate 61 /min Dr. Marielena Ramirez Work Phone: [facility] 08-03-2023 09:25-0400 Respiratory rate 16 /min Dr. Marielena Ramirez Work Phone: [facility] 08-03-2023 09:25-0400 SaO2% (BldA) [Mass fraction] 100 % Dr. Marielena Ramirez Work Phone: [facility] 08-03-2023 09:25-0400 Systolic blood pressure 134 mm[Hg] Dr. Marielena Ramirez Work Phone: [facility] 07-23-2023 10:58-0400 Diastolic blood pressure 75 mm[Hg] Arleen Older [employer] Work Phone: [facility] 07-23-2023 10:58-0400 Systolic blood pressure 143 mm[Hg] Arleen Older [employer] Work Phone: [facility] 07-23-2023 10:19-0400 Body weight 71.22 kg Arleen Older [employer] Work Phone: [facility] 07-23-2023 10:19-0400 Heart rate 62 /min Arleen Older [employer] Work Phone: [facility] 07-23-2023 10:19-0400 Respiratory rate 16 /min Arleen Older [employer] Work Phone: [facility] 07-23-2023 10:19-0400 SaO2% (BldA) [Mass fraction] 100 % Arleen Older [employer] Work Phone: [facility] 02-26-2023 10:18-0400 Body height 160 cm Rani Kasper [employer] Work Phone: [facility] 02-26-2023 10:18-0400 Body weight 68.95 kg Rani Kasper [employer] Work Phone: [facility] 02-26-2023 10:18-0400 Diastolic blood pressure 70 mm[Hg] Rani Kasper [employer] Work Phone: [facility] 02-26-2023 10:18-0400 Systolic blood pressure 128 mm[Hg] Rani Kasper [employer] Work Phone: [facility] 02-20-2023 09:24-0400 Body temperature 97.9 [degF] Debra Azul APRN.[employer] Work Phone: [facility] 02-20-2023 09:24-0400 Body weight 72.21 kg Debra Azul APRN.[employer] Work Phone: [facility] 02-20-2023 09:24-0400 Diastolic blood pressure 74 mm[Hg] Debra Azul APRN.[employer] Work Phone: [facility] 02-20-2023 09:24-0400 Heart rate 82 /min Debra Azul APRN.[employer] Work Phone: [facility] 02-20-2023 09:24-0400 Respiratory rate 16 /min Debra Azul APRN.[employer] Work Phone: [facility] 02-20-2023 09:24-0400 SaO2% (BldA) [Mass fraction] 98 % Debra Azul APRN.[employer] Work Phone: [facility] 02-20-2023 09:24-0400 Systolic blood pressure 126 mm[Hg] Debra Azul APRN.[employer] Work Phone: [facility] 02-19-2023 09:56-0400 Body height 160.[address] Marielena Ramirez Work Phone: [facility] 02-19-2023 09:56-0400 Body mass index (BMI) [Ratio] 27.1 kg/m2 Dr. Marielena Ramirez Work Phone: [facility] 02-19-2023 09:56-0400 Body weight 69.[address] Marielena Ramirez Work Phone: [facility] 02-19-2023 09:56-0400 Diastolic blood pressure 68 mm[Hg] Dr. Marielena Ramirez Work Phone: [facility] 02-19-2023 09:56-0400 Heart rate 68 /min Dr. Marielena Ramirez Work Phone: [facility] 02-19-2023 09:56-0400 Respiratory rate 18 /min Dr. Marielena Ramirez Work Phone: [facility] 02-19-2023 09:56-0400 Systolic blood pressure 134 mm[Hg] Dr. Marielena Ramirez Work Phone: [facility] 02-05-2023 10:34-0400 Body temperature 97 [degF] Marielena Ramirez MD Work Phone: [facility] 02-05-2023 10:34-0400 Body weight 68.95 kg Marielena Ramirez MD Work Phone: [facility] 02-05-2023 10:34-0400 Diastolic blood pressure 80 mm[Hg] Marielena Ramirez MD Work Phone: [facility] 02-05-2023 10:34-0400 Heart rate 60 /min Marielena Ramirez MD Work Phone: [facility] 02-05-2023 10:34-0400 Respiratory rate 16 /min Marielena Ramirez MD Work Phone: [facility] 02-05-2023 10:34-0400 SaO2% (BldA) [Mass fraction] 99 % Marielena Ramirez MD Work Phone: [facility] 02-05-2023 10:34-0400 Systolic blood pressure 130 mm[Hg] Marielena Ramirez MD Work Phone: [facility] 09-01-2022 11:22-0400 Body height 160.[address] Marielena Ramirez Work Phone: [facility] Work Phone: 09-01-2022 11:22-0400 Body weight 68.[address] Marielena Ramirez Work Phone: [facility] Work Phone: 08-11-2022 10:58-0400 Body height 160.[address] Marielena Ramirez Work Phone: [facility] Work Phone: 08-11-2022 10:58-0400 Body mass index (BMI) [Ratio] 26.5 kg/m2 Dr. Marielena Ramirez Work Phone: [facility] Work Phone: 08-11-2022 10:58-0400 Body weight 68.[address] Marielena Ramirez Work Phone: [facility] Work Phone: 08-11-2022 10:58-0400 Diastolic blood pressure 71 mm[Hg] Dr. Marielena Ramirez Work Phone: [facility] Work Phone: 08-11-2022 10:58-0400 Heart rate 64 /min Dr. Marielena Ramirez Work Phone: [facility] Work Phone: 08-11-2022 10:58-0400 Respiratory rate 14 /min Dr. Marielena Ramirez Work Phone: [facility] Work Phone: 08-11-2022 10:58-0400 Systolic blood pressure 114 mm[Hg] Dr. Marielena Ramirez Work Phone: [facility] Work Phone: 07-31-2022 07:33-0400 Body weight 68.[address] Marielena Ramirez Work Phone: [facility] Work Phone: 07-07-2022 11:22-0400 Body height 160 cm Marielena Ramirez MD Work Phone: [facility] 07-07-2022 11:22-0400 Body temperature 97 [degF] Marielena Ramirez MD Work Phone: [facility] 07-07-2022 11:22-0400 Body weight 68.49 kg Marielena Ramirez MD Work Phone: [facility] 07-07-2022 11:22-0400 Diastolic blood pressure 58 mm[Hg] Marielena Ramirez MD Work Phone: [facility] 07-07-2022 11:22-0400 Heart rate 60 /min Marielena Ramirez MD Work Phone: [facility] 07-07-2022 11:22-0400 Respiratory rate 12 /min Marielena Ramirez MD Work Phone: [facility] 07-07-2022 11:22-0400 SaO2% (BldA) [Mass fraction] 100 % Marielena Ramirez MD Work Phone: [facility] 07-07-2022 11:22-0400 Systolic blood pressure 110 mm[Hg] Marielena Ramirez MD Work Phone: [facility] 07-01-2022 10:11-0400 Body height 160.[address] Marielena Ramirez Work Phone: [facility] Work Phone: 07-01-2022 10:11-0400 Body weight 68.[address] Marielena Ramirez Work Phone: [facility] Work Phone: 07-01-2022 09:01-0400 Body mass index (BMI) [Ratio] 26.9 kg/m2 Dr. Marielena Ramirez Work Phone: [facility] Work Phone: 07-01-2022 09:01-0400 Body temperature 97.1 [degF] Dr. Marielena Ramirez Work Phone: [facility] Work Phone: 07-01-2022 09:01-0400 Diastolic blood pressure 68 mm[Hg] Dr. Marielena Ramirez Work Phone: [facility] Work Phone: 07-01-2022 09:01-0400 Heart rate 76 /min Dr. Marielena Ramirez Work Phone: [facility] Work Phone: 07-01-2022 09:01-0400 Respiratory rate 16 /min Dr. Marielena Ramirez Work Phone: [facility] Work Phone: 07-01-2022 09:01-0400 SaO2% (BldA) [Mass fraction] 96 % Dr. Marielena Ramirez Work Phone: [facility] Work Phone: 07-01-2022 09:01-0400 Systolic blood pressure 110 mm[Hg] Dr. Marielena Ramirez Work Phone: [facility] Work Phone: 06-24-2022 13:05-0400 Body mass index (BMI) [Ratio] 26.9 kg/m2 Dr. Marielena Ramirez Work Phone: [facility] Work Phone: 06-24-2022 13:05-0400 Body weight 68.[address] Marielena Ramirez Work Phone: [facility] Work Phone: 06-24-2022 13:05-0400 Diastolic blood pressure 68 mm[Hg] Dr. Marielena Ramirez Work Phone: [facility] Work Phone: 06-24-2022 13:05-0400 Heart rate 76 /min Dr. Marielena Ramirez Work Phone: [facility] Work Phone: 06-24-2022 13:05-0400 Respiratory rate 16 /min Dr. Marielena Ramirez Work Phone: [facility] Work Phone: 06-24-2022 13:05-0400 Systolic blood pressure 110 mm[Hg] Dr. Marielena Ramirez Work Phone: [facility] Work Phone: 06-16-2022 10:26-0400 Body height 160 cm Jennifer Addison APRN.[employer]IST[employer] Work Phone: [facility] 06-16-2022 10:26-0400 Body weight 68.95 kg Jennifer Addison APRN.[employer]IST[employer] Work Phone: [facility] 06-16-2022 10:26-0400 Diastolic blood pressure 66 mm[Hg] Jennifer Krystle [employer] Work Phone: [facility] 06-16-2022 10:26-0400 Heart rate 82 /min Jennifre Krystle [employer] Work Phone: [facility] 06-16-2022 10:26-0400 Respiratory rate 18 /min Jennifer Krystle [employer] Work Phone: [facility] 06-16-2022 10:26-0400 SaO2% (BldA) [Mass fraction] 99 % Jennifer Krystle [employer] Work Phone: [facility] 06-16-2022 10:26-0400 Systolic blood pressure 118 mm[Hg] Jennifer Krystle [employer] Work Phone: 8(031)295-804570 [place] [address] 05-21-2022 14:06-0400 Body height 160 cm Jennifer Krystle [employer] Work Phone: 7(539)524-513470 [place] [address] 05-21-2022 14:06-0400 Body weight 71.22 kg Jennifer Krystle [employer] Work Phone: 9(123)659-527770 [place] [address] 05-21-2022 14:06-0400 Diastolic blood pressure 70 mm[Hg] Jennifer Krystle [employer] Work Phone: [facility] 05-21-2022 14:06-0400 Heart rate 104 /min Jennifer Krystle [employer] Work Phone: [facility] 05-21-2022 14:06-0400 SaO2% (BldA) [Mass fraction] 95 % Jennifer Krystle [employer] Work Phone: [facility] 05-21-2022 14:06-0400 Systolic blood pressure 112 mm[Hg] Jennifer Krystle [employer] Work Phone: [facility] 04-29-2022 09:52-0400 Body height 160 cm Jennifer Krystle [employer] Work Phone: [facility] 04-29-2022 09:52-0400 Body weight 70.76 kg Jennifer Krystle [employer] Work Phone: [facility] 04-29-2022 09:52-0400 Diastolic blood pressure 70 mm[Hg] Jennifer Addison [employer] Work Phone: [facility] 04-29-2022 09:52-0400 Heart rate 74 /min Jennifer Addison [employer] Work Phone: [facility] 04-29-2022 09:52-0400 Respiratory rate 16 /min Jennifer Addison [employer] Work Phone: [facility] 04-29-2022 09:52-0400 SaO2% (BldA) [Mass fraction] 97 % Jennifer Addison [employer] Work Phone: [facility] 04-29-2022 09:52-0400 Systolic blood pressure 130 mm[Hg] Jennifer Addison [employer] Work Phone: [facility] 04-22-2022 10:12-0400 Body temperature 97.81 [degF] Janeth Tolbert [employer] Work Phone: [facility] 04-22-2022 10:12-0400 Body weight 70.58 kg Janeth Tolbert [employer] Work Phone: [facility] 04-22-2022 10:12-0400 Diastolic blood pressure 80 mm[Hg] Janeth Tolbert [employer] Work Phone: [facility] 04-22-2022 10:12-0400 Heart rate 88 /min Janeth Tolbert [employer] Work Phone: [facility] 04-22-2022 10:12-0400 Respiratory rate 16 /min Janeth Tolbert [employer] Work Phone: [facility] 04-22-2022 10:12-0400 SaO2% (BldA) [Mass fraction] 97 % Janeth Tolbert [employer] Work Phone: [facility] 04-22-2022 10:12-0400 Systolic blood pressure 136 mm[Hg] Janeth Tolbert [employer] Work Phone: [facility] 04-10-2022 09:50-0400 Body height 160 cm Hermann Martinez MD Work Phone: [facility] 04-10-2022 09:50-0400 Body weight 71.67 kg Hermann Martinez MD Work Phone: [facility] 04-10-2022 09:50-0400 Diastolic blood pressure 70 mm[Hg] Hermann Martinez MD Work Phone: [facility] 04-10-2022 09:50-0400 Heart rate 74 /min Hermann Martinez MD Work Phone: [facility] 04-10-2022 09:50-0400 Respiratory rate 16 /min Hermann Martinez MD Work Phone: [facility] 04-10-2022 09:50-0400 SaO2% (BldA) [Mass fraction] 96 % Hermann Martinez MD Work Phone: [facility] 04-10-2022 09:50-0400 Systolic blood pressure 126 mm[Hg] Hermann Martinez MD Work Phone: [facility] 03-31-2022 21:29-0400 Heart rate 74 /min Dr. Marielena Ramirez Work Phone: [facility] Work Phone: 03-31-2022 21:29-0400 Respiratory rate 17 /min Dr. Marielena Ramirez Work Phone: [facility] Work Phone: 03-31-2022 17:26-0400 Body height 160.[address] Marielena Ramirez Work Phone: [facility] Work Phone: 03-31-2022 17:26-0400 Body mass index (BMI) [Ratio] 26.9 kg/m2 Dr. Marielena Ramirez Work Phone: [facility] Work Phone: 03-31-2022 17:26-0400 Body temperature 96.8 [degF] Dr. Marielena Ramirez Work Phone: [facility] Work Phone: 03-31-2022 17:26-0400 Body weight 68.[address] Marielena Ramirez Work Phone: [facility] Work Phone: 03-31-2022 17:26-0400 Diastolic blood pressure 73 mm[Hg] Dr. Marielena Ramirez Work Phone: [facility] Work Phone: 03-31-2022 17:26-0400 SaO2% (BldA) [Mass fraction] 97 % Dr. Marielena Ramirez Work Phone: [facility] Work Phone: 03-31-2022 17:26-0400 Systolic blood pressure 144 mm[Hg] Dr. Marielena Ramirez Work Phone: [facility] Work Phone: 03-30-2022 04:23-0400 Diastolic blood pressure 74 mm[Hg] Dr. Marielena Ramirez Work Phone: [facility] Work Phone: 03-30-2022 04:23-0400 Heart rate 74 /min Dr. Marielena Ramirze Work Phone: [facility] Work Phone: 03-30-2022 04:23-0400 Respiratory rate 17 /min Dr. Marielena Ramirez Work Phone: [facility] Work Phone: 03-30-2022 04:23-0400 SaO2% (BldA) [Mass fraction] 98 % Dr. Marielena Ramirez Work Phone: [facility] Work Phone: 03-30-2022 04:23-0400 Systolic blood pressure 142 mm[Hg] Dr. Marielena Ramirez Work Phone: [facility] Work Phone: 03-30-2022 02:41-0400 Body height 160.[address] Marielena Ramirez Work Phone: [facility] Work Phone: 03-30-2022 02:41-0400 Body mass index (BMI) [Ratio] 27.8 kg/m2 Dr. Marielena Ramirez Work Phone: [facility] Work Phone: 03-30-2022 02:41-0400 Body temperature 97.2 [degF] Dr. Marielena Ramirez Work Phone: [facility] Work Phone: 03-30-2022 02:41-0400 Body weight 71.[address] Marielena Ramirez Work Phone: [facility] Work Phone: 03-12-2022 07:10-0400 Body height 160.[address] Marielena Ramirez Work Phone: [facility] Work Phone: 03-12-2022 07:10-0400 Body weight 70.[address] Marielena Ramirez Work Phone: [facility] Work Phone: 03-11-2022 06:51-0400 Body mass index (BMI) [Ratio] 27.4 kg/m2 Dr. Marielena Ramirez Work Phone: [facility] Work Phone: 02-05-2022 13:06-0400 Body height 160.[address] Marielena Ramirez Work Phone: [facility] Work Phone: 02-05-2022 13:06-0400 Body weight 70.[address] Marielena Ramirez Work Phone: [facility] Work Phone: 02-05-2022 13:06-0400 Diastolic blood pressure 70 mm[Hg] Dr. Marielena Ramirez Work Phone: [facility] Work Phone: 02-05-2022 13:06-0400 Heart rate 68 /min Dr. Marielena Ramirez Work Phone: [facility] Work Phone: 02-05-2022 13:06-0400 Respiratory rate 16 /min Dr. Marielena Ramirez Work Phone: [facility] Work Phone: 02-05-2022 13:06-0400 Systolic blood pressure 134 mm[Hg] Dr. Marielena Ramirez Work Phone: [facility] Work Phone: 12-24-2021 07:51-0500 Respiratory rate 16 /min Dr. Marielena Ramirez Work Phone: [facility] Work Phone: 12-24-2021 06:16-0500 Body mass index (BMI) [Ratio] 29.2 kg/m2 Dr. Marielena aRmirez Work Phone: [facility] Work Phone: 12-24-2021 06:16-0500 Body temperature 97.9 [degF] Dr. Marielena Ramirez Work Phone: [facility] Work Phone: 12-24-2021 06:16-0500 Body weight 74.[address] Marielena Ramirez Work Phone: [facility] Work Phone: 12-24-2021 06:16-0500 Diastolic blood pressure 95 mm[Hg] Dr. Marielena Ramirez Work Phone: [facility] Work Phone: 12-24-2021 06:16-0500 Heart rate 65 /min Dr. Marielena Ramirez Work Phone: [facility] Work Phone: 12-24-2021 06:16-0500 SaO2% (BldA) [Mass fraction] 99 % Dr. Marielena Ramirez Work Phone: [facility] Work Phone: 12-24-2021 06:16-0500 Systolic blood pressure 143 mm[Hg] Dr. Marielena Ramirez Work Phone: [facility] Work Phone: 02-06-2021 10:07-0400 Body mass index (BMI) [Ratio] 27.3 kg/m2 Dr. Marielena Ramirez Work Phone: [facility] Work Phone: Encounters Encounter Date Encounter Type Care Provider Facility Start: 08-16-2025 End: 08-16-2025 ambulatory [facility] Facility:[facility] Start: 08-16-2025 Patient encounter procedure ARLEEN RIVERA [facility] Start: 08-03-2025 End: 08-03-[address] Hardik Adame MD -[facility] Work Phone: Start: 08-03-2025 End: 08-03-[address] Marielena Ramirez MD Work Phone: -[facility] Start: 07-28-2025 End: 07-28-[address] Marielena Ramirez MD Work Phone: -Laboratory Start: 07-28-2025 End: 07-28-2025 Patient encounter procedure Brittany Gutierrez TONGUE STITCHER-C -Laboratory Work Phone: Start: 07-28-2025 End: 07-28-2025 ambulatory [facility] Facility:[facility] Start: 02-06-2025 End: 02-06-2025 [facility] Start: 02-06-2025 End: 02-06-2025 Patient encounter procedure Arleen Rivera APRN.CNP Work Phone: [facility] [place] Comment on above: Hypertensive kidney disease with stage 3a chronic kidney disease (HCC) (Primary Dx); Stage 3a chronic kidney disease (HCC); Hyperlipidemia, unspecified hyperlipidemia type; Encounter for immunization Start: 01-30-2025 End: 01-31-2025 Follow-up encounter Marielena Ramirez MD Work Phone: Internal [facility] Start: 01-30-2025 End: 01-30-2025 ambulatory [facility] Facility:[facility] Start: 01-24-2025 End: 01-27-2025 ambulatory Marielena Ramirez MD Work Phone: Internal Medicine [facility] Start: 12-20-2024 End: 12-20-2024 ambulatory Lori Stoddard MA [facility] Start: 12-20-2024 End: 12-20-2024 Patient encounter procedure Lori Stoddard MA [facility] Comment on above: Population Health Na [facility] Start: 10-17-2024 End: 10-17-2024 ambulatory [facility] Facility:[facility] Start: 10-10-2024 End: 10-10-2024 ambulatory [facility] Facility:[facility] Start: 04-26-2024 Telephone encounter Jenny woodruff APRN.LOGISTICS SUPPORT Work Phone: Internal [facility] Comment on above: Results Start: 04-25-2024 End: 04-25-2024 Subsequent hospital visit by physician Rian [facility] Work Phone: Radiology Comment on above: Left groin pain [R10 .32] Start: 04-25-2024 End: 04-25-2024 Patient encounter procedure Jenny Sagastume WOOL GRADER.LOGISTICS SUPPORT Work Phone: Internal [facility] Comment on above: Left groin pain (Corinna pamela Dx); Dysuria; Essential hypertension Start: 04-12-2024 ambulatory Marielena Neely Work Phone: Internal Medicine [facility] Start: 02-18-2024 End: 02-18-[address] Marielena Ramirez Work Phone: [facility] Work Phone: Start: 02-15-2024 End: 02-15-[address] Marielena Ramirez Work Phone: [facility] Work Phone: Start: 02-15-2024 End: 02-15-[address] Marielena Ramirez Work Phone: [facility]-Laboratory Work Phone: Start: 10-26-2023 Telephone encounter Arleen Rivera APRN.LOGISTICS SUPPORT Work Phone: Internal [facility] Comment on above: Lab Orders Start: 10-23-2023 End: 10-23-2023 Patient encounter procedure Arleen Rivera APRN.LOGISTICS SUPPORT Work Phone: [facility] Comment on above: Hypertensive kidney disease with stage 3a chronic kidney disease (HCC) (Primary Dx); Hyperlipidemia, unspecified hyperlipidemia type; Atherosclerosis of [place] coronary artery of [place] heart without angina pectoris; Viral upper respiratory tract infection Start: 10-06-2023 ambulatory Marielena Neely Work Phone: Internal [facility] Start: 08-21-2023 End: 08-21-2023 Emergency department patient visit Dr. Marielena Ramirez Work Phone: [facility]-Emergency Department Work Phone: Start: 08-19-2023 Telephone encounter Radha Wesley PA-C Work Phone: [facility] Comment on above: Results Start: 08-07-2023 End: 08-07-2023 Patient encounter procedure Radha Aivles PA-C Work Phone: Internal [facility] Comment on above: Hematuria, unspecifi ed type (Primary Dx); Urine leukocytes Start: 08-03-2023 End: 08-03-[address] Marielena Ramirez Work Phone: [facility] [facility] Work Phone: Start: 07-30-2023 Telephone encounter Lori Garcia APRN.LOGISTICS SUPPORT Work Phone: [facility] Comment on above: Results Start: 07-29-2023 End: 07-29-[address] Marielena Ramirez Work Phone: [facility] Work Phone: Start: 07-29-2023 End: 07-29-[address] Marielena Ramirez Work Phone: [facility]-Laboratory Work Phone: Start: 07-23-2023 End: 07-23-2023 Patient encounter procedure Arleen Rivera APRN.LOGISTICS SUPPORT Work Phone: [facility] [place] Comment on above: Essential hypertensi on (Primary Dx); Hyperlipidemia, unspecified hyperlipidemia type; Atherosclerosis of [place] coronary artery of [place] heart without angina pectoris; Prediabetes; Stage 3a chronic kidney disease (HCC); Candidiasis; Tinea versicolor Start: 07-07-2023 ambulatory Marielena Neely Work Phone: Internal Medicine [facility] Start: 03-16-2023 Non-patient / Non-visit Dr. Gaviota Ramirez Work Phone: [facility] Start: 03-16-2023 End: 03-16-[address] Marielena Ramirez Work Phone: [facility] Work Phone: Start: 03-16-2023 End: 03-16-[address] Marielena Ramirez Work Phone: [facility]-Cardiovascul ar Services Start: 02-26-2023 End: 02-26-2023 Patient encounter procedure Rani Kasper APRN.LOGISTICS SUPPORT Work Phone: OB/Gynecology Comment on above: Encounter for gyneco logical examination with abnormal finding (Primary Dx); Dermatitis contact; Chafing Start: 02-26-2023 End: 02-26-2023 Patient encounter status Rani Kasper APRN.LOGISTICS SUPPORT Work Phone: OB/Gynecology Start: 02-21-2023 Telephone encounter Darby BERNSTEIN Work Phone: [facility] Comment on above: Results Start: 02-20-2023 Telephone encounter Debra Azul APRN.LOGISTICS SUPPORT Work Phone: [facility] Comment on above: Results Start: 02-20-2023 End: 02-20-2023 Patient encounter procedure Debracory Azul APRN.LOGISTICS SUPPORT Work Phone: [facility] Comment on above: Burning with urinati on (Primary Dx); Encounter for gynecological examination with abnormal finding Start: 02-20-2023 End: 02-20-2023 Patient encounter status Debra Azul APRN.LOGISTICS SUPPORT Work Phone: [facility] Start: 02-19-2023 End: 02-19-[address] Marielena Ramirez Work Phone: [facility] [facility] Start: 02-13-2023 End: 02-13-[address] Marielena Ramirez Work Phone: [facility] Work Phone: Start: 02-13-2023 End: 02-13-[address] Marielena Ramirez Work Phone: [facility]-Laboratory Start: 02-05-2023 End: 02-05-2023 Patient encounter procedure Marielena Ramirez MD Work Phone: [facility] [place] Comment on above: Essential hypertensi on (Primary Dx); Hyperlipidemia, unspecified hyperlipidemia type; Gastroesophageal reflux disease without esophagitis; S/P coronary artery stent placement; Stage 3a chronic kidney disease (HCC); Coronary artery disease without angina pectoris, unspecified vessel or lesion type, unspecified whether [place] or transplanted heart Start: 09-12-2022 End: 09-22-[address] Marielena Ramirez Work Phone: [facility] Work Phone: Start: 09-12-2022 End: 09-22-[address] Marielena Ramirez Work Phone: [facility]-Cardiac Rehab Start: 08-22-2022 End: 08-22-[address] Marielena Ramirez Work Phone: [facility] Work Phone: Start: 08-22-2022 End: 08-22-[address] Marielena Ramirez Work Phone: [facility]Cardiac Rehab Start: 08-11-2022 End: 08-11-[address] Marielena Ramirez Work Phone: [facility] [facility] Start: 08-11-[address] Ronny Ramirez Work Phone: [facility]Cardiac Rehab Start: 08-06-2022 End: 08-06-[address] Marielena Ramirez Work Phone: [facility] Work Phone: Start: 08-06-2022 End: 08-06-[address] Marielena Ramirez Work Phone: [facility]-Laboratory Start: 07-23-2022 End: 07-23-[address] Marielena Ramirez Work Phone: [facility] Work Phone: Start: 07-23-2022 End: 07-23-[address] Marielena Ramriez Work Phone: [facility]Cardiac Rehab Start: 07-07-2022 End: 07-07-2022 Patient encounter procedure Marielena Ramirez MD Work Phone: [facility] [place] Comment on above: Essential hypertensi on (Primary Dx); Hyperlipidemia, unspecified hyperlipidemia type; Stage 3a chronic kidney disease (HCC); Hypocalcemia; Vitamin D deficiency; Anemia, unspecified type Start: 07-07-[address] Ronny Ramirez Work Phone: [facility]Card[facility] Start: 07-01-2022 End: 07-01-[address] Marielena Ramirez Work Phone: [facility]Card[facility] Rehab Start: 06-24-2022 End: 06-24-[address] Marielena Ramirez Work Phone: [facility] Start: 06-23-2022 [facility] Comment on above: Population Health Na vigation Outreach (CM Pool) Start: 06-20-2022 ambulatory Jerad West RN Am bul[facility] Alert[facility] Comment on above: Community Monitoring Outreach (CKD CDM Enrollment) Start: 06-19-2022 ambulatory Rani Bobo RN INDP KATHLEEN T TRIBE Start: 06-19-2022 Follow-up encounter Rani olivaulatory Care Management Comment on above: Transition Of Care ( [facility] discharge 05-18-22- follow up ) Start: 06-16-2022 End: 06-16-2022 Subsequent hospital visit by physician [facility] Work Phone: Radiology Comment on above: S/P CABG (coronary a rtery bypass graft) [Z95.1] Start: 06-16-2022 End: 06-16-2022 Patient encounter procedure Jennifer Addison APRN.CNP Work Phone: [facility] Comment on above: S/P CABG (coronary a rtery bypass graft) (Primary Dx); CAD in [place] artery; Acute blood loss anemia; Essential hypertension; Lung nodules Start: 05-30-2022 Non-patient / Non-visit Dr. Gaviota Ramirez Work Phone: [facility] Start: 05-28-2022 Telephone encounter Hermann luke MD Work Phone: [facility] Comment on above: Cardiac Rehab (refer ral to [facility]) Cardiac Rehab (Defer red) Start: 05-24-2022 Telephone encounter Marielena mcguire MD Work Phone: [facility] [place] Comment on above: home health calling with update Start: 05-22-2022 ambulatory Rani Bobo RN INDP KATHLEEN T TRIBE Start: 05-22-2022 Follow-up encounter Rani olivaulatory Care Management Comment on above: Transition Of Care ( [facility] discharge 05-18-22- follow up) Start: 05-22-2022 Telephone encounter Marielena mcguire MD Work Phone: [facility] [place] Comment on above: Faxed to [facility] Start: 05-21-2022 End: 05-21-2022 Patient encounter procedure Jennifer Addison WOOL GRADER.LOGISTICS SUPPORT Work Phone: [facility] Comment on above: S/P CABG (coronary a rtery bypass graft) (Primary Dx); CAD in [place] artery; Acute blood loss anemia; Essential hypertension; Lung nodules; Urinary frequency Start: 05-21-2022 Telephone encounter Marielena mcguire MD Work Phone: [facility] [place] Comment on above: [facility] Leah heredia Start: 05-20-2022 ambulatory Rani Bobo RN INDP KATHLEEN DAMON Start: 05-20-2022 Follow-up encounter Rani Davis mbulatory Care Management Comment on above: Transition Of Care ( [facility] discharge 05-18-22- follow up) Start: 05-20-2022 Telephone encounter Cristo pride [facility] Comment on above: Home Care (Decline) Start: 05-19-2022 ambulatory Stephanie Hernandez Pulmonar y Medicine Comment on above: Transition Of Care ( [facility] discharge 05-18-22- initial outreach ) Start: 05-19-2022 Telephone encounter Hermann luke MD Work Phone: [facility] Comment on above: Patient Update Start: 05-12-2022 Telephone encounter Hermann luke MD Work Phone: [facility] Comment on above: Appointment Reschedu led (surgery time change) Start: 04-29-2022 ambulatory Brittany DIXON.LOGISTICS SUPPORT Work Phone: Pulmonary Medicine Start: 04-29-2022 End: 04-29-2022 Patient encounter procedure Jennifer Addison WOOL GRADER.LOGISTICS SUPPORT Work Phone: [facility] Comment on above: Pre-op evaluation (P rimary Dx); Urinary tract infection without hematuria, site unspecified Start: 04-29-2022 End: 04-29-2022 Preprocedural examination done Jennifer Addison APRN.LOGISTICS SUPPORT Work Phone: [facility] Start: 04-22-2022 End: 04-22-2022 Subsequent hospital visit by physician [facility] ([facility]-Stat) Work Phone: Cat Scan Comment on above: Chest pain, unspecif ied type [R07.9] Start: 04-22-2022 End: 04-22-2022 Patient encounter procedure Janeth Tolbert WOOL GRADER.LOGISTICS SUPPORT Work Phone: [facility] Comment on above: Burning with urinati on (Primary Dx); Cystitis Start: 04-15-2022 Telephone encounter Jennifer Addison APRN.LOGISTICS SUPPORT Work Phone: [facility] Comment on above: Patient Update Start: 04-14-2022 Telephone encounter Marielena mcguire MD Work Phone: Internal [facility] [place] Comment on above: Appointment Start: 04-11-2022 Patient encounter status Carlos Martinez MD Work Phone: [facility] Start: 04-11-2022 Telephone encounter Hermann ulke MD Work Phone: [facility] Comment on above: Orders; Schedule Janet jennie Start: 04-10-2022 End: 04-10-2022 Patient encounter procedure Hermann Martinez MD Work Phone: [facility] Comment on above: Coronary artery dise ase involving [place] coronary artery of [place] heart without angina pectoris (Primary Dx); Chest pain, unspecified type; Syncope and collapse ; S/P angioplasty with stent Start: 03-31-2022 End: 03-31-2022 Emergency department patient [facility] Start: 03-30-2022 End: 03-30-2022 Emergency department patient visit Dr. Marielena Ramirez Work Phone: [facility]-Emergency Department Start: 03-12-2022 End: 03-12-2022 Admission to same day surgery center Dr. Marielena Ramirez Work Phone: [facility] Hand/Special Procedures Start: 03-11-2022 Non-patient / Non-visit Dr. Gaviota Ramirez Work Phone: [facility] Start: 03-03-2022 Non-patient / Non-visit Dr. Gaviota Ramirez Work Phone: [facility] Start: 03-03-2022 End: 03-03-[address] Marielena Ramirez Work Phone: [facility]Cardiovascul ar Services Start: 02-05-2022 End: 02-05-[address] Marielena Ramirez Work Phone: [facility] Start: 01-29-2022 End: 01-29-[address] Marielena Ramirez Work Phone: [facility]-Laboratory Start: 12-24-2021 End: 12-24-2021 Emergency department patient visit Dr. Marielena Ramirez Work Phone: [facility]-Emergency Department Start: 10-06-2018 [facility] Start: 02-03-2018 End: 02-03-2018 [facility] Procedures Date Procedure Procedure Detail Performing Clinician Start: 04-25-2024 Radex hip unilateral with pelvis 2-3 views Jenny Sagastume APRN.CNP Work Phone: Start: 08-07-2023 Urnls dip stick/tablet rgnt auto w/o microscopy Radha Aviles PA-C Work Phone: Start: 03-16-2023 Radionuclide imaging of perfusion of myocardium under exercise stress Dr. Marielena Ramirez Work Phone: Start: 02-20-2023 Urnls dip stick/tablet rgnt auto w/o microscopy Debra Azul APRN.LOGISTICS SUPPORT Work Phone: Start: 06-16-2022 Radiologic exam chest 2 views Jennifer Davis Krystle YE.LOGISTICS SUPPORT Work Phone: Start: 04-30-2022 Iadna s aureus amplified probe tq Jennifer Susan Addison APRN.LOGISTICS SUPPORT Work Phone: Start: 04-29-2022 Antibody screen Comment on above: Order Comment: Specimen Type: BLOOD SPEC IMENOrdering Facility: [facility] Address: [address] [place] [address] Performed By: #### T [id number] ####[facility] BLOOD BANKCLIA [id number] [id number] Start: 04-23-2022 History of coronary artery bypass grafting History of coronary artery bypass surgery Dr. Marielena Ramirez Work Phone: Comment on above: CABG x4- GARZA to side mid LAD, SVG to si de OM1, SVG to side OM2, SVG to side PDA Dr. Martinez [facility] 05/13/22 Start: 04-22-2022 Ct thorax w/o contrast material Luz Koonictonja YE.LOGISTICS SUPPORT Work Phone: Start: 04-22-2022 Urnls dip stick/tablet rgnt auto w/o microscopy [facility] Provider Start: 03-31-2022 X-ray of cervical spine Dr. Marielena Ramirez Work Phone: Start: 03-05-2022 Plain chest X-ray Dr. Marielena Ramirez Work Phone: Start: 03-03-2022 Radionuclide imaging of perfusion of myocardium under exercise stress Dr. Marielena Ramirez Work Phone: Start: 12-24-2021 Plain x-ray of wrist Dr. Marielena Ramirez Work Phone: Start: 04-20-2019 Adult depression screening assessment Hermann Martinez MD Work Phone: Start: 10-01-2016 History of placement of stent for coronary artery disease S/P coronary artery stent placement Hermann Martinez MD Work Phone: H/O: hysterectomy History of hysterectomy Dr. Marielena Ramirez Work Phone: History of cholecystectomy History of cholecystectomy Dr. Marielena Ramirez Work Phone: History of coronary artery bypass grafting S/P CABG (coronary artery bypass graft) Jennifer Addison WOOL GRADER.LOGISTICS SUPPORT Work Phone: History of coronary artery bypass grafting S/P CABG (coronary artery bypass graft) Jennifer Addison WOOL GRADER.LOGISTICS SUPPORT Work Phone: History of placement of stent for coronary artery disease S/P coronary artery stent placement Marielena Ramirez MD Work Phone: Plan of Treatment Date Care Activity Detail Author Start: 01-31-2028 Diabetes Screening Diabetes Screenin g [facility] Start: 10-23-2026 Diabetes Screening Diabetes Screenin g [facility] Start: 02-06-2026 Annual PCP Team Abe Teacher chandrika Disease Visit Annual PCP Team Chronic Disease Visit [facility] Start: 02-06-2026 BP Controlled (<130/80) BP Controlle d (<130/80) [facility] Start: 02-06-2026 Covid-19 Vaccine () Covid-19 Vaccine () [facility] Comment on above: Postponed from 07/24 (Declined at this time) Start: 01-30-2026 Complete blood count Hemoglobin/Jayson tocrit [facility] Start: 01-30-2026 Creatinine measurement Serum Creatin ine [facility] Start: 01-30-2026 Hepatitis B surface antibody level LDL Cholesterol [facility] Start: 08-09-2025 End: 08-09-2025 Patient encounter procedure 08/09/2025 10:20 AM EDT Office Visit [facility] [place] [address] [place], [place] [phone] Arleen Rivera APRN.LOGISTICS SUPPORT [address] [place], [place] [phone] Medicare wellness [facility] [place] Comment on above: Medicare wellness Start: 07-07-2025 DIABETES SCREEN DIABETES SCREEN [facility] Start: 07-07-2025 Diabetes Screening Diabetes Screenin g [facility] Start: 05-18-2025 DIABETES SCREEN DIABETES SCREEN [facility] Start: 04-29-2025 DIABETES SCREEN DIABETES SCREEN [facility] Start: 04-25-2025 Annual PCP Team Abe Teacher chandrika Disease Visit Annual PCP Team Chronic Disease Visit [facility] Start: 04-25-2025 BP Controlled (<130/80) BP Controlle d (<130/80) [facility] Start: 02-06-2025 End: 02-06-2025 Patient encounter procedure 02/06/2025 10:40 AM EDT Office Visit [facility] [place] [address] [place], [place] [phone] Arleen Rivera APRN.LOGISTICS SUPPORT [address] [place] [address] FOLLOW UP [facility] [place] Comment on above: FOLLOW UP Start: 01-24-2025 End: 04-25-2025 Basic metabolic 2000 panel - Serum or Plasma BASIC METABOLIC PANEL Lab Routine Hypertensive kidney disease with stage 3a chronic kidney disease (HCC) Expected: 01/24/2025, Expires: 04/25/2025 [facility] Work Phone: Comment on above: Expected: 01/24/2025 , Expires: 04/25/2025 Start: 01-24-2025 End: 04-25-2025 CBC panel - Blood by Automated count COMPLETE BLOOD COUNT Lab Routine Hypertensive kidney disease with stage 3a chronic kidney disease (HCC) Expected: 01/24/2025, Expires: 04/25/2025 [facility] Comment on above: Expected: 01/24/2025 , Expires: 04/25/2025 Start: 01-24-2025 End: 04-25-2025 Lipid 1996 panel - Serum or Plasma LIPID PANEL BASIC Lab Routine Medication management Expected: 01/24/2025, Expires: 04/25/2025 [facility] Comment on above: Expected: 01/24/2025 , Expires: 04/25/2025 Start: 11-23-2024 Advance Directive Discussion Advance Directive Discussion [facility] Start: 10-23-2024 Annual PCP Team Abe Teacher chandrika Disease Visit Annual PCP Team Chronic Disease Visit [facility] Start: 10-23-2024 BP Controlled (<130/80) BP Controlle d (<130/80) [facility] Start: 10-23-2024 Covid-19 Vaccine ( season) Covid-19 Vaccine ( season) [facility] Comment on above: Postponed from 07/24 (Declined at this time) Start: 10-23-2024 Creatinine measurement Serum Creatin ine [facility] Start: 10-23-2024 RSV Vaccine (1 - 1-d ose 60+ series) RSV Vaccine (1 - 1-dose 60+ series) [facility] Comment on above: Postponed from 04/07 (Declined at this time) Start: 10-23-2024 Serum Creatinine Serum Creatinine Cl [facility] Start: 08-07-2024 Annual PCP Team Abe Teacher chandrika Disease Visit Annual PCP Team Chronic Disease Visit [facility] Start: 08-07-2024 BP Controlled (<130/80) BP Controlle d (<130/80) [facility] Start: 07-24-2024 Covid-19 Vaccine ( season) Covid-19 Vaccine ( season) [facility] Start: 07-24-2024 Covid-19 Vaccine ( season) Covid-19 Vaccine ( season) [facility] Start: 07-24-2024 Influenza vaccination Influenza Vacc ine (#1) [facility] Start: 07-23-2024 ANNUAL PCP TEAM CHIEF DOG LICENSE INSPECTOR CHANDRIKA DISEASE VISIT ANNUAL PCP TEAM CHRONIC DISEASE VISIT [facility] Start: 07-23-2024 COVID-19 VACCINE (5 - Moderna series) COVID-19 VACCINE (5 - Moderna series) [facility] Comment on above: Postponed from 01/05 (Declined at this time) Start: 07-23-2024 SHINGRIX VACCINE (1 of 2) SHINGRIX VACCINE (1 of 2) [facility] Comment on above: Postponed from 04/07 (Declined at this time) Start: 07-23-2024 Shingrix Vaccine (2 of 2) Shingrix Vaccine (2 of 2) [facility] Comment on above: Postponed from 11/01 /2022 (Declined at this time) Start: 04-25-2024 End: 07-25-2024 Bacteria identified in Urine by Culture [facility] Work Phone: Comment on above: Expected: 04/25/2024 , Expires: 07/25/2024 Start: 04-25-2024 End: 04-25-2024 Patient encounter procedure 04/25/2024 10:20 AM EDT Office Visit [facility] [address] [place], [place] [id number] Arleen Rivera APRN.LOGISTICS SUPPORT [address] [place] [address] 6 month follow up [facility] Comment on above: 6 month follow up Start: 04-12-2024 End: 07-12-2024 CBC panel - Blood by Automated count COMPLETE BLOOD COUNT Lab Routine Hypertensive kidney disease with stage 3a chronic kidney disease (HCC) Expected: 04/12/2024, Expires: 07/12/2024 [facility] Comment on above: Expected: 04/12/2024 , Expires: 07/12/2024 Start: 04-12-2024 End: 07-12-2024 Lipid 1996 panel - Serum or Plasma LIPID PANEL BASIC Lab Routine Medication management Expected: 04/12/2024, Expires: 07/12/2024 [facility] Work Phone: Comment on above: Expected: 04/12/2024 , Expires: 07/12/2024 Start: 02-27-2024 BP CONTROLLED (<130/80) BP CONTROLLE D (<130/80) [facility] Start: 02-21-2024 BP CONTROLLED (<130/80) BP CONTROLLE D (<130/80) [facility] Start: 02-06-2024 ANNUAL PCP TEAM CHIEF DOG LICENSE INSPECTOR CHANDRIKA DISEASE VISIT ANNUAL PCP TEAM CHRONIC DISEASE VISIT [facility] Start: 02-06-2024 Urine microalbumin profile [facility] Comment on above: Postponed from 02/14 (Declined at this time) Start: 12-24-2023 FECAL OCCULT BLOOD FECAL OCCULT BLOO D [facility] Comment on above: Postponed from 10/30 (Declined at this time) Start: 11-23-2023 Advance Directive Discussion Advance Directive Discussion [facility] Start: 11-23-2023 Behavioral Health Screening Behavioral Health Screening [facility] Start: 10-23-2023 End: 01-22-2024 Comprehensive metabolic 2000 panel - Serum or Plasma [facility] Work Phone: Comment on above: Expected: 10/23/2023 , Expires: 01/22/2024 Start: 10-06-2023 End: 01-05-2024 Basic metabolic 2000 panel - Serum or Plasma BASIC METABOLIC PNL Lab Routine Hypertensive kidney disease with stage 3a chronic kidney disease (HCC) Expected: 10/06/2023, Expires: 01/05/2024 [facility] Work Phone: Comment on above: Expected: 10/06/2023 , Expires: 01/05/2024 Start: 10-06-2023 End: 01-05-2024 CBC panel - Blood by Automated count CBC Lab Routine Hypertensive kidney disease with stage 3a chronic kidney disease (HCC) Expected: 10/06/2023, Expires: 01/05/2024 [facility] Work Phone: Comment on above: Expected: 10/06/2023 , Expires: 01/05/2024 Start: 10-06-2023 End: 01-05-2024 Hemoglobin A1c in Blood HGB A1C Lab Routine Medication management Expected: 10/06/2023, Expires: 01/05/2024 [facility] Work Phone: Comment on above: Expected: 10/06/2023 , Expires: 01/05/2024 Start: 10-06-2023 End: 01-05-2024 Lipid 1996 panel - Serum or Plasma LIPID PANEL BASIC Lab Routine Medication management Expected: 10/06/2023, Expires: 01/05/2024 [facility] Work Phone: Comment on above: Expected: 10/06/2023 , Expires: 01/05/2024 Start: 10-06-2023 End: 01-05-2024 Renal function 2000 panel - Serum or Plasma RENAL FUNCTION PANEL Lab Routine Hypertensive kidney disease with stage 3a chronic kidney disease (HCC) Expected: 10/06/2023, Expires: 01/05/2024 [facility] Work Phone: Comment on above: Expected: 10/06/2023 , Expires: 01/05/2024 Start: 08-21-2023 Bacteria identified in Urine by Culture Urine Culture [facility] Start: 08-21-2023 [facility] Start: 07-24-2023 Covid-19 Vaccine () Covid-19 Vaccine () [facility] Start: 07-24-2023 Influenza vaccination [facility] Start: 07-23-2023 End: 09-22-2023 CBC panel - Blood by Automated count CBC Lab Routine Essential hypertension Stage 3a chronic kidney disease (HCC) Prediabetes Expected: 07/23/2023, Expires: 09/22/2023 [facility] Work Phone: Comment on above: Expected: 07/23/2023 , Expires: 09/22/2023 Start: 07-23-2023 End: 09-22-2023 Comprehensive metabolic 2000 panel - Serum or Plasma COMP METABOLIC PANEL Lab Routine Essential hypertension Hyperlipidemia, unspecified hyperlipidemia type Stage 3a chronic kidney disease (HCC) Prediabetes Expected: 07/23/2023, Expires: 09/22/2023 [facility] Work Phone: Comment on above: Expected: 07/23/2023 , Expires: 09/22/2023 Start: 07-23-2023 End: 09-22-2023 Hemoglobin A1c in Blood HGB A1C Lab Routine Prediabetes Expected: 07/23/2023, Expires: 09/22/2023 [facility] Work Phone: Comment on above: Expected: 07/23/2023 , Expires: 09/22/2023 Start: 07-23-2023 End: 09-22-2023 Lipid 1996 panel - Serum or Plasma LIPID PANEL BASIC Lab Routine Hyperlipidemia, unspecified hyperlipidemia type Expected: 07/23/2023, Expires: 09/22/2023 [facility] Work Phone: Comment on above: Expected: 07/23/2023 , Expires: 09/22/2023 Start: 07-07-2023 ANNUAL PCP TEAM CHIEF DOG LICENSE INSPECTOR CHANDRIKA DISEASE VISIT ANNUAL PCP TEAM CHRONIC DISEASE VISIT [facility] Start: 07-07-2023 BP CONTROLLED (<130/80) BP CONTROLLE D (<130/80) [facility] Start: 07-07-2023 End: 09-06-2023 CBC panel - Blood by Automated count CBC Lab Routine Hypertensive kidney disease with stage 3a chronic kidney disease (HCC) Expected: 07/07/2023, Expires: 09/06/2023 [facility] Work Phone: Comment on above: Expected: 07/07/2023 , Expires: 09/06/2023 Start: 07-07-2023 Complete blood count Hemoglobin/Jayson tocrit [facility] Start: 07-07-2023 End: 09-06-2023 Hemoglobin A1c in Blood HGB A1C Lab Routine Medication management Expected: 07/07/2023, Expires: 09/06/2023 [facility] Work Phone: Comment on above: Expected: 07/07/2023 , Expires: 09/06/2023 Start: 07-07-2023 HEMOGLOBIN/HEMATOCRIT HEMOGLOBIN/HEM ATOCRIT [facility] Start: 07-07-2023 End: 09-06-2023 Renal function 2000 panel - Serum or Plasma RENAL FUNCTION PANEL Lab Routine Hypertensive kidney disease with stage 3a chronic kidney disease (HCC) Expected: 07/07/2023, Expires: 09/06/2023 [facility] Work Phone: Comment on above: Expected: 07/07/2023 , Expires: 09/06/2023 Start: 07-07-2023 SERUM CREATININE SERUM CREATININE [facility] Start: 06-16-2023 BP CONTROLLED (<130/80) BP CONTROLLE D (<130/80) [facility] Start: 05-21-2023 BP CONTROLLED (<130/80) BP CONTROLLE D (<130/80) [facility] Start: 05-18-2023 SERUM CREATININE SERUM CREATININE [facility] Start: 04-29-2023 HEMOGLOBIN/HEMATOCRIT HEMOGLOBIN/HEM ATOCRIT [facility] Start: 04-29-2023 SERUM CREATININE SERUM CREATININE [facility] Start: 05-19-2023 BP CONTROLLED (<130/80) BP CONTROLLE D (<130/80) [facility] Start: 02-19-2023 Patient referral [facility] Work Phone: Start: 01-05-2023 COVID-19 VACCINE (5 - Moderna series) COVID-19 VACCINE (5 - Moderna series) [facility] Start: 11-23-2022 ADVANCE DIRECTIVE DISCUSSION ADVANCE DIRECTIVE DISCUSSION [facility] Start: 09-28-2022 DIABETES SCREEN DIABETES SCREEN [facility] Start: 09-23-2022 Shingrix Vaccine (2 of 2) Shingrix Vaccine (2 of 2) [facility] Start: 07-31-2022 Patient referral to dietitian [facility] Work Phone: Start: 07-24-2022 Influenza vaccination INFLUENZA (#1) [facility] Start: 07-07-2022 End: 09-06-2022 25-hydroxyvitamin D3 [Mass/volume] in Serum or Plasma [facility] Work Phone: Comment on above: Expected: 07/07/2022 , Expires: 09/06/2022 Start: 07-07-2022 End: 09-06-2022 Basic metabolic 2000 panel - Serum or Plasma [facility] Work Phone: Comment on above: Expected: 07/07/2022 , Expires: 09/06/2022 Start: 07-07-2022 End: 09-06-2022 CBC W Auto Differential panel - Blood [facility] Work Phone: Comment on above: Expected: 07/07/2022 , Expires: 09/06/2022 Start: 07-07-2022 End: 09-06-2022 Parathyrin.intact [Mass/volume] in Serum or Plasma [facility] Work Phone: Comment on above: Expected: 07/07/2022 , Expires: 09/06/2022 Start: 05-30-2022 Patient referral [facility] Work Phone: Start: 05-22-2022 End: 07-22-2022 CBC panel - Blood by Automated count CBC Lab Routine S/P CABG (coronary artery bypass graft) Acute blood loss anemia Expected: 05/22/2022, Expires: 07/22/2022 [facility] Work Phone: Comment on above: Expected: 05/22/2022 , Expires: 07/22/2022 Start: 05-02-2022 End: 04-11-2023 CBC panel - Blood by Automated count CBC Lab Routine Syncope and collapse Atherosclerosis of [place] coronary artery of [place] heart without angina pectoris Carotid bruit, unspecified laterality Preoperative testing Stage 3a chronic kidney disease (HCC) Essential hypertension Glucose intolerance (impaired glucose tolerance) Expected: 05/02/2022, Expires: 04/11/2023 [facility] Work Phone: Comment on above: Expected: 05/02/2022 , Expires: 04/11/2023 Start: 05-02-2022 End: 04-11-2023 Comprehensive metabolic 2000 panel - Serum or Plasma COMP METABOLIC PANEL Lab Routine Syncope and collapse Atherosclerosis of [place] coronary artery of [place] heart without angina pectoris Carotid bruit, unspecified laterality Preoperative testing Stage 3a chronic kidney disease (HCC) Essential hypertension Glucose intolerance (impaired glucose tolerance) Expected: 05/02/2022, Expires: 04/11/2023 [facility] Work Phone: Comment on above: Expected: 05/02/2022 , Expires: 04/11/2023 Start: 05-02-2022 End: 07-02-2022 Thyrotropin [Units/volume] in Serum or Plasma TSH BLD Lab Routine Syncope and collapse Atherosclerosis of [place] coronary artery of [place] heart without angina pectoris Carotid bruit, unspecified laterality Preoperative testing Stage 3a chronic kidney disease (HCC) Essential hypertension Glucose intolerance (impaired glucose tolerance) Expected: 05/02/2022, Expires: 07/02/2022 [facility] Work Phone: Comment on above: Expected: 05/02/2022 , Expires: 07/02/2022 Start: 04-22-2022 End: 06-22-2022 Bacteria identified in Urine by Culture URINE CULTURE Microbiology Routine Burning with urination Cystitis Expected: 04/22/2022, Expires: 06/22/2022 [facility] Work Phone: Comment on above: Expected: 04/22/2022 , Expires: 06/22/2022 Start: 04-11-2022 End: 06-11-2022 Hemoglobin A1c/Hemoglobin.total in Blood HGB A1C Lab Routine Syncope and collapse Atherosclerosis of [place] coronary artery of [place] heart without angina pectoris Carotid bruit, unspecified laterality Preoperative testing Stage 3a chronic kidney disease (HCC) Essential hypertension Glucose intolerance (impaired glucose tolerance) Expected: 04/11/2022, Expires: 06/11/2022 [facility] Work Phone: Comment on above: Expected: 04/11/2022 , Expires: 06/11/2022 Start: 04-11-2022 End: 06-11-2022 Magnesium [Mass/volume] in Serum or Plasma MAGNESIUM BLD Lab Routine Syncope and collapse Atherosclerosis of [place] coronary artery of [place] heart without angina pectoris Carotid bruit, unspecified laterality Preoperative testing Stage 3a chronic kidney disease (HCC) Essential hypertension Glucose intolerance (impaired glucose tolerance) Expected: 04/11/2022, Expires: 06/11/2022 [facility] Work Phone: Comment on above: Expected: 04/11/2022 , Expires: 06/11/2022 Start: 04-11-2022 End: 04-11-2023 PT panel - Platelet poor plasma by Coagulation assay PROTHROMBIN TIME/PT Lab Routine Syncope and collapse Atherosclerosis of [place] coronary artery of [place] heart without angina pectoris Carotid bruit, unspecified laterality Preoperative testing Stage 3a chronic kidney disease (HCC) Essential hypertension Glucose intolerance (impaired glucose tolerance) Expected: 04/11/2022, Expires: 04/11/2023 [facility] Work Phone: Comment on above: Expected: 04/11/2022 , Expires: 04/11/2023 Start: 04-11-2022 End: 04-11-2023 SARS-CoV-2 (COVID-19) RNA [Presence] in Respiratory specimen by JALEEL with probe detection PRE-PROCEDURE & PRE-OPERATIVE COVID Microbiology Routine Syncope and collapse Atherosclerosis of [place] coronary artery of [place] heart without angina pectoris Carotid bruit, unspecified laterality Preoperative testing Stage 3a chronic kidney disease (HCC) Essential hypertension Glucose intolerance (impaired glucose tolerance) Expected: 04/11/2022, Expires: 04/11/2023 [facility] Work Phone: Comment on above: Expected: 04/11/2022 , Expires: 04/11/2023 Start: 04-11-2022 End: 06-11-2022 TYPE AND SCREEN,30 DAY TYPE AND SCREEN,30 DAY Blood Bank Routine Syncope and collapse Atherosclerosis of [place] coronary artery of [place] heart without angina pectoris Carotid bruit, unspecified laterality Preoperative testing Stage 3a chronic kidney disease (HCC) Essential hypertension Glucose intolerance (impaired glucose tolerance) Expected: 04/11/2022, Expires: 06/11/2022 [facility] Work Phone: Comment on above: Expected: 04/11/2022 , Expires: 06/11/2022 Start: 04-11-2022 End: 06-11-2022 Urinalysis complete panel - Urine UA WITH CULTURE IF INDICATED Lab Routine Syncope and collapse Atherosclerosis of [place] coronary artery of [place] heart without angina pectoris Carotid bruit, unspecified laterality Preoperative testing Stage 3a chronic kidney disease (HCC) Essential hypertension Glucose intolerance (impaired glucose tolerance) Expected: 04/11/2022, Expires: 06/11/2022 [facility] Work Phone: Comment on above: Expected: 04/11/2022 , Expires: 06/11/2022 Start: 01-31-2022 Hepatitis B surface antibody level LDL CHOLESTEROL [facility] Start: 01-30-2022 COVID-19 VACCINE (4 - Booster for Moderna series) COVID-19 VACCINE (4 - Booster for Moderna series) [facility] Start: 11-23-2021 ADVANCE DIRECTIVE DISCUSSION ADVANCE DIRECTIVE DISCUSSION [facility] Start: 10-03-2020 ANNUAL PCP TEAM CHIEF DOG LICENSE INSPECTOR CHANDRIKA DISEASE VISIT ANNUAL PCP TEAM CHRONIC DISEASE VISIT [facility] Start: 09-28-2020 SERUM CREATININE SERUM CREATININE Cl [facility] Start: 04-20-2020 Adult depression screening assessment DEPRESSION SCREENING [facility] Start: 04-13-2020 HEMOGLOBIN/HEMATOCRIT HEMOGLOBIN/HEM ATOCRIT [facility] Start: 2019 RSV Vaccine (1 - 1-d ose 75+ series) RSV Vaccine (1 - 1-dose 75+ series) [facility] Start: 02-14-2019 Urine microalbumin profile [facility] Start: 10-30-2018 FECAL OCCULT BLOOD FECAL OCCULT BLOO D [facility] Start: 10-30-2018 Screening for malign ant neoplasm of colon Fecal Occult Blood [facility] Start: 2004 RSV Vaccine (1 - 1-d ose 60+ series) RSV Vaccine (1 - 1-dose 60+ series) [facility] Start: 1994 SHINGRIX VACCINE (1 of 2) SHINGRIX VACCINE (1 of 2) [facility] Start: 1962 Anxiety Screening Anxiety Screening [facility] Start: 1962 BP CONTROLLED (<130/80) BP CONTROLLE D (<130/80) [facility] Start: 1962 Depression Screening Depression Scre ening [facility] Start: 1962 HEPATITIS C SCREENING HEPATITIS C SC [facility] Bacteria identified in Urine by Culture URINE CULTURE Microbiology Routine Burning with urination 02/20/2023 10:00 AM EDT [facility] Work Phone: Bacteria identified in Urine by Culture URINE CULTURE Microbiology Routine Hematuria, unspecified type Urine leukocytes 08/07/2023 12:27 PM EDT [facility] Work Phone: BACTERIAL VAGINOSIS AMPLIFICATION BACTERIAL VAGINOSIS AMPLIFICATION Lab Routine Burning with urination 02/20/2023 9:59 AM [facility] Work Phone: SHAE / TRICHOMONA S AMPLIFICATION SHAE / TRICHOMONAS AMPLIFICATION Microbiology Routine Burning with urination 02/20/2023 10:00 AM T [facility] Work Phone: CARDIAC REHAB II OUT PT ([place], [place]) CARDIAC REHAB II OUTPT ([place], [place]) BIC Routine S/P CABG (coronary artery bypass graft) Ordered: 05/21/2022 [facility] Work Phone: Comment on above: Ordered: 05/21/2022 Comprehensive metabo lic 2000 panel - Serum or Plasma [facility] End: 05-10-2023 Ct thorax w/o contrast material CT CHEST WO IVCON Radiology Routine Chest pain, unspecified type 1 Occurrences starting 04/10/2022 until 05/10/2023 [facility] Work Phone: Comment on above: 1 Occurrences starti ng 04/10/2022 until 05/10/2023 Ct thorax w/o contra st material CT CHEST WO IVCON Radiology Routine Chest pain, unspecified type 04/22/2022 2:12 PM EDT [facility] Work Phone: End: 05-10-2023 Duplex scan extracranial art compl bi study US CAROTID BILAT Radiology Routine Chest pain, unspecified type Syncope and collapse 1 Occurrences starting 04/10/2022 until 05/10/2023 [facility] Work Phone: Comment on above: 1 Occurrences starti ng 04/10/2022 until 05/10/2023 End: 05-21-2023 EXERCISE STRESS ECG (WITHOUT IMAGING) EXERCISE STRESS ECG (WITHOUT IMAGING) Cardiology Routine S/P CABG (coronary artery bypass graft) 1 Occurrences starting 05/21/2022 until 05/21/2023 [facility] Work Phone: Comment on above: 1 Occurrences starti ng 05/21/2022 until 05/21/2023 Lipid 1996 panel - Serum or Plasma [facility] Patient Education [facility] Work Phone: Patient referral [facility] Work Phone: End: 05-11-2023 Radiologic exam chest 2 views XR CHEST 2V FRONTAL/LAT Radiology Routine Syncope and collapse Atherosclerosis of [place] coronary artery of [place] heart without angina pectoris Carotid bruit, unspecified laterality Preoperative testing Stage 3a chronic kidney disease (HCC) Essential hypertension Glucose intolerance (impaired glucose tolerance) 1 Occurrences starting 04/11/2022 until 05/11/2023 [facility] Work Phone: Comment on above: 1 Occurrences starti ng 04/11/2022 until 05/11/2023 End: 06-20-2023 Radiologic exam chest 2 views XR CHEST 2V FRONTAL/LAT Radiology Routine S/P CABG (coronary artery bypass graft) 1 Occurrences starting 05/21/2022 until 06/20/2023 [facility] Work Phone: Comment on above: 1 Occurrences starti ng 05/21/2022 until 06/20/2023 Radionuclide imaging of perfusion of myocardium under exercise stress [facility] RED BLOOD CELLS, ADULT RED BLOOD CELLS, ADULT Blood Bank Routine Syncope and collapse Atherosclerosis of [place] coronary artery of [place] heart without angina pectoris Carotid bruit, unspecified laterality Preoperative testing Stage 3a chronic kidney disease (HCC) Essential hypertension Glucose intolerance (impaired glucose tolerance) 1 Occurrences starting 04/11/2022 [facility] Work Phone: Comment on above: 1 Occurrences starti ng 04/11/2022 Urinalysis complete panel - Urine URINALYSIS, WITH MICROSCOPIC Lab Routine Hematuria, unspecified type 08/07/2023 12:27 PM EDT [facility] Work Phone: End: 04-11-2023 US CAROTID ARTERIES [facility] US CAROTID ARTERIES [facility] Vascular Lab Routine Syncope and collapse Atherosclerosis of [place] coronary artery of [place] heart without angina pectoris Carotid bruit, unspecified laterality Preoperative testing Stage 3a chronic kidney disease (HCC) Essential hypertension Glucose intolerance (impaired glucose tolerance) 1 Occurrences starting 04/11/2022 until 04/11/2023 [facility] Work Phone: Comment on above: 1 Occurrences starti ng 04/11/2022 until 04/11/2023 [facility] Immunizations Immunization Date Immunization Notes Care Provider Jayna lopez 08-18-2023 influenza (HD-IIV4) vaccine, age 65+ yr, high dose, quadrivalent, PF (FLUZONE HIGH-DOSE) Arleen Older WOOL GRADER.BILLIE Work Phone: [facility] 08-18-2023 influenza virus vacc ine, unspecified formulation Xr [place] Work Phone: [facility] 07-29-2022 influenza (HD-IIV4) vaccine, age 65+ yr, high dose, quadrivalent, PF (FLUZONE HIGH-DOSE) Arleen Older WOOL GRADER.BILLIE Work Phone: [facility] 07-29-2022 zoster vaccine recombinant Arleen Older WOOL GRADER.BILLIE Work Phone: [facility] 07-29-2022 influenza virus vacc ine, unspecified formulation Radha Aviles PA-C Work Phone: [facility] 08-19-2021 influenza (HD-IIV4) vaccine, age 65+ yr, high dose, quadrivalent, PF (FLUZONE HIGH-DOSE) Arleen Older WOOL GRADER.LOGISTICS SUPPORT Work Phone: [facility] 08-07-2020 influenza (HD-IIV4) vaccine, age 65+ yr, high dose, quadrivalent, PF (FLUZONE HIGH-DOSE) Arleen Older WOOL GRADER.LOGISTICS SUPPORT Work Phone: [facility] 08-19-2018 influenza, high dose seasonal, preservative-free Hermann Martinez MD Work Phone: [facility] 04-29-2018 pneumococcal polysaccharide vaccine, 23 valent Hermann Martinez MD Work Phone: [facility] 08-11-2017 influenza, high dose seasonal, preservative-free Hermann Martinez MD Work Phone: [facility] 09-03-2016 influenza, high dose seasonal, preservative-free Hermann Martinez MD Work Phone: [facility] 10-24-2015 pneumococcal conjuga te vaccine, 13 valent Hermann Martinez MD Work Phone: [facility] Work Phone: 09-05-2015 influenza, high dose seasonal, preservative-free Hermann Martinez MD Work Phone: [facility] 09-27-2014 influenza, seasonal, injectable Hermann Martinez MD Work Phone: [facility] 10-08-2013 influenza virus vacc ine, unspecified formulation Hermann Martinez MD Work Phone: [facility] Work Phone: 08-31-2012 influenza virus vacc ine, unspecified formulation Hermann Martinez MD Work Phone: [facility] 09-26-2011 influenza virus vacc ine, unspecified formulation Hermann Martinez MD Work Phone: [facility] Work Phone: 08-30-2010 influenza virus vacc ine, unspecified formulation Hermann Martinez MD Work Phone: [facility] Work Phone: 08-29-2009 influenza virus vacc ine, unspecified formulation Hermann Martinez MD Work Phone: [facility] Work Phone: 02-14-2009 tetanus toxoid, redu frantz diphtheria toxoid, and acellular pertussis vaccine, adsorbed Hermann Martinez MD Work Phone: [facility] Work Phone: 10-16-2008 influenza virus vacc ine, unspecified formulation Hermann Martinez MD Work Phone: [facility] 04-04-2008 pneumococcal polysaccharide vaccine, 23 valent Hermann Martinez MD Work Phone: [facility] Work Phone: 10-08-2007 influenza virus vacc ine, unspecified formulation Hermann Martinez MD Work Phone: [facility] Payers Date Payer Category Payer Self-pay [id number] 2016 Private Health Insurance [employer] PPO [id number] 2016-Present [phone] [address] [place] [address] [facility] [id number] 2016 Private Health Insurance [id number] 2009 Medicare MEDICARE MEDICAR E A AND B [id number] 2009-Present [phone] [place] [address] Medicare [id number] 2009 Medicare [id number] 2009 Medicare [id number] 2005 Private Health Insurance [id number] Medicare [id number] Unknown [id number] Unknown [id number] Unknown [id number] Unknown [id number] Social History Date Type Detail Facility Start: 02-05-2022 End: 02-18-2024 Tobacco smoking status COIS Unknown if ever smoked [facility] Start: 07-31-2021 Rare [facility] Start: 07-31-2021 None [facility] Start: 07-31-2021 Homeless [facility] Start: 07-31-2021 Non-smoker [facility] Start: 1945 Sex Assigned At Female W [facility] Start: 07-05-2015 End: 02-18-2024 Tobacco smoking status COIS Never smoked tobacco [facility] Start: 04-10-2022 End: 04-25-2024 Alcohol intake Current non-drinker of alcohol (finding) [facility] Start: 1945 Sex Assigned At Not on file [facility] Start: 03-31-2022 End: 07-07-2022 Exposure to SARS-CoV-2 (event) Not sure [facility] Start: 07-05-2015 Tobacco use and exposure Smokeless tobacco non-user [facility] Start: 02-26-2023 End: 07-23-2023 History of Social function [facility] Work Phone: Start: 02-26-2023 End: 07-23-2023 Tobacco use panel [facility] Work Phone: Adult Depression Screening Assessment 1 [facility] Work Phone: Medical Equipment Procedure Code Equipment Code Equipment Origin al Text Equipment Identifier Dates Pledget Cardiova scular 3/16x.25in Thk1.65mm Rectangle Ptfe Aubrey - [id number] Start: 05-13-2022 Low Profile Ster nal X-Plate 8 Holes - [id number] Start: 05-13-2022 Comment on above: Description: Verifie d plate on x-ray. Julia gutierrez Screw 2.3mm X 12mm [id number] Start: 05-13-2022 Functional Status Date Assessment Result Facility 05-18-2022 Are you deaf, or do you have serious difficulty hearing No 05/18/2022 1:21 PM EDT Nataly Arnold RN No [facility] 05-18-2022 Are you blind, or do you have serious difficulty seeing, even when wearing glasses No 05/18/2022 1:21 PM EDT Nataly Arnold RN No [facility] 05-18-2022 Do you have serious difficulty walking or climbing stairs No 05/18/2022 1:21 PM EDT Nataly Arnold RN No [facility] 05-18-2022 Do you have difficul ty dressing or bathing No 05/18/2022 1:21 PM EDT Nataly Arnold RN No [facility] 05-18-2022 Because of a physica l, mental, or emotional condition, do you have difficulty doing errands alone such as visiting a physician's office or shopping No 05/18/2022 1:21 PM EDT Nataly Arnold RN No [facility] Mental Status Date Assessment Result Facility 05-18-2022 Because of a physica l, mental, or emotional condition, do you have serious difficulty concentrating, remembering, or making decisions No 05/18/2022 1:21 PM EDT Nataly Arnold RN No [facility] 03-31-2022 Cognitive function Level Of Cons ciousness Awake;Alert;Appropriate;Fol lows Commands [facility] Work Phone: 03-30-2022 Cognitive function Level Of Cons ciousness Awake;Alert;Appropriate;Fol lows Commands [facility] Work Phone: Clinical Notes 10-21-2007 to 08-16-2025 Note Date & Type Note Facility 08-16-2025 Note HNO ID: [id number] Author: ARLEEN RIVERA APRN.LOGISTICS SUPPORT Service: ? Author Type: Nurse Practitioner Type: Progress Notes Filed: 08/16/2025 11:00 Note Text: Venus Sanders is a 80 year old female here for a Medicare wellness visit. Medicare Health Risk Assessment General Health Very good Exercise: Minutes/Day 30 min Exercise: Days/Week 5 days Alcohol: Daily Use Never Alcohol: Drinks/Day Patient does not drink Alcohol: 6 or more drinks Never Feel off balance No Concerns: Teeth/Dentures No Concerns: Sexual function No Troubled by feelings None of the above Frequency: Eating healthy diet Nearly every day ADLs requiring help None of the above Safety precautions in home/vehicle Yes Smoke, vape, chews tobacco No Difficulty hearing No Difficulty seeing No Current Providers Specialists: I have reviewed specialist-related care of the patient in the medical record. Medical/Family history review Reviewed and updated problem list, medical/surgical/family/social history, medications, and allergies. Opioid use review Opioid Medications (last 90 days) No data to display Anxiety/Depression screening PHQ-2 Score: 0 (Lower risk for depression) EMILY-2 Score: 0 (Lower risk for anxiety) Recommendation: no further intervention at this time Cognitive screening Mini Cog Score: 3 Cognitive screening reviewed and No further action needed (score 3-5). Functional Observation Was the patient's Timed Up AND Go test unsteady or >= 12 seconds? No Advance Care Planning Patient did not wish or was not able to name a surrogate decision maker or provide an advance care plan Measurements BP 130/78 Pulse 61 Resp 16 Wt 69.4 kg (153 lb) SpO2 99% BMI 27.10 kg/m? Vision Screening: Follows with optometry/ophthalmology Assessment/Plan Medicare annual wellness visit, subsequent (Z00.00) - Counseled on healthy diet and regular exercise - Fall avoidance information provided - Personalized prevention plan provided - Discussed need for and benefit of weight loss. BMI 27.10 kg/(m2) CC: Patient presents with: Medicare Wellness Exam: Annual Medicare Wellness Immunizations: Flu vaccination HPI Venus Sanders is a 80 year old female who presents today for medicare wellness and has questions about arthritic pain. Has chronic left hip arthritic pain which tylenol does not help with and was wondering if she could take naproxen. Her takes this and she has taken his and it helps better. Last xray in 2023 showing mild hip arthritis. Denies weakness, falls, edema, redness, fever, chills, or injury. REVIEW OF SYSTEMS General: no fevers, no chills, no night sweats, no recurrent infections, no change in appetite, no change in energy, and no significant changes in weight Respiratory: no cough, no wheezing, no shortness of breath, no hemoptysis Cardiovascular: no chest pain, no chest pressure, no palpitations, and no swelling PAST MEDICAL HISTORY Diagnosis Date Cardiac arrest with ventricular fibrillation (HCC) defibrillated x 3 on 07/21/2016 Coronary disease stent in 2007 with balloon angioplasty of left circumflex Depressive disorder, not elsewhere classified Esophageal reflux Herpes zoster without mention of complication Other acute and subacute form of ischemic heart disease 07/23/08 [place] Other and unspecified hyperlipidemia 07/21/2005 Other convulsions 04/11/2008 STEMI (ST elevation myocardial infarction) (HCC) 07/21/2016 Type II or unspecified type diabetes mellitus without mention of complication, not stated as uncontrolled 07/21/2005 Unspecified essential hypertension 07/21/2005 PAST SURGICAL HISTORY Procedure Laterality Date CABG (4) VEIN GRAFTS AND ARTERIAL GRAFT(S) 05/13/2022 GARZA to LAD, SVG to OM1, OM2, and PDA CHOLECYSTECTOMY 11/23/1982 STENT PLACEMENT 07/25/2008 Thru heart cath. at [facility] TOTAL ABDOMINAL HYSTERECT W/WO RMVL TUBE OVARY at age 48 ALLERGIES Imdur [Isosorbide], Simvastatin, Zestril [Lisinopril], and Zoloft [Sertraline Hcl] MEDICATIONS nystatin-triamcinolone (MYCOLOG) ointment use sparingly twice daily metoprolol succinate ER (TOPROL XL) 50 mg 24 hr tablet Take 1 tablet by mouth every afternoon. nitroglycerin sublingual (NITROQUICK) 0.4 mg SL tablet Dissolve 1 tablet under the tongue every 5 minutes as needed for chest pain. aspirin 81 mg chewable tablet Take 1 tablet by mouth once daily for 30 days, THEN 1 tablet once daily. acetaminophen (TYLENOL) 500 mg tablet Take 2 tablets by mouth four times daily. atorvastatin (LIPITOR) 40 mg tablet Take 1 tablet by mouth once daily. Cholecalciferol, Vitamin D3, 2,000 unit Tab Take 1 tablet by mouth once daily. FAMILY HISTORY Problem Relation Age of Onset Heart Mother Diabetes Mother Coronary Artery Disease Mother Cataract Mother SOCIAL HISTORY[1] PHYSICAL EXAM BP 130/78 Pulse 61 Resp 16 Wt 69.4 kg (153 lb) SpO2 99% BMI 27.10 kg/m? General Appearance (more content not included)... [facility] 08-03-2025 Evaluation note Diagnosis Onset Date Resolution Atherosclerotic heart disease of [place] coronary artery without angina pectoris chronic August 03, 2025 10:14am Essential hypertension chronic Se ptember 2024 10:14am Hyperlipidemia chronic August 03, 2025 10:14am [facility] Work Phone: [phone]) 591-861603-17-2025 Instructions* Patient Instructions* Arleen Rivera APRN.CNP - 02/06/2025 10:56 AM EDT Tylenol or tylenol arthritis. [facility]25 NoteHNO ID: [id number] Author: ARLEEN RIVERA APRN.CNP Service: ? Author Type: Nurse Practitioner Type: Progress Notes Filed: 02/06/2025 12:01 Note Text: CC: Patient presents with: Recheck: Follow up HPI Venus Sanders is a 79 year old female who presents today for routine follow up. HTN w/CKD and HLD: Ms. Sanders denies headache, chest pain, palpitations, dyspnea, and peripheral edema. Patient denies any side effects of her medication(s) and is compliant with their regimen. She does not check BP's generally. Venus denies regular aerobic exercise. She watches her diet for sodium, low fat and low cholesterol most of the time. Last 3 Encounter BP Readings: Date: BP: 02/06/2025 112/70 04/25/2024 112/72 10/23/2023 120/72 Known osteoarthritis of left hip. Currently not taking anything for hip. Started with some throbbing pain to area last night. Currently not bad but was there last night Just wants to know what she can take if it hurts again at night. No injury or cause and just seems come certain times a year. Denies swelling, redness, falls, loss of feeling, fever, or injury. REVIEW OF SYSTEMS See HPI PAST MEDICAL HISTORY Diagnosis Date Cardiac arrest with ventricular fibrillation (HCC) defibrillated x 3 on 07/21/2016 Coronary disease stent in 2007 with balloon angioplasty of left circumflex Depressive disorder, not elsewhere classified Esophageal reflux Herpes zoster without mention of complication Other acute and subacute form of ischemic heart disease 07/23/08 [place] Other and unspecified hyperlipidemia 07/21/2005 Other convulsions 04/11/2008 STEMI (ST elevation myocardial infarction) (HCC) 07/21/2016 Type II or unspecified type diabetes mellitus without mention of complication, not stated as uncontrolled 07/21/2005 Unspecified essential hypertension 07/21/2005 PAST SURGICAL HISTORY Procedure Laterality Date CABG (4) VEIN GRAFTS AND ARTERIAL GRAFT(S) 05/13/2022 GARZA to LAD, SVG to OM1, OM2, and PDA CHOLECYSTECTOMY 11/23/1982 STENT PLACEMENT 07/25/2008 Thru heart cath. at [facility] TOTAL ABDOMINAL HYSTERECT W/WO RMVL TUBE OVARY at age 48 ALLERGIES Imdur [Isosorbide], Simvastatin, Zestril [Lisinopril], and Zoloft [Sertraline Hcl] MEDICATIONS nystatin-triamcinolone (MYCOLOG) ointment use sparingly twice daily metoprolol succinate ER (TOPROL XL) 50 mg 24 hr tablet Take 1 tablet by mouth every afternoon. nitroglycerin sublingual (NITROQUICK) 0.4 mg SL tablet Dissolve 1 tablet under the tongue every 5 minutes as needed for chest pain. aspirin 81 mg chewable tablet Take 1 tablet by mouth once daily for 30 days, THEN 1 tablet once daily. acetaminophen (TYLENOL) 500 mg tablet Take 2 tablets by mouth four times daily. atorvastatin (LIPITOR) 40 mg tablet Take 1 tablet by mouth once daily. Cholecalciferol, Vitamin D3, 2,000 unit Tab Take 1 tablet by mouth once daily. FAMILY HISTORY Problem Relation Age of Onset Heart Mother Diabetes Mother Coronary Artery Disease Mother Cataract Mother Social History Tobacco Use Smoking status: Never Smokeless tobacco: Never Vaping Use Vaping status: Never Used Substance Use Topics Alcohol use: No Drug use: No PHYSICAL EXAM BP 112/70 Pulse 68 Resp 16 Wt 68 kg (150 lb) SpO2 97% BMI 26.57 kg/m? General Appearance: well appearing, in no acute distress, alert Lungs: Lungs clear to auscultation. No wheezing, rhonchi, rales. Heart: RRR without murmur, gallop, or rubs. No ectopy Extremities: No deformities, edema, skin discoloration, full Strength Musculoskeletal: Left Hip Full ROM, no tenderness Health maintenance reviewed with patient: Depression Screening Never done Anxiety Screening Never done DTaP,Tdap,Td Vaccine(2 - Td or Tdap) due on 02/14/2019 Shingrix Vaccine(2 of 2) due on 09/23/2022 Covid-19 Vaccine( season) due on 07/24/2024 Advance Directive Discussion due on 11/23/2024 Annual PCP Team Chronic Disease Visit due on 04/25/2025 BP Controlled (<130/80) due on 04/25/2025 LDL Cholesterol due on 01/30/2026 Serum Creatinine due on 01/30/2026 Hemoglobin/Hematocrit due on 01/30/2026 Diabetes Screening due on 01/31/2028 Bone Density Screening Completed Influenza Vaccine Completed RSV Vaccine Completed Pneumococcal Vaccine: 50+ Completed Colorectal Cancer Screening Discontinued DATA REVIEWED: Most recent labs ASSESSMENT/PLAN: 1. Hypertensive kidney disease with stage 3a chronic kidney disease (HCC) - ICD9: 403.90, 585.3, ICD10: I12.9, N18.31 (primary diagnosis) - Controlled - Continue current medications - Recommend home blood pressure monitoring, to bring results to next visit - Encouraged sodium restriction, DASH or Mediterranean diet - Recommend regular aerobic exercise - eGFR: 53 Stable - Counseled on avoiding NSAIDs, adequate hydration 2. Stage 3a chronic kidney disease (HCC) - ICD9: 585.3, ICD10: N18.31 - eGFR: 53 Stable - Counseled on a (more content not included)...[facility] 02-06-2025 History of Present illness Narrative* Arleen Rivera APRN.CNP - 02/06/2025 10:40 AM EDT CC: Patient presents with: Recheck: Follow up HPI Venus Sanders is a 79 year old female who presents today for routine follow up. HTN w/CKD and HLD: Ms. Sanders denies headache, chest pain, palpitations, dyspnea, and peripheral edema. Patient denies any side effects of her medication(s) and is compliant with their regimen. She does not check BP's generally. Venus denies regular aerobic exercise. She watches her diet for sodium, low fat and low cholesterol most of the time. Last 3 Encounter BP Readings: Date: BP: 02/06/2025 112/70 04/25/2024 112/72 10/23/2023 120/72 Known osteoarthritis of left hip. Currently not taking anything for hip. Started with some throbbing pain to area last night. Currently not bad but was there last night Just wants to know what she can take if it hurts again at night. No injury or cause and just seems come certain times a year. Denies swelling, redness, falls, loss of feeling, fever, or injury. REVIEW OF SYSTEMS See HPI PAST MEDICAL HISTORY Diagnosis Date Cardiac arrest with ventricular fibrillation (HCC) defibrillated x 3 on 07/21/2016 Coronary disease stent in 2007 with balloon angioplasty of left circumflex Depressive disorder, not elsewhere classified Esophageal reflux Herpes zoster without mention of complication Other acute and subacute form of ischemic heart disease 07/23/08 [place] Other and unspecified hyperlipidemia 07/21/2005 Other convulsions 04/11/2008 STEMI (ST elevation myocardial infarction) (HCC) 07/21/2016 Type II or unspecified type diabetes mellitus without mention of complication, not stated as uncontrolled 07/21/2005 Unspecified essential hypertension 07/21/2005 PAST SURGICAL HISTORY Procedure Laterality Date CABG (4) VEIN GRAFTS & ARTERIAL GRAFT(S) 05/13/2022 GARZA to LAD, SVG to OM1, OM2, and PDA CHOLECYSTECTOMY 11/23/1982 STENT PLACEMENT 07/25/2008 Thru heart cath. at [facility] TOTAL ABDOMINAL HYSTERECT W/WO RMVL TUBE OVARY at age 48 ALLERGIES Imdur [Isosorbide], Simvastatin, Zestril [Lisinopril], and Zoloft [Sertraline Hcl] MEDICATIONS nystatin-triamcinolone (MYCOLOG) ointment use sparingly twice daily metoprolol succinate ER (TOPROL XL) 50 mg 24 hr tablet Take 1 tablet by mouth every afternoon. nitroglycerin sublingual (NITROQUICK) 0.4 mg SL tablet Dissolve 1 tablet under the tongue every 5 minutes as needed for chest pain. aspirin 81 mg chewable tablet Take 1 tablet by mouth once daily for 30 days, THEN 1 tablet once daily. acetaminophen (TYLENOL) 500 mg tablet Take 2 tablets by mouth four times daily. atorvastatin (LIPITOR) 40 mg tablet Take 1 tablet by mouth once daily. Cholecalciferol, Vitamin D3, 2,000 unit Tab Take 1 tablet by mouth once daily. FAMILY HISTORY Problem Relation Age of Onset Heart Mother Diabetes Mother Coronary Artery Disease Mother Cataract Mother Social History Tobacco Use Smoking status: Never Smokeless tobacco: Never Vaping Use Vaping status: Never Used Substance Use Topics Alcohol use: No Drug use: No PHYSICAL EXAM BP 112/70 Pulse 68 Resp 16 Wt 68 kg (150 lb) SpO2 97% BMI 26.57 kg/m General Appearance: well appearing, in no acute distress, alert Lungs: Lungs clear to auscultation. No wheezing, rhonchi, rales. Heart: RRR without murmur, gallop, or rubs. No ectopy Extremities: No deformities, edema, skin discoloration, full Strength Musculoskeletal: Left Hip Full ROM, no tenderness Health maintenance reviewed with patient: Depression Screening Never done Anxiety Screening Never done DTaP,Tdap,Td Vaccine(2 - Td or Tdap) due on 02/14/2019 Shingrix Vaccine(2 of 2) due on 09/23/2022 Covid-19 Vaccine() due on 07/24/2024 Advance Directive Discussion due on 11/23/2024 Annual PCP Team Chronic Disease Visit due on 04/25/2025 BP Controlled (<130/80) due on 04/25/2025 LDL Cholesterol due on 01/30/2026 Serum Creatinine due on 01/30/2026 Hemoglobin/Hematocrit due on 01/30/2026 Diabetes Screening due on 01/31/2028 Bone Density Screening Completed Influenza Vaccine Completed RSV Vaccine Completed Pneumococcal Vaccine: 50+ Completed Colorectal Cancer Screening Discontinued DATA REVIEWED: Most recent labs ASSESSMENT/PLAN: 1. Hypertensive kidney disease with stage 3a chronic kidney disease (HCC) - ICD9: 403.90, 585.3, ICD10: I12.9, N18.31 (primary diagnosis) - Controlled - Continue current medications - Recommend home blood pressure monitoring, to bring results to next visit - Encouraged sodium restriction, DASH or Mediterranean diet - Recommend regular aerobic exercise - eGFR: 53 Stable - Counseled on avoiding NSAIDs, adequate hydration 2. Stage 3a chronic kidney disease (HCC) - ICD9: 585.3, ICD10: N18.31 - eGFR: 53 Stable - Counseled on avoiding NSAIDs, adequate hydration 3. Hyperlipidemia, unspecified hyperlipidemia type - ICD9: 272.4, ICD10: E78.5 - Controlled - Continue current medications - Counseled on healthy diet and regular exercise 4. Encounter for immunization - ICD9: V03.89, ICD10: Z23 - TDAP PRINTED PHARMACY INSTRUCTIONS Prescription instructions reviewed with patient as applicable. Potential red flag symptoms discussed with the patient. Reviewed appropriate action plan to take if red flag symptoms occur. Patient agreeable to treatment plan. Arleen Rivera APRN.BILLIE [facility] Telephone encounter Note * Telephone Encounter - Pamela Rosa LPN - 01/31/2025 4:02 PM EDT Called and updated patient, voiced understanding Pamela Rosa LPN January 31, 2025 4:03 PM [facility]03-11-2025 Miscellaneous Notes* Telephone Encounter - Pamela Rosa LPN - 01/31/2025 4:02 PM EDT Called and updated patient, voiced understanding Pamela Rosa LPN January 31, 2025 4:03 PM documented in this encounterS[facility]03-[facility]25 NotePatient Outreach (INTMMN) DANIELVENUS Lopez ([id number]) 1945 F Date Time Provider Department 01/24/25 MARIELENA RAMIREZ During your visit today, we recorded the following information about you: Allergies As of Date: 01/24/2025 Noted Allergy Reaction IMDUR (ISOSORBIDE) 04/29/2022 14 - Other: See Comments Comments: Severe headaches SIMVASTATIN 07/07/2022 16 - Unknown ZESTRIL (LISINOPRIL) 07/21/2005 16 - Unknown ZOLOFT (SERTRALINE HCL) 07/21/2005 16 - Unknown Date Reviewed: 04/25/2024 Reviewed by: Jenny Sagastume, EPHRAIM.LOGISTICS SUPPORT - Fully Assessed Visit Diagnoses:Hypertensive kidney disease with stage 3a chronic kidney disease (HCC) [I12.9, N18.31] Medication management [Z79.899] Order(s):BASIC METABOLIC PANEL [SQBMP] Order #: [id number] FUTURE LIPID PANEL BASIC [SQLIPB] Order #: [id number] FUTURE COMPLETE BLOOD COUNT [SQCBC] Order #: [id number] FUTURE Prescriptions as of 01/27/2025 - nystatin-triamcinolone (MYCOLOG) ointment use sparingly twice daily - metoprolol succinate ER (TOPROL XL) 50 mg 24 hr tablet Take 1 tablet by mouth every afternoon. - nitroglycerin sublingual (NITROQUICK) 0.4 mg SL tablet Dissolve 1 tablet under the tongue every 5 minutes as needed for chest pain. - aspirin 81 mg chewable tablet Take 1 tablet by mouth once daily for 30 days, THEN 1 tablet once daily. - acetaminophen (TYLENOL) 500 mg tablet Take 2 tablets by mouth four times daily. - atorvastatin (LIPITOR) 40 mg tablet Take 1 tablet by mouth once daily. - Cholecalciferol, Vitamin D3, 2,000 unit Tab Take 1 tablet by mouth once daily. Problem List As Of Date 01/24/2025 Noted Resolved Hyperlipidemia [E78.5] 07/21/2005 Type II or unspecified type diabetes mellitus w*07/21/2005 10/27/2013 Essential hypertension [I10] 07/21/2005 UTI (urinary tract infection) [N39.0] 10/21/2007 09/05/2015 Other convulsions [R56.9] 04/11/2008 10/23/2023 Atherosclerosis of [place] coronary artery of na*02/14/2009 Osteopenia [M85.80] 08/20/2012 Vitamin d deficiency [E55.9] 08/31/2012 Glucose intolerance (impaired glucose tolerance*10/27/2013 Other and unspecified hyperlipidemia [E78.5] 07/21/2005 S/P coronary artery stent placement [Z95.5] 10/01/2016 Gastroesophageal reflux disease without esophag*10/21/2018 Stage 3a chronic kidney disease (HCC) [N18.31] 10/21/2018 CAD in [place] artery [I25.10] 05/13/2022 02/03/2023 Hypertensive kidney disease with stage 3a chron*02/03/2023 Encounter Status:Closed by YAMEL BRIGGS on 01/27/25[facility] 12-20-2024 NoteHNO ID: [id number] Author: LORI STODDARD MA Service: ? Author Type: Student Assistance Counselor Type: Progress Notes Filed: 12/20/2024 14:23 Note Text: POPULATION HEALTH NAVIGATION OUTREACH Action/FYI Spoke to Venus Scheduled f/u Topic Due (Y or N) Comments Medicare Wellness Y PCP Follow up Y Mammogram Colorectal Cancer Screening A1C Dilated Retinal Exam (SIMONE) KED (UACR and eGFR) HCC Y Flu Vaccine Y Care Everywhere Reviewed MyChart Activation Updated Appointment Note Reason for Outreach Care Gap/HCC or Scheduling Wellness Visits Care Gaps due: Medicare Annual Wellness Visit Follow-up Appointment Flu Vaccine Patient Contacted: Spoke to patient/parent/or legal guardian Patient identified by name and : Yes Care Gap/HCC/Scheduling Wellness actions taken: Patient scheduled/pended orders: Follow-up Appointment 02/06/2025 in [facility] with OLDERARLEEN - FOLLOW UP, FLU VAC, HCC CLOSURE HCC related Navigation Signature: Lori Stoddard MA December 20, 2024 2:11 [facility]01-28-2025 History of Present illness Narrative* Lori Stoddard MA - 12/20/2024 2:11 PM EST POPULATION HEALTH NAVIGATION OUTREACH Action/FYI Spoke to Venus Scheduled f/u Topic Due (Y or N) Comments Medicare Wellness Y PCP Follow up Y Mammogram Colorectal Cancer Screening A1C Dilated Retinal Exam (SIMONE) KED (UACR and eGFR) HCC Y Flu Vaccine Y Care Everywhere Reviewed MyChart Activation Updated Appointment Note Reason for Outreach Care Gap/HCC or Scheduling Wellness Visits Care Gaps due: Medicare Annual Wellness Visit Follow-up Appointment Flu Vaccine Patient Contacted: Spoke to patient/parent/or legal guardian Patient identified by name and : Yes Care Gap/HCC/Scheduling Wellness actions taken: Patient scheduled/pended orders: Follow-up Appointment 02/06/2025 in [facility] with OLDER, ARLEEN - FOLLOW UP, FLU VAC, HCC CLOSURE HCC related Navigation Signature: Lori Stoddard MA December 20, 2024 2:11 PM [facility] encounterS[facility] NotePatient Outreach (NETNAV) VENUS SANDERS ([id number]) 1945 F Date Time Provider Department 12/20/24 LORI STODDARD During your visit today, we recorded the following information about you: Lori Stoddard MA 12/20/2024 2:23 PM Signed POPULATION HEALTH NAVIGATION OUTREACH Action/FYI Spoke to Venus Scheduled f/u Topic Due (Y or N) Comments Medicare Wellness Y PCP Follow up Y Mammogram Colorectal Cancer Screening A1C Dilated Retinal Exam (SIMONE) KED (UACR and eGFR) HCC Y Flu Vaccine Y Care Everywhere Reviewed MyChart Activation Updated Appointment Note Reason for Outreach Care Gap/HCC or Scheduling Wellness Visits Care Gaps due: Medicare Annual Wellness Visit Follow-up Appointment Flu Vaccine Patient Contacted: Spoke to patient/parent/or legal guardian Patient identified by name and : Yes Care Gap/HCC/Scheduling Wellness actions taken: Patient scheduled/pended orders: Follow-up Appointment 02/06/2025 in [facility] with ARLEEN RIVERA - FOLLOW UP, FLU VAC, HCC CLOSURE HCC related Navigation Signature: Lori Stoddard MA December 20, 2024 2:11 PM Allergies As of Date: 12/20/2024 Noted Allergy Reaction IMDUR (ISOSORBIDE) 04/29/2022 14 - Other: See Comments Comments: Severe headaches SIMVASTATIN 07/07/2022 16 - Unknown ZESTRIL (LISINOPRIL) 07/21/2005 16 - Unknown ZOLOFT (SERTRALINE HCL) 07/21/2005 16 - Unknown Date Reviewed: 04/25/2024 Reviewed by: Jenny Sagastume, WOOL GRADER.LOGISTICS SUPPORT - Fully Assessed Reason for Visit: Population Health Navigation Outreach [3910] [facility] Prescriptions as of 12/20/2024 - nystatin-triamcinolone (MYCOLOG) ointment use sparingly twice daily - metoprolol succinate ER (TOPROL XL) 50 mg 24 hr tablet Take 1 tablet by mouth every afternoon. - nitroglycerin sublingual (NITROQUICK) 0.4 mg SL tablet Dissolve 1 tablet under the tongue every 5 minutes as needed for chest pain. - aspirin 81 mg chewable tablet Take 1 tablet by mouth once daily for 30 days, THEN 1 tablet once daily. - acetaminophen (TYLENOL) 500 mg tablet Take 2 tablets by mouth four times daily. - atorvastatin (LIPITOR) 40 mg tablet Take 1 tablet by mouth once daily. - Cholecalciferol, Vitamin D3, 2,000 unit Tab Take 1 tablet by mouth once daily. Problem List As Of Date 12/20/2024 Noted Resolved Hyperlipidemia [E78.5] 07/21/2005 Type II or unspecified type diabetes mellitus w*07/21/2005 10/27/2013 Essential hypertension [I10] 07/21/2005 UTI (urinary tract infection) [N39.0] 10/21/2007 09/05/2015 Other convulsions [R56.9] 04/11/2008 10/23/2023 Atherosclerosis of [place] coronary artery of na*02/14/2009 Osteopenia [M85.80] 08/20/2012 Vitamin d deficiency [E55.9] 08/31/2012 Glucose intolerance (impaired glucose tolerance*10/27/2013 Other and unspecified hyperlipidemia [E78.5] 07/21/2005 S/P coronary artery stent placement [Z95.5] 10/01/2016 Gastroesophageal reflux disease without esophag*10/21/2018 Stage 3a chronic kidney disease (HCC) [N18.31] 10/21/2018 CAD in [place] artery [I25.10] 05/13/2022 02/03/2023 Hypertensive kidney disease with stage 3a chron*02/03/2023 Encounter Status:Closed by LORI STODDARD on 12/20/24[facility]06-04-2024 Telephone encounter Note* Telephone Encounter - Elzbieta Holloway LPN - 04/26/2024 8:30 AM EDT Spoke with pt and information listed below given. Pt verbalizes understanding. Agrees to take Prednisone. Please send t the pharmacy. Pharmacy update. Elzbieta Holloway LPN [facility]06-04-[facility] Telephone encounter Note* Telephone Encounter - Elzbieta Holloway LPN - 04/26/2024 8:30 AM EDT ----- Message from Jenny Sagastume APRN.LOGISTICS SUPPORT sent at 04/25/2024 3:26 PM EDT ----- Please let the patient know the x-ray of her hip showed arthritis and chondrocalcinosis which is a build up of calcium deposits on the tendons. This can cause similar symptoms to what she is experiencing. Recommend treatment with short course of prednisone to help with pain Jenny Sagastume APRN.LOGISTICS SUPPORT [facility]06-04-2024 Miscellaneous Notes* Telephone Encounter - Elzbieta Holloway LPN - 04/26/2024 8:30 AM EDT Spoke with pt and information listed below given. Pt verbalizes understanding. Agrees to take Prednisone. Please send t the pharmacy. Pharmacy update. Elzbieta Holloway LPN * Telephone Encounter - Elzbieta Holloway LPN - 04/26/2024 8:30 AM EDT ----- Message from Jenny Sagastume APRN.LOGISTICS SUPPORT sent at 04/25/2024 3:26 PM EDT ----- Please let the patient know the x-ray of her hip showed arthritis and chondrocalcinosis which is a build up of calcium deposits on the tendons. This can cause similar symptoms to what she is experiencing. Recommend treatment with short course of prednisone to help with pain Jenny Sagastume APRN.LOGISTICS SUPPORT documented in this encounterShel[facility]06-03-2024 Note* Addendum Note - Jenny Sagastume APRN.CNP - 04/25/2024 11:12 AM EDTAddended by: JENNY SAGASTUME on: 04/25/2024 11:12 AM Modules accepted: Orders [facility]06-03-2024 Miscellaneous Notes* Addendum Note - Jenny Sagastume APRN.CNP - 04/25/2024 11:12 AM EDTAddended by: JENNY SAGASTUME on: 04/25/2024 11:12 AM Modules accepted: Orders documented in this encounterShel[facility]06-03-2024 History of Present illness Narrative* Lizeth Geiger, RT(R) - 04/25/2024 11:10 AM EDT Radiology Service Progress Note PATIENT NAME: Venus Sanders DATE OF SERVICE: April 25, 2024 TIME: 11:06 AM PATIENT IDENTITY VERIFICATION COMPLETED USING TWO (2) IDENTIFIERS: Name and Date of confirmedby patient verbally. FALL SCREENING: Has the patient had 2 falls in the last year or 1 fall with injury or currently using an Ambulatory Assistive Device (Walker, Cane, Wheelchair, Crutches, etc.)? No PATIENT GENDER DATA: Female. status: : No status: NO. PATIENT RELEVANT IMPLANT DATA REVIEWED: Yes PATIENT PRESENTS WITH AN IMPLANTABLE OR ATTACHED BAR CAPTAIN: No RADIOLOGY DEPARTMENT: General X-ray: Exam(s) Completed: Pelvis X-Ray: Pelvis with Hip Left PERIPHERAL IV DATA: Not applicable SIGNED BY: RT Nikki(R) April 25, 2024 11:06 AM documented in this encounterSheltering [facility] Hospital06-03-2024 History of Present illness Narrative* Jenny Sagastume, WOOL GRADER.LOGISTICS SUPPORT - 04/25/2024 10:28 AM EDT CC: Patient presents with: F/U 6 months: c/o uti HPI Venus Sanders is a 79 year old female who presents today for left groin pain x 3 weeks. Described as: sharp Aggravating factors: prolonged sitting or standing, getting in out of the car, certain movements Denies injury however reports she had been doing a lot of gardening for a few days leading up to the onset of pain Alleviating factors: rest Associated symptoms: mild dysuria and urinary frequency Denies: abdominal pain, flank pain, heartburn/reflux, nausea, vomiting, diarrhea, constipation, black/bloody stools, bloating, decreased appetite, urinary urgency, hesitancy, hematuria, history of kidney stones or diverticulitis PMH: non-contributory Surgical history: non-contributory HTN-Medication changes:No Taking all medications as prescribed: Yes Side effects: No Home BP's: No Denies: headache, chest pain, palpitations, dyspnea, and peripheral edema. Last 3 Encounter BP Readings: Date: BP: 04/25/2024 112/72 10/23/2023 120/72 08/07/2023 118/72 Review of Systems Constitutional: Negative for chills, diaphoresis, fatigue, fever and unexpected weight change. Neurological: Negative for dizziness, weakness and light-headedness. Psychiatric/Behavioral: Negative for confusion. PAST MEDICAL HISTORY Diagnosis Date Cardiac arrest with ventricular fibrillation (HCC) defibrillated x 3 on 07/21/2016 Coronary disease stent in 2007 with balloon angioplasty of left circumflex Depressive disorder, not elsewhere classified Esophageal reflux Herpes zoster without mention of complication Other acute and subacute form of ischemic heart disease 07/23/08 [place] Other and unspecified hyperlipidemia 07/21/2005 Other convulsions 04/11/2008 STEMI (ST elevation myocardial infarction) (HCC) 07/21/2016 Type II or unspecified type diabetes mellitus without mention of complication, not stated as uncontrolled 07/21/2005 Unspecified essential hypertension 07/21/2005 PAST SURGICAL HISTORY Procedure Laterality Date CABG (4) VEIN GRAFTS & ARTERIAL GRAFT(S) 05/13/2022 GARZA to LAD, SVG to OM1, OM2, and PDA CHOLECYSTECTOMY 11/23/1982 STENT PLACEMENT 07/25/2008 Thru heart cath. at [facility] TOTAL ABDOMINAL HYSTERECT W/WO RMVL TUBE OVARY at age 48 ALLERGIES Imdur [Isosorbide], Simvastatin, Zestril [Lisinopril], and Zoloft [Sertraline Hcl] MEDICATIONS metoprolol succinate ER (TOPROL XL) 50 mg 24 hr tablet Take 1 tablet by mouth every afternoon. nitroglycerin sublingual (NITROQUICK) 0.4 mg SL tablet Dissolve 1 tablet under the tongue every 5 minutes as needed for chest pain. aspirin 81 mg chewable tablet Take 1 tablet by mouth once daily for 30 days, THEN 1 tablet once daily. acetaminophen (TYLENOL) 500 mg tablet Take 2 tablets by mouth four times daily. atorvastatin (LIPITOR) 40 mg tablet Take 1 tablet by mouth once daily. Cholecalciferol, Vitamin D3, 2,000 unit Tab Take 1 tablet by mouth once daily. nystatin-triamcinolone (MYCOLOG) ointment use sparingly twice daily fluconazole (DIFLUCAN) 150 mg tablet Take 1 tablet today and Repeat in 3 days (Patient not taking: Reported on 07/29/2023) clotrimazole-betamethasone (LOTRISONE) cream Apply 1 application to affected area twice daily. (Patient not taking: Reported on 08/07/2023) nitroglycerin(NITROSTAT 0.4 MG SUBLINGUAL TAB) Place one(1) tablet on tongue as needed for chest pain. If no pain relief call 911. FAMILY HISTORY Problem Relation Age of Onset Heart Mother Diabetes Mother Coronary Artery Disease Mother Cataract Mother Social History Tobacco Use Smoking status: Never Smokeless tobacco: Never Vaping Use Vaping Use: Never used Substance Use Topics Alcohol use: No Drug use: No BP 112/72 Pulse 67 Resp 14 Wt 69.4 kg (153 lb) SpO2 99% BMI 27.10 kg/m Physical Exam Vitals reviewed. Constitutional: Appearance: Normal appearance. Cardiovascular: Rate and Rhythm: Normal rate and regular rhythm. Pulses: Normal pulses. Heart sounds: Normal heart sounds. No murmur heard. Pulmonary: Effort: Pulmonary effort is normal. Breath sounds: Normal breath sounds. No wheezing, rhonchi or rales. Abdominal: General: Bowel sounds are normal. There is no distension. Palpations: Abdomen is soft. There is no hepatomegaly, splenomegaly or mass. Tenderness: There is no abdominal tenderness. There is no right CVA tenderness or left CVA tenderness. Hernia: No hernia is present. Musculoskeletal: Right hip: Normal. Comments: Left hip- tenderness with palpation of anterior hip. Full ROM but painful with flexion, adduction and external rotation. Skin: General: Skin is warm and dry. Health maintenance reviewed with patient: Fecal Occult Blood due on 10/30/2018 DTaP,Tdap,Td Vaccine(2 - Td or Tdap) due on 02/14/2019 LDL Cholesterol due on 01/31/2022 Hemoglobin/Hematocrit due on 07/07/2023 Advance Directive Discussion due on 11/23/2023 Behavioral Health Screening Never done Shingrix Vaccine(2 of 2) due on 07/23/2024 RSV Vaccine(1 - 1-dose 60+ series) due on 10/23/2024 Covid-19 Vaccine( - 2022- season) due on 10/23/2024 Annual PCP Team Chronic Disease Visit due on 10/23/2024 Serum Creatinine due on 10/23/2024 BP Controlled (<130/80) due on 10/23/2024 Diabetes Screening due on 10/23/2026 Bone Density Screening Completed Influenza Vaccine Completed Pneumococcal Vaccine: 65+ Completed DATA REVIEWED: Most recent labs ASSESSMENT/PLAN: 1. Left groin pain - ICD9: 789.04, ICD10: R10.32 (primary diagnosis) Suspect musculoskeletal cause such as osteoarthritis. No GI symptoms, no hernia on exam and abdominal exam benign. Very mild urinary symptoms, see #2 - XR HIP GENERAL 3V PELV/AP/LAT LEFT today - Tylenol as needed for pain - follow-up pending results 2. Dysuria - ICD9: 788.1, ICD10: R30.0 - UA DIP, URINE (POC) ordered, patient unable to provide sample in the office - urinalysis and urine culture ordered, she will give sample in the lab - will hold off on antibiotics until culture has resulted and treat if appropriate 3. Essential hypertension - ICD9: 401.9, ICD10: I10 - Controlled - Continue current medications - Recommend home blood pressure monitoring, to bring results to next visit - Encouraged sodium restriction, DASH or Mediterranean diet Prescription instructions reviewed with patient as applicable. Potential red flag symptoms discussed with the patient. Reviewed appropriate action plan to take if red flag symptoms occur. Patient agreeable to treatment plan. Jenny Sagastume APRN.BILLIE documented in this encounterSheltering [facility] Hospital05-24-2024 Evaluation note* Diagnosis Medication management Encounter for long-term (current) use of other medications Hypertensive kidney disease with stage 3a chronic kidney disease (HCC) documented in this encounter [facility]12-04-[facility] Miscellaneous Notes* Telephone Encounter - Erna Coronado LPN - 10/26/2023 3:50 PM EST Pt notified of same. Pt verbalizes understanding. Pt is not feeling well and will come to lab once she is feeling better. Erna Coronado LPN * Telephone Encounter - Erna Coronado LPN - 10/26/2023 3:31 PM EST ----- Message from Arleen Rivera APRN.LOGISTICS SUPPORT sent at 10/26/2023 3:06 PM EST ----- All that was drawn was the CMP. No the previously ordered blood work. Needs to have rest of blood work completed. Thank you Arleen Rivera APRN.LOGISTICS SUPPORT documented in this encounterSheltering [facility] Hospital12-01-2023 History of Present illness Narrative* Arleen Rivera APRN.LOGISTICS SUPPORT - 10/23/2023 10:08 AM EST CC: Patient presents with: F/U 3 Month HPI Venus Sanders is a 78 year old female who presents today for routine follow up Has been ill for over a week. No known sick contacts but has same symptoms as well. Reportssinus congestion/drainage, headaches, nonproductive cough which is worse in the morning, fatigue, and decreased appetite. Did have diarrhea but that has resolved. Started to actually feel better and have improvement in symptoms starting yesterday. Denies fever, shortness of breath, chest pressure, wheezing, abdominal pain, difficulty/pain urinating, dark/foul smelling urine, nausea, or vomiting. HTN/CAD with stent and CABG in 2021/HLD: Ms. Sanders indicates that she is feeling well and denies any symptoms referable to elevated blood pressure. Specifically denies headache prior to illness, chest pain, palpitations, dyspnea, and peripheral edema. Patient denies any side effects of her medicat ion(s) and is compliant with their regimen. She does not check BP's generally but stays active. Venus denies regular aerobic exercise. She watches her diet for sodium, low fat and low cholesterol most of the time. Sees [facility] with routine follow up a few months ago without concern. Blood work recently at [facility] showing controlled lipids and unremarkable CBC. Last 3 Encounter BP Readings: Date: BP: 10/23/2023 120/72 08/07/2023 118/72 07/29/2023 138/72 REVIEW OF SYSTEMS See HPI PAST MEDICAL HISTORY Diagnosis Date Cardiac arrest with ventricular fibrillation (HCC) defibrillated x 3 on 07/21/2016 Coronary disease stent in 2007 with balloon angioplasty of left circumflex Depressive disorder, not elsewhere classified Esophageal reflux Herpes zoster without mention of complication Other acute and subacute form of ischemic heart disease 07/23/08 [place] Other and unspecified hyperlipidemia 07/21/2005 Other convulsions 04/11/2008 STEMI (ST elevation myocardial infarction) (HCC) 07/21/2016 Type II or unspecified type diabetes mellitus without mention of complication, not stated as uncontrolled 07/21/2005 Unspecified essential hypertension 07/21/2005 PAST SURGICAL HISTORY Procedure Laterality Date CABG (4) VEIN GRAFTS & ARTERIAL GRAFT(S) 05/13/2022 GARZA to LAD, SVG to OM1, OM2, and PDA CHOLECYSTECTOMY 11/23/1982 STENT PLACEMENT 07/25/2008 Thru heart cath. at [facility] TOTAL ABDOMINAL HYSTERECT W/WO RMVL TUBE OVARY at age 48 ALLERGIES Imdur [Isosorbide], Simvastatin, Zestril [Lisinopril], and Zoloft [Sertraline Hcl] MEDICATIONS metoprolol succinate ER (TOPROL XL) 50 mg 24 hr tablet Take 1 tablet by mouth every afternoon. nitroglycerin sublingual (NITROQUICK) 0.4 mg SL tablet Dissolve 1 tablet under the tongue every 5 minutes as needed for chest pain. aspirin 81 mg chewable tablet Take 1 tablet by mouth once daily for 30 days, THEN 1 tablet once daily. acetaminophen (TYLENOL) 500 mg tablet Take 2 tablets by mouth four times daily. atorvastatin (LIPITOR) 40 mg tablet Take 1 tablet by mouth once daily. Cholecalciferol, Vitamin D3, 2,000 unit Tab Take 1 tablet by mouth once daily. nitroglycerin(NITROSTAT 0.4 MG SUBLINGUAL TAB) Place one(1) tablet on tongue as needed for chest pain. If no pain relief call 911. nystatin-triamcinolone (MYCOLOG) ointment use sparingly twice daily (Patient not taking: Reported on 08/07/2023) fluconazole (DIFLUCAN) 150 mg tablet Take 1 tablet today and Repeat in 3 days (Patient not taking: Reported on 07/29/2023) clotrimazole-betamethasone (LOTRISONE) cream Apply 1 application to affected area twice daily. (Patient not taking: Reported on 08/07/2023) FAMILY HISTORY Problem Relation Age of Onset Heart Mother Diabetes Mother Coronary Artery Disease Mother Cataract Mother Social History Tobacco Use Smoking status: Never Smokeless tobacco: Never Vaping Use Vaping Use: Never used Substance Use Topics Alcohol use: No Drug use: No PHYSICAL EXAM BP 120/72 Pulse 71 Temp 36.6 C (97.8 F) Resp 16 Wt 69.5 kg (153 lb 3.2 oz) SpO2 98% BMI27.14 kg/m General Appearance: well appearing, in no acute distress, alert Skin: Skin color, texture, turgor normal for age; Eyes: conjunctiva pink and moist, no icterus, sclera white, non-injected Ears: external ears normal to inspection and palpation, canals clear, Left tympanic membrane normal. , Right tympanic membrane normal Nose/sinus: Nares normal. Septum midline. Mucosa normal. No drainage., No sinus tenderness Neck: Thyroid normal size and symmetric without palpable nodules, Neck supple, No adenopathy Oropharynx: tongue midline and normal, soft palate, uvula, and tonsils normal, palpation of salivary glands negative Lymph nodes: No cervical lymphadenopathy and No supraclavicular lymphadenopathy Lungs: Lungs clear to auscultation. No wheezing, rhonchi, rales. Heart: RRR without murmur, gallop, or rubs. No ectopy Health maintenance reviewed with patient: RSV Vaccine(1 - 1-dose 60+ series) Never done LDL Cholesterol due on 01/31/2022 Serum Creatinine due on 07/07/2023 Hemoglobin/Hematocrit due on 07/07/2023 Covid-19 Vaccine(2022- season) due on 07/24/2023 Fecal Occult Blood due on 12/24/2023 DTaP,Tdap,Td Vaccine(2 - Td or Tdap) due on 02/06/2024 Shingrix Vaccine(2 of 2) due on 07/23/2024 Annual PCP Team Chronic Disease Visit due on 08/07/2024 BP Controlled (<130/80) due on 08/07/2024 Diabetes Screening due on 07/07/2025 Bone Density Screening Completed Influenza Vaccine Completed Advance Directive Discussion Completed Depression Assessment Completed Pneumococcal Vaccine: 65+ Completed DATA REVIEWED: Outside chart from [facility] reviewed. ASSESSMENT/PLAN: 1. Hypertensive kidney disease with stage 3a chronic kidney disease (HCC) - ICD9: 403.90, 585.3, ICD10: I12.9, N18.31 (primary diagnosis) - Controlled - Continue current medications - Recommend home blood pressure monitoring, to bring results to next visit - Encouraged sodium restriction, DASH or Mediterranean diet - Recommend regular aerobic exercise - eGFR: Needs re-evaluted - Counseled on avoiding NSAIDs, adequate hydration - COMP METABOLIC PANEL 2. Hyperlipidemia, unspecified hyperlipidemia type - ICD9: 272.4, ICD10: E78.5 - Controlled - Continue current medications - Counseled on healthy diet and regular exercise - Discussed need for and benefit of weight loss. BMI 27.14 kg/(m^2) 3. Atherosclerosis of [place] coronary artery of [place] heart without angina pectoris - ICD9: 414.01, ICD10: I25.10 Stable and asymptomatic - continue with current medications and recommendations by cardiology 4. Viral upper respiratory tract infection - ICD9: 465.9, ICD10: J06.9 - symptoms improving and assessment normal. No need for testing or treatment at this time - if symptoms continue can use fluticasone nasal spray this weekend ad coricidin as directed. If symptoms or worsen, call Thursday for possible antibiotic treatment. - Discussed viral etiology and rationale for treatment. - Symptomatic treatment with prn analgesia - Supportive care with fluids and rest Prescription instructions reviewed with patient as applicable. Potential red flag symptoms discussed with the patient. Reviewed appropriate action plan to take if red flag symptoms occur. Patient agreeable to treatment plan. Arleen Rivera APRN.CNP documented in this encounterShel[facility]12-[facility]-2023 Evaluation note* Diagnosis Hypertensive kidney disease with stage 3a chronic kidney disease (HCC)- Primary Hyperlipidemia, unspecified hyperlipidemia type Atherosclerosis of [place] coronary artery of [place] heart without angina pectoris Viral upper respiratory tract infection Acute upper respiratory infections of unspecified site documented in this encounter [facility]17[facility] Evaluation note* Diagnosis Hypertensive kidney disease with stage 3a chronic kidney disease (HCC) Medication management Encounter for long-term (current) use of other medications documented in [facility] encounter [facility] Miscellaneous Notes* Telephone Encounter - Leslie Cooper - 08/19/2023 4:10 PM EDT patient notified. patient stated she knows her problem. Patient stated that it is red and scaly andtreated with a cream. patient stated that she stopped using it because she thought it was a yeast infection. Patient restarted cream and noted improvement with it in the last 2 days. Patient will call back if it gets worse. Patient declined appt at this time. Leslie Cooper LPN * Telephone Encounter - Radha Aviles PA-C - 08/19/2023 3:56 PM EDT Please call patient let her know that her urine was normal, and did not grow out any pathological bacteria-slowly some normal skin sera/normal bacteria from the skin that does not cause an infection. If she is still having issues then we need to bring her in to discuss more in depth. Radha Aviles PA-C documented in this encounterS[facility] History of Present illness Narrative* Radha Aviles PA-C - 08/07/2023 10:25 AM EDT CC: Patient presents with: Follow Up: Seen at [facility] for blood in urine, as of today no pain or burning with urination, patient states I am doing much better HPI Venus Sanders is a 78 year old female who presents today for [facility] follow-up. Patient was evaluated at [facility] on 07/29/2023 for Possible UTI. Urine dip results were suggestive of this, so patient was empirically treated with Keflex. Pt's initial urine dip showed small blood, so was advised to f/u with PCP if there was no infection. Urine culture returned and grew out 50-100,000 CFU per milliliter of mixed microbiota, so no clear-cut UTI present. However, at this point patient feels much improved without any symptoms. REVIEW OF SYSTEMS : Negative for dysuria, frequency and incontinence All other systems negative. PAST MEDICAL HISTORY Diagnosis Date Cardiac arrest with ventricular fibrillation (HCC) defibrillated x 3 on 07/21/2016 Coronary disease stent in 2007 with balloon angioplasty of left circumflex Depressive disorder, not elsewhere classified Esophageal reflux Herpes zoster without mention of complication Other acute and subacute form of ischemic heart disease 07/23/08 [place] Other and unspecified hyperlipidemia 07/21/2005 Other convulsions 04/11/2008 STEMI (ST elevation myocardial infarction) (HCC) 07/21/2016 Type II or unspecified type diabetes mellitus without mention of complication, not stated as uncontrolled 07/21/2005 Unspecified essential hypertension 07/21/2005 PAST SURGICAL HISTORY Procedure Laterality Date CABG (4) VEIN GRAFTS & ARTERIAL GRAFT(S) 05/13/2022 GARZA to LAD, SVG to OM1, OM2, and PDA CHOLECYSTECTOMY 11/23/1982 STENT PLACEMENT 07/25/2008 Thru heart cath. at [facility] TOTAL ABDOMINAL HYSTERECT W/WO RMVL TUBE OVARY at age 48 ALLERGIES Imdur [Isosorbide], Simvastatin, Zestril [Lisinopril], and Zoloft [Sertraline Hcl] MEDICATIONS metoprolol succinate ER (TOPROL XL) 50 mg 24 hr tablet Take 1 tablet by mouth every afternoon. nitroglycerin sublingual (NITROQUICK) 0.4 mg SL tablet Dissolve 1 tablet under the tongue every 5 minutes as needed for chest pain. atorvastatin (LIPITOR) 40 mg tablet Take 1 tablet by mouth once daily. Cholecalciferol, Vitamin D3, 2,000 unit Tab Take 1 tablet by mouth once daily. nystatin-triamcinolone (MYCOLOG) ointment use sparingly twice daily (Patient not taking: Reported on 08/07/2023) fluconazole (DIFLUCAN) 150 mg tablet Take 1 tablet today and Repeat in 3 days (Patient not taking: Reported on 07/29/2023) clotrimazole-betamethasone (LOTRISONE) cream Apply 1 application to affected area twice daily. (Patient not taking: Reported on 08/07/2023) aspirin 81 mg chewable tablet Take 1 tablet by mouth once daily for 30 days, THEN 1 tablet once daily. acetaminophen (TYLENOL) 500 mg tablet Take 2 tablets by mouth four times daily. (Patient not taking: Reported on 07/29/2023) nitroglycerin(NITROSTAT 0.4 MG SUBLINGUAL TAB) Place one(1) tablet on tongue as needed for chest pain. If no pain relief call 911. FAMILY HISTORY Problem Relation Age of Onset Heart Mother Diabetes Mother Coronary Artery Disease Mother Cataract Mother Social History Tobacco Use Smoking status: Never Smokeless tobacco: Never Vaping Use Vaping Use: Never used Substance Use Topics Alcohol use: No Drug use: No PHYSICAL EXAM BP 118/72 Pulse 60 Resp 16 Wt 70.8 kg (156 lb) SpO2 100% BMI 27.63 kg/m General Appearance: well appearing, in no acute distress, alert Pysch: mood and affect broad and appropriate Skin: Skin color, texture, turgor normal for age; no rashes noted Eyes: conjunctiva pink and moist, no icterus, sclera white, non-injected Oropharynx: Moist mucous membranes Lymph nodes: No cervical lymphadenopathy Lungs: Lungs clear to auscultation. No wheezing, rhonchi, rales. Heart: RRR without murmur, gallop, or rubs. Abdomen: Abdomen soft, non-tender. Bowel sounds normal. No masses, organomegaly. No CVA tenderness bilaterally. Extremities: No deformities, edema, skin discoloration, clubbing or cyanosis. Neurological: Gait normal. No focal neurological deficits. Sensation grossly intact. ASSESSMENT/PLAN: 1. Hematuria, unspecified type - ICD9: 599.70, ICD10: R31.9 As noted on urine dip in the [facility] care, but culture did not reveal infection. Will recheck urinetoday to see if still present/of any concern. Update: no longer hematuria, but + leuks - will send out for culture to make sure no further tx is indicated - UA DIP, URINE (POC) Prescription instructions reviewed with patient as applicable. Potential red flag symptoms discussed with the patient. Reviewed appropriate action plan to take if red flag symptoms occur. Patient agreeable to treatment plan. Radha Aviles PA-C documented in this encounterShel[facility]09-07-[facility]23 Miscellaneous Notes* Telephone Encounter - Haydee Garcia MA - 07/30/2023 2:35 PM EDT Patient notified of results, verbalized understanding of instructions given. Haydee Garcia MA * Telephone Encounter - Haydee Garcia MA - 07/30/2023 2:31 PM EDT ----- Message from Lori Guerrero APRN.BILLIE sent at 07/30/2023 1:35 PM EDT ----- Urine culture did not show clear evidence of infection, however it appears sample may have been contaminated with skin bacteria during collection. She may continue to take antibiotic if it has been helpful. Recommend follow up with PCP to ensure hematuria has resolved. Lori Guerrero CNP documented in this encounterSheltering [facility]08-31-2023 History of Present illness Narrative* Arleen Rivera APRN.BILLIE - 07/23/2023 10:27 AM EDT CC: Patient presents with: Recheck: 6 month follow up HPI Venus Sanders is a 78 year old female who presents today for routine follow up. Scar from open heart surgery requiring use of nystatin twice a day as the scar is large and betweenbreasts can get yeast overgrowth. Also notable hypopigmented areas to her arms which she states have been there for years, do not itch, or cause any issue. Denies any drainage, fever, chills, or tenderness. HTN/CAD with CABG in 2021: Ms. Sanders indicates that she is feeling well and denies any symptoms referable to elevated blood pressure. Specifically denies headache, chest pain, palpitations, dyspnea, and peripheral edema. Patient denies any side effects of her medication(s) and is compliant with their regimen. She does not check BP's generally. Venus denies regular aerobic exercise but is in charge of yard work which includes push mowing weeding, and also house work. She watches her diet for sodium, low fat and low cholesterol most of the time. Last 3 Encounter BP Readings: Date: BP: 07/23/2023 138/82 02/26/2023 128/70 02/20/2023 126/74 Prediabetes: Diet controlled. Denies any increase in thirst, hunger or urination. REVIEW OF SYSTEMS General: no fevers, no chills, no night sweats, no recurrent infections, no change in appetite, no change in energy, and no significant changes in weight Respiratory: no cough, no wheezing, no shortness of breath, no hemoptysis Cardiovascular: no chest pain, no chest pressure, no palpitations, and no swelling GI: No nausea, vomiting, or diarrhea Endocrine: no fatigue, no polyuria, no polyphagia, and no polydipsia Neurologic: No headache, weakness, numbness, tingling, dizziness, memory loss, syncope. PAST MEDICAL HISTORY Diagnosis Date Cardiac arrest with ventricular fibrillation (HCC) defibrillated x 3 on 07/21/2016 Coronary disease stent in 2007 with balloon angioplasty of left circumflex Depressive disorder, not elsewhere classified Esophageal reflux Herpes zoster without mention of complication Other acute and subacute form of ischemic heart disease 07/23/08 [place] Other and unspecified hyperlipidemia 07/21/2005 Other convulsions 04/11/2008 STEMI (ST elevation myocardial infarction) (HCC) 07/21/2016 Type II or unspecified type diabetes mellitus without mention of complication, not stated as uncontrolled 07/21/2005 Unspecified essential hypertension 07/21/2005 PAST SURGICAL HISTORY Procedure Laterality Date CABG (4) VEIN GRAFTS & ARTERIAL GRAFT(S) 05/13/2022 GARZA to LAD, SVG to OM1, OM2, and PDA CHOLECYSTECTOMY 11/23/1982 STENT PLACEMENT 07/25/2008 Thru heart cath. at [facility] TOTAL ABDOMINAL HYSTERECT W/WO RMVL TUBE OVARY at age 48 ALLERGIES Imdur [Isosorbide], Simvastatin, Zestril [Lisinopril], and Zoloft [Sertraline Hcl] MEDICATIONS clotrimazole-betamethasone (LOTRISONE) cream Apply 1 application to affected area twice daily. nitroglycerin sublingual (NITROQUICK) 0.4 mg SL tablet Dissolve 1 tablet under the tongue every 5 minutes as needed for chest pain. aspirin 81 mg chewable tablet Take 1 tablet by mouth once daily for 30 days, THEN 1 tablet once daily. acetaminophen (TYLENOL) 500 mg tablet Take 2 tablets by mouth four times daily. metoprolol tartrate, short acting, (LOPRESSOR) 50 mg tablet Take 1 tablet by mouth every 12 hours. esomeprazole (NEXIUM) 20 mg capsule Take 1 capsule by mouth once daily. atorvastatin (LIPITOR) 40 mg tablet Take 1 tablet by mouth once daily. Cholecalciferol, Vitamin D3, 2,000 unit Tab Take 1 tablet by mouth once daily. nitroglycerin(NITROSTAT 0.4 MG SUBLINGUAL TAB) Place one(1) tablet on tongue as needed for chest pain. If no pain relief call 911. FAMILY HISTORY Problem Relation Age of Onset Heart Mother Diabetes Mother Coronary Artery Disease Mother Cataract Mother Social History Tobacco Use Smoking status: Never Smokeless tobacco: Never Vaping Use Vaping Use: Never used Substance Use Topics Alcohol use: No Drug use: No PHYSICAL EXAM BP 138/82 Pulse 62 Resp 16 Wt 71.2 kg (157 lb) SpO2 100% BMI 27.81 kg/m General Appearance: well appearing, in no acute distress, alert Skin: Skin color, texture, turgor normal for age; large reddened keloid type scar between breast without drainage or red streaking. Eyes: conjunctiva pink and moist, no icterus, sclera white, non-injected Lungs: Lungs clear to auscultation. No wheezing, rhonchi, rales. Heart: RRR without murmur, gallop, or rubs. No ectopy BUE Extremities: No deformities, edema, clubbing or cyanosis. Good capillary refill. Large amount of hypopigmented areas to BUE Health maintenance reviewed with patient: SHINGRIX VACCINE(1 of 2) Never done FECAL OCCULT BLOOD due on 10/30/2018 LDL CHOLESTEROL due on 01/31/2022 ADVANCE DIRECTIVE DISCUSSION due on 11/23/2022 COVID-19 VACCINE(5 - Moderna series) due on 01/05/2023 SERUM CREATININE due on 07/07/2023 HEMOGLOBIN/HEMATOCRIT due on 07/07/2023 DTAP,TDAP,TD(2 - Td or Tdap) due on 02/06/2024 INFLUENZA(1) due on 07/24/2023 ANNUAL PCP TEAM CHRONIC DISEASE VISIT due on 02/06/2024 BP CONTROLLED (<130/80) due on 02/27/2024 DIABETES SCREEN due on 07/07/2025 BONE DENSITY Completed DEPRESSION ASSESSMENT Completed PNEUMOCOCCAL: 65+ Completed DATA REVIEWED: No new labs ASSESSMENT/PLAN: 1. Essential hypertension - ICD9: 401.9, ICD10: I10 (primary diagnosis) - sub optimal control. Has appointmentht with cardiology in 3 weeks, will have BP further evaluatedthere and have her return in 3 months . Lab ordered printed so she can take with her to cardiology group - Continue current medications - Recommend home blood pressure monitoring, to bring results to next visit - Encouraged sodium restriction, DASH or Mediterranean diet - Recommend regular aerobic exercise - CBC - COMP METABOLIC PANEL 2. Hyperlipidemia, unspecified hyperlipidemia type - ICD9: 272.4, ICD10: E78.5 - Control undetermined, due for labs - Continue current medications - Counseled on healthy diet and regular exercise - Discussed need for and benefit of weight loss. BMI 27.81 kg/(m^2) - COMP METABOLIC PANEL - LIPID PANEL BASIC 3. Atherosclerosis of [place] coronary artery of [place] heart without angina pectoris - ICD9: 414.01, ICD10: I25.10 - asymptomatic - continue with current medications and recommendations by cardiology. 4. Prediabetes - ICD9: 790.29, ICD10: R73.03 - diet controlled need updated HgbA1c to evaluate if controlled or not - HGB A1C - CBC - COMP METABOLIC PANEL 5. Stage 3a chronic kidney disease (HCC) - ICD9: 585.3, ICD10: N18.31 - eGFR: needs evaluated - Counseled on avoiding NSAIDs, adequate hydration - CBC - COMP METABOLIC PANEL 6. Candidiasis - ICD9: 112.9, ICD10: B37.9 Nystatin ointment refilled as requested - also diflucan as ordered - keep light absorben material to between and under breast to keep area dry - follow up if no improvement or continues to worsen. 7. Tinea versicolor - ICD9: 111.0, ICD10: B36.0 - diflucan ordered for yeast over growth to between breast but patient declined treatment at this time Prescription instructions reviewed with patient as applicable. Potential red flag symptoms discussed with the patient. Reviewed appropriate action plan to take if red flag symptoms occur. Patient agreeable to treatment plan. Arleen Rivera APRN.CNP documented in this encounterShel[facility]08-18-2023 Evaluation note* Diagnosis Medication management Encounter for long-term (current) use of other medications Hypertensive kidney disease with stage 3a chronic kidney disease (HCC) documented in this encounter [facility]04[facility] Instructions* Patient Instructions* Rani Kasper APRN.CNP - 02/26/2023 11:03 AM EDT Gold Santoyo Friction Defense After reddened areas are better, then wash with Dove unscented bar soap only, rinse very well, pat dry. Apply Aquaphor to protect skin by making a barrier. If Lotrisone costs a lot, always ask if it is cheaper using GoodRx. documented in this encounterSheltering [facility]04-06-2023 History of Present illness Narrative* Rani Kasper APRN.CNP - 02/26/2023 10:16 AM EDT Venus is a 77 year old who presents for an annual gynecologic exam without complaints. Recently evaluated in for yeast infection symptoms. Used Monistat 3 x 2 with relieve of symptoms. No incontinence. Does not wear prtection. Cotton underwear. Uses Dove unscented bar soap for washing. Postmenopausal: hysterectomy HRT use: No. History of abnormal pap: No Last mammogram: 2014 normal Sexually active: No Vaginal dryness: Yes, feels a little dry when wiping with toilet tissue OB History T0 L3 SAB0 IAB0 Ectopic0 Multiple0 Live Births0 Elevator Tender History LMP: Hysterectomy Age at Menarche: Age at First : Age at Menopause: Elevator Tender History Comments: Sexual Activity: Not Asked; No partner data on record Contraception: No contraception data on record PAST MEDICAL HISTORY Diagnosis Date Cardiac arrest with ventricular fibrillation (HCC) defibrillated x 3 on 07/21/2016 Coronary disease stent in 2007 with balloon angioplasty of left circumflex Depressive disorder, not elsewhere classified Esophageal reflux Herpes zoster without mention of complication Other acute and subacute form of ischemic heart disease 07/23/08 [place] Other and unspecified hyperlipidemia 07/21/2005 Other convulsions 04/11/2008 STEMI (ST elevation myocardial infarction) (HCC) 07/21/2016 Type II or unspecified type diabetes mellitus without mention of complication, not stated as uncontrolled 07/21/2005 Unspecified essential hypertension 07/21/2005 PAST SURGICAL HISTORY Procedure Laterality Date CABG (4) VEIN GRAFTS & ARTERIAL GRAFT(S) 05/13/2022 GARZA to LAD, SVG to OM1, OM2, and PDA CHOLECYSTECTOMY 11/23/1982 STENT PLACEMENT 07/25/2008 Thru heart cath. at [facility] TOTAL ABDOMINAL HYSTERECT W/WO RMVL TUBE OVARY at age 48 FAMILY HISTORY Problem Relation Age of Onset Heart Mother Diabetes Mother Coronary Artery Disease Mother Cataract Mother Heart Brother Heart Brother Diabetes Brother SOCIAL HISTORY Social History Tobacco Use Smoking status: Never Smokeless tobacco: Never Substance Use Topics Alcohol use: No Drug use: No REVIEW OF SYSTEMS Abdomen: No abdominal pain, nausea, vomiting, diarrhea, or constipation. No bloating, early satiety, indigestion, or increased flatulence. Bladder: No dysuria, gross hematuria, urinary frequency, urinary urgency, or incontinence Breast: No breast lumps, nipple d/c, overlying skin changes, redness or skin retraction Allergies and current medication updated:Yes EXAM: BP 128/70 Ht 5' 3 (1.60m) Wt 152 lb (68.9kg) BMI 26.93 kg/(m^2). GENERAL: pleasant, female in no apparent distress HEENT: Normocephalic, atraumatic, mucus membranes moist, and no lesions NECK: Supple, full range of motion, no adenopathy, and thyroid normal DERMATOLOGY: Normal, without lesions, non-icteric, and non-hirsute BREAST: soft, non-tender, symmetric, no dominant mass, normal nipple-areolar complex, no lymphadenopathy, and no nipple discharge CHEST: Normal inspiratory effort ABDOMEN: soft, non-tender, and no masses PELVIC: external genitalia normal, normal Bartholin's glands, urethra, [place]'s glands, physiologic discharge present, normal appearing perineal body and perianal region, + vaginal atrophy. Well demarcated symmetrical mirror-image pink areas of chronic inflammation surrounding posterior vulva, perineum and inner buttocks. No plaques. BIMANUAL: no adnexal masses, non-tender, and uterus surgically absent RECTOVAGINAL: deferred. NEURO: alert and oriented x3,exam grossly non-focal EXTREMITIES: normal ASSESSMENT/PLAN: 1) Health maintenance: Pap/HPV screening no longer needed Mammogram, colon cancer screening and BMD declined. Nutrition, exercise and routine health maintenance exams reviewed. Calcium/Vitamin D supplementation information provided. 2. Dermatitis contact - ICD9: 692.9, ICD10: L25.9 After reddened areas are better, then wash with Dove unscented bar soap only, rinse very well, pat dry. Apply Aquaphor to protect skin by making a barrier. - CLOTRIMAZOLE-BETAMETHASONE 1 %-0.05 % TOPICAL CREAM 3. Chafing - ICD9: 709.8, ICD10: L30.4 - shown to pt with mirror - see above - CLOTRIMAZOLE-BETAMETHASONE 1 %-0.05 % TOPICAL CREAM 2) Follow up as needed Rani Kasper APRN.BILLIE documented in this encounterSheltering [facility] Hospital04-03-2023 Miscellaneous Notes* Telephone Encounter - Jonathan Bellamy LPN - 02/23/2023 10:01 AM EDT Pt. informed. * Telephone Encounter - Sarah López LPN - 02/21/2023 11:50 AM EDT Left message to return call * Telephone Encounter - AMANDEEP Casillas - 02/21/2023 8:09 AM EDT Please call patient and let her know her urine culture did not show any bacterial growth. It showedcontamination. Follow-up with Rohan as discussed at visit. documented in this encounterSheltering [facility] Hospital03-31-2023 Miscellaneous Notes* Telephone Encounter - Lucy Holloway LPN - 02/20/2023 7:13 PM EDT Phone call placed patient advised (see prior provider encounter) Patient verbalized understanding, agreed with plan of care. Lucy Holloway LPN * Telephone Encounter - Debra Azul APRN.CNP - 02/20/2023 6:52 PM EDT Results came back negative for yeast bacterial vaginosis and trichomonas. Please make sure she follows up with COMBINATION MACHINE TOOL OPERATOR. documented in this encounterSheltering Arms Hospital03-31-2023 History of Present illness Narrative* Debra Azul APRN.CNP - 02/20/2023 9:37 AM EDT Images from the original note were not included. Subjective She came in with complaints of a burning raw feeling when she urinates. Patient says it feels uncomfortable. Patient says its been a couple days patient denies any pressure back pain or nausea vomiting. Patient's not concerned about an STD. Patient denies any discharge or odor. The history is provided by the patient. No mainspring winder and oiler was used. Vaginal Problem Review of Systems Constitutional: Negative. Genitourinary: Positive for vaginal discharge. Skin: Negative. Objective Physical Exam Exam conducted with a circuit walker present. Constitutional: Appearance: Normal appearance. Pulmonary: Effort: Pulmonary effort is normal. Genitourinary: Comments: Patient has redness in the area marked above that is red. Reardan area hendricks a darkened red spot upon exam that was noticed. Neurological: Mental Status: She is alert. PAST MEDICAL HISTORY Diagnosis Date Cardiac arrest with ventricular fibrillation (HCC) defibrillated x 3 on 07/21/2016 Coronary disease stent in 2007 with balloon angioplasty of left circumflex Depressive disorder, not elsewhere classified Esophageal reflux Herpes zoster without mention of complication Other acute and subacute form of ischemic heart disease 07/23/08 [place] Other and unspecified hyperlipidemia 07/21/2005 Other convulsions 04/11/2008 STEMI (ST elevation myocardial infarction) (HCC) 07/21/2016 Type II or unspecified type diabetes mellitus without mention of complication, not stated as uncontrolled 07/21/2005 Unspecified essential hypertension 07/21/2005 PAST SURGICAL HISTORY Procedure Laterality Date CABG (4) VEIN GRAFTS & ARTERIAL GRAFT(S) 05/13/2022 GARZA to LAD, SVG to OM1, OM2, and PDA CHOLECYSTECTOMY 11/23/1982 STENT PLACEMENT 07/25/2008 Thru heart cath. at [facility] TOTAL ABDOMINAL HYSTERECT W/WO RMVL TUBE OVARY at age 48 ALLERGIES Imdur [Isosorbide], Simvastatin, Zestril [Lisinopril], and Zoloft [Sertraline Hcl] MEDICATIONS nitroglycerin sublingual (NITROQUICK) 0.4 mg SL tablet Dissolve 1 tablet under the tongue every 5 minutes as needed for chest pain. aspirin 81 mg chewable tablet Take 1 tablet by mouth once daily for 30 days, THEN 1 tablet once daily. acetaminophen (TYLENOL) 500 mg tablet Take 2 tablets by mouth four times daily. atorvastatin (LIPITOR) 40 mg tablet Take 1 tablet by mouth once daily. Cholecalciferol, Vitamin D3, 2,000 unit Tab Take 1 tablet by mouth once daily. Miconazole Nitrate (MONISTAT 3) 200 mg/5 gram (4 %) crea Use 1 Applicator vaginally once daily for 3 days. metoprolol tartrate, short acting, (LOPRESSOR) 50 mg tablet Take 1 tablet by mouth every 12 hours. esomeprazole (NEXIUM) 20 mg capsule Take 1 capsule by mouth once daily. nitroglycerin(NITROSTAT 0.4 MG SUBLINGUAL TAB) Place one(1) tablet on tongue as needed for chest pain. If no pain relief call 911. FAMILY HISTORY Problem Relation Age of Onset Heart Mother Diabetes Mother Coronary Artery Disease Mother Cataract Mother Heart Brother Heart Brother Diabetes Brother Social History Tobacco Use Smoking status: Never Smokeless tobacco: Never Substance Use Topics Alcohol use: No Drug use: No ASSESSMENT/PLAN: 1. Burning with urination - ICD9: 788.1, ICD10: R30.0 (primary diagnosis) - UA DIP, URINE (POC) - URINE CULTURE - MONISTAT 3 200 MG/5 GRAM (4 %) VAGINAL CREAM for redness and irritation. - BACTERIAL VAGINOSIS AMPLIFICATION - SHAE / TRICHOMONAS AMPLIFICATION 2. Encounter for gynecological examination with abnormal finding - ICD9: V72.31, ICD10: Z01.411 - CONSULT TO GYNECOLOGY If any other test results come back positive please treat at that time. We will follow-up with COMBINATION MACHINE TOOL OPERATOR for routine exam she does not go for regular exams just to make sure that red area is within normal limits. Patient will follow-up as needed. Debra Azul APRN.BILLIE documented in this encounterSheltering [facility] Hospital03-16-2023 History of Present illness Narrative* Marielena Ramirez MD - 02/05/2023 10:49 AM EDT Reason for Visit Patient presents with: Recheck: 6 month follow up Venus Sanders is a 77 year old female who presents here today for Above Complaints.. Health Maintenance HEPATITIS C SCREENING SHINGRIX VACCINE(1 of 2) FECAL OCCULT BLOOD LDL CHOLESTEROL ADVANCE DIRECTIVE DISCUSSION DEPRESSION ASSESSMENT HPI Venus is a very pleasant 77-year old woman who had quadruple bypass surgery on May 13, 2022 with GARZA to the LAD, SVG to OM1 SVG to OM2 SVG to the PDA. This was done at [facility] for heart care. Prior to that she was being followed up for cardiology because of having a drug- eluting stent in the LAD in 2015 , during her regular cardiology apt in last January she was complaining of chest pain which triggered her agriculture technician to do the work-up and found her to have an abnormal stress test. Following her surgery she notes she is back to doing all of her ADL's and most of her IADLs. able to lift overhead now, She still cannot handle heat well, the scar itches and gets inflammed when she is warm. Had blood work coming up soon with cards refuses blood work today as she may have more of the same things repeated Her hb improved and normal after surgery when checked 6 months ago. She is very active at home but does not have a regular exercise regimen. Encouraged her to walk for atleast 20 mins at a time. She does take care of her pretty good sized house , can get on her knee and mop the floors and takes care of all the cleaning. HTN: checks her bp at home, it is usually between 118 to 120 systolic. Compliant with medications. Denies any chest pain, palpitations, or edema. No SOB. Doesn't check BP at home generally. Careful with diet to avoid salt, trying to eat more fruits and vegetables, exercises regularly. HPL: Reviewed test results with patient , takes medications regularly , does not report side effects. Conscious to avoid red meats, full fat dairy and its by products. Exercising 3 to 5 times a week. No problem-specific Assessment & Plan notes found for this encounter. PAST MEDICAL HISTORY Diagnosis Date Cardiac arrest with ventricular fibrillation (HCC) defibrillated x 3 on 07/21/2016 Coronary disease stent in 2007 with balloon angioplasty of left circumflex Depressive disorder, not elsewhere classified Esophageal reflux Herpes zoster without mention of complication Other acute and subacute form of ischemic heart disease 07/23/08 [place] Other and unspecified hyperlipidemia 07/21/2005 Other convulsions 04/11/2008 STEMI (ST elevation myocardial infarction) (HCC) 07/21/2016 Type II or unspecified type diabetes mellitus without mention of complication, not stated as uncontrolled 07/21/2005 Unspecified essential hypertension 07/21/2005 PAST SURGICAL HISTORY Procedure Laterality Date CABG (4) VEIN GRAFTS & ARTERIAL GRAFT(S) 05/13/2022 GARZA to LAD, SVG to OM1, OM2, and PDA CHOLECYSTECTOMY 11/23/1982 STENT PLACEMENT 07/25/2008 Thru heart cath. at [facility] TOTAL ABDOMINAL HYSTERECT W/WO RMVL TUBE OVARY at age 48 FAMILY HISTORY Problem Relation Age of Onset Heart Mother Diabetes Mother Coronary Artery Disease Mother Cataract Mother Heart Brother Heart Brother Diabetes Brother Social History Tobacco Use Smoking status: Never Smokeless tobacco: Never Substance Use Topics Alcohol use: No Drug use: No Past medical history, appointments, medications, allergies reviewed. Pertinent Lab/Diagnostic Studies are reviewed and discussed today Current Outpatient Medications: aspirin 81 mg chewable tablet metoprolol tartrate, short acting, (LOPRESSOR) 50 mg tablet esomeprazole (NEXIUM) 20 mg capsule atorvastatin (LIPITOR) 40 mg tablet nitroglycerin sublingual (NITROQUICK) 0.4 mg SL tablet acetaminophen (TYLENOL) 500 mg tablet Cholecalciferol, Vitamin D3, 2,000 unit Tab nitroglycerin(NITROSTAT 0.4 MG SUBLINGUAL TAB) Review of Systems CONSTITUTIONAL: No fevers, chills night sweats, unintended weight loss CARDIOVASCULAR: No chest pain, dyspnea, palpitations, orthopnea, PND, ankle edema. PULM: No dyspnea, unexplained cough. GI: No dysphagia/odynophagia, problematic reflux, constipation, diarrhea, changes in stool habits, hematochezia, melena. : No new urinary complaints, including dysuria, gross hematuria or pyuria. NEURO: No new balance problems, peripheral weakness/paresthesias or numbness of concern. Physical Exam BP 130/80 Pulse 60 Temp 36.1 C (97 F) (Temporal) Resp 16 Wt 68.9 kg (152 lb) SpO2 99% BMI 26.93 kg/m General appearance: Well appearing, alert, in no acute distress, well nourished. Skin: Skin color, texture, turgor normal, no suspicious rashes or lesions Head: Normocephalic, no masses, lesions, tenderness or abnormalities Eyes: Anicteric sclera. Pupils are equally round and reactive to light. Extraocular movements are intact. Lungs: Lungs clear to auscultation. No wheezing, rhonchi, rales Heart: RRR without murmur, gallop, or rubs. Extremities: No deformities, edema, skin discoloration, clubbing or cyanosis. Good capillary refill. ASSESSMENT/PLAN: 1. Essential hypertension - ICD9: 401.9, ICD10: I10 (primary diagnosis) - good control - Recommended regular aerobic exercise. - Recommend home blood pressure monitoring, to bring results in on next visit - Goal of BP <130/80 2. Hyperlipidemia, unspecified hyperlipidemia type - ICD9: 272.4, ICD10: E78.5 - good control - Continue current medication. 3. Gastroesophageal reflux disease without esophagitis - ICD9: 530.81, ICD10: K21.9 - Discussed lifestyle modifications including losing weight, limiting caffeine, no meals three hours before sleep, and head of bed elevation 4. S/P coronary artery stent placement - ICD9: V45.82, ICD10: Z95.5 To cont the 5. Stage 3a chronic kidney disease (HCC) - ICD9: 585.3, ICD10: N18.31 - eGFR: Stable - Counseled on avoiding regular use of NSAIDs, adequate hydration, potential risk of IV dye Marielena Ramirez MD documented in [facility] encounterS[facility] History of Present illness Narrative* Marielena Ramirez MD - 07/07/2022 12:09 PM EDT Reason for Visit Patient presents with: Hospital F/U: quad bipass at [facility] 05/13/22 Venus Sanders is a 77 year old female who presents here today for Above Complaints. Health Maintenance HEPATITIS C SCREENING SHINGRIX VACCINE(1 of 2) FECAL OCCULT BLOOD DTAP,TDAP,TD(2 - Td or Tdap) DEPRESSION SCREENING ADVANCE DIRECTIVE DISCUSSION COVID-19 VACCINE(4 - Booster for Moderna series) LDL CHOLESTEROL HP I Venus is a very pleasant 77-year old woman who had quadruple bypass surgery on May 13, 2022 with GARZA to the LAD, SVG to OM1 SVG to OM2 SVG to the PDA. This was done at [facility] for heart care. Prior to that she was being followed up for cardiology because of having a drug- eluting stent in the LAD in 2015 by again [facility] since getting the surgery she has not had any chest pain because when she went for her regular follow-up in January she was complaining of chest pain which triggeredher agriculture technician to do the work-up and found her to have an abnormal stress test. Following her surgery she notes she is now able to be back to doing all of her ADL's and most of her IADLs. There is still some restriction to weight lifting. She still cannot handle heat well and freely lift her arms overhead. A question she had today was the need to refill her nitroglycerin because she has not needed it since her surgery. In fact has not used nitroglycerin ever and it expires quickly and she wanted to know the benefit of having the medication on hand. With her recent surgery I told her that it is betterto have 1 at hand. Our main concerns today is her anemia during surgery with a hemoglobin at 10 and her and she also had hypocalcemia throughout her entire hospital stay. We would like to check if that is improved or if that needs to be worked up. HTN: Compliant with medications. Denies any chest pain, palpitations, or edema. No SOB. Doesn't check BP at home generally. Careful with diet to avoid salt, trying to eat more fruits and vegetables, exercises regularly. HPL: Reviewed test results with patient , takes medications regularly , does not report side effects. Conscious to avoid red meats, full fat dairy and its by products. Exercising 3 to 5 times a week. No problem-specific Assessment & Plan notes found for this encounter. PAST MEDICAL HISTORY Diagnosis Date Cardiac arrest with ventricular fibrillation (HCC) defibrillated x 3 on 07/21/2016 Coronary disease stent in 2007 with balloon angioplasty of left circumflex Depressive disorder, not elsewhere classified Esophageal reflux Herpes zoster without mention of complication Other acute and subacute form of ischemic heart disease 07/23/08 [place] Other and unspecified hyperlipidemia 07/21/2005 Other convulsions 04/11/2008 STEMI (ST elevation myocardial infarction) (HCC) 07/21/2016 Type II or unspecified type diabetes mellitus without mention of complication, not stated as uncontrolled 07/21/2005 Unspecified essential hypertension 07/21/2005 PAST SURGICAL HISTORY Procedure Laterality Date CABG (4) VEIN GRAFTS & ARTERIAL GRAFT(S) 05/13/2022 GARZA to LAD, SVG to OM1, OM2, and PDA CHOLECYSTECTOMY 11/23/1982 STENT PLACEMENT 07/25/2008 Thru heart cath. at [facility] TOTAL ABDOMINAL HYSTERECT W/WO RMVL TUBE OVARY at age 48 FAMILY HISTORY Problem Relation Age of Onset Heart Mother Diabetes Mother Coronary Artery Disease Mother Cataract Mother Heart Brother Heart Brother Diabetes Brother Social History Tobacco Use Smoking status: Never Smokeless tobacco: Never Substance Use Topics Alcohol use: No Drug use: No Past medical history, appointments, medications, allergies reviewed. Pertinent Lab/Diagnostic Studies are reviewed and discussed today Current Outpatient Medications: aspirin 81 mg chewable tablet acetaminophen (TYLENOL) 500 mg tablet metoprolol tartrate, short acting, (LOPRESSOR) 50 mg tablet esomeprazole (NEXIUM) 20 mg capsule atorvastatin (LIPITOR) 40 mg tablet Cholecalciferol, Vitamin D3, 2,000 unit Tab Review of Systems CONSTITUTIONAL: No fevers, chills night sweats, unintended weight loss CARDIOVASCULAR: No chest pain, dyspnea, palpitations, orthopnea, PND, ankle edema. PULM: No dyspnea, unexplained cough. GI: No dysphagia/odynophagia, problematic reflux, constipation, diarrhea, changes in stool habits, hematochezia, melena. : No new urinary complaints, including dysuria, gross hematuria or pyuria. NEURO: No new balance problems, peripheral weakness/paresthesias or numbness of concern. Physical Exam BP 110/58 (BP Site: Right Arm, BP Position: Sitting, BP Cuff Size: Large Adult) Pulse 60 Temp 36.1 C (97 F) Resp 12 Ht 160 cm (5' 3) Wt 68.5 kg (151 lb) SpO2 100% BMI 26.75 kg/m General appearance: Well appearing, alert, in no acute distress, well nourished. Skin: Well-healing scar Head: Normocephalic, no masses, lesions, tenderness or abnormalities Eyes: Anicteric sclera. Pupils are equally round and reactive to light. Extraocular movements are intact. Lungs: Lungs clear to auscultation. No wheezing, rhonchi, rales Heart: RRR without murmur, gallop, or rubs. Extremities: No deformities, edema, skin discoloration, clubbing or cyanosis. Good capillary refill. ASSESSMENT/PLAN: 1. Essential hypertension - ICD9: 401.9, ICD10: I10 (primary diagnosis) Bp is well controlled 2. Hyperlipidemia, unspecified hyperlipidemia type - ICD9: 272.4, ICD10: E78.5 Cholesterols are normal. 3. Stage 3a chronic kidney disease (HCC) - ICD9: 585.3, ICD10: N18.31 4. Hypocalcemia - ICD9: 275.41, ICD10: E83.51 - PTH INTACT BLD - BASIC METABOLIC PNL 5. Vitamin D deficiency - ICD9: 268.9, ICD10: E55.9 - VITAMIN D 25 HYDROXY 6. Anemia, unspecified type - ICD9: 285.9, ICD10: D64.9 - CBC + DIFF Marielena Ramirez MD documented in this encounterS[facility] History of Present illness Narrative* Jyoti Hsu Population Health Navigator - 06/23/2022 10:41 AM EDT POPULATION HEALTH NAVIGATION OUTREACH Action/FYI Left voicemail to schedule hospital follow up, patient is not able to schedule with Dr. Mcginnis as he is not taking new patients. Pt identified by name and : NO Outreach Outcome/Action Unable to reach patient: Left message Did you use a PCP flex slot to schedule this appointment? N/A Reason for Outreach Community Monitoring Pool Payer: Payor: MEDICARE / Plan: MEDICARE A AND B / Product Type: Medicare / Care Gap Reviewed:: Follow-up appointment Reminder: Reminder note to check Health Maintenance for items below Health Maintenance items due: HEPATITIS C SCREENING Never done SHINGRIX VACCINE(1 of 2) Never done FECAL OCCULT BLOOD due on 10/30/2018 DTAP,TDAP,TD(2 - Td or Tdap) due on 02/14/2019 DEPRESSION SCREENING due on 04/20/2020 ANNUAL PCP TEAM CHRONIC DISEASE VISIT due on 10/03/2020 ADVANCE DIRECTIVE DISCUSSION Never done COVID-19 VACCINE(4 - Booster for Moderna series) due on 01/30/2022 LDL CHOLESTEROL due on 01/31/2022 Message Sent to Practice: No Navigation Signature: Jyoti Hsu [facility] Navigator June 23, 2022 10:41 AM documented in this encounterSheltering [facility]07-29-[facility]22 History of Present illness Narrative* Jerad West RN - 06/20/2022 10:13 AM EDT [facility] Enrollment Provider Action/FYI: Call to Pt left a message related to CKD Chronic Disease Management Program. Patient referred by: TCM Contact made with patient: No - Left Message: Hi my name is Jenna Mars RN and I am calling from the [facility] on behalf of your PCP, Marielena Ramirez MD. We are excited to share with you a new program to help you manage your health. Please call me back at [phone] between the hours of 8am-5pm Thursday-Thursday. You will receive another phone call from me within the next two business days. I hope you can take the time to speak with me. (Keep encounter open and attempt 2nd outreach in two business days from today) END OUTREACH Jenna Mars RN June 20, 2022 10:13 AM documented in this encounterSheltering [facility]07-28-2022 History of Present illness Narrative* Rani Bobo RN - 06/19/2022 3:55 PM EDT TRANSITION CARE MANAGEMENT (TCM) FOLLOW-UP NOTE Provider Action/FYI TCM [facility] discharge 05-18-22- follow up Patient still doing well and very busy in process of starting therapy. Patient reports still not sure of PCP situation, but still interested in [facility]. Patient identified by name and date of : YES Spoke to patient Summary: Pt discharged from on 05-18-22. Admitted for: CABG x4 COPIED AND PASTED FROM DISCHARGE SUMMARY SUMMARY OF WHAT HAPPENED WHILE I WAS IN THE HOSPITAL: You underwent CABG x [address] Martinez on 05/13/2022. You were transferred to the CVICU in stable condition. You were successfully extubated on time and were eventually weaned from oxygen. You did very well on your recovery and were ambulating, breathing well on room air, and tolerating a diet. Your post- operative course was notable for some mild anemia that improved with adding supplements to your medication regiment. You were deemed stable for discharge to home with home healthcare on 05/18/22 Concerns: Hx CKD 3 and interested in [facility] Proposal Manager plan for next outreach: No further follow up needed at this time. Hand off to CDM. Signature Rani Bobo RN June 19, 2022 documented in this encounterSheltering [facility]07-28-2022 Evaluation note* Diagnosis Stage 3 chronic kidney disease, unspecified whether stage 3a or 3b CKD (HCC)- Primary documented in this encounter [facility] History of Present illness Narrative* RT Luis(R) - 06/16/2022 3:00 PM EDT Radiology Service Progress Note PATIENT NAME: Venus Sanders DATE OF SERVICE: June 16, 2022 TIME: 3:06 PM PATIENT IDENTITY VERIFICATION COMPLETED USING TWO (2) IDENTIFIERS: Name and Date of confirmedby patient verbally. FALL SCREENING: Has the patient had 2 falls in the last year or 1 fall with injury or currently using an Ambulatory Assistive Device (Walker, Cane, Wheelchair, Crutches, etc.)? No PATIENT GENDER DATA: Female. status: : No status: NO. PATIENT RELEVANT IMPLANT DATA REVIEWED: Not Applicable RADIOLOGY DEPARTMENT: General X-ray: Exam(s) Completed: Chest X-Ray PERIPHERAL IV DATA: Not applicable SIGNED BY: RT Luis(R) June 16, 2022 3:06 PM documented in this encounterSheltering [facility] Hospital07-25-2022 NoteHNO ID: [id number] Author: Jennifer Addison APRN.BILLIE Service: ? Author Type: Nurse Practitioner Type: Progress Notes Filed: 06/17/2022 7:06 AM Note Text: HPI: This is a 77 year old woman referred for evaluation of multivessel coronary artery disease and for consideration for bypass surgery. ?She has history of coronary artery disease. ?In 2007 she underwent stenting to the left anterior descending artery. ?In 2015 she presented with acute myocardial infarction and had repeat stenting to the left anterior descending artery. ?Stress echo in 2018 was negative for inducible ischemia and ejection fraction was 65% with a resting wall motion abnormality. She then noted returning symptoms and experienced a syncopal episode.?Cardiolite stress test performed in February of this year showed ejection fraction 75% with resting wall motion abnormality involving the apex with no stress-induced changes. ?Recent eft heart catheterization revealed multivessel coronary disease and she was therefore scheduled for CABG with Dr. Martinez. ? Mrs. Alaniz underwent CABG x?4 (- S/p CABG x?4; (GARZA to LAD, SVG to?OM1, OM2, and PDA)?with Dr. Martinez on 05/13/2022., was transferred to the CVICU in stable condition, successfully extubated in a timely manner. She continued to recover well without complications, and was deemed stable for discharge to home with home healthcare on 05/18/22. Interval events: none, states she is feeling great Venus Sanders reports home recovery as listed below: Episodes of dizziness or syncope: no Chest pain: no Palpitations: no BP: reviewed per home log: not available for review Tolerating diet well without changing bowel habits: yes Fever, chills: no Activities at home with/without SOB or VERDUZCO: walks - states she is out running errands and grocery shopping without issues. Post surgical pain without pain medications - denies sternal discomfort- ocassional left foot discomfort with swelling. Leg edema: let foot ocassional Sleep: good Energy: good Subjective: Current Outpatient Medications Medication Sig - aspirin 81 mg chewable tablet Take 2 tablets by mouth once daily for 30 days, THEN 1 tablet once daily. - ascorbic acid, vitamin C, (VITAMIN C) 500 mg tablet Take 1 tablet by mouth once daily. - ferrous sulfate 325 mg (65 mg iron) tablet Take 1 tablet by mouth daily with breakfast. - folic acid 1 mg tablet Take 1 tablet by mouth once daily. - metoprolol tartrate, short acting, (LOPRESSOR) 50 mg tablet Take 1 tablet by mouth every 12 hours. - atorvastatin (LIPITOR) 40 mg tablet Take 1 tablet by mouth once daily. - Cholecalciferol, Vitamin D3, 2,000 unit Tab Take 1 tablet by mouth once daily. - acetaminophen (TYLENOL) 500 mg tablet Take 2 tablets by mouth four times daily. (Patient not taking: Reported on 06/16/2022 ) - magnesium oxide (MAG-OX) 400 mg (241.3 mg magnesium) tablet Take 1 tablet by mouth once daily for 14 days. - diazePAM (VALIUM) 5 mg tablet Take 5 mg by mouth three times daily. (Patient not taking: Reported on 05/21/2022) - esomeprazole (NEXIUM) 20 mg capsule Take 1 capsule by mouth once daily. No current facility-administered medications for this visit. Imdur [Isosorbide], Zestril [Lisinopril], and Zoloft [Sertraline Hcl] PAST MEDICAL HISTORY Diagnosis Date - Cardiac arrest with ventricular fibrillation (HCC) defibrillated x 3 on 07/21/2016 - Coronary disease stent in 2007 with balloon angioplasty of left circumflex - Depressive disorder, not elsewhere classified - Esophageal reflux - Herpes zoster without mention of complication - Other acute and subacute form of ischemic heart disease 07/23/08 [place] - Other and unspecified hyperlipidemia 07/21/2005 - Other convulsions 04/11/2008 - STEMI (ST elevation myocardial infarction) (HCC) 07/21/2016 - Type II or unspecified type diabetes mellitus without mention of complication, not stated as uncontrolled 07/21/2005 - Unspecified essential hypertension 07/21/2005 PAST SURGICAL HISTORY Procedure Laterality Date - CABG (4) VEIN GRAFTS AND ARTERIAL GRAFT(S) 05/13/2022 GARZA to LAD, SVG to OM1, OM2, and PDA - CHOLECYSTECTOMY 11/23/1982 - STENT PLACEMENT 07/25/2008 Thru heart cath. at [facility] - TOTAL ABDOMINAL HYSTERECT W/WO RMVL TUBE OVARY at age 48 FAMILY HISTORY Problem Relation Age of Onset - Heart Mother - Diabetes Mother - Coronary Artery Disease Mother - Cataract Mother - Heart Brother - Heart Brother - Diabetes Brother Social History Tobacco Use - Smoking status: Never Smoker - Smokeless tobacco: Never Used Substance Use Topics - Alcohol use: No - Drug use: No Review of Systems Constitutional: Negative for chills, diaphoresis, fever, malaise/fatigue and weight loss. Respiratory: Negative for cough, hemoptysis, sputum production, shortness of breath and wheezing. Cardiovascular: Negative for chest pain, palpitations, orthopnea, parth (more content not included)...[facility]07-25-2022 Instructions* Patient Instructions* Jennifer Addison APRN.CNP - 06/16/2022 10:56 AM EDT You have done a great job recovering from you surgery, moving forward, here are the recommendations: Medications: please continue taking Aspirin, beta siena (metoprolol) and statin (lipitor) for coronary artery disease. Please avoid taking NSAIDs (Aleve, Ibuprofen, Motrin, Advil, Mobic etc) Driving: Ok to drive now! Vest: ok to stop using Cardiac Rehab: [phone] ([facility], floor 1) You will have a EKG stress test before and after the cardiac rehab, [facility]. Restrictions: slowly increase weight bearing in a gradual fashion (5-10 lbs increment each month) over the next 2-3 months to allow further healing, then gradually resume your normal activities depending on how you feel. Follow-ups: It is crucial to establish future appointments with your main providers, they are you agriculture technician (Dr. Brothers next week) , primary care doctor and/or your for medications refills/questions and future health management. You can follow up with cardiac surgery team on as needed basis. Please don't hesitate to contact us if you have any concerns/questions: [phone] Thanks for coming in to see me today. Jennifer Addison APRN.BILLIE documented in this encounterSheltering [facility]07-25-2022 History of Present illness Narrative* Jennifer Addison APRN.CNP - 06/16/2022 10:35 AM EDT HPI: This is a 77 year old woman referred for evaluation of multivessel coronary artery disease and for consideration for bypass surgery. She has history of coronary artery disease. In 2007 she underwent stenting to the left anterior descending artery. In 2015 she presented with acute myocardial infarction and had repeat stenting to the left anterior descending artery. Stress echo in 2018 was negativefor inducible ischemia and ejection fraction was 65% with a resting wall motion abnormality. She then noted returning symptoms and experienced a syncopal episode. Cardiolite stress test performed in February of this year showed ejection fraction 75% with resting wall motion abnormality involving the apex with no stress-induced changes. Recent eft heart catheterization revealed multivessel coronary disease and she was therefore scheduled for CABG with Dr. Martinez. Mrs. Alaniz underwent CABG x 4 (- S/p CABG x 4; (GARZA to LAD, SVG to OM1, OM2, and PDA) with Dr. Martinez on 05/13/2022., was transferred to the CVICU in stable condition, successfully extubated in a timely manner. She continued to recover well without complications, and was deemed stable for discharge to home with home healthcare on 05/18/22. Interval events: none, states she is feeling great Venus Sanders reports home recovery as listed below: Episodes of dizziness or syncope: no Chest pain: no Palpitations: no BP: reviewed per home log: not available for review Tolerating diet well without changing bowel habits: yes Fever, chills: no Activities at home with/without SOB or VERDUZCO: walks - states she is out running errands and grocery shopping without issues. Post surgical pain without pain medications - denies sternal discomfort- ocassional left foot discomfort with swelling. Leg edema: let foot ocassional Sleep: good Energy: good Subjective: Current Outpatient Medications Medication Sig aspirin 81 mg chewable tablet Take 2 tablets by mouth once daily for 30 days, THEN 1 tablet once daily. ascorbic acid, vitamin C, (VITAMIN C) 500 mg tablet Take 1 tablet by mouth once daily. ferrous sulfate 325 mg (65 mg iron) tablet Take 1 tablet by mouth daily with breakfast. folic acid 1 mg tablet Take 1 tablet by mouth once daily. metoprolol tartrate, short acting, (LOPRESSOR) 50 mg tablet Take 1 tablet by mouth every 12 hours. atorvastatin (LIPITOR) 40 mg tablet Take 1 tablet by mouth once daily. Cholecalciferol, Vitamin D3, 2,000 unit Tab Take 1 tablet by mouth once daily. acetaminophen (TYLENOL) 500 mg tablet Take 2 tablets by mouth four times daily. (Patient not taking: Reported on 06/16/2022 ) magnesium oxide (MAG-OX) 400 mg (241.3 mg magnesium) tablet Take 1 tablet by mouth once daily for 14 days. diazePAM (VALIUM) 5 mg tablet Take 5 mg by mouth three times daily. (Patient not taking: Reported on 05/21/2022) esomeprazole (NEXIUM) 20 mg capsule Take 1 capsule by mouth once daily. No current facility-administered medications for this visit. Imdur [Isosorbide], Zestril [Lisinopril], and Zoloft [Sertraline Hcl] PAST MEDICAL HISTORY Diagnosis Date Cardiac arrest with ventricular fibrillation (HCC) defibrillated x 3 on 07/21/2016 Coronary disease stent in 2007 with balloon angioplasty of left circumflex Depressive disorder, not elsewhere classified Esophageal reflux Herpes zoster without mention of complication Other acute and subacute form of ischemic heart disease 07/23/08 [place] Other and unspecified hyperlipidemia 07/21/2005 Other convulsions 04/11/2008 STEMI (ST elevation myocardial infarction) (HCC) 07/21/2016 Type II or unspecified type diabetes mellitus without mention of complication, not stated as uncontrolled 07/21/2005 Unspecified essential hypertension 07/21/2005 PAST SURGICAL HISTORY Procedure Laterality Date CABG (4) VEIN GRAFTS & ARTERIAL GRAFT(S) 05/13/2022 GARZA to LAD, SVG to OM1, OM2, and PDA CHOLECYSTECTOMY 11/23/1982 STENT PLACEMENT 07/25/2008 Thru heart cath. at [facility] TOTAL ABDOMINAL HYSTERECT W/WO RMVL TUBE OVARY at age 48 FAMILY HISTORY Problem Relation Age of Onset Heart Mother Diabetes Mother Coronary Artery Disease Mother Cataract Mother Heart Brother Heart Brother Diabetes Brother Social History Tobacco Use Smoking status: Never Smoker Smokeless tobacco: Never Used Substance Use Topics Alcohol use: No Drug use: No Review of Systems Constitutional: Negative for chills, diaphoresis, fever, malaise/fatigue and weight loss. Respiratory: Negative for cough, hemoptysis, sputum production, shortness of breath and wheezing. Cardiovascular: Negative for chest pain, palpitations, orthopnea, claudication, leg swelling and PND. Gastrointestinal: Negative for constipation and diarrhea. Skin: Negative for itching and rash. Neurological: Negative for dizziness, focal weakness and loss of consciousness. Objective: One month post- op Chest X-ray is ordered today- pt states she will get tomorrow in [place] Physical Examination: Vitals:BP 118/66 Pulse 82 Resp 18 Ht 5' 3 (1.60m) Wt 152 lb (68.9kg) SpO2 99% BMI 26.93 kg/(m^2). BP w/Orthostatic Vitals Date and Time Orthostatic BP Orthostatic Pulse BP Pulse BP Position BP Site BP Cuff Size 06/16/22 1026 -- -- 118/66 82 Sitting Left Arm Large Adult Peak Flow Date and Time PF Resp 06/16/22 1026 -- 18 Last 2 Encounter Wt Readings: Date: Wt: 06/16/2022 152 lb (68.9 kg) 05/21/2022 157 lb (71.2 kg) Physical Exam Constitutional: General: She is not in acute distress. Appearance: Normal appearance. She is normal weight. HENT: Head: Normocephalic and atraumatic. Eyes: Extraocular Movements: Extraocular movements intact. Conjunctiva/sclera: Conjunctivae normal. Pupils: Pupils are equal, round, and reactive to light. Cardiovascular: Rate and Rhythm: Normal rate and regular rhythm. Pulses: Normal pulses. Heart sounds: Normal heart sounds. Pulmonary: Effort: Pulmonary effort is normal. Breath sounds: Normal breath sounds. Abdominal: General: Bowel sounds are normal. Palpations: Abdomen is soft. Musculoskeletal: Right lower leg: No edema. Left lower leg: Edema present. Comments: 1+ left pedal edema, non pitting Skin: General: Skin is warm and dry. Capillary Refill: Capillary refill takes less than 2 seconds. Comments: MSI and CT sites well approximated and healing. Sternal bones stable. No s/sx of infection. Left leg harvest sites well approximated and healing. No s/sx of infection Neurological: General: No focal deficit present. Mental Status: She is alert and oriented to person, place, and time. Assessment and Plan: 1. S/P CABG (coronary artery bypass graft) - ICD9: V45.81, ICD10: Z95.1 (primary diagnosis) -- Good post-op recovery for 1 month follow up - S/p CABG x 4; (GARZA to LAD, SVG to OM1, OM2, and PDA) with Dr. Martinez on 05/13/2022 - Ok to start driving and return to work and gradually resume normal ADLs as tolerated - May increase your pushing/pulling/ lifting to <15-20 lbs for this next month, and then <25-30 pounds for the following month, then after 12 weeks from surgery, no restrictions - Discontinue thoracic vest - encouraged RAYMOND Hose and intermittent BLE elevation for edema control/prevention -Cardiac rehabilitation: ordered placed previously, proceed as scheduled. -Beam Builder follow up appointment: Set to see Dr. Brothers next week - PCP follow up appointment in 3-4 weeks - Cardiothoracic surgery follow up with us only as needed, otherwise discharged from our service. 2. CAD in [place] artery - ICD9: 414.01, ICD10: I25.10 - continue ASA 81 mg once daily, statin, BB 3. Acute blood loss anemia - ICD9: 285.1, ICD10: D62 - CBC: Lab Results Component Value Date WBC 9.74 05/23/2022 RBC 3.66 (L) 05/23/2022 Hemoglobin 10.0 (L) 05/23/2022 Hematocrit 33.0 (L) 05/23/2022 MCV 90.2 05/23/2022 MCH 27.3 05/23/2022 MCHC 30.3 (L) 05/23/2022 RDW-CV 18.5 (H) 05/23/2022 Platelet Count 465 (H) 05/23/2022 MPV 10.1 05/23/2022 Absolute nRBC <0.01 05/23/2022 - stable/iimproved from DC - march DC folic acid,vit C, Iron 4. Essential hypertension - ICD9: 401.9, ICD10: I10 - good control - Continue metoprolol 50 mg oral BID - Recommended regular aerobic exercise. - Recommend home blood pressure monitoring, to bring results to cardiology follow up - Goal of BP <130/80 5. Lung nodules - ICD9: 793.19, ICD10: R91.8 - Chest CT 04/23/[address] evidence of acute abnormality. -A few lung nodules measuring up to 4 mm. -If there are risk factors for lung malignancy, a follow-up chest CT exam could be obtained in 12 months. - would advise continued follow up with PCP. No smoking hx Electronically signed by Jennifer Addison APRN.CNP on June 16, 2022, 10:35 AM documented in this encounterS[facility]22 Miscellaneous Notes* Telephone Encounter - Jonathan Moreno - 05/28/2022 1:51 PM EDT Called and spoke with PT. PT lives closer to [place] and will be conducting her rehab there. documented in this encounterS[facility]07-[facility]-2022 Miscellaneous Notes* Telephone Encounter - Marcelino Garcia - 05/28/2022 1:14 PM EDT [facility] ph [phone] fax [phone]. Order forms, operative report and 05/21/22 office visit notes faxed on 05/28/22. documented in this encounterShel[facility]07-05-2022 Miscellaneous Notes* Telephone Encounter - Salud Rowell RN - 05/27/2022 2:14 PM EDT Called and left a detailed voicemail notifying patient of providers message. Hospital phone number was left in case patient had any questions. Salud Rowell RN * Telephone Encounter - Marielena Ramirez MD - 05/27/2022 1:41 PM EDT Noted and agree * Telephone Encounter - Marielena Ramirez MD - 05/27/2022 1:40 PM EDT Noted * Telephone Encounter - Tammy Escobar LPN - 05/24/2022 10:44 AM EDT Teresa from [facility] calling opened patient case today. Her incision looks good, no issues. Patient is taking OTC Nexium as needed. documented in this encounterShel[facility]06-30-2022 History of Present illness Narrative* Rani Bobo RN - 05/22/2022 4:39 PM EDT TRANSITION CARE MANAGEMENT (TCM) FOLLOW-UP NOTE Provider Action/FYI TCM [facility] discharge 05-18-22- follow up Patient asking this RN to speak with patient's daughter Ann Chaves. Daughter confirming that someone from [facility] is coming to see patient 05-24-22 and then again 05-27-22. Patient also to be eventually transferring to PCP that patient's sees. Daughter reports patient doing well. Patient identified by name and date of : YES Spoke to patient's daughter Ann Chaves Summary: Pt discharged from on 05-18-22. Admitted for: CABG x4 COPIED AND PASTED FROM DISCHARGE SUMMARY SUMMARY OF WHAT HAPPENED WHILE I WAS IN THE HOSPITAL: You underwent CABG x [address] Martinez on 05/13/2022. You were transferred to the CVICU in stable condition. You were successfully extubated on time and were eventually weaned from oxygen. You did very well on your recovery and were ambulating, breathing well on room air, and tolerating a diet. Your post- operative course was notable for some mild anemia that improved with adding supplements to your medication regiment. You were deemed stable for discharge to home with home healthcare on 05/18/22 Concerns: Proposal Manager plan for next outreach: Will follow up one week Signature Rani Bobo RN May 22, 2022 documented in this encounterShel[facility]06-30-2022 Miscellaneous Notes* Telephone Encounter - Julio C Linda RN - 05/22/2022 12:42 PM EDT Faxed after visit summary from [facility] and [facility], per Lilibeth request. . documented in this encounterSheltering [facility]06-29-2022 NoteHNO ID: [id number] Author: Jennifer Addison APRN.LOGISTICS SUPPORT Service: ? Author Type: Nurse Practitioner Type: Progress Notes Filed: 05/21/2022 4:29 PM Note Text: HPI: This is a 77 year old woman referred for evaluation of multivessel coronary artery disease and for consideration for bypass surgery. ?She has history of coronary artery disease. ?In 2007 she underwent stenting to the left anterior descending artery. ?In 2015 she presented with acute myocardial infarction and had repeat stenting to the left anterior descending artery. ?Stress echo in 2018 was negative for inducible ischemia and ejection fraction was 65% with a resting wall motion abnormality. She then noted returning symptoms and experienced a syncopal episode.?Cardiolite stress test performed in February of this year showed ejection fraction 75% with resting wall motion abnormality involving the apex with no stress-induced changes. ?Recent eft heart catheterization revealed multivessel coronary disease and she was therefore scheduled for CABG with Dr. Martinez. ? Mrs. Alaniz underwent CABG x?4?with Dr. Martinez on 05/13/2022., was transferred to the CVICU in stable condition, successfully extubated in a timely manner. She continued to recover well without complications, and was deemed stable for discharge to home with home healthcare on 05/18/22. Patient returns to the office today with her daughter and for one week post-discharge follow up . Interval events: daughter called a couple days ago with concerns for clear drainage distal MSI which subsided after showering and leaving open to air. No fevers/chills, purulence, tenderness or erythema. Venus Sanders reports home recovery as listed below: Patient is c/o: no complaints, feels her breathing has improved from pre operatively. Episodes of dizziness or syncope: no Chest pain: no Palpitations: no BP: reviewed per home lo-108 SBP/ 54-60, HR 90s (dtr who is a RN states that's about where she ran in the hospital) Tolerating diet well without changing bowel habits: yes Fever, chills: no Activities at home with/without SOB or VERDUZCO: walks to bathroom and back 4-5 times during the day, but that's only for a few minutes Post surgical pain without pain medications - tylenol only PRN, minimally. Leg edema: resolved RLE, minimal LLE Sleep: good Energy: improving Subjective: Current Outpatient Medications Medication Sig - aspirin 81 mg chewable tablet Take 2 tablets by mouth once daily for 30 days, THEN 1 tablet once daily. - acetaminophen (TYLENOL) 500 mg tablet Take 2 tablets by mouth four times daily. - ascorbic acid, vitamin C, (VITAMIN C) 500 mg tablet Take 1 tablet by mouth once daily. - ferrous sulfate 325 mg (65 mg iron) tablet Take 1 tablet by mouth daily with breakfast. - folic acid 1 mg tablet Take 1 tablet by mouth once daily. - magnesium oxide (MAG-OX) 400 mg (241.3 mg magnesium) tablet Take 1 tablet by mouth once daily for 14 days. - metoprolol tartrate, short acting, (LOPRESSOR) 50 mg tablet Take 1 tablet by mouth every 12 hours. - senna-docusate (SENNA-S) 8.6-50 mg per tablet Take 1 tablet by mouth twice daily. - traMADol (ULTRAM) 50 mg tablet Take 1 tablet by mouth every 12 hours for 5 days. - esomeprazole (NEXIUM) 20 mg capsule Take 1 capsule by mouth once daily. - atorvastatin (LIPITOR) 40 mg tablet Take 1 tablet by mouth once daily. - Cholecalciferol, Vitamin D3, 2,000 unit Tab Take 1 tablet by mouth once daily. - lidocaine (SALONPAS) 4 % patch Apply 1 Patch as directed once daily. (Patient not taking: Reported on 05/21/2022 ) - polyethylene glycol 3350 (MIRALAX, GLYCOLAX) 17 gram packet Take 1 Packet by mouth once daily. Dissolve dose in 4 - 8 ounces of liquid and take as directed. (Patient not taking: Reported on 05/21/2022 ) - diazePAM (VALIUM) 5 mg tablet Take 5 mg by mouth three times daily. (Patient not taking: Reported on 05/21/2022) No current facility-administered medications for this visit. Imdur [Isosorbide], Zestril [Lisinopril], and Zoloft [Sertraline Hcl] PAST MEDICAL HISTORY Diagnosis Date - Cardiac arrest with ventricular fibrillation (HCC) defibrillated x 3 on 07/21/2016 - Coronary disease stent in 2007 with balloon angioplasty of left circumflex - Depressive disorder, not elsewhere classified - Esophageal reflux - Herpes zoster without mention of complication - Other acute and subacute form of ischemic heart disease 07/23/08 [place] - Other and unspecified hyperlipidemia 07/21/2005 - Other convulsions 04/11/2008 - STEMI (ST elevation myocardial infarction) (HCC) 07/21/2016 - Type II or unspecified type diabetes mellitus without mention of complication, not stated as uncontrolled 07/21/2005 - Unspecified essential hypertension 07/21/2005 PAST SURGICAL HISTORY Procedure Laterality Date - CABG (4) VEIN GRAFTS AND ARTERIAL GRAFT(S) 05/13/2022 GARZA to LAD, SVG to OM1, OM2, and PDA - CHO (more content not included)...[facility]06-29-[facility] Miscellaneous Notes* Telephone Encounter - Elzbieta Holloway LPN - 05/21/2022 3:16 PM EDT Ashwini with [facility] called and requested copy of home health order, face sheet and last office visit. Last office visit was dated 10/03/19. Faxed to [phone]. Ashwini was made aware of the date of last office visit and asked to have it faxed anyway. Done. documented in this encounterSheltering [facility] Hospital06-29-2022 Instructions* Patient Instructions* Jennifer Addison APRN.LOGISTICS SUPPORT - 05/21/2022 2:43 PM EDT Weight: Please continue monitoring daily weight; Activity:Continue gradual increase in activities as tolerated; Goal of walking 5-7 times daily for 5-7 min on flat ground Diet: Heart healthy diet with good protein intake; green leafy vegetable, low salt, and 2 L fluid daily Devices: Wear supportive stockings as needed; posthorax vest (up to 1 month) during daytime and offat nighttime; Restrictions: Continue the weight limit to less than 10 lbs (for one month), and no driving until cleared by your providers; Advice: please change position slowly to prevent fall due to dizziness; Wound Care: continue to wash daily with soap and water. Swab CT sites with betadine daily and leaveopen air Upcoming appointments: Please follow up back here in 3-4 weeks with chest xray prior to that appointment Please make cardiology appointment in 4-6 weeks (Dr. Brothers) Please make primary care appointment in 4-6 weeks Thanks for coming in to see me today. Please call us if you have any concerns/questions: [phone] Jennifer Addison APRN.BILLIE documented in this encounterSheltering [facility]06-29-2022 History of Present illness Narrative* Jennifer Addison APRN.CNP - 05/21/2022 2:12 PM EDT HPI: This is a 77 year old woman referred for evaluation of multivessel coronary artery disease and for consideration for bypass surgery. She has history of coronary artery disease. In 2007 she underwent stenting to the left anterior descending artery. In 2015 she presented with acute myocardial infarction and had repeat stenting to the left anterior descending artery. Stress echo in 2018 was negativefor inducible ischemia and ejection fraction was 65% with a resting wall motion abnormality. She then noted returning symptoms and experienced a syncopal episode. Cardiolite stress test performed in February of this year showed ejection fraction 75% with resting wall motion abnormality involving the apex with no stress-induced changes. Recent eft heart catheterization revealed multivessel coronary disease and she was therefore scheduled for CABG with Dr. Martinez. Mrs. Alaniz underwent CABG x [address] Martinez on 05/13/2022., was transferred to the CVICU in stable condition, successfully extubated in a timely manner. She continued to recover well without complications, and was deemed stable for discharge to home with home healthcare on 05/18/22. Patient returns to the office today with her daughter and for one week post-discharge follow up . Interval events: daughter called a couple days ago with concerns for clear drainage distal MSI which subsided after showering and leaving open to air. No fevers/chills, purulence, tenderness or erythema. Venus Sanders reports home recovery as listed below: Patient is c/o: no complaints, feels her breathing has improved from pre operatively. Episodes of dizziness or syncope: no Chest pain: no Palpitations: no BP: reviewed per home lo-108 SBP/ 54-60, HR 90s (dtr who is a RN states that's about where derrick in the hospital) Tolerating diet well without changing bowel habits: yes Fever, chills: no Activities at home with/without SOB or VERDUZCO: walks to bathroom and back 4-5 times during the day, but that's only for a few minutes Post surgical pain without pain medications - tylenol only PRN, minimally. Leg edema: resolved RLE, minimal LLE Sleep: good Energy: improving Subjective: Current Outpatient Medications Medication Sig aspirin 81 mg chewable tablet Take 2 tablets by mouth once daily for 30 days, THEN 1 tablet once daily. acetaminophen (TYLENOL) 500 mg tablet Take 2 tablets by mouth four times daily. ascorbic acid, vitamin C, (VITAMIN C) 500 mg tablet Take 1 tablet by mouth once daily. ferrous sulfate 325 mg (65 mg iron) tablet Take 1 tablet by mouth daily with breakfast. folic acid 1 mg tablet Take 1 tablet by mouth once daily. magnesium oxide (MAG-OX) 400 mg (241.3 mg magnesium) tablet Take 1 tablet by mouth once daily for 14 days. metoprolol tartrate, short acting, (LOPRESSOR) 50 mg tablet Take 1 tablet by mouth every 12 hours. senna-docusate (SENNA-S) 8.6-50 mg per tablet Take 1 tablet by mouth twice daily. traMADol (ULTRAM) 50 mg tablet Take 1 tablet by mouth every 12 hours for 5 days. esomeprazole (NEXIUM) 20 mg capsule Take 1 capsule by mouth once daily. atorvastatin (LIPITOR) 40 mg tablet Take 1 tablet by mouth once daily. Cholecalciferol, Vitamin D3, 2,000 unit Tab Take 1 tablet by mouth once daily. lidocaine (SALONPAS) 4 % patch Apply 1 Patch as directed once daily. (Patient not taking: Reported on 05/21/2022 ) polyethylene glycol 3350 (MIRALAX, GLYCOLAX) 17 gram packet Take 1 Packet by mouth once daily. Dissolve dose in 4 - 8 ounces of liquid and take as directed. (Patient not taking: Reported on 05/21/2022 ) diazePAM (VALIUM) 5 mg tablet Take 5 mg by mouth three times daily. (Patient not taking: Reported on 05/21/2022) No current facility-administered medications for this visit. Imdur [Isosorbide], Zestril [Lisinopril], and Zoloft [Sertraline Hcl] PAST MEDICAL HISTORY Diagnosis Date Cardiac arrest with ventricular fibrillation (HCC) defibrillated x 3 on 07/21/2016 Coronary disease stent in 2007 with balloon angioplasty of left circumflex Depressive disorder, not elsewhere classified Esophageal reflux Herpes zoster without mention of complication Other acute and subacute form of ischemic heart disease 07/23/08 [place] Other and unspecified hyperlipidemia 07/21/2005 Other convulsions 04/11/2008 STEMI (ST elevation myocardial infarction) (HCC) 07/21/2016 Type II or unspecified type diabetes mellitus without mention of complication, not stated as uncontrolled 07/21/2005 Unspecified essential hypertension 07/21/2005 PAST SURGICAL HISTORY Procedure Laterality Date CABG (4) VEIN GRAFTS & ARTERIAL GRAFT(S) 05/13/2022 GARZA to LAD, SVG to OM1, OM2, and PDA CHOLECYSTECTOMY 11/23/1982 STENT PLACEMENT 07/25/2008 Thru heart cath. at [facility] TOTAL ABDOMINAL HYSTERECT W/WO RMVL TUBE OVARY at age 48 FAMILY HISTORY Problem Relation Age of Onset Heart Mother Diabetes Mother Coronary Artery Disease Mother Cataract Mother Heart Brother Heart Brother Diabetes Brother Social History Tobacco Use Smoking status: Never Smoker Smokeless tobacco: Never Used Substance Use Topics Alcohol use: No Drug use: No Review of Systems Constitutional: Negative for chills, diaphoresis, fever, malaise/fatigue and weight loss. Respiratory: Positive for shortness of breath. Negative for cough, hemoptysis, sputum production and wheezing. Cardiovascular: Negative for chest pain, palpitations, orthopnea, claudication, leg swelling and PND. Gastrointestinal: Negative for blood in stool, constipation, nausea and vomiting. Genitourinary: Positive for frequency. Negative for dysuria, flank pain, hematuria and urgency. Skin: Negative for itching and rash. Neurological: Negative for dizziness and headaches. Psychiatric/Behavioral: Negative for depression. Objective: Physical Examination: Vitals:BP 112/70 Pulse 104 Ht 5' 3 (1.60m) Wt 157 lb (71.2kg) SpO2 95% BMI 27.82 kg/(m^2). BP w/Orthostatic Vitals Date and Time Orthostatic BP Orthostatic Pulse BP Pulse BP Position BP Site BP Cuff Size 05/21/22 1406 -- -- 112/70 104 Sitting Left Arm Regular Adult Last 2 Encounter Wt Readings: Date: Wt: 05/21/2022 157 lb (71.2 kg) 04/30/2022 156 lb 3.2 oz (70.9 kg) Physical Exam Constitutional: General: She is not in acute distress. Appearance: Normal appearance. She is normal weight. HENT: Head: Normocephalic and atraumatic. Eyes: Extraocular Movements: Extraocular movements intact. Conjunctiva/sclera: Conjunctivae normal. Pupils: Pupils are equal, round, and reactive to light. Cardiovascular: Rate and Rhythm: Normal rate and regular rhythm. Pulses: Normal pulses. Heart sounds: Normal heart sounds. Pulmonary: Effort: Pulmonary effort is normal. Breath sounds: Normal breath sounds. Abdominal: General: Bowel sounds are normal. Palpations: Abdomen is soft. Musculoskeletal: Right lower leg: No edema. Left lower leg: Edema present. Comments: Trace left pedal/ pretibial edema Skin: General: Skin is warm and dry. Capillary Refill: Capillary refill takes less than 2 seconds. Comments: MSI well approximated and healing with peeling surgical clue. CT sites x 2 well approximated with some scant areas of yellow eschar, debrided and cleaned with betadine. Sternal bones stable. No s/sx of infection. Left leg harvest sites well approximated and healing. No s/sx of infection Neurological: General: No focal deficit present. Mental Status: She is alert and oriented to person, place, and time. Assessment and Plan: ASSESSMENT/PLAN: 1. S/P CABG (coronary artery bypass graft) - ICD9: V45.81, ICD10: Z95.1 (primary diagnosis) - Pt doing well overall - Continue ASA 162 mg once daily x 1 month, then will decrease to 81 mg once daily, statin, betablocker - Pain controlled; continue ERAS - Continue HH diet; reinforced low NA diet and 2Liter fluid restriction, daily weight monitoring - Continue thoracic vest and sternal precautions (no lifting, pushing, pulling > 10 lbs. No driving) - Continue TEDs and BLE elevation while in bed or chair - Continue IS, VNS, mobilization - Outpt cardiac rehab in 1 month: orders placed - Follow-up in 3 weeks with CXR prior - Follow-up with KENYON/DR. Brothers in 1 month, pt encouraged to call to set up appointment - CARDIAC REHAB II OUTPT ([place], [place]) - XR CHEST 2V FRONTAL/LAT - EXERCISE STRESS ECG (WITHOUT IMAGING) - EXERCISE STRESS ECG (WITHOUT IMAGING) - CBC 2. CAD in [place] artery - ICD9: 414.01, ICD10: I25.10 - continue ASA, statin, BB 3. Acute blood loss anemia - ICD9: 285.1, ICD10: D62 - stable Hbg at [facility],will recheck, may be attributing to resting borderline high resting heart rates - CBC - continues on folic acid,vit C, Iron 4. Essential hypertension - ICD9: 401.9, ICD10: I10 - good control - hesitate to increase BB for better HR control given borderline low BPs - Recommended regular aerobic exercise. - Recommend home blood pressure monitoring, to bring results in on next visit - Goal of BP <130/80 5. Lung nodules - ICD9: 793.19, ICD10: R91.8 - Chest CT 04/23/[address] evidence of acute abnormality. -A few lung nodules measuring up to 4 mm. -If there are risk factors for lung malignancy, a follow-up chest CT exam could be obtained in 12 months. - would advise continued follow up with PCP. No smoking hx 6. Urinary frequency - no other s/sx of infection. This happens at night only. - educated on s/sx of possible UTI to report - advise evening fluid restriction PCP follow up appointment: 4-6 weeks Electronically signed by Jennifer Addison APRN.CNP on May 21, 2022, 2:12 PM documented in this encounterShel[facility]06-29-[facility] Nurse Note* Jamaica Crenshaw MA - 05/21/2022 2:08 PM EDT No complaints today. Jamaica Crenshaw MA documented in this encounterSheltering [facility] Hospital06-28-2022 History of Present illness Narrative* Rani Bobo RN - 05/20/2022 5:11 PM EDT TRANSITION CARE MANAGEMENT (TCM) FOLLOW-UP NOTE Provider Action/FYI TCM [facility] discharge 05-18-22- follow up This RN speaking again with patient's daughter Ann Chaves to review [facility] options for patient together. Spoke with Lilibeth FERGUSON at [facility] [phone] who can accept patient and provide neededservices, with patient and patient's daughter in agreement to care. Dr. Marcial: Please have your office fax any and all orders, demographics, insurance information, discharge summary and instructions, and any post surgical progress notes to [phone] ATTN Lilibeth at [facility]. Patient identified by name and date of : YES Spoke to patient's daughter Ann Chaves Summary: Pt discharged from on 05-18-22. Admitted for: CABG x4 COPIED AND PASTED FROM DISCHARGE SUMMARY SUMMARY OF WHAT HAPPENED WHILE I WAS IN THE HOSPITAL: You underwent CABG x [address] Martinez on 05/13/2022. You were transferred to the CVICU in stable condition. You were successfully extubated on time and were eventually weaned from oxygen. You did very well on your recovery and were ambulating, breathing well on room air, and tolerating a diet. Your post- operative course was notable for some mild anemia that improved with adding supplements to your medication regiment. You were deemed stable for discharge to home with home healthcare on 05/18/22 Concerns: Patient and family in agreement to [facility] for SN and physical therapy, with all neededinformation needing to be faxed from PCP to [facility] agency. Proposal Manager plan for next outreach: Will follow up Signature Rani Bobo RN May 20, 2022 documented in this encounterSheltering [facility] Hospital06-28-2022 Miscellaneous Notes* Telephone Encounter - LUX Hemphill - 05/20/2022 9:59 AM EDT Thank you for the referral of your patient to [facility]. At this time, we are at capacity and are unable to accept your patient. In order to help your patient receive quality home care, we have included reputable agencies that service this area: [facility] [phone] or [facility] [phone]. Please contact this agency and they will work with your patient to arrange timely services. Thank you, LUX Hemphill 05/20/2022 9:59 AM documented in this encounterSheltering Arms Hospital06-27-2022 History of Present illness Narrative* Rani Bobo RN - 05/19/2022 1:54 PM EDT TCM Home Visit Referral Source of Stratification: [facility] Hospital Admission Status: Discharged Readmission Risk Score: 17 CORINNA Score: 1 Program referral criteria met: Does not meet referral criteria Patient does not qualify for High Risk TCM Home Visit program due to: Does not meet referral criteria Patient does not quality for High Risk TCM Home Visit Program due to: Does not meet referral criteria Preferred contact number: N/A Is patient staying somewhere other than the listed home address: No Dialysis Patient: No Rani Bobo RN, BSN Care Coordination team TRANSITIONAL CARE MANAGEMENT (TCM) COMMUNITY MONITORING PROGRAM Provider Action/FYI: TCM [facility] discharge 05-18-22- initial outreach Spoke with patient who reports she is doing much better. Denies any chest pain, shortness of breath, dizziness, nausea or vomiting. Only issue is still tired. Very grateful to have daughter in from [place] who is a nurse in and currently staying with them for 2 weeks. Asking this RN to call daughter as well at [phone]. [facility] surgery follow up 05-30-22. Reports daughter Ann already in contact with office re: questions about patient's incisions. Patient reports she will have daughter make follow up with Christoph Beam Builder in 6 weeks and Dormitory Counselor in 4 weeks. Did speak with daughter Ann Chaves who validated she is involved in patient's care, and reports she did speak with Jennifer and already received advisement on incision care. Jennifer Krystle: Patient supposed to have appointment with you 05-23-22 but still listed in [facility] on 05-30-22. Please follow up accordingly. Dr. Ramirez: Patient supposed to have order for HHC, however, no orders even seen in chart Patient's daughter asking to please order [facility] for SN and physical therapy and to call daughter Ann [phone] if issues. Seeing [facility] this Thursday05-23-22. If need to see you, daughter asking if can beVV and please have your staff call her. SUMMARY: Pt discharged from on 05-18-22. Admitted for: CABG x4 COPIED AND PASTED FROM DISCHARGE SUMMARY SUMMARY OF WHAT HAPPENED WHILE I WAS IN THE HOSPITAL: You underwent CABG x [address] Martinez on 05/13/2022. You were transferred to the CVICU in stable condition. You were successfully extubated on time and were eventually weaned from oxygen. You did very well on your recovery and were ambulating, breathing well on room air, and tolerating a diet. Your post- operative course was notable for some mild anemia that improved with adding supplements to your medication regiment. You were deemed stable for discharge to home with home healthcare on 05/18/22. Contact made with pataylortient: Yes Hi my name is Rani Bobo RN and I am calling from the [facility] on behalf of your PCP, Marielena Ramirez MD I understand you were recently in the hospital so I am calling to check in with you toensure you are feeling well now that you're home. May I ask you a few questions related to your hospital stay and well-being? Yes Contact with patient post discharge, spoke to patient. Patient identified by name and . Do you feel your health is BETTER, WORSE, or the SAME since leaving the hospital? Better ACTION TAKEN: Patient indicated symptoms are better or same, no action required. Continue outreach. MEDICATIONS: Many patients have questions or concerns about their medications once they are home. Do you have any questions about taking your medications or which medication you should be on? No Do you need any medication refills at this time, including any of the medications you might take only when needed? No ACTION TAKEN: No action required For RNs or Pharmacy completing outreach ONLY, was a medication review completed? No. Denies need millie's daughter who is nurse already taking care of it, and confirmed by daughter. SOCIAL: We would like to make sure you have what you need so that your basics needs are met - including your personal safety, food, housing and medications. Would you like to speak with a social work cps team lead to help give you support for any of these needs? No It can be normal to feel anxious or down during a time like this. Would you like to talk to a mental health professional about how you have been feeling? No ACTION TAKEN: No action taken DISCHARGE INTRUCTIONS: Your discharge instructions / After Visit Summary (AVS) are important in guiding you through the recovery process. Do you have any questions related to your discharge instructions? Yes Do you have all the necessary equipment and supplies at home? Yes ACTION TAKEN: Patient has questions or needs related to the discharge instructions and/or having the necessary equipment and supplies at home. Routed to PCP and indicated in FYI box. I would like to help you schedule a hospital follow-up virtual or telephone visit with your PCP. This is a great way for you to connect with your provider to ensure you have safely transitioned home.If you are agreeable, I will send your request to a nozzle worker who will contact and assist you with that appointment. This will give you an opportunity to ask any questions or address any concerns youmay have with your PCP. Inform the patient that if they have any questions or concerns prior to that appointment, to call their PCP's office right away. ACTION TAKEN: No action required, patient declines appointment. Your doctor would like us to remind you of the recommendations regarding the coronavirus (Covid19) outbreak: Avoid public places as much as possible. Avoid close contact (within 6 feet) with others you don t live with, especially if they are sick. Stay home if you are sick. Wash your hands regularly for at least 20 seconds with soap and water. Wear a cloth mask in public places to help reduce community spread. Do not go to your Doctor s office unless instructed to do so. For any non- emergency symptoms, call your Doctor s office to get instructions on how to manage (we might recommend a telephone or virtualvisit). For emergency symptoms, proceed to Emergency Department as usual but inform them of cough and fever symptoms RAFAEL if present (or call on the way if possible). Rani Bobo RN, BSN Care Coordination team documented in this encounterSheltering Arms Hospital06-27-2022 Miscellaneous Notes* Telephone Encounter - Jennifer Addison APRN.BILLIE - 05/19/2022 1:04 PM EDT Called Ann back, she was out shopping for food for her parents, but relayed that there was a small spot on MSI that had some clear drainage. No odor, purulence, tenderness or erythema from what shecould recall. States her mom has not had fevers or chills. Reports she helped her mom shower today for the first time, and left incision MARIBELL, and it seems to be drying up and looking better. Advised good soap and water daily washes, COLOR ADVISER, no ointment/powders/lotions. Continued monitoring for s/sx of infection. She will send a picture after she gets back home to them. Jennifer Addison APRN.BILLIE * Telephone Encounter - Jonathan Olson LPN - 05/19/2022 11:36 AM EDT Ann called & left voice message stating she has some questions about her Mom- Venus's incision & how it looks. She would like a call back @ [phone]. Jonathan Olson LPN documented in this encounterSheltering Arms Hospital06-27-2022 History of Present illness Narrative* Stephanie Hernandez - 05/19/2022 12:37 PM EDT Incidental Lung Nodule Enrollment Call attempt: 1st Attempt Call status: Complete Enrolled in Lung Nodule program: No Declined reason: Finding reviewed deemed low risk. No further work up recommended at this time. Letter/brochure notifying patient sent to patient s home mailing address. Lung Nodule Program Location: [place] documented in this encounterSheltering Arms Hospital06-26-2022 NoteHNO ID: [id number] Author: Hermann Martinez MD Service: Cardiac Surgery Author Type: Physician Type: Progress Notes Filed: 07/21/2022 2:28 PM Note Text: clarification Venus Sanders did NOT have post operative shock She had expected post operative vasodilatory hypotension Hermann Martinez, [facility]06-25-2022 NoteHNO ID: [id number] Author: Chelsi Knapp PA-C Service: Cardiovascular Surgery Author Type: Physician Journeyman Meat Cutter Type: Progress Notes Filed: 05/17/2022 1:15 PM Note Text: CARDIOTHORACIC SURGERY POSTOP PROGRESS NOTE SERVICE DATE: 05/17/2022 Subjective S/P SURGERY: Procedure(s) (LRB): BYPASS GRAFT ARTERY CORONARY ON-PUMP SINGLE CORONARY ARTERIAL GRAFT (N/A) BYPASS GRAFT ARTERY CORONARY ON-PUMP USING VENOUS GRAFT(S) AND ARTERIAL GRAFT(S) THREE VENOUS GRAFTS (N/A) ENDOSCOPIC HARVEST VEIN FOR CORONARY ARTERY BYPASS PROCEDURE (N/A) DATE OF SURGERY: 05/13/2022 POSTOP DAY #4 LOS: 4 HPI: Venus Sanders?is a 77-year-old woman with a history of coronary disease status post previous PCI and stenting to the left anterior descending artery x2, history of anteroapical infarction in 2016. She was referred for evaluation by Dr. Martinez for evaluation for CABG after workup revealed MVCAD. Work-up was initiated after the patient began to experience fatigue, decreased exercise tolerance, and a singular pre-syncopal event. LHC was subsequently preformed.??The official reading on her catheterization only?mentioned?irregularities in the circumflex system, however, Dr. Martinez reviewed the study extensively and felt that there was significant stenosis of the L circ just proximal to bifurcation to 2 OM branches and significant lesion of the RCA. After completion of pre-op work-up, the patient was deemed a candidate for surgery. She subsequently underwent MVCABG with Dr. Martinez on 05/13/22. ? INTERVAL EVENTS / PERTINENT ROS:?Patient underwent CABG x?4?with Dr. Martinez on 05/13/2022. She was transferred to the CVICU in stable condition. Patient was extubated on time per the early extubation protocol.?She has done well during her post op course, remains hemodynamically stable, and is off pressor support. ? The patient was seen and examined in CVICU. She reports feeling reasonably well overall. She reports that she did not ambulate as much yesterday due to her transfer out of CVICU. She expresses intent to ambulate more today. She denies headache, dizziness, lightheadedness. She denies nausea. She has not had a bowel movement since surgery. ? Objective Admission Weight: 81.1 kg (178 lb 14.4 oz) BP 108/57 Pulse 90 Temp 36.7 ?C (98.1 ?F) (Oral) Resp 18 Ht 160 cm (5' 3) Wt 80.8 kg (178 lb 3.2 oz) SpO2 97% BMI 31.57 kg/m? Body surface area is 1.9 meters squared. Min/Max/Average Temperature AND Blood Pressure: Temp (24hrs), Av.8 ?C (98.3 ?F), Min:36.7 ?C (98.1 ?F), Max:37 ?C (98.6 ?F) Systolic (24hrs), Av , Min:91 , Max:139 Diastolic (24hrs), Av, Min:54, Max:79 Intake/Output Summary (Last 24 hours) at 05/17/2022 1242 Last data filed at 05/17/2022 1000 Gross per 24 hour Intake 480 ml Output 1900 ml Net -1420 ml TELEMETRY: normal sinus rhythm PHYSICAL EXAM: General Appearance: Well developed and well nourished appearance. No acute distress. Skin: No rash on chest, arms or legs. ?Warm, dry. ?Midsternal and SVG incisions dry AND?intact, without redness, drainage or edema. Head/Eyes: Sclera clear,?no scleral edema,?normal conjunctiva. EOMI Neck: No JVD. Supple. Lungs:?Somewhat diminished in lung bases. Normal respiratory effort. Saturating appropriately on 2 L NC Heart:?RRR. Abdomen:?soft, non-tender Neurologic/Psychiatric: Oriented to person, place, time. Normal affect. No gross focal neurologic deficits. Extremities:?Trace pitting?edema in bilateral lower extremities.? Lines, Drains, and Airways Line Peripheral 05/13/22 1213 Right Forearm 20 Gauge 4 days Drain External Collection Device 05/16/22 2200 <1 day DATA: Diagnostic tests reviewed for today's visit: CXR: 2 V study pending. Recent Labs 05/17/22 0528 05/16/22 0435 05/15/22 0512 RBC 2.94* 2.69* 2.61* WBC 6.44 7.61 6.88 HB 8.0* 7.3* 7.2* HCT 25.0* 22.7* 22.9* PLT 179 142* 134* NA 138 127* 130* K 4.1 4.4 3.6* CHLOR 109* 102 105 CO2 24 19* 20* BUN 15 18 14 CREAT 0.71 0.71 0.73 GLUC 107* 121* 74 CA 8.4* 7.8* 7.4* MG -- -- 1.9 ANION 5* 6* 5* Assessment/Plan ???MV CAD -?Previous history of CAD s/p PCI in 2007 and 2016 on Brilinta at home -?POD #?4 - S/p CABG x?4; (GARZA to LAD, SVG to?OM1, OM2, and PDA) - Medical management with ASA 162, Lipitor?40mg,?25 BID of metoprolol - Pain control per ERAS protocol; currently adequate - Heart healthy diet; bowel regimen ordered; nutrition on board. Dulcolax suppository if no BM by POD 5 -?Discussed with Dr. Martinez. Patient was previously on Brilinta for support of stents. The area that was stented has now been bypassed. No need to resume Brilinta at this time. - Mobilize as able - OP cardiac rehab upon d/c ?Post Op Respiratory Insufficiency - Resolved. Saturating well on RA ?Acute Blood Loss Anemia - Current HANDH is?8.0/25.0 - Continue iron, folate, vitamin C supplement (more content not included)... [facility]06-25-2022 NoteHNO ID: [id number] Author: Chelsi Knapp PA-C Service: Cardiovascular Surgery Author Type: Physician Journeyman Meat Cutter Type: Procedures Filed: 05/17/2022 11:15 AM Note Text: BEDSIDE PROCEDURE NOTE GENERIC PROCEDURE Procedure Date/Start Time: 05/17/2022 10:17 AM Performed by: Chelsi Knapp PA-C Authorized by: Hermann Martinez MD Informed Consent Consent Obtained: N/A [place] Protocol SIGN IN Personnel directly involved with the procedure wore the appropriate PPE. TIME OUT Pre-procedure Details: The area was prepped with chlorhexidine (Chloroprep) and allowed to dry. Medications: N/A Procedure Details: Epicardial pacing wires were removed at 10:17 AM on 05/17. The wires were cleaned with chlorohexadine. The suture securing the wire was clipped, then the wires were removed with steady pressure. Patient tolerated well Comments: Epicardial pacing wires were removed at 10:17 AM on 05/17. The wires were cleaned with chlorohexadine. The suture securing the wire was clipped, then the wires were removed with steady pressure. Patient tolerated well SIGNATURE: Chelsi Knapp PA-C PATIENT NAME: Venus Sanders DATE: May 17, 2022 TIME: 10:20 [facility]06-24-2022 NoteHNO ID: [id number] Author: Chelsi Knapp PA-C Service: Cardiovascular Surgery Author Type: Physician Journeyman Meat Cutter Type: Progress Notes Filed: 05/16/2022 1:12 PM Note Text: CARDIOTHORACIC SURGERY POSTOP PROGRESS NOTE SERVICE DATE: 05/16/2022 Subjective S/P SURGERY: Procedure(s) (LRB): BYPASS GRAFT ARTERY CORONARY ON-PUMP SINGLE CORONARY ARTERIAL GRAFT (N/A) BYPASS GRAFT ARTERY CORONARY ON-PUMP USING VENOUS GRAFT(S) AND ARTERIAL GRAFT(S) THREE VENOUS GRAFTS (N/A) ENDOSCOPIC HARVEST VEIN FOR CORONARY ARTERY BYPASS PROCEDURE (N/A) DATE OF SURGERY: 05/13/2022 POSTOP DAY #3 LOS: 3 HPI: Venus Sanders?is a 77-year-old woman with a history of coronary disease status post previous PCI and stenting to the left anterior descending artery x2, history of anteroapical infarction in 2016. She was referred for evaluation by Dr. Martinez for evaluation for CABG after workup revealed MVCAD. Work-up was initiated after the patient began to experience fatigue, decreased exercise tolerance, and a singular pre-syncopal event. LHC was subsequently preformed. ?The official reading on her catheterization only mentioned irregularities in the circumflex system, however, Dr. Martinez reviewed the study extensively and felt that there was significant stenosis of the L circ just proximal to bifurcation to 2 OM branches and significant lesion of the RCA. After completion of pre-op work-up, the patient was deemed a candidate for surgery. She subsequently underwent MVCABG with Dr. Martinez on 05/13/22. ? INTERVAL EVENTS / PERTINENT ROS:?Patient underwent CABG x [address] Martinez on 05/13/2022. She was transferred to the CVICU in stable condition. Patient was extubated on time per the early extubation protocol.?She has done well during her post op course, remains hemodynamically stable, and is off pressor support. The patient was seen and examined in CVICU. She reports soreness at the surgical site and fatigue. She reports that her pain is well managed and she does feel like she is getting stronger every day. She denies nausea, vomiting, headache, dizziness, lightheadedness, or palpitations. Objective Admission Weight: 81.1 kg (178 lb 14.4 oz) BP 92/63 Pulse 97 Temp 37.5 ?C (99.5 ?F) (Temporal) Resp 25 Ht 160 cm (5' 3) Wt 83.9 kg (184 lb 15.5 oz) SpO2 99% BMI 32.77 kg/m? Body surface area is 1.93 meters squared. Min/Max/Average Temperature AND Blood Pressure: Temp (24hrs), Av.1 ?C (98.7 ?F), Min:36.6 ?C (97.8 ?F), Max:37.6 ?C (99.6 ?F) Systolic (24hrs), Av , Min:92 , Max:139 Diastolic (24hrs), Av, Min:44, Max:109 Intake/Output Summary (Last 24 hours) at 05/16/2022 1303 Last data filed at 05/16/2022 1227 Gross per 24 hour Intake 1146 ml Output 3600 ml Net -2454 ml TELEMETRY: normal sinus rhythm PHYSICAL EXAM: General Appearance: Well developed and well nourished appearance. No acute distress. Skin: No rash on chest, arms or legs. ?Warm, dry. ?Midsternal and SVG incisions dry AND?intact, without redness, drainage or edema. Head/Eyes: Sclera clear,?no scleral edema,?normal conjunctiva. EOMI Neck: No JVD. Supple. Lungs:?Somewhat diminished in lung bases. Normal respiratory effort. Saturating appropriately on 2 L NC Heart:?RRR. No rubs, gallups, murmurs Abdomen:?soft, non-tender Neurologic/Psychiatric: Oriented to person, place, time. Normal affect. No gross focal neurologic deficits. Extremities:?1+ pitting?edema in bilateral lower extremities. Lines, Drains, and Airways Line Peripheral 05/13/22 1213 Right Forearm 20 Gauge 3 days DATA: Diagnostic tests reviewed for today's visit: CXR: IMPRESSION: Interval removal of left sided chest tube. Improved lung volumes. ?Improved right basilar aeration. ?Hypoventilatory changes at the left lung base with possible trace apical pneumothorax and small pleural effusion blunting the lateral costophrenic angle.. Recent Labs 05/16/22 0435 05/15/22 0512 05/14/22 0416 05/13/22 2208 RBC 2.69* 2.61* 3.23* 3.41* WBC 7.61 6.88 11.58* 12.36* HB 7.3* 7.2* 8.9* 9.4* HCT 22.7* 22.9* 27.7* 29.3* PLT 142* 134* 200 188 INR -- -- -- 1.1 APTT -- -- -- 23.4 NA 127* 130* 139 141 K 4.4 3.6* 4.2 3.0* CHLOR 102 105 112* 111* CO2 19* 20* 20* 18* BUN 18 14 9 10 CREAT 0.71 0.73 0.75 0.82 GLUC 121* 74 97 135* ICAL -- -- 1.21 1.22 CA 7.8* 7.4* 7.7* 7.9* MG -- 1.9 2.0 2.3 ANION 6* 5* 7* 12 Recent Labs 05/14/22 0416 05/13/228 05/13/22201905/13/22 19305/13/22 1908 PH 7.27* 7.32* -- -- -- PCO2 44 36 37.5 39.6 41.6 PO2 105* 131* 250* 339* 350* BE -- -- -4* -1 0 HCO3 20* 18* 21.8* 23.7 24.9 CO2CT 19* 17* -- -- -- O2HB 96 97 -- -- -- COHB 1.0 <1.0 -- -- -- MHGB 1.0 1.0 -- -- -- PHTC 7.27* -- -- -- -- PCO2T 44 -- -- -- -- PO2T 104* -- -- -- -- O2AD 30 -- -- -- -- Assessment/Plan ???MV CAD -?Previous history of CAD s/p PCI in 2007 and 2015 on Brilinta at (more content not included)...[facility]06-24-2022 NoteHNO ID: [id number] Author: David Alexander MD Service: Critical Care Author Type: Physician Type: Progress Notes Filed: 05/16/2022 10:08 AM Note Text: MICU PROGRESS NOTE SERVICE DATE: 05/16/2022 SERVICE TIME: 10:05 AM Admission Date: 05/13/2022 Hospital Day # 3 Subjective No acute events overnight Feels well REVIEW OF SYSTEMS PAIN ASSESSMENT: Negative for pain, history of chronic pain, or current treatment for a chronic pain condition. RESPIRATORY: Negative for cough, hemoptysis, wheezing, COPD, dyspnea or shortness of breath CARDIOVASCULAR: Negative for chest pain, leg swelling, hypertension, CHF or palpitations HEMATOLOGY/LYMPHOLOGY: Negative for prolonged bleeding, bruising easily or swollen nodes Objective PHYSICAL EXAM PERFORMED: General: NAD HEENT: NC in place Oral Mucosa: Moist mucous membranes Eyes: PERRLA Neck: Unremarkable; No adenopathy or JVD Cardiovascular: Regular rhythm Respiratory: Reduced breath sounds bilat Vent/Oxygen: Supplemental Oxygen: Yes. 2L Abdomen: Soft, Nontender and Positive bowel sounds Extremities: Edema- No Peripheral Pulses- Present all extremities Capillary Refill- less than 3 seconds Neurologic: Awake, oriented, Alert and Follows commands LAB ABG: Recent Labs 05/14/22 0416 PH 7.27* PO2 105* PCO2 44 BMP: Glucose (mg/dL) Date Value 05/16/2022 121 09/28/2019 96 Potassium (mmol/L) Date Value 05/16/2022 4.4 09/28/2019 4.2 Sodium (mmol/L) Date Value 05/16/2022 127 09/28/2019 141 Chloride (mmol/L) Date Value 05/16/2022 102 09/28/2019 108 CO2 (mmol/L) Date Value 05/16/2022 19 09/28/2019 26 Creatinine (mg/dL) Date Value 05/16/2022 0.71 09/28/2019 1.07 BUN (mg/dL) Date Value 05/16/2022 18 09/28/2019 13 Anion Gap (mmol/L) Date Value 05/16/2022 6 09/28/2019 7 Calcium (mg/dL) Date Value 09/28/2019 9.7 Calcium, Total (mg/dL) Date Value 05/16/2022 7.8 CBC: Hemoglobin (g/dL) Date Value 05/16/2022 7.3 05/15/2022 7.2 05/14/2022 8.9 04/13/2019 13.3 HGB (g/dL) Date Value 07/22/2016 14.2 07/21/2016 14.3 Hematocrit (%) Date Value 05/16/2022 22.7 05/15/2022 22.9 05/14/2022 27.7 04/13/2019 43.1 07/22/2016 41.9 07/21/2016 43.6 WBC Date Value 05/16/2022 7.61 k/uL 05/15/2022 6.88 k/uL 05/14/2022 11.58 k/uL 04/13/2019 4.86 k/uL 07/22/2016 10.1 thou/cmm 07/21/2016 13.0 thou/cmm Diagnostic tests reviewed for today's visit: Most recent labs and imaging results. Personally reviewed imaging studies. ICU Checklist A= Assess, Prevent, Manage Pain C= Choice of Sedation and Analgesia B= Both Spontaneous Awakening and Breathing Trials D= Delirium: Assess, Prevent and Manage E= Early Mobility/Excercise ICU Mobility: F= Family Engagement and Empowerment ICU Disposition: Prevention: VTE Prophylaxis: IMPRESSION: Patient is a 77 year old female with: ? Anticipated postop respiratory insufficiency Anticipated postop?hypotension with vasoplegia Status post CABG?05/13 Multivessel coronary artery disease Possible trace apical pneumothorax on L s/p chest tube removal History of cardiac arrest with V. fib in 2016 History of acid reflux History of type 2 diabetes mellitus History of hypertension Principal Problem: CAD in [place] artery PLAN: Wean O2 as able for sats >90% Aspirin statin BB Monitor for increasing pneumothorax Incentive spirometry Albuterol q2h PRN? ICU prophylaxis ? Portions of this note have been copied forward from the previous day's documentation. Patient/Family/Providers Updated SIGNATURE: David Alexander MD [facility]: [phone] NoteHNO ID: [id number] Author: Tray Mccurdy (Database Manager) Service: Pharmacy Author Type: Transit Planner Type: Plan of Care Filed: 05/15/2022 11:19 AM Note Text: PHARMACY MEDICATION REVIEW Patient Name: Venus Sanders : 1945 The following medications were updated within the SHELLACKER medication list: Medications ADDED to SHELLACKER medication list ? na Medications CHANGED on SHELLACKER medication list ? na Medications REMOVED from SHELLACKER medication list metoprolol tartrate, short acting, (LOPRESSOR) 25 mg tablet Other mupirocin (BACTROBAN) 2 % ointment Other acetaminophen (TYLENOL ORAL) Other Pharmacy reports these medications were short term only for surgery. Additional comments: I was not able to speak with pt. The pharmacy reported 8 medications as active. These medications are marked other as informant on the SHELLACKER list. I have removed 3 medications from the SHELLACKER list because these were short term medications for surgery and pt. had surgery during this encounter and they have . Pharmacy reports nitrostat is on hold, I left it on the SHELLACKER list for now. I cannot account for Vit D on the SHELLACKER list and this may be OTC. Required follow up for nursing; Please ask pt. or family, when possible, if pt. is taking the medications on the SHELLACKER list or any other RX or OTC medications. The below information represents the best possible medication history: Yes Medication history completed by: Transit Planner: Tray Mccurdy (Database Manager) Source of history: Pharmacy records: [facility] Medication nonadherence identified: Unable to assess Reconciliation completed: No, pharmacist not yet reviewed Patient interested in Bedside Delivery Services or using OP Pharmacy at discharge? Unable to assess Preferred outpatient pharmacy: [facility] [address] [place] [id number] [id number] [facility] [phone] [place] [address] [place] [address] [facility] [phone] [id number] Allergies: Imdur [Isosorbide] Other: See Comments Comment:Severe headaches Zestril [Lisinopril] Unknown Zoloft [Sertraline * Unknown Prior to Admission Medications Prescriptions Last Dose Informant Patient Reported? Taking? Cholecalciferol, Vitamin D3, 2,000 unit Tab 05/12/2022 at Unknown time No Yes Sig: Take 1 tablet by mouth once daily. amLODIPine (NORVASC) 2.5 mg tablet 05/12/2022 at Unknown time OTHER No Yes Sig: Take 1 tablet by mouth once daily. aspirin(ECOTRIN LOW STRENGTH 81 MG TAB) 05/13/2022 at Unknown time Yes Yes Sig: Take one(1) tablet daily. atorvastatin (LIPITOR) 40 mg tablet 05/12/2022 at Unknown time OTHER No Yes Sig: Take 1 tablet by mouth once daily. cyclobenzaprine (FLEXERIL) 10 mg tablet OTHER Yes No Sig: TAKE 1 TABLET BY MOUTH EVERY DAY AT BEDTIME NEEDED FOR MUSCLE SPASM diazePAM (VALIUM) 5 mg tablet OTHER Yes No Sig: Take 5 mg by mouth three times daily. esomeprazole (NEXIUM) 20 mg capsule 05/12/2022 at Unknown time OTHER No Yes Sig: Take 1 capsule by mouth once daily. metoprolol succinate ER (TOPROL XL) 50 mg 24 hr tablet 05/13/2022 at Unknown time OTHER No Yes Sig: Take 1 tablet by mouth once daily. nitroglycerin sublingual (NITROQUICK) 0.4 mg SL tablet Unknown at Unknown time OTHER No Yes Sig: Dissolve 1 tablet under the tongue as needed. FOR CHEST PAIN. IF NO RELIEF CALL 911 ticagrelor (BRILINTA) 90 mg tablet 05/07/2022 OTHER No No Sig: Take 1 tablet by mouth twice daily. Facility-Administered Medications: None Tray Mccurdy (Database Manager) phone [phone] 05/15/2022[facility]06[facility] NoteHNO ID: [id number] Author: Chelsi Knapp PA-C Service: Cardiovascular Surgery Author Type: Physician Journeyman Meat Cutter Type: Progress Notes Filed: 05/15/2022 10:41 AM Note Text: CARDIOTHORACIC SURGERY POSTOP PROGRESS NOTE SERVICE DATE: 05/15/2022 Subjective S/P SURGERY: Procedure(s) (LRB): BYPASS GRAFT ARTERY CORONARY ON-PUMP SINGLE CORONARY ARTERIAL GRAFT (N/A) BYPASS GRAFT ARTERY CORONARY ON-PUMP USING VENOUS GRAFT(S) AND ARTERIAL GRAFT(S) THREE VENOUS GRAFTS (N/A) ENDOSCOPIC HARVEST VEIN FOR CORONARY ARTERY BYPASS PROCEDURE (N/A) DATE OF SURGERY: 05/13/2022 POSTOP DAY #2 LOS: 2 HPI: Venus Sanders?is a 77-year-old woman with a history of coronary disease status post previous PCI and stenting to the left anterior descending artery x2, history of anteroapical infarction in 2016. She was referred for evaluation by Dr. Martinez for evaluation for CABG after workup revealed MVCAD. Work-up was initiated after the patient began to experience fatigue, decreased exercise tolerance, and a singular pre-syncopal event. LHC was subsequently preformed. ?The official reading on her catheterization only mentioned irregularities in the circumflex system, however, Dr. Martinez reviewed the study extensively and felt that there was significant stenosis of the L circ just proximal to bifurcation to 2 OM branches and significant lesion of the RCA. After completion of pre-op work-up, the patient was deemed a candidate for surgery. She subsequently underwent MVCABG with Dr. Martinez on 05/13/22. ? INTERVAL EVENTS / PERTINENT ROS: Patient underwent CABG x [address] Martinez on 05/13/2022. She was transferred to the CVICU in stable condition. Patient was extubated on time per the early extubation protocol. ? This morning, the patient is resting comfortably in the chair. She reports soreness at the surgical site and at the sites of her chest tubes. She has had some intermittent nausea since surgery, but is feeling reasonably well at this time. She denies vomiting, dizziness/lightheadedness, or worsening shortness of breath. She is still requiring some marixa for pressure support, but is being weaned slowly. Objective Admission Weight: 81.1 kg (178 lb 14.4 oz) BP 112/58 Pulse 95 Temp 37 ?C (98.6 ?F) (Temporal) Resp 19 Ht 160 cm (5' 3) Wt 81.1 kg (178 lb 14.4 oz) SpO2 96% BMI 31.69 kg/m? Body surface area is 1.9 meters squared. Min/Max/Average Temperature AND Blood Pressure: Temp (24hrs), Av.6 ?C (97.9 ?F), Min:36 ?C (96.8 ?F), Max:37 ?C (98.6 ?F) Systolic (24hrs), Av , Min:81 , Max:119 Diastolic (24hrs), Av, Min:51, Max:74 Intake/Output Summary (Last 24 hours) at 05/15/2022 1014 Last data filed at 05/15/2022 1000 Gross per 24 hour Intake 5913.3 ml Output 1425 ml Net 4488.3 ml TELEMETRY: normal sinus rhythm PHYSICAL EXAM: General Appearance: Well developed and well nourished appearance. No acute distress. Skin: No rash on chest, arms or legs. Warm, dry. Midsternal and SVG incisions dry AND intact, without redness, drainage or edema. Head/Eyes: Sclera clear, no scleral edema, normal conjunctiva. EOMI Neck: No JVD. Supple. Lungs: Normal respiratory effort. Saturating appropriately on 2 L NC Heart: RRR Peripheral Vascular/Arteries: peripheral pulses intact Abdomen: soft, non-tender Neurologic/Psychiatric: Oriented to person, place, time. Normal affect. No gross focal neurologic deficits. Extremities: 1-2+ pitting edema in bilateral lower extremities. Lines, Drains, and Airways Line Peripheral 05/13/22 1213 Right Forearm 20 Gauge 1 day Central Line Quadruple Lumen 05/15/22 0800 Right Neck <1 day Drain Chest Tube 05/13/221940 Mediastinal 28 Fr Tube #1 1 day Chest Tube 05/13/221941 Mediastinal 32 Fr Tube #2 1 day DATA: Diagnostic tests reviewed for today's visit: CXR: IMPRESSION: Small lung volumes with probable subsegmental atelectasis. Trace bilateral pleural effusions. Recent Labs 05/15/2251105/14/2241505/13/222207 RBC 2.61* 3.23* 3.41* WBC 6.88 11.58* 12.36* HB 7.2* 8.9* 9.4* HCT 22.9* 27.7* 29.3* PLT 134* 200 188 INR -- -- 1.1 APTT -- -- 23.4 NA 130* 139 141 K 3.6* 4.2 3.0* CHLOR 105 112* 111* CO2 20* 20* 18* BUN 14 9 10 CREAT 0.73 0.75 0.82 GLUC 74 97 135* ICAL -- 1.21 1.22 CA 7.4* 7.7* 7.9* MG 1.9 2.0 2.3 ANION 5* 7* 12 Recent Labs 05/14/226 05/13/22220705/13/22201905/13/22193805/13/22 1908 PH 7.27* 7.32* -- -- -- PCO2 44 36 37.5 39.6 41.6 PO2 105* 131* 250* 339* 350* BE -- -- -4* -1 0 HCO3 20* 18* 21.8* 23.7 24.9 CO2CT 19* 17* -- -- -- O2HB 96 97 -- -- -- COHB 1.0 <1.0 -- -- -- MHGB 1.0 1.0 -- -- -- PHTC 7.27* -- -- -- -- PCO2T 44 -- -- -- -- PO2T 104* -- -- -- -- O2AD 30 -- -- -- -- Assessment/Plan MV CAD - Previous history of CAD s/p PCI in 2008 and 2016 on Brilinta at home - POD # 2 - S/p CABG x 4; (GARZA to LAD, SVG to OM1, OM2, (more content not included)... [facility]06-23-[facility] NoteHNO ID: [id number] Author: Rossy Jose RN Service: Care Management Author Type: Registered Nurse Type: Care Mgt Progress Note Filed: 05/15/2022 9:46 AM Note Text: CARE MANAGEMENT PROGRESS NOTE SERVICE DATE: 05/15/2022 SERVICE TIME: 9:41 AM LOS: 2 days Unable to complete assessment at this time. Will continue to try and attempt. PT recommending home. Need script for WW. . SIGNATURE: Rossy Jose RN PATIENT NAME: Venus Sanders DATE: May 15, 2022 TIME: 9:41 AM PAGER/CONTACT #: [phone] NoteHNO ID: [id number] Author: David Alexander MD Service: Critical Care Author Type: Physician Type: Progress Notes Filed: 05/15/2022 8:25 AM Note Text: MICU PROGRESS NOTE SERVICE DATE: 05/15/2022 SERVICE TIME: 8:22 AM Admission Date: 05/13/2022 Hospital Day # 2 Subjective No acute events overnight Doing well this AM - no SOB at rest, no chest pain On low dose PE Objective PHYSICAL EXAM PERFORMED: General: NAD Oral Mucosa: Moist mucous membranes Eyes: PERRLA Neck: Unremarkable; No adenopathy or JVD Cardiovascular: Regular rhythm Respiratory: Reduced breath sounds bilat Vent/Oxygen: Supplemental Oxygen: Yes. FiO2 2L Abdomen: Soft, Nontender and Positive bowel sounds Extremities: Edema- No Peripheral Pulses- Present all extremities Capillary Refill- less than 3 seconds Neurologic: Awake, oriented, Alert and Follows commands LAB ABG: Recent Labs 05/14/22 0416 PH 7.27* PO2 105* PCO2 44 BMP: Glucose (mg/dL) Date Value 05/15/2022 74 09/28/2019 96 Potassium (mmol/L) Date Value 05/15/2022 3.6 09/28/2019 4.2 Sodium (mmol/L) Date Value 05/15/2022 130 09/28/2019 141 Chloride (mmol/L) Date Value 05/15/2022 105 09/28/2019 108 CO2 (mmol/L) Date Value 05/15/2022 20 09/28/2019 26 Creatinine (mg/dL) Date Value 05/15/2022 0.73 09/28/2019 1.07 BUN (mg/dL) Date Value 05/15/2022 14 09/28/2019 13 Anion Gap (mmol/L) Date Value 05/15/2022 5 09/28/2019 7 Calcium (mg/dL) Date Value 09/28/2019 9.7 Calcium, Total (mg/dL) Date Value 05/15/2022 7.4 CBC: Hemoglobin (g/dL) Date Value 05/15/2022 7.2 05/14/2022 8.9 05/13/2022 9.4 04/13/2019 13.3 HGB (g/dL) Date Value 07/22/2016 14.2 07/21/2016 14.3 Hematocrit (%) Date Value 05/15/2022 22.9 05/14/2022 27.7 05/13/2022 29.3 04/13/2019 43.1 07/22/2016 41.9 07/21/2016 43.6 WBC Date Value 05/15/2022 6.88 k/uL 05/14/2022 11.58 k/uL 05/13/2022 12.36 k/uL 04/13/2019 4.86 k/uL 07/22/2016 10.1 thou/cmm 07/21/2016 13.0 thou/cmm Diagnostic tests reviewed for today's visit: Most recent labs and imaging results. Personally reviewed imaging studies. ICU Checklist A= Assess, Prevent, Manage Pain C= Choice of Sedation and Analgesia B= Both Spontaneous Awakening and Breathing Trials D= Delirium: Assess, Prevent and Manage E= Early Mobility/Excercise ICU Mobility: F= Family Engagement and Empowerment ICU Disposition: Prevention: VTE Prophylaxis: IMPRESSION: Patient is a 77 year old female with: ? Anticipated postop respiratory insufficiency Anticipated postop hypotension with vasoplegia Status post CABG 05/13 Multivessel coronary artery disease History of cardiac arrest with V. fib in 2016 History of acid reflux History of type 2 diabetes mellitus History of hypertension Principal Problem: CAD in [place] artery PLAN: Wean O2 as able for sats >90% Wean off phenylephrine as tolerated to keep map above 65 Insulin drip for blood sugar control - wean as able Aspirin statin Beta-siena once hemodynamics allow Chest tube per primary team Incentive spirometry Albuterol q2h PRN ICU prophylaxis Portions of this note have been copied forward from the previous day's documentation. This patient has a high probability of sudden, clinically significant deterioration, which requires the highest level of physician preparedness to intervene urgently. I managed/supervised life or organ supporting interventions that required frequent physician assessment. I devoted my full attention to the direct care of this patient for the amount of time indicated below. Time I spent with family or surrogate(s) is included only if the patient was incapable of providing the necessary information or participating in medical decision making. Time devoted to teaching is not included. Critical Care Documentation: The patient has the following organ/system impairment(s): Post-operative vasoplegia requiring vasopressors Patient/Family/Providers Updated Time spent providing critical care services: 30 minutes excluding procedures. SIGNATURE: David Alexander MD [facility]: [phone]06-[facility]-2022 NoteHNO ID: [id number] Author: Rochelle Melendrez RN Service: Care Management Author Type: Registered Nurse Type: Care Mgt Progress Note Filed: 05/14/2022 3:47 PM Note Text: CARE MANAGEMENT PROGRESS NOTE SERVICE DATE: 05/14/2022 SERVICE TIME: 3:45 PM LOS: 1 day Attempted to do pt's Initial Assessment. She is sleeping soundly and room has no phone. TC to spouse, Josy Sanders, but unable to leave voicemail. Will attempt IA at a later time. SIGNATURE: Rochelle Melendrez RN PATIENT NAME: Venus Sanders DATE: May 14, 2022 TIME: 3:45 PM PAGER/CONTACT #: [phone]14-[facility] NoteHNO ID: [id number] Author: Luis Dodge PA-C Service: Cardiovascular Surgery Author Type: Physician Journeyman Meat Cutter Type: Progress Notes Filed: 05/14/2022 12:52 PM Note Text: CARDIOTHORACIC SURGERY POSTOP PROGRESS NOTE SERVICE DATE: 05/14/2022 SERVICE TIME: 7:24 AM Subjective S/P SURGERY: Procedure(s) (LRB): BYPASS GRAFT ARTERY CORONARY ON-PUMP FOUR CORONARY ARTERIAL GRAFTS, GARZA TO LAD, SVG TO OM, SVG TO OM, SVG TO PDA (N/A) DATE OF SURGERY: 05/13/2022 POSTOP DAY #1 LOS: 1 HPI: (Per JAL)Venus Sanders is a 77-year-old woman with a history of coronary disease status post previous PCI and stenting to the left anterior descending artery x2, history of anteroapical infarction in 2016 was now experiencing fatigue and lack of energy and possibly a single presyncopal event was now found to have significant multivessel coronary disease. The official reading on her catheterization mentions only irregularities in the circumflex system; I do think that there are significant lesions in the circumflex artery prior to the bifurcation into 2 obtuse marginal branches as well as the origin of the first obtuse marginal branch; I also do believe that the right current lesion is significant. INTERVAL EVENTS / PERTINENT ROS: Patient underwent CABG x [address] Martinez on 05/13/2022. She was transferred to the CVICU in stable condition. Patient was extubated on time per the early extubation protocol. Patient personally seen and examined this morning. Patient complains of minimal incisional pain at this time. She states that she was experiencing some nausea, but denies vomiting, dizziness. There were no acute events through the night. She is hemodynamically stable on 55 mcg of marixa. She has not yet walked, but has been able to stand several times already this morning. Patient saturating well on 2L NC. Labs and images were reviewed. Objective Admission BP 146/73 Pulse 69 Temp 36.8 ?C (98.24 ?F) Resp 15 SpO2 100% There is no height or weight on file to calculate BSA. Min/Max/Average Temperature AND Blood Pressure: Temp (24hrs), Av.9 ?C (96.6 ?F), Min:35.2 ?C (95.36 ?F), Max:36.9 ?C (98.42 ?F) Systolic (24hrs), Av , Min:93 , Max:177 Diastolic (24hrs), Av, Min:54, Max:144 Intake/Output Summary (Last 24 hours) at 05/14/2022 0942 Last data filed at 05/14/2022 0828 Gross per 24 hour Intake 7308.43 ml Output 4130 ml Net 3178.43 ml TELEMETRY: normal sinus rhythm PHYSICAL EXAM: General Appearance: Well appearing and lying in chair; in NAD; appears drowsy Skin: Midsternal incision dry AND intact without surrounding erythema, warmth, drainage and SVG covered by VELASQUEZ wrap without evidence of drainage Neck: no JVD and RIJ intact with clean and dry dressing Lungs: Decreased at the bases without wheezing, crackles, rhonchi; normal respiratory effort Heart: regular rhythm and S1, S2 normal Peripheral Vascular/Arteries: pulses intact, dorsalis pedis 2+ and radial 2+ Abdomen: soft, non-tender and bowel sounds present Neurologic/Psychiatric: oriented to time, place and person, alert and environmental monitoring technician strength 5/5 Extremities: normal exam of the extremities and no edema Lines, Drains, and Airways Line Peripheral 05/13/22 1213 Right Forearm 20 Gauge <1 day Drain Indwelling Urinary Catheter 05/13/22 Temperature Monitoring 16 Fr 1 day Chest Tube 05/13/22 194 Mediastinal 28 Fr Tube #1 <1 day Chest Tube 05/13/22 194 Mediastinal 32 Fr Tube #2 <1 day DATA: Diagnostic tests reviewed for today's visit: Chest X-RAY: Lungs and pleura: ?Small lung volumes with atelectasis at the bases. No pneumothorax. Recent Labs 05/14/22 0416 05/13/22 2208 05/13/222036 RBC 3.23* 3.41* -- WBC 11.58* 12.36* -- HB 8.9* 9.4* -- HCT 27.7* 29.3* -- PLT 200 188 130* INR -- 1.1 -- APTT -- 23.4 -- NA 139 141 -- K 4.2 3.0* -- CHLOR 112* 111* -- CO2 20* 18* -- BUN 9 10 -- CREAT 0.75 0.82 -- GLUC 97 135* -- ICAL 1.21 1.22 -- CA 7.7* 7.9* -- MG 2.0 2.3 -- ANION 7* 12 -- Recent Labs 05/14/22 0416 05/13/228 05/13/22201905/13/22 19305/13/22 1908 PH 7.27* 7.32* -- -- -- PCO2 44 36 37.5 39.6 41.6 PO2 105* 131* 250* 339* 350* BE -- -- -4* -1 0 HCO3 20* 18* 21.8* 23.7 24.9 CO2CT 19* 17* -- -- -- O2HB 96 97 -- -- -- COHB 1.0 <1.0 -- -- -- MHGB 1.0 1.0 -- -- -- PHTC 7.27* -- -- -- -- PCO2T 44 -- -- -- -- PO2T 104* -- -- -- -- O2AD 30 -- -- -- -- Assessment/Plan MV CAD - Previous history of CAD s/p PCI in 2007 and 2016 on Brilinta at home - POD # 1 - S/p CABG x 4; (GARZA to LAD, SVG to OM1, OM2, and PDA) - Medical management with ASA 162, Lipitor 40mg, hold BB until hemodynamics improve - Currently on Marixa; continue to wean - Perioperative abx - D/c maxwell - Add additional crystalloid this AM - Maintain central line, chest tubes to suction, a line - Pain control per ERAS protocol; currently adequate - Heart healthy (more content not included)...[facility] 05-14-2022 NoteHNO ID: [id number] Author: David Alexander MD Service: Critical Care Author Type: Physician Type: Progress Notes Filed: 05/14/2022 7:47 AM Note Text: MICU PROGRESS NOTE SERVICE DATE: 05/14/2022 SERVICE TIME: 7:44 AM Admission Date: 05/13/2022 Hospital Day # 1 Subjective Sleeping comfortably this AM on BiPAP No other issues overnight Remains on insilun drip and low dose PE Objective PHYSICAL EXAM PERFORMED: General: NAD HEENT: BiPAP in place Oral Mucosa: Moist mucous membranes Eyes: PERRLA Neck: Unremarkable; No adenopathy or JVD Cardiovascular: Regular rhythm Respiratory: Reduced breath sounds bilat Abdomen: Soft, Nontender and Positive bowel sounds Extremities: Edema- No Peripheral Pulses- Present all extremities Capillary Refill- less than 3 seconds Neurologic: Awake, oriented and Alert LAB ABG: Recent Labs 05/14/22 0416 PH 7.27* PO2 105* PCO2 44 BMP: Glucose (mg/dL) Date Value 05/14/2022 97 09/28/2019 96 Potassium (mmol/L) Date Value 05/14/2022 4.2 09/28/2019 4.2 Sodium (mmol/L) Date Value 05/14/2022 139 09/28/2019 141 Chloride (mmol/L) Date Value 05/14/2022 112 09/28/2019 108 CO2 (mmol/L) Date Value 05/14/2022 20 09/28/2019 26 Creatinine (mg/dL) Date Value 05/14/2022 0.75 09/28/2019 1.07 BUN (mg/dL) Date Value 05/14/2022 9 09/28/2019 13 Anion Gap (mmol/L) Date Value 05/14/2022 7 09/28/2019 7 Calcium (mg/dL) Date Value 09/28/2019 9.7 Calcium, Total (mg/dL) Date Value 05/14/2022 7.7 CBC: Hemoglobin (g/dL) Date Value 05/14/2022 8.9 05/13/2022 9.4 04/29/2022 13.5 04/13/2019 13.3 HGB (g/dL) Date Value 07/22/2016 14.2 07/21/2016 14.3 Hematocrit (%) Date Value 05/14/2022 27.7 05/13/2022 29.3 04/29/2022 43.1 04/13/2019 43.1 07/22/2016 41.9 07/21/2016 43.6 WBC Date Value 05/14/2022 11.58 k/uL 05/13/2022 12.36 k/uL 04/29/2022 7.75 k/uL 04/13/2019 4.86 k/uL 07/22/2016 10.1 thou/cmm 07/21/2016 13.0 thou/cmm Diagnostic tests reviewed for today's visit: Most recent labs and imaging results. Personally reviewed imaging studies. ICU Checklist A= Assess, Prevent, Manage Pain C= Choice of Sedation and Analgesia B= Both Spontaneous Awakening and Breathing Trials D= Delirium: Assess, Prevent and Manage E= Early Mobility/Excercise ICU Mobility: F= Family Engagement and Empowerment ICU Disposition: Prevention: VTE Prophylaxis: IMPRESSION: Patient is a 77 year old female with: Anticipated postop respiratory insufficiency Anticipated postop hypotension with vasoplegia Status post CABG 05/13 Multivessel coronary artery disease History of cardiac arrest with V. fib in 2016 History of acid reflux History of type 2 diabetes mellitus History of hypertension Principal Problem: CAD in [place] artery PLAN: Wean off BiPAP as able Wean off phenylephrine as tolerated to keep map above 65 Insulin drip for blood sugar control - wean as able Aspirin statin Beta-siena once hemodynamics allows Chest tube per primary team Incentive spirometry Albuterol q2h PRN ICU prophylaxis Portions of this note have been copied forward from the previous day's documentation. This patient has a high probability of sudden, clinically significant deterioration, which requires the highest level of physician preparedness to intervene urgently. I managed/supervised life or organ supporting interventions that required frequent physician assessment. I devoted my full attention to the direct care of this patient for the amount of time indicated below. Time I spent with family or surrogate(s) is included only if the patient was incapable of providing the necessary information or participating in medical decision making. Time devoted to teaching is not included. Critical Care Documentation: The patient has the following organ/system impairment(s): Circulatory shock, Post-operative respiratory insufficiency Patient/Family/Providers Updated Time spent providing critical care services: 30 minutes excluding procedures. SIGNATURE: David Alexander MD [id number] NoteHNO ID: [id number] Author: Chuck Pettit APRN.MULTI SLIDE MACHINE TENDER Service: Anesthesiology Author Type: Nurse System Archive Analyst Type: Anesthesia Procedure Notes Filed: 05/13/2022 9:09 PM Note Text: ANESTHESIOLOGY PROCEDURE NOTE Gastric Tube General Information Procedure Start Time/Medication Administration: 05/13/2022 9:08 PM Procedure End Time: 05/13/2022 9:08 PM Patient location during procedure: OR Timeout Performed Pre-procedure: no timeout performed, emergent Consent Obtained: Yes Indication: gastric decompression and need to replace existing tube Staffing MULTI SLIDE MACHINE TENDER: Chuck Pettit APRN.MULTI SLIDE MACHINE TENDER Performed by: ELISABETH Procedure Details Type: Nasogastric tube Size: 18 Fr cm Distance Advanced: 55 cm Initial Auscultation Appears Confirmatory: Yes Securement: taped to the nose Successful Placement: yes Post-Procedure Details SIGNATURE: Chuck Pettit APRN.CRNA PATIENT NAME: Venus Sanders DATE: May 13, 2022 TIME: 9:07 PM [facility]N: [id number] NoteHNO ID: [id number] Author: Chuck Pettit APRN.MULTI SLIDE MACHINE TENDER Service: Anesthesiology Author Type: Nurse System Archive Analyst Type: Anesthesia Procedure Notes Filed: 05/13/2022 4:22 PM Note Text: ANESTHESIOLOGY PROCEDURE NOTE Airway General Information Procedure Start Time/Medication Administration: 05/13/2022 3:15 PM Procedure End Time: 05/13/2022 3:16 PM Patient location during procedure: OR Timeout Performed Pre-procedure: timeout performed Consent Obtained: Yes Patient identity confirmed: arm band and patient Staffing MULTI SLIDE MACHINE TENDER: Chuck Pettit APRN.MULTI SLIDE MACHINE TENDER Performed by: ELISABETH Indications and Patient Condition Preoxygenated: yes Patient position: sniffing Manual In-Line Stabilization: No Difficult Mask: No Indications for airway management: anesthesia, airway protection and cardio/pulmonary arrest anesthesia circuit Method: asleep Cricoid Pressure: No Final Airway Details Final airway type: endotracheal airway Final Endotracheal Airway: ETT Cuffed: yes Successful intubation technique: direct laryngoscopy Endotracheal tube insertion site: oral Blade: Galleg[place] Blade size: #2 ETT size (mm): 7.0 Measured from: gums Measurement (cm): 21 Placement verified by: chest auscultation Cormack-Lehane Classification: grade I - full view of glottis Number of attempts at approach: 1 Failed airway: no Unrecognized esophageal intubation: no Airway not difficult SIGNATURE: Chuck Pettit APRN.MULTI SLIDE MACHINE TENDER PATIENT NAME: Venus Sanders DATE: May 13, 2022 TIME: 4:20 PM CSN: [id number] History of Past illness Narrative* Problem Noted Date Resolved Date CAD in [place] artery 05/13/2022 02/03/2023 UTI (urinary tract infection) 10/21/2007 Type II or unspecified type diabetes mellitus without mention of complication, not stated as uncontrolled 07/21/2005 documented as of this encounter (statuses as of 02/05/2023) [facility]06-21-20[facility] History of Past illness Narrative* Problem Noted Date Resolved Date CAD in [place] artery 05/13/2022 02/03/2023 UTI (urinary tract infection) 10/21/2007 Type II or unspecified type diabetes mellitus without mention of complication, not stated as uncontrolled 07/21/2005 documented as of this encounter (statuses as of 02/20/2023) [facility] History of Past illness Narrative* Problem Noted Date Resolved Date CAD in [place] artery 05/13/2022 02/03/2023 UTI (urinary tract infection) 10/21/2007 Type II or unspecified type diabetes mellitus without mention of complication, not stated as uncontrolled 07/21/2005 documented as of this encounter (statuses as of 02/21/2023) [facility] History of Past illness Narrative* Problem Noted Date Resolved Date CAD in [place] artery 05/13/2022 02/03/2023 UTI (urinary tract infection) 10/21/2007 Type II or unspecified type diabetes mellitus without mention of complication, not stated as uncontrolled 07/21/2005 documented as of this encounter (statuses as of 02/23/2023) [address]21-2022 History of Past illness Narrative* Problem Noted Date Resolved Date CAD in [place] artery 05/13/2022 02/03/2023 UTI (urinary tract infection) 10/21/2007 Type II or unspecified type diabetes mellitus without mention of complication, not stated as uncontrolled 07/21/2005 documented as of this encounter (statuses as of 02/27/2023) [address]21-2022 History of Past illness Narrative* Problem Noted Date Diagnosed Date Resolved Date CAD in [place] artery 05/13/2022 023 UTI (urinary tract infection) 10/21/2007 09/05/2015 Type II or unspecified type diabetes mellitus without mention of complication, not stated as uncontrolled 07/21/2005 10/27/2013 documented as of this encounter (statuses as of 07/10/2023) [address]21-2022 History of Past illness Narrative* Problem Noted Date Diagnosed Date Resolved Date CAD in [place] artery 05/13/2022 023 UTI (urinary tract infection) 10/21/2007 09/05/2015 Type II or unspecified type diabetes mellitus without mention of complication, not stated as uncontrolled 07/21/2005 10/27/2013 documented as of this encounter (statuses as of 07/23/2023) [address]-2022 History of Past illness Narrative* Problem Noted Date Diagnosed Date Resolved Date CAD in [place] artery 05/13/2022 023 UTI (urinary tract infection) 10/21/2007 09/05/2015 Type II or unspecified type diabetes mellitus without mention of complication, not stated as uncontrolled 07/21/2005 10/27/2013 documented as of this encounter (statuses as of 07/30/2023) [address]-2022 History of Past illness Narrative* Problem Noted Date Diagnosed Date Resolved Date CAD in [place] artery 05/13/2022 023 UTI (urinary tract infection) 10/21/2007 09/05/2015 Type II or unspecified type diabetes mellitus without mention of complication, not stated as uncontrolled 07/21/2005 10/27/2013 documented as of this encounter (statuses as of 08/07/2023) [facility] of Past illness Narrative* Problem Noted Date Diagnosed Date Resolved Date CAD in [place] artery 05/13/2022 023 UTI (urinary tract infection) 10/21/2007 09/05/2015 Type II or unspecified type diabetes mellitus without mention of complication, not stated as uncontrolled 07/21/2005 10/27/2013 documented as of this encounter (statuses as of 10/09/2023) [facility] History of Past illness Narrative* Problem Noted Date Diagnosed Date Resolved Date CAD in [place] artery 05/13/2022 023 UTI (urinary tract infection) 10/21/2007 09/05/2015 Type II or unspecified type diabetes mellitus without mention of complication, not stated as uncontrolled 07/21/2005 10/27/2013 documented as of this encounter (statuses as of 10/21/2023) [facility] of Past illness Narrative* Problem Noted Date Diagnosed Date Resolved Date CAD in [place] artery 05/13/2022 023 Other convulsions 04/11/2008 10/23/2023 UTI (urinary tract infection) 10/21/2007 09/05/2015 Type II or unspecified type diabetes mellitus without mention of complication, not stated as uncontrolled 07/21/2005 10/27/2013 documented as of this encounter (statuses as of 10/23/2023) [facility] of Past illness Narrative* Problem Noted Date Diagnosed Date Resolved Date CAD in [place] artery 05/13/2022 023 Other convulsions 04/11/2008 10/23/2023 UTI (urinary tract infection) 10/21/2007 09/05/2015 Type II or unspecified type diabetes mellitus without mention of complication, not stated as uncontrolled 07/21/2005 10/27/2013 documented as of this encounter (statuses as of 10/27/2023) [facility]06-20-2022 NoteHNO ID: [id number] Author: Jennifer Addison APRN.LOGISTICS SUPPORT Service: Cardiovascular Medicine Author Type: Nurse Practitioner Type: Plan of Care Filed: 05/12/2022 10:23 AM Note Text: CTVS Surgery Pre-Op Open Heart Check List Patient Info: Venus Sanders 1945 77 year old STS RISK SCORE: Prelim STS for isolated CABG: ?Risk of Mortality: 1.197% Renal Failure: 0.629% Permanent Stroke: 1.061% Prolonged Ventilation: 4.093% DSW Infection: 0.095% Reoperation: 2.600% Morbidity or Mortality: 7.330% Short Length of Stay: 46.660% Long Length of Stay: 2.389% Pre-Op Testing: LABS: CHEMISTRY Troponin I (ng/ml) Date Value 07/21/2016 42.000 07/21/2016 52.600 07/21/2016 26.900 Sodium (mmol/L) Date Value 04/29/2022 139 09/28/2019 141 10/04/2018 142 02/01/2018 141 Chloride (mmol/L) Date Value 04/29/2022 103 09/28/2019 108 10/04/2018 106 02/01/2018 102 CO2 (mmol/L) Date Value 04/29/2022 25 09/28/2019 26 10/04/2018 26 02/01/2018 26 BUN (mg/dL) Date Value 04/29/2022 14 09/28/2019 13 10/04/2018 12 02/01/2018 15 Creatinine (mg/dL) Date Value 04/29/2022 1.09 09/28/2019 1.07 10/04/2018 0.98 02/01/2018 1.23 Glucose (mg/dL) Date Value 04/29/2022 107 09/28/2019 96 10/04/2018 92 02/01/2018 91 Magnesium (mg/dL) Date Value 04/29/2022 2.4 07/22/2016 2.0 07/21/2016 2.2 Protein, Total (g/dL) Date Value 04/29/2022 7.8 T PROT (g/dL) Date Value 01/31/2021 7.5 Calcium (mg/dL) Date Value 09/28/2019 9.7 10/04/2018 9.7 02/01/2018 9.8 Calcium, Total (mg/dL) Date Value 04/29/2022 10.1 Bilirubin, Total (mg/dL) Date Value 04/29/2022 0.7 Alkaline Phosphatase (U/L) Date Value 04/29/2022 136 ALT (U/L) Date Value 04/29/2022 11 01/31/2021 23 02/05/2017 16 10/15/2016 29 AST Date Value 04/29/2022 16 U/L 01/31/2021 18 g/dL Anion Gap (mmol/L) Date Value 04/29/2022 11 09/28/2019 7 10/04/2018 10 02/01/2018 13 { Lipid Panel Cholesterol Date Value Ref Range Status 01/31/2021 125 200 mg/dL Final HDL Cholesterol Date Value Ref Range Status 01/31/2021 60 40 - 60 mg/dL Final LDL Cholesterol Date Value Ref Range Status 01/31/2021 52 0 - 130 mg/dL Final Triglyceride Date Value Ref Range Status 01/31/2021 66 150 mg/dL Final NT Pro BNP NT Pro BNP Date Value Ref Range Status 07/23/2016 3,651 pg/ml Final Comment: Acute CHF Rule-in <50 yrs old >= 450 pg/ml >50 yrs old >= 900 pg/ml Abnormal Pro-BNP All patients >=300 pg/ml ENDOCRINE Hemoglobin A1C (%) Date Value 04/29/2022 6.3 04/13/2019 5.6 Lab Results Component Value Date TSH 2.610 04/29/2022 HEMATOLOGY RBC Date Value 04/29/2022 5.06 m/uL 04/13/2019 4.72 m/uL 07/22/2016 5.02 mil/cmm 07/21/2016 5.12 mil/cmm Hemoglobin (g/dL) Date Value 04/29/2022 13.5 04/13/2019 13.3 HGB (g/dL) Date Value 07/22/2016 14.2 07/21/2016 14.3 Hematocrit (%) Date Value 04/29/2022 43.1 04/13/2019 43.1 07/22/2016 41.9 07/21/2016 43.6 WBC Date Value 04/29/2022 7.75 k/uL 04/13/2019 4.86 k/uL 07/22/2016 10.1 thou/cmm 07/21/2016 13.0 thou/cmm Platelet Count Date Value 04/29/2022 339 k/uL 04/13/2019 249 k/uL 07/22/2016 234 thou/cmm 07/21/2016 231 thou/cmm COAGULATION PT Sec Date Value Ref Range Status 04/29/2022 10.3 9.7 - 13.0 sec Final INR Date Value Ref Range Status 04/29/2022 <0.9 (L) 0.9 - 1.3 Final Comment: Vitamin K Antagonist (VKA) Therapeutic Range: INR 2 to 3 (Target INR of 2.5) Note: For patients treated with VKA drugs, such as warfarin, the [place] [employer] 2012 Guideline recommends a therapeutic INR range of 2 to 3 (target INR of 2.5). This recommendation includes high-risk patients with antiphospholipid syndrome with previous arterial or venous thromboembolism, current-generation mechanical or bioprosthetic aortic heart valve replacement. Note: Patients with mechanical aortic valve replacement and additional risk factors for thromboembolic events (atrial fibrillation, previous thromboembolism, LV dysfunction, hypercoagulable conditions) or an older generation mechanical AVR (i.e., ball in-Cage) or any mechanical MVR should have a INR therapeutic range of 2.5 to 3.5 (target INR of 3). Lexi GH, et al. Chest 2012, 141:7S-47S Teresita RA et al. [facility] 2017, 70: 252-289 Anemia Evaluation: Anemic: No Accept Blood: Yes Blood Conservation Committee: NA IF anemia, IRON/ANEMIA studies done: NA Studies included: Ferritin, FE+TIBC, Fe Sat, FOBT Anemia Treatment: NA UA pH, Urine Date Value Ref Range Status 04/29/2022 6.0 5.0 - 8.0 Final Specific Lena, Ur Date Value Ref Range Status 04/29/2022 >=1.030 (H) 1.005 - 1.030 Final Glucose, Urine Date Value Ref Range Status 04/29/2022 Negative Negative Final Bilirubin, Urine Date Value Ref Range Status 04/29/2022 Negative Negative Final Ketones, Urine Date Value Ref Ran (more content not included)...[facility] 05-12-2022 Miscellaneous Notes* Telephone Encounter - Marcelino Garcia - 05/12/2022 11:24 AM EDT Surgery time change for 05/13/22. New arrival time 11:50am procedure time 1:50pm. Pt notified [facility] NoteHNO ID: [id number] Author: Blessing Headley Service: ? Author Type: ? Type: Nursing Progress Note Filed: 05/01/2022 9:35 AM Note Text: Tata from blood bank called regarding patient type and screen per lab Conf. ABO need to be done day of surgery 05/13/22.[facility] 04-29-2022 NoteHNO ID: [id number] Author: Jennifer Addison APRN.CNP Service: ? Author Type: Nurse Practitioner Type: Progress Notes Filed: 04/30/2022 10:02 AM Note Text: HISTORY and PHYSICAL CARDIOTHORACIC SURGERY NAME: Venus Sanders HEIGHT: 160 cm WEIGHT: 70.8 kg Intended Procedure: Isolated CABG REDO: No STS SCORE: Prelim STS for isolated CABG: ? Risk of Mortality: 1.197% Renal Failure: 0.629% Permanent Stroke: 1.061% Prolonged Ventilation: 4.093% DSW Infection: 0.095% Reoperation: 2.600% Morbidity or Mortality: 7.330% Short Length of Stay: 46.660% Long Length of Stay: 2.389% HPI: This is a 77 year old woman referred for evaluation of multivessel coronary artery disease and for consideration for bypass surgery. She has history of coronary artery disease. In 2007 she underwent stenting to the left anterior descending artery. In 2015 she presented with acute myocardial infarction and had repeat stenting to the left anterior descending artery. Stress echo in 2018 was negative for inducible ischemia and ejection fraction was 65% with a resting wall motion abnormality. She is now noting exertional fatigue, lack of energy. She denies chest pressure, heaviness, burning. She had a single episode of near syncope in January. Cardiolite stress test performed in February of this year shows ejection fraction 75% with resting wall motion abnormality involving the apex with no stress-induced changes. Left heart catheterization however now shows multivessel coronary disease including: ? Left main: Mild calcification Left anterior descending artery: Ostial 85% stenosis; patent stent Circumflex artery: Mild luminal irregularities Right coronary artery: Severe calcification, mid eccentric 50% stenosis ? Echo shows: Normal ejection fraction 60%; anterior apica hypokinesia; inferoapical akinesia; lateral apical hypokinesia; septal apex akinetic; no valve abnormalities ? Risk factors for coronary disease include hypertension; possible diabetes (she carries diagnosis however hemoglobin A1c was only 5.8 couple of years ago she is on no medications). There is no history of smoking, or other vascular disease. ?She is on chronic Brilinta therapy. Mrs. Sanders presents today for PAT prior to her scheduled CABG with Dr. Martinez 05/13/22. Reports she has continued fatigue and shortness of breath with moderate to heavy exertional activities like climbing a flight of stairs. Denies any recent inpatient hospitalizations, but was treated in urgent care for dysuria and UTI last week. Finished her course of keflex and currently denies any urinary complaints. Repeat UA today reveals normal findings except for high specific gravity. She was recently placed on Imdur, but experienced significant headaches sending her to ER for evaluation last month. She has since stopped the Imdur, and has had cessation of the headaches and no chest pain. Denies any fevers/chills. Denies any prior issues with anesthesia. CXR completed 03/05/22 at outside hospital with no acute abnormalities. Chest CT 04/23/[address] evidence of acute abnormality. A few lung nodules measuring up to 4 mm. Incidental Finding: ?Follow-up Acuity: Incidental Finding: Solid: <6 mm (solitary or multiple) Routing Code: ?N/A Recommendation: No imaging follow-up is recommended Time Frame: ?N/A Comments: ?If there are risk factors for lung malignancy, a follow-up chest CT exam could be obtained in 12 months. I informed Mrs. Sanders of these findings and recommendations at today's visit. PAST MEDICAL HISTORY: PAST MEDICAL HISTORY Diagnosis Date - Cardiac arrest with ventricular fibrillation (HCC) defibrillated x 3 on 07/21/2016 - Coronary disease stent in 2007 with balloon angioplasty of left circumflex - Depressive disorder, not elsewhere classified - Esophageal reflux - Herpes zoster without mention of complication - Other acute and subacute form of ischemic heart disease 07/23/08 [place] - Other and unspecified hyperlipidemia 07/21/2005 - Other convulsions 04/11/2008 - STEMI (ST elevation myocardial infarction) (HCC) 07/21/2016 - Type II or unspecified type diabetes mellitus without mention of complication, not stated as uncontrolled 07/21/2005 - Unspecified essential hypertension 07/21/2005 PAST SURGICAL HISTORY: PAST SURGICAL HISTORY Procedure Laterality Date - CHOLECYSTECTOMY 1982 - STENT PLACEMENT 07/25/08 Thru heart cath. at [facility] - TOTAL ABDOMINAL HYSTERECT W/WO RMVL TUBE OVARY at age 48 FAMILY HISTORY: FAMILY HISTORY Problem Relation Age of Onset - Heart Mother - Diabetes Mother - Coronary Artery Disease Mother - Cataract Mother - Heart Brother - Heart Brother - Diabetes Brother FAMILY HISTORY OF CAD: Yes SOCIAL HISTORY: Social History Tobacco Use - Smoking status: Never Smoker - Smokeless tobacco: Never Used Substance Use Topics - Alcohol use: No - Dr (more content not included)...[facility]06-07-2022 History of Present illness Narrative* Brittany Yu APRN.CNP - 04/29/2022 10:48 AM EDT Incidental Lung Nodule Enrollment Call attempt: 1st Attempt Call status: Complete Enrolled in Lung Nodule program: Referred Lung Nodule outreach: No outreach - Very small nodule, letter and brochure sent Lung Nodule Program Location: ARVIN Yu APRN.CNP documented in this [facility] Instructions* Patient Instructions* Jennifer Addison APRN.CNP - 04/29/2022 10:31 AM EDT ][facility] Pre-Admission Patient Instruction You are scheduled for surgery (inpatient) located on the 2nd Floor on: 05/13/22 (your surgery date is subject to change should there be emergencies). Come in the Front Doors / Main Entrance of the hospital. No need to stop at front entrance registration. Please check in to the [facility] (2nd Floor) at: 6 AM 1. Nothing by mouth after midnight: Do not eat or drink anything, including water and coffee, after12 AM on the morning of your surgery. This is important because if you do, your surgery may have stephany cancelled. Eat a light supper the evening before surgery or follow specific doctor's instructions. 2. Oral hygiene and a shower or bath is required the evening before or the morning of surgery. Use the prescribed mouth water and Hibiclens body wash supplied to you along with the instruction. 3. Do not chew gum/mints, or use oral spray the morning of surgery. 4. Notify your doctor if you develop a cold, sore throat, fever or other changes in your physical condition. 5. No alcohol 24 hours before or after surgery and refrain from smoking the morning of surgery and immediately following surgery. 6. Leave valuables such as rings, watches and money at home. Remove all make-up and nail czech before admission. We need to check your circulation. Remove jewelry from all piercings, tongue included, as no metal can go into surgery. 7. Wear loose, comfortable clothing that will accommodate bandages. 8. You will be asked to remove glasses and contacts prior to surgery. Please bring a case. Your belongings will be kept in an assigned locker until we know your new room. 9. Please bring your CPAP or BIPAP or any necessary medical equipments, we will keep them in an assigned locker until you are assigned a post-op room. 10. Your length of stay will be determined by your surgeon, the anesthesiologist as well as your post of progress. 11. Given COVID-19 pandemic, 1 designated visitor are allowed on the day of surgery and have the same visitors everyday after the surgery on rotating basis. On the morning of surgery, your point of contact will be instructed on communication regarding surgery updates. 12. Please bring a list of any medication you are taking including dose and the condition for whichyou are being treated. Medications to stop in preparing surgery: Stop Anticoagulant: BRILINTA , last dose on: 05/07/22 Infection control and prevention: For nose- Mupirocin ointment: Please use a pea sized amount on a q-tip to apply inside your nose twice daily for five days prior to surgery. 5-7 days total if you are tested positive for MRSA. For mouth- Peridex therapy should be initiated for surgery prophylaxis 3-5 days prior surgery. Recommended use is twice daily oral rinsing for 30 seconds, morning and evening after toothbrushing. Usual dosage is 15ml (marked in cap) of undiluted Peridex. Please do not rinse with water or other mouthwashes, brush teeth or eat immediately after using Peridex. Peridex is not intended for ingestion and should be expectorated after rinsing. For body- Hibiclens body wash the night before and morning of surgery. If you are positive of MRSA,you would need shower daily with the Hibiclens body solution for 5 days total (you can get additional amount from any drug store). Pre-Op COVID TEST: it is ordered. You will be instructed to have this test completed 2-3 days priorto your surgery date. PLEASE make sure you complete this test to prevent any surgery delay or possible cancellation. If you have not receive call regarding the test, please call [phone]. Nutritional support/Ensure Drinks Instruction (Please continue eating your usual heart healthy diet): 2 protein shakes daily for 5 days before surgery 2 presurgical clear drinks the night before surgery 1 presurgical clear drink 2 hrs before surgery Medications to take with small amount of fluid in the morning of surgery: Aspirin 81 mg Beta Siena (Metoprolol) Tylenol 1000 mg PLEASE COMPLETE THE SHOWER, MOUTH WASH, FINISH YOUR DRINK AND MEDICATIONS NO LATER THAN 5:30 AM, THANKS. Please make sure to go get your pre op lab work and repeat urine test today. Please call office: [phone] if you have additional questions, Thanks. Jennifer Addison APRN.CNP 04/29/22 Work Cell documented in [facility]Shel[facility]06[facility] History of Present illness Narrative* Jennifer Addison APRN.CNP - 04/29/2022 10:00 AM EDT Images from the original note were not included. HISTORY and PHYSICAL CARDIOTHORACIC SURGERY NAME: Venus Sanders HEIGHT: 160 cm WEIGHT: 70.8 kg Intended Procedure: Isolated CABG REDO: No STS SCORE: Prelim STS for isolated CABG: Risk of Mortality: 1.197% Renal Failure: 0.629% Permanent Stroke: 1.061% Prolonged Ventilation: 4.093% DSW Infection: 0.095% Reoperation: 2.600% Morbidity or Mortality: 7.330% Short Length of Stay: 46.660% Long Length of Stay: 2.389% HPI: This is a 77 year old woman referred for evaluation of multivessel coronary artery disease andfor consideration for bypass surgery. She has history of coronary artery disease. In 2007 she underwent stenting to the left anterior descending artery. In 2015 she presented with acute myocardial infarction and had repeat stenting to the left anterior descending artery. Stress echo in 2018 was negative for inducible ischemia and ejection fraction was 65% with a resting wall motion abnormality. She is now noting exertional fatigue, lack of energy. She denies chest pressure, heaviness, burning. She had a single episode of near syncope in January. Cardiolite stress test performed in February of thisyear shows ejection fraction 75% with resting wall motion abnormality involving the apex with no stress-induced changes. Left heart catheterization however now shows multivessel coronary disease including: Left main: Mild calcification Left anterior descending artery: Ostial 85% stenosis; patent stent Circumflex artery: Mild luminal irregularities Right coronary artery: Severe calcification, mid eccentric 50% stenosis Echo shows: Normal ejection fraction 60%; anterior apica hypokinesia; inferoapical akinesia; lateral apical hypokinesia; septal apex akinetic; no valve abnormalities Risk factors for coronary disease include hypertension; possible diabetes (she carries diagnosis however hemoglobin A1c was only 5.8 couple of years ago she is on no medications). There is no historyof smoking, or other vascular disease. She is on chronic Brilinta therapy. Mrs. Sanders presents today for PAT prior to her scheduled CABG with Dr. Martinez 05/13/22. Reports she has continued fatigue and shortness of breath with moderate to heavy exertional activities like climbing a flight of stairs. Denies any recent inpatient hospitalizations, but was treated in urgent care for dysuria and UTI last week. Finished her course of keflex and currently denies any urinary complaints. Repeat UA today reveals normal findings except for high specific gravity. She was recently placed on Imdur, but experienced significant headaches sending her to ER for evaluation last month. She has since stopped the Imdur, and has had cessation of the headaches and no chest pain. Denies any fevers/chills. Denies any prior issues with anesthesia. CXR completed 03/05/22 at outside[facility] with no acute abnormalities. Chest CT 04/23/[address] evidence of acute abnormality. A few lung nodules measuring up to 4 mm. Incidental Finding: Follow-up Acuity: Incidental Finding: Solid: <6 mm (solitary or multiple) Routing Code: N/A Recommendation: No imaging follow-up is recommended Time Frame: N/A Comments: If there are risk factors for lung malignancy, a follow-up chest CT exam could be obtained in 12 months. I informed Mrs. Sanders of these findings and recommendations at today's visit. PAST MEDICAL HISTORY: PAST MEDICAL HISTORY Diagnosis Date Cardiac arrest with ventricular fibrillation (HCC) defibrillated x 3 on 07/21/2016 Coronary disease stent in 2007 with balloon angioplasty of left circumflex Depressive disorder, not elsewhere classified Esophageal reflux Herpes zoster without mention of complication Other acute and subacute form of ischemic heart disease 07/23/08 [place] Other and unspecified hyperlipidemia 07/21/2005 Other convulsions 04/11/2008 STEMI (ST elevation myocardial infarction) ([facility]) 07/21/2016 Type II or unspecified type diabetes mellitus without mention of complication, not stated as uncontrolled 07/21/2005 Unspecified essential hypertension 07/21/2005 PAST SURGICAL HISTORY: PAST SURGICAL HISTORY Procedure Laterality Date CHOLECYSTECTOMY 1983 STENT PLACEMENT 07/25/08 Thru heart cath. at [facility] TOTAL ABDOMINAL HYSTERECT W/WO RMVL TUBE OVARY at age 48 FAMILY HISTORY: FAMILY HISTORY Problem Relation Age of Onset Heart Mother Diabetes Mother Coronary Artery Disease Mother Cataract Mother Heart Brother Heart Brother Diabetes Brother FAMILY HISTORY OF CAD: Yes SOCIAL HISTORY: Social History Tobacco Use Smoking status: Never Smoker Smokeless tobacco: Never Used Substance Use Topics Alcohol use: No Drug use: No SOCIAL HISTORY OF IVDU: No SOCIAL HISTORY OF Smoking: No SOCIAL HISTORY OF Alcohol Dependency: No MEDICATIONS: Prior to Admission Medications: metoprolol succinate ER (TOPROL XL) 50 mg 24 hr tablet Take 1 tablet by mouth once daily. amLODIPine (NORVASC) 2.5 mg tablet Take 1 tablet by mouth once daily. atorvastatin (LIPITOR) 40 mg tablet Take 1 tablet by mouth once daily. ticagrelor (BRILINTA) 90 mg tablet Take 1 tablet by mouth twice daily. nitroglycerin sublingual (NITROQUICK) 0.4 mg SL tablet Dissolve 1 tablet under the tongue as needed. FOR CHEST PAIN. IF NO RELIEF CALL 911 Cholecalciferol, Vitamin D3, 2,000 unit Tab Take 1 tablet by mouth once daily. aspirin(ECOTRIN LOW STRENGTH 81 MG TAB) Take one(1) tablet daily. cephALEXin (KEFLEX) 500 mg capsule Take 1 capsule by mouth twice daily for 7 days. isosorbide mononitrate ER (IMDUR) 30 mg 24 hr tablet Take 30 mg by mouth once daily. omeprazole (PRILOSEC) 20 mg capsule Take 20 mg by mouth once daily. pantoprazole DR (PROTONIX) 20 mg tablet Take 1 tablet by mouth once daily. No current facility-administered medications for this visit. ALLERGIES: ALLERGIES Allergen Reactions Imdur [Isosorbide] Other: See Comments Severe headaches Zestril [Lisinopril] Unknown Zoloft [Sertraline * Unknown COMPLETE REVIEW OF SYSTEMS: (10) Constitutional: No weight loss, malaise or fevers. HEENT: Negative for frequent or significant headaches, No changes in hearing or vision, no nose bleeds or other nasal problems, Neck - Negative for lumps, goiter, pain and significant neck swelling Resp: Negative for cough, wheezing, or shortness of breath and see HPI Cardiovascular: Negative for chest pain, leg swelling or palpitations and Vascular: claudication GI: Negative for abdominal discomfort, blood in stools or black stools or change in bowel habits : No history of dysuria, frequency, or incontinence. See HPI Endo: Negative for cold or heat intolerance, polyuria, polydipsia and goiter Heme/Lymph: Negative for prolonged bleeding, bruising easily or swollen nodes Neurologic: No history or headaches, syncope, paralysis, seizures or tremors and see HPI Integumentary: Negative for lesions, rash, and itching. Additional systems reviewed: No additional systems reviewed PHYSICAL EXAM: (8) BP 130/70 (BP Site: Left Arm, BP Position: Sitting) Pulse 74 Resp 16 Ht 5'3 (1.6 m) Wt 156 lb (70.8 kg) SpO2 97% BMI 27.63 kg/m Constitutional: Well developed, Well nourished and No acute distress HEENT: PERRLA, EOM's intact, Sclera - no icterus Good dentition, No lesions, Neck No masses, No cervical, supraclavicular, or axillary adenopathy, No thyroid masses and supple and JVD - no Resp: Clear, Respiratory effort: normal Cardiovascular: Regular rate & rhythm, No heaves, No lifts, S1, S2 normal, Edema- none and Vascular: Pulses - Radial 2+ bilaterally and Dorsalis pedis 2+ bilaterally and No varicosities GI: Soft, Round, Non-tender and Bowel sounds present Integumentary: Warm, Dry and No rash on chest, arms or legs Musculoskeletal: No deformities Neurological/Psychiatric: Oriented to time, place & person , Alert, Oriented, Steady gait and No gross focal neurologic deficits Additional systems reviewed: No additional systems reviewed Labs: Cholesterol, Total 125 01/31/2021 HDL Cholesterol 60 01/31/2021 LDL Chol, [place] 52 01/31/2021 DATA: I have personally reviewed the following data: Cardiac Catheterization: JUNO/TTE: CXR: Carotids: 0-19% stenosis bilaterally Labs: BMP: Lab Results Component Value Date Sodium 139 04/29/2022 Potassium 4.4 04/29/2022 Chloride 103 04/29/2022 CO2 25 04/29/2022 Glucose 107 (H) 04/29/2022 BUN 14 04/29/2022 Creatinine 1.09 (H) 04/29/2022 Calcium, Total 10.1 04/29/2022 Anion Gap 11 04/29/2022 CMP: Lab Results Component Value Date Albumin 4.3 04/29/2022 Calcium, Total 10.1 04/29/2022 Bilirubin, Total 0.7 04/29/2022 Alkaline Phosphatase 136 (H) 04/29/2022 AST 16 04/29/2022 ALT 11 04/29/2022 Glucose 107 (H) 04/29/2022 BUN 14 04/29/2022 Creatinine 1.09 (H) 04/29/2022 Sodium 139 04/29/2022 Potassium 4.4 04/29/2022 Chloride 103 04/29/2022 CO2 25 04/29/2022 Anion Gap 11 04/29/2022 eGFR- >60 09/28/2019 Estimated Glomerular Filtration Rate 52 (L) 04/29/2022 CBC: Lab Results Component Value Date WBC 7.75 04/29/2022 RBC 5.06 04/29/2022 Hemoglobin 13.5 04/29/2022 Hematocrit 43.1 04/29/2022 MCV 85.2 04/29/2022 MCH 26.7 04/29/2022 MCHC 31.3 04/29/2022 RDW-CV 14.4 04/29/2022 Platelet Count 339 04/29/2022 MPV 10.4 04/29/2022 Absolute nRBC <0.01 04/29/2022 HGB A1C: Lab Results Component Value Date Hemoglobin A1C 6.3 (H) 04/29/2022 INR PT: Lab Results Component Value Date PT Sec 10.3 04/29/2022 INR <0.9 (L) 04/29/2022 TSH: Lab Results Component Value Date TSH 2.610 04/29/2022 Impression: This is a 77 year old year-old female, with multivessel coronary artery disease. The patient's acute and chronic medical issues have been evaluated as documented above [facility] No problems updated. Plan: - Continue ASA and BB pre-op. - Pt advised that last dose of Brilinta to be 05/07/22 - Pre-op labs reviewed and WNLs - She will require post operative endocrinology consultation - MRSA swab obtained - Pre-op drinks and education provided - Plans for CABG on 05/13/[address] Briseyda Addison APRN.BILLIE documented in this encounterS[facility] Evaluation note* Diagnosis Onset Date Resolution Status History of coronary artery bypass surgery April, acute Atherosclerotic heart diseas e of [place] coronary artery without angina pectoris chronic Essential hypertension chron ic Hyperlipidemia [facility] Work Phone: 1(796) 514-587706-01-2022 Evaluation note* Diagnosis Onset Date Resolution Status History of coronary artery bypass surgery April, acute Atherosclerotic heart diseas e of [place] coronary artery without angina pectoris chronic Essential hypertension chron ic Hyperlipidemia chronic History of coronary artery bypass surgery April, acute Atherosclerotic heart diseas e of [place] coronary artery without angina pectoris chronic Essential hypertension chron ic Hyperlipidemia [facility] Work Phone: 1(917) 109-157706-01-2022 Evaluation note* Diagnosis Onset Date Resolution Status Chest pain acute History of coronary artery bypass surgery April, acute Essential hypertension chron ic Hyperlipidemia [facility] Work Phone: 1(255) 396-715006-01-2022 Evaluation note* Diagnosis Onset Date Resolution Status Chest pain acute History of coronary artery bypass surgery April, acute Postoperative keloid scar ac [place] Essential hypertension chron ic Hyperlipidemia [facility] Work Phone: 1(635) 678-860606-01-2022 Evaluation note* Diagnosis Onset Date Resolution Status History of coronary artery bypass surgery April, acute Essential hypertension chron ic Hyperlipidemia [facility] Work Phone: 1(578) 150-121805-31-2022 History of Present illness Narrative* RT Rafat(R) - 04/22/2022 2:00 PM EDT Radiology Service Progress Note PATIENT NAME: Venus Sanders DATE OF SERVICE: April 22, 2022 TIME: 2:17 PM PATIENT IDENTITY VERIFICATION COMPLETED USING TWO (2) IDENTIFIERS: Name and Date of confirmedby patient verbally. FALL SCREENING: Has the patient had 2 falls in the last year or 1 fall with injury or currently using an Ambulatory Assistive Device (Walker, Cane, Wheelchair, Crutches, etc.)? No PATIENT GENDER DATA: Female. status: : No status: NO. PATIENT RELEVANT IMPLANT DATA REVIEWED: Not Applicable RADIOLOGY DEPARTMENT: CT; Exam(s) Completed: Chest PERIPHERAL IV DATA: Not applicable SIGNED BY: RT Akanksha(R) April 22, 2022 2:17 PM documented in this encounterShel[facility]05-31-2022 Miscellaneous Notes* Addendum Note - Janeth Tolbert APRN.CNP - 04/22/2022 11:45 AM EDT Addended by: JANETH TOLBERT on: 04/22/2022 11:45 AM Modules accepted: Orders documented in this encounterSheltering [facility]05-31-2022 Instructions* Patient Instructions* Janeth Tolbert APRN.CNP - 04/22/2022 10:25 AM EDT Images from the original note were not included. Urinary Problem-When to Seek Help? Symptoms of a urinary problem may lead to a bladder infection. Women are at greater risk of a urinary tract infection than are men. Most urinary tract infections in women are caused by bacteria and involve the lower urinary tract including the bladder and urethra. Symptoms: Pain or burning when passing urine, urgency, frequency, blood in the urine, difficult emptying your bladder, and lower abdominal fullness or pressure. Common Causes: Sexual intercourse, menopause, constipation, uncontrolled diabetes, dehydration and feminine products such as tampons, and kidney stones. When to Get Help: Seek medical attention if you get frequent bladder infections, urinary concerns such as leakage, blood in the urine or frequent need to urinate. You may be recommended to get help from a specialist, such as a urologist. Diagnosis & Treatment: Lab testing may include: urinalysis, and urine culture that can be collected in the lab or walk-in clinic. Most bladder infections can easily be treated. A physician, nurse practitioner or physician data analysis assistant may treat with a short course of an antibiotic. Delaying treatment can lead to worsening symptoms, like a kidney infection. Self-Care: Avoid a full bladder, bubble baths, bath oils, food and beverages that may irritate the bladder such as caffeine. Avoid spermicide foam and diaphragms Void before and after sexual intercourse Wipe front to back after using the bathroom. Stay hydrated Stop Smoking Follow-up Care: Follow up testing is not needed in healthy young women if symptoms resolve. documented in this encounterS[facility]05-31-2022 History of Present illness Narrative* Janeth Tolbert APRN.CNP - 04/22/2022 10:22 AM EDT This note was created using Luminalriter. Subjective Venus Sanders is a 77 year old female. 77 year old female with PMH HTN, hyperlipidemia, CKD, STEMI, osteopenia presents for possible UTI. Acute onset 2 days ago. +burning +frequency +urgency Denies abdominal pain. Denies back pain. Denies damaris blood in urine. Denies vaginal bleeding. Denies vaginal discharge. Denies fever or chills. Denies concerns for STI. The history is provided by the patient. No mainspring winder and oiler was used. UTI This is a new problem. The current episode started 2 days ago. The problem occurs every urination. The problem has been gradually worsening. The quality of the pain is described as burning. The pain is at a severity of 4/10. The pain is moderate. There has been no fever. She is not sexually active.There is no history of pyelonephritis. Associated symptoms include frequency and urgency. Pertinentnegatives include no chills, no sweats, no nausea, no vomiting, no discharge, no hematuria, no hesitancy, no possible and no flank pain. She has tried increased fluids for the symptoms. Herpast medical history does not include kidney stones, single kidney, urological procedure, recurrentUTIs, urinary stasis or catheterization. PAST MEDICAL HISTORY Diagnosis Date Cardiac arrest with ventricular fibrillation (HCC) defibrillated x 3 on 07/21/2016 Coronary disease stent in 2007 with balloon angioplasty of left circumflex Depressive disorder, not elsewhere classified Esophageal reflux Herpes zoster without mention of complication Other acute and subacute form of ischemic heart disease 07/23/08 [place] Other and unspecified hyperlipidemia 07/21/2005 Other convulsions 04/11/2008 STEMI (ST elevation myocardial infarction) (HCC) 07/21/2016 Type II or unspecified type diabetes mellitus without mention of complication, not stated as uncontrolled 07/21/2005 Unspecified essential hypertension 07/21/2005 PAST SURGICAL HISTORY Procedure Laterality Date CHOLECYSTECTOMY 1983 STENT PLACEMENT 07/25/08 Thru heart cath. at [facility] TOTAL ABDOMINAL HYSTERECT W/WO RMVL TUBE OVARY at age 48 ALLERGIES Zestril [Lisinopril] and Zoloft [Sertraline Hcl] MEDICATIONS isosorbide mononitrate ER (IMDUR) 30 mg 24 hr tablet Take 30 mg by mouth once daily. omeprazole (PRILOSEC) 20 mg capsule Take 20 mg by mouth once daily. pantoprazole DR (PROTONIX) 20 mg tablet Take 1 tablet by mouth once daily. metoprolol succinate ER (TOPROL XL) 50 mg 24 hr tablet Take 1 tablet by mouth once daily. amLODIPine (NORVASC) 2.5 mg tablet Take 1 tablet by mouth once daily. atorvastatin (LIPITOR) 40 mg tablet Take 1 tablet by mouth once daily. ticagrelor (BRILINTA) 90 mg tablet Take 1 tablet by mouth twice daily. nitroglycerin sublingual (NITROQUICK) 0.4 mg SL tablet Dissolve 1 tablet under the tongue as needed. FOR CHEST PAIN. IF NO RELIEF CALL 911 Cholecalciferol, Vitamin D3, 2,000 unit Tab Take 1 tablet by mouth once daily. aspirin(ECOTRIN LOW STRENGTH 81 MG TAB) Take one(1) tablet daily. cephALEXin (KEFLEX) 500 mg capsule Take 1 capsule by mouth twice daily for 7 days. FAMILY HISTORY Problem Relation Age of Onset Heart Mother Diabetes Mother Coronary Artery Disease Mother Cataract Mother Heart Brother Heart Brother Diabetes Brother Social History Tobacco Use Smoking status: Never Smoker Smokeless tobacco: Never Used Substance Use Topics Alcohol use: No Drug use: No Review of Systems Constitutional: Negative for activity change, chills, fatigue and fever. Eyes: Negative for pain, discharge, redness and itching. Respiratory: Negative for apnea, cough, choking and chest tightness. Cardiovascular: Negative for chest pain, palpitations and leg swelling. Gastrointestinal: Negative for abdominal pain, diarrhea, nausea and vomiting. Genitourinary: Positive for dysuria, frequency and urgency. Negative for flank pain, hematuria and hesitancy. Musculoskeletal: Negative for arthralgias, back pain and gait problem. Skin: Negative for color change, pallor, rash and wound. Allergic/Immunologic: Negative for environmental allergies, food allergies and immunocompromised state. Neurological: Negative for dizziness, facial asymmetry, light-headedness and headaches. Hematological: Negative for adenopathy. Does not bruise/bleed easily. Psychiatric/Behavioral: Negative for agitation and behavioral problems. Objective BP 136/80 Pulse 88 Temp 36.6 C (97.8 F) Resp 16 Wt 70.6 kg (155 lb 9.6 oz) SpO2 97% BMI27.56 kg/m Physical Exam Vitals and nursing note reviewed. Constitutional: General: She is not in acute distress. Appearance: Normal appearance. She is normal weight. She is not ill-appearing, toxic-appearing or diaphoretic. HENT: Head: Normocephalic and atraumatic. Right Ear: Ear canal and external ear normal. Left Ear: Ear canal and external ear normal. Nose: Nose normal. No congestion or rhinorrhea. Mouth/Throat: Mouth: Mucous membranes are moist. Pharynx: No oropharyngeal exudate or posterior oropharyngeal erythema. Eyes: General: Right eye: No discharge. Left eye: No discharge. Extraocular Movements: Extraocular movements intact. Conjunctiva/sclera: Conjunctivae normal. Pupils: Pupils are equal, round, and reactive to light. Cardiovascular: Rate and Rhythm: Normal rate and regular rhythm. Pulses: Normal pulses. Heart sounds: Normal heart sounds. No murmur heard. No friction rub. Pulmonary: Effort: Pulmonary effort is normal. No respiratory distress. Breath sounds: Normal breath sounds. No stridor. No wheezing, rhonchi or rales. Chest: Chest wall: No tenderness. Abdominal: General: Abdomen is flat. There is no distension. Palpations: Abdomen is soft. There is no mass. Tenderness: There is no abdominal tenderness. There is no right CVA tenderness, left CVA tenderness, guarding or rebound. Hernia: No hernia is present. Musculoskeletal: General: No swelling, tenderness, deformity or signs of injury. Normal range of motion. Cervical back: Normal range of motion and neck supple. No rigidity. Right lower leg: No edema. Left lower leg: No edema. Lymphadenopathy: Cervical: No cervical adenopathy. Skin: General: Skin is warm and dry. Capillary Refill: Capillary refill takes less than 2 seconds. Coloration: Skin is not jaundiced or pale. Findings: No bruising, erythema, lesion or rash. Neurological: General: No focal deficit present. Mental Status: She is alert and oriented to person, place, and time. Cranial Nerves: No cranial nerve deficit. Sensory: No sensory deficit. Motor: No weakness. Coordination: Coordination normal. Gait: Gait normal. Psychiatric: Mood and Affect: Mood normal. Behavior: Behavior normal. Thought Content: Thought content normal. Judgment: Judgment normal. Assessment and Plan ASSESSMENT/PLAN: 1. Burning with urination - ICD9: 788.1, ICD10: R30.0 (primary diagnosis) acute - UA positive for juan a esterase, hematuria and proteinuria - Send urine for culture - Begin treatment with Keflex for 7 days - Patient education for prevention given 2. Cystitis - ICD9: 595.9, ICD10: N30.90 acute - UA positive for juan a esterase, hematuria and proteinuria - Send urine for culture - Begin treatment with Keflex for 7 days - Patient education for prevention given Janeth Tolbert APRN.LOGISTICS SUPPORT documented in this encounterShel[facility]05-24-2022 Miscellaneous Notes* Telephone Encounter - Jennifer Addison APRN.CNP - 04/15/2022 9:06 AM EDT Summary: Treatment Team Note MULTI DISCIPLINARY HIGH RISK CARDIAC / AVR TEAM Members present: Dr. Maza, Dr. Martinez, Dr. Jean, Dr. Galdamez, Dr. Brooks, Dr. Astudillo, Dr. Corrales, Kings Stevenson WOOL GRADER, LOGISTICS SUPPORT, Shira Hou WOOL GRADER, LOGISTICS SUPPORT, Camille Clinton CNP, Shira Addison APRN, LOGISTICS SUPPORT, Radha Dunham PA, AMANDEEP Heaton, Víctor BERNSTEIN Presenting Physician: Dr. Martinez PATIENT NAME: Venus Sanders DATE: April 15, 2022 Outcome: Venus Sanders 's history and imaging were reviewed by the physicians in attendance. The collaborative recommendation would be to continue with plans for CABG with Dr. Martinez Called patient to communicate this recommendation, and left VM requesting call back. She is already scheduled for PAT on 04/29/22 Jennifer Addison APRN.CNP 04/15/22 documented in this encounterShel[facility]05-23-2022 Miscellaneous Notes* Telephone Encounter - Ashwini Hauser RN - 04/14/2022 11:49 AM EDT Patient calls back and states that Dr. Ramirez is still patient's PCP. Offered to schedule patient a follow up appointment. Patient declining to schedule at this time. Patient states that she is havingopen heart surgery in the next month and she does not want to schedule at this time. Patient statesthat she will call back and schedule an appointment. Ashwini Hauser RN * Telephone Encounter - Silvia De Paz [place] - 04/14/2022 10:27 AM EDT Left message for return call. Calling to ask if Dr Ramirez was still PCP. Patient has not been seen since 2019. If patient would still like [facility] to be PCP, patient will need to make an appointment. documented in this encounterSheltering [facility]05-20-2022 Miscellaneous Notes* Telephone Encounter - Marcelino Garcia - 04/11/2022 3:40 PM EDT Phoned pt regarding future appts. Itinerary mailed to pt's home. Carotid US 04/15/22 2:30pm at [facility] on the 1st floor CT Chest 04/22/22 at [facility] on the 1st floor Preadmission instructions 04/29/22 10am COVID test 05/10/22 1pm at Urgent Care is located on the 1st floor at the [facility], [address] [place] [address] CABG 05/13/22 arrival time 6am procedure time 7:30am at [facility]. documented in this encounterSheltering [facility]05-19-2022 NoteHNO ID: [id number] Author: Hermann Martinez MD Service: ? Author Type: Physician Type: Progress Notes Filed: 04/10/2022 11:06 AM Note Text: CARDIOTHORACIC SURGERY CONSULT / HANDP SERVICE DATE: 04/10/2022 SERVICE TIME: 10:56 AM Subjective PRIMARY SERVICE: Cardiothoracic Surgery CHIEF COMPLAINT: Multivessel coronary artery disease HPI: This is a 77 year old woman referred for evaluation of multivessel coronary artery disease and for consideration for bypass surgery. She has history of coronary artery disease. In 2007 she underwent stenting to the left anterior descending artery. In 2015 she presented with acute myocardial infarction and had repeat stenting to the left anterior descending artery. Stress echo in 2018 was negative for inducible ischemia and ejection fraction was 65% with a resting wall motion abnormality. She is now noting exertional fatigue, lack of energy. She denies chest pressure, heaviness, burning. She had a single episode of near syncope in January. Cardiolite stress test performed in February of this year shows ejection fraction 75% with resting wall motion abnormality involving the apex with no stress-induced changes. Left heart catheterization however now shows multivessel coronary disease including: Left main: Mild calcification Left anterior descending artery: Ostial 85% stenosis; patent stent Circumflex artery: Mild luminal irregularities Right coronary artery: Severe calcification, mid eccentric 50% stenosis Echo shows: Normal ejection fraction 60%; anterior apica hypokinesia; inferoapical akinesia; lateral apical hypokinesia; septal apex akinetic; no valve abnormalities Risk factors for coronary disease include hypertension; possible diabetes (she carries diagnosis however hemoglobin A1c was only 5.8 couple of years ago she is on no medications). There is no history of smoking, or other vascular disease. She is on chronic Brilinta therapy. PAST MEDICAL HISTORY Diagnosis Date - Cardiac arrest with ventricular fibrillation (HCC) defibrillated x 3 on 07/21/2016 - Coronary disease stent in 2007 with balloon angioplasty of left circumflex - Depressive disorder, not elsewhere classified - Esophageal reflux - Herpes zoster without mention of complication - Other acute and subacute form of ischemic heart disease 07/23/08 [place] - Other and unspecified hyperlipidemia 07/21/2005 - Other convulsions 04/11/2008 - STEMI (ST elevation myocardial infarction) (HCC) 07/21/2016 - Type II or unspecified type diabetes mellitus without mention of complication, not stated as uncontrolled 07/21/2005 - Unspecified essential hypertension 07/21/2005 PAST SURGICAL HISTORY Procedure Laterality Date - CHOLECYSTECTOMY 1982 - STENT PLACEMENT 07/25/08 Thru heart cath. at [facility] - TOTAL ABDOMINAL HYSTERECT W/WO RMVL TUBE OVARY at age 48 FAMILY HISTORY Problem Relation Age of Onset - Heart Mother - Diabetes Mother - Coronary Artery Disease Mother - Cataract Mother - Heart Brother - Heart Brother - Diabetes Brother Social History Tobacco Use - Smoking status: Never Smoker - Smokeless tobacco: Never Used Substance Use Topics - Alcohol use: No - Drug use: No (Not in a hospital admission) isosorbide mononitrate ER (IMDUR) 30 mg 24 hr tablet, Take 30 mg by mouth once daily. omeprazole (PRILOSEC) 20 mg capsule, Take 20 mg by mouth once daily. metoprolol succinate ER (TOPROL XL) 50 mg 24 hr tablet, Take 1 tablet by mouth once daily. amLODIPine (NORVASC) 2.5 mg tablet, Take 1 tablet by mouth once daily. atorvastatin (LIPITOR) 40 mg tablet, Take 1 tablet by mouth once daily. ticagrelor (BRILINTA) 90 mg tablet, Take 1 tablet by mouth twice daily. nitroglycerin sublingual (NITROQUICK) 0.4 mg SL tablet, Dissolve 1 tablet under the tongue as needed. FOR CHEST PAIN. IF NO RELIEF CALL 911 Cholecalciferol, Vitamin D3, 2,000 unit Tab, Take 1 tablet by mouth once daily. aspirin(ECOTRIN LOW STRENGTH 81 MG TAB), Take one(1) tablet daily. pantoprazole DR (PROTONIX) 20 mg tablet, Take 1 tablet by mouth once daily. ALLERGIES Allergen Reactions - Zestril [Lisinopril] Unknown - Zoloft [Sertraline * Unknown REVIEW OF SYSTEMS: As above. She denies fever, chills, cough, stroke, COPD, hepatic disease, renal disease, bleeding, thrombosis, cancer. She is not had COVID. She is vaccinated. Objective PHYSICAL EXAM: BP 126/70 (BP Site: Left Arm, BP Position: Sitting) Pulse 74 Resp 16 Ht 5' 3 (1.6 m) Wt 158 lb (71.7 kg) SpO2 96% BMI 27.99 kg/m? Body surface area is 1.79 meters squared. STS RISK CALCULATOR: 1.2 STS Calculator On examination, she appears well and is breathing comfortably. Vitals signs are BP 126/70 (BP Site: Left Arm, BP Position: Sitting) Pulse 74 Resp 16 Ht 5' 3 (1.6 m) Wt 158 lb (71.7 kg) SpO2 96% BMI 27.99 kg/m? . There is no JVD. No cervical or supraclavicular adenopathy is palpated. The ches (more content not included)...[facility] 04-10-2022 NoteHNO ID: [id number] Author: Luz Hou APRN.LOGISTICS SUPPORT Service: ? Author Type: Nurse Practitioner Type: Progress Notes Filed: 04/10/2022 11:06 AM Note Text: Prelim STS for isolated CABG: Risk of Mortality: 1.197% Renal Failure: 0.629% Permanent Stroke: 1.061% Prolonged Ventilation: 4.093% DSW Infection: 0.095% Reoperation: 2.600% Morbidity or Mortality: 7.330% Short Length of Stay: 46.660% Long Length of Stay: 2.389% Luz Hou APRN.BILLIE April 10, 2022 10:29 [facility]05-19-2022 History of Present illness Narrative* Hermann Martinez MD - 04/10/2022 10:56 AM EDT CARDIOTHORACIC SURGERY CONSULT / H&P SERVICE DATE: 04/10/2022 SERVICE TIME: 10:56 AM Subjective PRIMARY SERVICE: Cardiothoracic Surgery CHIEF COMPLAINT: Multivessel coronary artery disease HPI: This is a 77 year old woman referred for evaluation of multivessel coronary artery disease andfor consideration for bypass surgery. She has history of coronary artery disease. In 2007 she underwent stenting to the left anterior descending artery. In 2015 she presented with acute myocardial infarction and had repeat stenting to the left anterior descending artery. Stress echo in 2018 was negative for inducible ischemia and ejection fraction was 65% with a resting wall motion abnormality. She is now noting exertional fatigue, lack of energy. She denies chest pressure, heaviness, burning. She had a single episode of near syncope in January. Cardiolite stress test performed in February of thisyear shows ejection fraction 75% with resting wall motion abnormality involving the apex with no stress-induced changes. Left heart catheterization however now shows multivessel coronary disease including: Left main: Mild calcification Left anterior descending artery: Ostial 85% stenosis; patent stent Circumflex artery: Mild luminal irregularities Right coronary artery: Severe calcification, mid eccentric 50% stenosis Echo shows: Normal ejection fraction 60%; anterior apica hypokinesia; inferoapical akinesia; lateral apical hypokinesia; septal apex akinetic; no valve abnormalities Risk factors for coronary disease include hypertension; possible diabetes (she carries diagnosis however hemoglobin A1c was only 5.8 couple of years ago she is on no medications). There is no historyof smoking, or other vascular disease. She is on chronic Brilinta therapy. PAST MEDICAL HISTORY Diagnosis Date Cardiac arrest with ventricular fibrillation (HCC) defibrillated x 3 on 07/21/2016 Coronary disease stent in 2007 with balloon angioplasty of left circumflex Depressive disorder, not elsewhere classified Esophageal reflux Herpes zoster without mention of complication Other acute and subacute form of ischemic heart disease 07/23/08 [place] Other and unspecified hyperlipidemia 07/21/2005 Other convulsions 04/11/2008 STEMI (ST elevation myocardial infarction) (HCC) 07/21/2016 Type II or unspecified type diabetes mellitus without mention of complication, not stated as uncontrolled 07/21/2005 Unspecified essential hypertension 07/21/2005 PAST SURGICAL HISTORY Procedure Laterality Date CHOLECYSTECTOMY 1983 STENT PLACEMENT 07/25/08 Thru heart cath. at [facility] TOTAL ABDOMINAL HYSTERECT W/WO RMVL TUBE OVARY at age 48 FAMILY HISTORY Problem Relation Age of Onset Heart Mother Diabetes Mother Coronary Artery Disease Mother Cataract Mother Heart Brother Heart Brother Diabetes Brother Social History Tobacco Use Smoking status: Never Smoker Smokeless tobacco: Never Used Substance Use Topics Alcohol use: No Drug use: No (Not in a hospital admission) isosorbide mononitrate ER (IMDUR) 30 mg 24 hr tablet, Take 30 mg by mouth once daily. omeprazole (PRILOSEC) 20 mg capsule, Take 20 mg by mouth once daily. metoprolol succinate ER (TOPROL XL) 50 mg 24 hr tablet, Take 1 tablet by mouth once daily. amLODIPine (NORVASC) 2.5 mg tablet, Take 1 tablet by mouth once daily. atorvastatin (LIPITOR) 40 mg tablet, Take 1 tablet by mouth once daily. ticagrelor (BRILINTA) 90 mg tablet, Take 1 tablet by mouth twice daily. nitroglycerin sublingual (NITROQUICK) 0.4 mg SL tablet, Dissolve 1 tablet under the tongue as needed. FOR CHEST PAIN. IF NO RELIEF CALL 911 Cholecalciferol, Vitamin D3, 2,000 unit Tab, Take 1 tablet by mouth once daily. aspirin(ECOTRIN LOW STRENGTH 81 MG TAB), Take one(1) tablet daily. pantoprazole DR (PROTONIX) 20 mg tablet, Take 1 tablet by mouth once daily. ALLERGIES Allergen Reactions Zestril [Lisinopril] Unknown Zoloft [Sertraline * Unknown REVIEW OF SYSTEMS: As above. She denies fever, chills, cough, stroke, COPD, hepatic disease, renal disease, bleeding, thrombosis, cancer. She is not had COVID. She is vaccinated. Objective PHYSICAL EXAM: BP 126/70 (BP Site: Left Arm, BP Position: Sitting) Pulse 74 Resp 16 Ht 5' 3 (1.6 m) Wt 158 lb (71.7 kg) SpO2 96% BMI 27.99 kg/m Body surface area is 1.79 meters squared. STS RISK CALCULATOR: 1.2 STS Calculator On examination, she appears well and is breathing comfortably. Vitals signs are BP 126/70 (BP Site:Left Arm, BP Position: Sitting) Pulse 74 Resp 16 Ht 5' 3 (1.6 m) Wt 158 lb (71.7 kg) SpO2 96% BMI 27.99 kg/m . There is no JVD. No cervical or supraclavicular adenopathy is palpated. Thechest is symmetrical without deformity. Breath sounds are clear bilaterally. The cardiac rhythm is r egular. There are no rubs, gallops, or murmurs. The carotid, subclavian, and radial pulses are 2+ and equal bilaterally. The abdomen is soft and non-tender. There are no abdominal masses. There is nohepatojugular reflux. There is no pretibial edema. There is no clubbing or cyanosis. Assessment/Plan Venus Sanders is a 77-year-old woman with a history of coronary disease status post previous PCI and stenting to the left anterior descending artery x2, history of anteroapical infarction in 2016 was now experiencing fatigue and lack of energy and possibly a single presyncopal event was now foundto have significant multivessel coronary disease. The official reading on her catheterization mentions only irregularities in the circumflex system; I do think that there are significant lesions in the circumflex artery prior to the bifurcation into 2 obtuse marginal branches as well as the origin of the first obtuse marginal branch; I also do believe that the right current lesion is significant.On that basis, I recommend multivessel coronary bypass grafting.The risks, benefits, and anticipated outcomes of the procedure; the risks and benefits of the alternatives to the procedure; and the roles and tasks of the personnel to be involved were discussed with the patient and she consents to the procedure and agrees to proceed. Preop evaluation will include CT of the chest. Tests/Labs Ordered: The risks, benefits, and anticipated outcomes of the procedure; the risks and benefits of the alternatives to the procedure; and the roles and tasks of the personnel to be involved were discussed with the patient and she consents to the procedure and agrees to proceed. These findings will be communicated back to the requesting provider electronically. SIGNATURE: Hermann Martinez MD PATIENT NAME: Venus Sanders DATE: April 10, 2022 TIME: 10:56 AM PAGER/CONTACT #: [phone] * Luz Hou APRN.CNP - 04/10/2022 10:29 AM EDT Prelim STS for isolated CABG: Risk of Mortality: 1.197% Renal Failure: 0.629% Permanent Stroke: 1.061% Prolonged Ventilation: 4.093% DSW Infection: 0.095% Reoperation: 2.600% Morbidity or Mortality: 7.330% Short Length of Stay: 46.660% Long Length of Stay: 2.389% Luz Hou APRN.CNP April 10, 2022 10:29 AM documented in [facility] encounterS[facility] Instructions* Patient Instructions* Luz Hou APRN.CNP - 04/10/2022 10:30 AM EDT You came in to see Dr. Martinez today for surgical evaluation of coronary artery disease, by reviewing your images/clinical data, Dr. Martinez recommend the following: Your coronary artery disease meets indication for bypass surgery. CT Chest: our office will call you to schedule this test. Your images will be presented at our multidisciplinary heart team meeting You will need lab tests prior to surgery: our office will tell you when to get these done, they need to be completed 1-2 weeks prior to your surgery. We can complete the same day as your pre-op teaching appointment. Our office will call you with your surgery date and time, you will need to be seen by our office one week before surgery for pre-op teaching and to tell you when you should stop your Brilinta. Thanks for coming in to see us today. Please call us if you have any concerns/questions: [phone] Luz Hou APRN.CNP Cardiothoracic surgery TONGUE STITCHER documented in this encounterShel[facility]05-19-2022 Nurse Note* Jonathan Olson LPN - 04/10/2022 9:59 AM EDT CARDIAC REHAB 5 METER WALK TEST SERVICE DATE: 04/10/2022 SERVICE TIME: 949 ASSESSMENT: 1. 6.00 sec 2. 5.89 sec 3. 5.78 sec SIGNATURE: Jonathan Olson LPN PATIENT NAME: Venus Sanders DATE: April 10, 2022 TIME: 10:00 AM PAGER/CONTACT #: [id number] documented in this encounterShel[facility] History of Past illness Narrative* Problem Noted Date Resolved Date UTI (urinary tract infection) 10/21/2007 Type II or unspecified type diabetes mellitus without mention of complication, not stated as uncontrolled 07/21/2005 documented as of this encounter (statuses as of 04/10/2022) [facility] of Past illness Narrative* Problem Noted Date Resolved Date UTI (urinary tract infection) 10/21/2007 Type II or unspecified type diabetes mellitus without mention of complication, not stated as uncontrolled 07/21/2005 documented as of this encounter (statuses as of 04/11/2022) [facility] History of Past illness Narrative* Problem Noted Date Resolved Date UTI (urinary tract infection) 10/21/2007 Type II or unspecified type diabetes mellitus without mention of complication, not stated as uncontrolled 07/21/2005 documented as of this encounter (statuses as of 04/14/2022) [address]2007 History of Past illness Narrative* Problem Noted Date Resolved Date UTI (urinary tract infection) 10/21/2007 Type II or unspecified type diabetes mellitus without mention of complication, not stated as uncontrolled 07/21/2005 documented as of this encounter (statuses as of 04/15/2022) [place] [address]2007 History of Past illness Narrative* Problem Noted Date Resolved Date UTI (urinary tract infection) 10/21/2007 Type II or unspecified type diabetes mellitus without mention of complication, not stated as uncontrolled 07/21/2005 documented as of this encounter (statuses as of 04/22/2022) [address]2007 History of Past illness Narrative* Problem Noted Date Resolved Date UTI (urinary tract infection) 10/21/2007 Type II or unspecified type diabetes mellitus without mention of complication, not stated as uncontrolled 07/21/2005 documented as of this encounter (statuses as of 04/23/2022) [address]29-2007 History of Past illness Narrative* Problem Noted Date Resolved Date UTI (urinary tract infection) 10/21/2007 Type II or unspecified type diabetes mellitus without mention of complication, not stated as uncontrolled 07/21/2005 documented as of this encounter (statuses as of 04/29/2022) [address]29-2007 History of Past illness Narrative* Problem Noted Date Resolved Date UTI (urinary tract infection) 10/21/2007 Type II or unspecified type diabetes mellitus without mention of complication, not stated as uncontrolled 07/21/2005 documented as of this encounter (statuses as of 04/30/2022) [address]29-2007 History of Past illness Narrative* Problem Noted Date Resolved Date UTI (urinary tract infection) 10/21/2007 Type II or unspecified type diabetes mellitus without mention of complication, not stated as uncontrolled 07/21/2005 documented as of this encounter (statuses as of 05/12/2022) [address]29-2007 History of Past illness Narrative* Problem Noted Date Resolved Date UTI (urinary tract infection) 10/21/2007 Type II or unspecified type diabetes mellitus without mention of complication, not stated as uncontrolled 07/21/2005 documented as of this encounter (statuses as of 05/19/2022) [address]29-2007 History of Past illness Narrative* Problem Noted Date Resolved Date UTI (urinary tract infection) 10/21/2007 Type II or unspecified type diabetes mellitus without mention of complication, not stated as uncontrolled 07/21/2005 documented as of this encounter (statuses as of 05/19/2022) [address]29-2007 History of Past illness Narrative* Problem Noted Date Resolved Date UTI (urinary tract infection) 10/21/2007 Type II or unspecified type diabetes mellitus without mention of complication, not stated as uncontrolled 07/21/2005 documented as of this encounter (statuses as of 05/20/2022) [address] History of Past illness Narrative* Problem Noted Date Resolved Date UTI (urinary tract infection) 10/21/2007 Type II or unspecified type diabetes mellitus without mention of complication, not stated as uncontrolled 07/21/2005 documented as of this encounter (statuses as of 05/21/2022) [address]29-2007 History of Past illness Narrative* Problem Noted Date Resolved Date UTI (urinary tract infection) 10/21/2007 Type II or unspecified type diabetes mellitus without mention of complication, not stated as uncontrolled 07/21/2005 documented as of this encounter (statuses as of 05/21/2022) [address]29-2007 History of Past illness Narrative* Problem Noted Date Resolved Date UTI (urinary tract infection) 10/21/2007 Type II or unspecified type diabetes mellitus without mention of complication, not stated as uncontrolled 07/21/2005 documented as of this encounter (statuses as of 05/22/2022) [address]29-2007 History of Past illness Narrative* Problem Noted Date Resolved Date UTI (urinary tract infection) 10/21/2007 Type II or unspecified type diabetes mellitus without mention of complication, not stated as uncontrolled 07/21/2005 documented as of this encounter (statuses as of 05/27/2022) [address]29-2007 History of Past illness Narrative* Problem Noted Date Resolved Date UTI (urinary tract infection) 10/21/2007 Type II or unspecified type diabetes mellitus without mention of complication, not stated as uncontrolled 07/21/2005 documented as of this encounter (statuses as of 05/28/2022) [address] History of Past illness Narrative* Problem Noted Date Resolved Date UTI (urinary tract infection) 10/21/2007 Type II or unspecified type diabetes mellitus without mention of complication, not stated as uncontrolled 07/21/2005 documented as of this encounter (statuses as of 06/17/2022) [address] History of Past illness Narrative* Problem Noted Date Resolved Date UTI (urinary tract infection) 10/21/2007 Type II or unspecified type diabetes mellitus without mention of complication, not stated as uncontrolled 07/21/2005 documented as of this encounter (statuses as of 06/17/2022) [address] History of Past illness Narrative* Problem Noted Date Resolved Date UTI (urinary tract infection) 10/21/2007 Type II or unspecified type diabetes mellitus without mention of complication, not stated as uncontrolled 07/21/2005 documented as of this encounter (statuses as of 06/19/2022) [address]29-2007 History of Past illness Narrative* Problem Noted Date Resolved Date UTI (urinary tract infection) 10/21/2007 Type II or unspecified type diabetes mellitus without mention of complication, not stated as uncontrolled 07/21/2005 documented as of this encounter (statuses as of 06/20/2022) [address]29-2007 History of Past illness Narrative* Problem Noted Date Resolved Date UTI (urinary tract infection) 10/21/2007 Type II or unspecified type diabetes mellitus without mention of complication, not stated as uncontrolled 07/21/2005 documented as of this encounter (statuses as of 06/23/2022) [address]29-2007 History of Past illness Narrative* Problem Noted Date Resolved Date UTI (urinary tract infection) 10/21/2007 Type II or unspecified type diabetes mellitus without mention of complication, not stated as uncontrolled 07/21/2005 documented as of this encounter (statuses as of 07/07/2022) [facility] Tr Hernadez [facility] August 21, 2023 6:26am Note Date/Time August 21, 2023 5:09am [facility] Medical Records Department [address] [place] [address] Emergency Department Summary 08/21/23 MR#: [id number] Acct: [id number] Name: VENUS SANDERS Rep #:[id number] From: Tr Hernadez DO PCP: Dr. Marielena Ramirez MD Status:REG E R Location: ED HPI History of Present Illness Chief Complaint: Complaint Informant: patient and spouse/S.O. Narrative Narrative: Patient is a 78-year-old female with past medical history of CAD hypertension hyperlipidemia. She states that she was treated for a urinary tract infection on July 29. She states she was treated with Keflex and did feel like symptoms improved while she was on the medication. However she states that after stopping it she has had return of a burning sensation in the genital region with lower abdominal pain. She states that she was also placed on a prescription cream that she rubs on the vaginal tissue as this appears to be sore as well. She denies any lesions. She states that despite doing this she still had persistent burning and has concerned that the UTI may be returning andtherefore comes in for evaluation. [facility] Medical History Abnormal ECG during exercise stress test Atherosclerotic heart disease of [place] coronary artery without angina pectoris Chest pain Essential hypertension 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) History of left heart catheterization (LHC) (~03/12/22) Hyperlipidemia Syncope and collapse Home Medications aspirin 81 mg chewable tablet 81 mg PO DAILY 03/12/16 [History Last Taken 03/12/22] cholecalciferol (vitamin D3) 50 mcg (2,000 unit) capsule 2,000 unit PO DAILY 04/22/19 [History Last Taken Unknown] acetaminophen 500 mg tablet 500 mg PO Q6H PRN pain 06/24/22 [History Last Taken Unknown] nitroglycerin 0.4 mg sublingual tablet 0.4 mg sublingual Q5-15M PRN Chest Pain #25 tabs 08/11/22 [Rx Last Taken Unknown] atorvastatin 40 mg tablet 40 mg PO QHS #90 tabs 02/19/23 [Rx Last Taken Unknown] metoprolol succinate 50 mg tablet,extended release 24 hr 50 mg PO DAILY #90 tabs02/19/23 [Rx Last Taken Unknown] phenazopyridine 200 mg tablet (Pyridium) 200 mg PO TID 3 days #9 tabs 08/21/23 [Rx Last Taken Unknown] Allergy/AdvReac Type Severity Reaction Status Date / Time sertraline [From Zoloft] Allergy Unknown Verified 08/21/23 04:06 simvastatin [From Zocor] Allergy Unknown Verified 08/21/23 04:06 lisinopril AdvReac Unknown unknown Verified 08/21/23 04:06 Family History Mother CAD (coronary artery disease) Diabetes Brother CAD (coronary artery disease) Brother CAD (coronary artery disease) Diabetes Surgical History History of cholecystectomy History of coronary artery bypass surgery (~05/13/22) History of hysterectomy Stented coronary artery (07/21/16) Social History Smoking Status: Never smoker alcohol intake: never substance use type: does not use caffeine: No ROS ROS ED Constitutional Constitutional ED: Denies chills or fever(s) ENT ENT ED: Denies sore throat Cardiovascular Cardiovascular: Denies chest pain Respiratory/Chest Respiratory/Chest: Denies cough or dyspnea Gastrointestinal Gastrointestinal: Reports abdominal pain; Denies diarrhea, nausea or vomiting Genitourinary Genitourinary ED: Reports dysuria; Denies hematuria or urinary frequency Musculoskeletal Musculoskeletal: Reports back pain Integumentary Denies rash Neurologic Neurologic: Denies headache(s) Hematologic/Lymphatic Hematologic/Lymphatic: Denies easy bleeding or easy bruising EXAM Physical Exam Const Vital Signs: 08/21/23 04:06 Temperature 96.1 F L Temperature Source Temporal Pulse Rate 67 Respiratory Rate 18 Blood Pressure 184/82 H Blood Pressure Mean 116 Pulse Ox 98 Oxygen Delivery Method Room Air Positive well nourished and well developed General Appearance ED: well developed HEENT HEENT Narrative: Normocephalic atraumatic Eyes PERRL and EOMs intact bilaterally General Eye ED: Negative for scleral icterus Neck supple Resp normal respiratory effort and clear to auscultation bilaterally Cardio regular rate and regular rhythm Rate: other Other Details: Radial and carotid pulses are equal and symmetric GI non-distended and no masses GI Narrative: Abdomen is soft and nondistended with normoactive bowel sounds. There is mild pain to palpation in the suprapubic region without voluntary guarding or rigidity. No organomegaly noted. No pulsatile mass or fluid wave. Auscultation: normoactive bowel sounds Palpation: soft Narrative: Patient has mild excoriation of the labial fitzgerald consistent with vulvovaginitis. No obvious abscess or cellulitis noted. No physical exam findings suggest Kevon's gangrene. Back/Spine no CVA tenderness Extremity normal to inspection Neuro oriented x3, CN's II-XII intact bilaterally and no sensory deficits noted Sensorium / Orientation: alert Motor Exam: strength 5/5 throughout Psych mental status grossly normal Skin no rashes or lesions noted MDM MDM MDM Narrative Medical decision making narrative: Patient presented to ER hypertensive which she has a past medical history of andotherwise with stable vitals. With her report of burning in the genital region there is concern for retained or new urinary tract infection. There is also concern for allergic or chemical urethritis or even potential vulvovaginitis. Patient could also have soft tissue skin infection such as cellulitis or herpes. Based on her stable vitals and lack of flank pain I do not feel need for laboratory testing other than a urine sample at this time. The urine sample shows 100 leukocyte esterase but no bacteria and there is mild contamination with 5-10 epithelial cells. The patient's general exam reveals mild soft tissue irritation consistent with a vulvovaginitis but no secondary findings of infection such as cellulitis abscess or Kevon's gangrene. Therefore at this time patient be given Pyridium to help with the burning sensation while urine culture is pending but do not feel need for antibiotics asno bacteria was noted on today's urine sample. History & Record Review Discussion w/independent historian: Patient and Significant other Lab Data Attestation: I reviewed the patient's lab results. Labs: Laboratory Results - last 24 hr 08/21/23 04:20 Urine Color Yellow Urine Clarity Clear Urine pH 7.0 Ur Specific Lena 1.010 Urine Protein 15 H Urine Glucose (UA) Normal Urine Ketones Negative Urine Occult Blood Negative Urine Nitrite Negative Urine Bilirubin Negative Urine Urobilinogen Normal Ur Leukocyte Esterase 100 H Urine RBC 0 SEEN Urine WBC 0-5 SEEN Ur Squamous Epith Cells 5-10 SEEN Urine Bacteria 0 SEEN Urine Mucus 0 SEEN Discharge Plan Triage Chief Complaint: Complaint ED Provider: Tr Hernadez Dx/Rx/DC Orders Clinical Impression: Dysuria, Essential hypertension, History of anterior wall myocardial infarction Instructions: ED Dysuria, Uncertain Cause (Adult), ED Urethritis Infec Vs Inflam ... Prescriptions: New phenazopyridine [Pyridium] 200 mg tablet 200 mg PO TID 3 Days Qty: 9 0RF No Action cholecalciferol (vitamin D3) 2,000 unit capsule 2,000 unit PO DAILY nitroglycerin 0.4 mg tablet, sublingual 0.4 mg SUBLINGUAL Q5-15M PRN (Reason: Chest Pain) Qty: 25 3RF metoprolol succinate 50 mg tablet extended release 24 hr 50 mg PO DAILY Qty: 90 3RF atorvastatin 40 mg tablet 40 mg PO QHS Qty: 90 3RF aspirin 81 MG tablet,chewable 81 mg PO DAILY Patient Comments: Heart [facility] acetaminophen 500 mg tablet 500 mg PO Q6H PRN (Reason: pain) Primary Care Provider: Marielena Ramirez Referrals: Marielena Ramirez MD [Primary Care Provider] - Activity Restrictions/Additional Instructions: Your urine sample showed no bacteria today. The urine be sent for culture because of your persistent pain with urination however. If the culture grows out infection you will be notified and placed on an antibiotic. If you develop a fever over 100.4 or have any further concerns or worsening symptoms please return to the ER for repeat evaluation. It typically takes 48 to 72 hours for culture to result Disposition Disposition: Home, Self Care What to do if you have Problems For any increased pain, shortness of breath, bleeding, nausea or vomiting, chestpain, or any unexpected problems, contact your Primary Care Provider. Call [facility] ([phone]) or report to the closest Emergency Room. Call 911 if necessary. 08/21/23 2875 <Electronically signed by Tr Hernadez DO> Cosigner Signature (if applicable): CC: Dr. 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 Hyperlipidemia chronic Stented coronary artery July 21, 2016 [facility] Work Phone: Evaluation note* Diagnosis Coronary artery disease involving [place] coronary artery of [place] heart without angina pectoris- Primary Chest pain, unspecified type Syncope and collapse Syncope and collapse S/P angioplasty with stent Other postprocedural status [facility] Syncope and collapse- Primary Atherosclerosis of [place] coronary artery of [place] heart without angina pectoris Carotid bruit, unspecified laterality Preoperative testing Preoperative examination, unspecified Stage 3a chronic kidney disease (HCC) Essential hypertension Unspecified essential hypertension Glucose intolerance (impaired glucose tolerance) Impaired glucose tolerance test [facility] Diagnosis Burning with urination- Primary Dysuria Cystitis Cystitis, unspecified Atherosclerosis of [place] coronary artery of [place] heart without angina pectoris [facility] Chest pain, unspecified type Atherosclerosis of [place] coronary artery of [place] heart without angina pectoris [facility] Diagnosis Lung nodules- Primary Other nonspecific abnormal finding of lung field Atherosclerosis of [place] coronary artery of [place] heart without angina pectoris [facility] Diagnosis Pre-op evaluation- Primary Preoperative examination, unspecified Urinary tract infection without hematuria, site unspecified Atherosclerosis of [place] coronary artery of [place] heart without angina pectoris [facility] Diagnosis S/P CABG (coronary artery bypass graft)- Primary Postsurgical aortocoronary bypass status CAD in [place] artery Coronary atherosclerosis of [place] coronary artery Acute blood loss anemia Acute posthemorrhagic anemia Essential hypertension Unspecified essential hypertension Lung nodules Other nonspecific abnormal finding of lung field Urinary frequency [facility] S/P CABG (coronary artery bypass graft) Postsurgical aortocoronary bypass status [facility] S/P CABG (coronary artery bypass graft)- Primary Postsurgical aortocoronary bypass status CAD in [place] artery Coronary atherosclerosis of [place] coronary artery Acute blood loss anemia Acute posthemorrhagic anemia Essential hypertension Unspecified essential hypertension Lung nodules Other nonspecific abnormal finding of lung field [facility] Diagnosis Essential hypertension- Primary Unspecified essential hypertension Hyperlipidemia, unspecified hyperlipidemia type Stage 3a chronic kidney disease (HCC) Hypocalcemia Vitamin D deficiency Unspecified vitamin D deficiency Anemia, unspecified type [facility] Diagnosis Essential hypertension- Primary Unspecified essential hypertension Hyperlipidemia, unspecified hyperlipidemia type Gastroesophageal reflux disease without esophagitis Esophageal reflux S/P coronary artery stent placement Postsurgical percutaneous transluminal coronary angioplasty status Stage 3a chronic kidney disease (HCC) Coronary artery disease without angina pectoris, unspecified vessel or lesion type, unspecified whether [place] or transplanted heart [facility] Diagnosis Burning with urination- Primary Dysuria Encounter for gynecological examination with abnormal finding Routine gynecological examination [facility] Diagnosis Encounter for gynecological examination with abnormal finding- Primary Routine gynecological examination Dermatitis contact Chafing Other specified disorder of skin [facility] Diagnosis Essential hypertension- Primary Unspecified essential hypertension Hyperlipidemia, unspecified hyperlipidemia type Atherosclerosis of [place] coronary artery of [place] heart without angina pectoris Prediabetes Other abnormal glucose Stage 3a chronic kidney disease (HCC) Candidiasis Candidiasis of unspecified site Tinea versicolor Pityriasis versicolor [facility] Diagnosis Hematuria, unspecified type- Primary Urine leukocytes Other cells and casts in urine [facility] Diagnosis Left groin pain- Primary Abdominal pain, left lower quadrant Dysuria Essential hypertension Unspecified essential hypertension Left groin pain Abdominal pain, left lower quadrant [facility] Diagnosis Essential hypertension- Primary Unspecified essential hypertension Atherosclerosis of [place] coronary artery of [place] heart without angina pectoris Hyperlipidemia, unspecified hyperlipidemia type Encounter for screening mammogram for high-risk patient Colon cancer screening Special screening for malignant neoplasms, colon Left groin pain Abdominal pain, left lower quadrant [facility] Diagnosis Essential hypertension- Primary Unspecified essential hypertension Atherosclerosis of [place] coronary artery of [place] heart without angina pectoris Hyperlipidemia, unspecified hyperlipidemia type Encounter for screening mammogram for high-risk patient Colon cancer screening Special screening for malignant neoplasms, colon Hypertensive kidney disease with stage 3a chronic kidney disease (HCC) Medication management Encounter for long-term (current) use of other medications [facility] Diagnosis Essential hypertension- Primary Unspecified essential hypertension Atherosclerosis of [place] coronary artery of [place] heart without angina pectoris Hyperlipidemia, unspecified hyperlipidemia type Encounter for screening mammogram for high-risk patient Colon cancer screening Special screening for malignant neoplasms, colon Hypertensive kidney disease with stage 3a chronic kidney disease (HCC)- Primary Stage 3a chronic kidney disease (HCC) Hyperlipidemia, unspecified hyperlipidemia type Encounter for immunization Need for other specified prophylactic vaccination against single bacterial disease [facility] Diagnosis Onset Date Resolution Status Admit Date Atherosclerotic heart diseas e of [place] coronary artery without angina pectoris chronic Septembe r 2024 10:14am [facility] Work Phone: [facility] Work Phone: Feed.[phone] Dis[facility] instructionsWT[facility] Work Phone: [facility]: [facility] Work Phone: [facility] Work Phone: Hospital Discharge instructionsAmbulatory Orders* Plastic surgery Location: None Selected [facility] Work Phone: Hospital Discharge instructions Additional Instructions Your urine sample showed no bacteria today. The urine be sent for culture because of your persistent pain with urination however. If the culture grows out infection you will be notified and placed on an antibiotic. If you develop a fever over 100.4 or have any further concerns or worsening symptoms please return to the ER for repeat evaluation. It typically takes 48 to 72 hours for culture to resultWTri[facility] Work Phone: Reason for referral (narrative)* Outpatient Procedure (Routine) - Authorized Specialty Diagnoses / Procedures Referred By Ugo reyna [facility] Diagnoses Syncope and collapse Atherosclerosis of [place] coronary artery of [place] heart without angina pectoris Carotid bruit, unspecified laterality Preoperative testing Stage 3a chronic kidney disease (HCC) Essential hypertension Glucose intolerance (impaired glucose tolerance) Procedures US CAROTID ARTERIES EDDY VAS LAB DUPLEX SCAN EXTRACRANIAL ART COMPL BI STUDY Jennifer Addison, WOOL GRADER.LOGISTICS SUPPORT [address] [facility] [address] [place] [address] [facility] [place] [address] [place] [address] Referral ID Status Reason Start Date Expiration Date Visits Requested Visits Authorized [id number] Authorized Auto-Generat ed Referral 04/11/2022 04/11/2023 1 1 [facility] for referral (narrative)* Diagnostic Procedure Only (Urgent) - Closed Specialty Diagnoses / Procedures Referred By Contac t Referred To Contact XR IMAGING Diagnoses Left groin pain Procedures XR HIP GENERAL 3V PELV/AP/LAT LEFT RADEX HIP UNILATERAL WITH PELVIS 2-3 VIEWS Jenny Sagastume, WOOL GRADER.LOGISTICS SUPPORT [address] [place] [address] [place] [address] Referral ID Status Reason Start Date Expiration Date V isits Requested Visits Authorized [id number] Closed Auto-Generate d Referral 04/25/2024 05/25/2025 1 1 [facility] for referral (narrative)* Diagnostic Procedure Only (Urgent) - Closed Specialty Diagnoses / Procedures Referred By Contac t Referred To Contact XR IMAGING Diagnoses Left groin pain Procedures XR HIP GENERAL 3V PELV/AP/LAT LEFT RADEX HIP UNILATERAL WITH PELVIS 2-3 VIEWS Jenny Sagastume, WOOL GRADER.LOGISTICS SUPPORT [address] [place] [address] [place] [address] Referral ID Status Reason Start Date Expiration Date V isits Requested Visits Authorized [id number] Closed Auto-Generate d Referral 04/25/2024 05/25/2025 1 1 [facility] for referral (narrative)No reason for referral information availableCommunity [facility] Services Work Phone: Reason for visit Narrative* Diagnostic Procedure Only (Urgent) - Closed Specialty Diagnoses / Procedures Referred By Contac t Referred To Contact XR IMAGING Diagnoses Left groin pain Procedures XR HIP GENERAL 3V PELV/AP/LAT LEFT RADEX HIP UNILATERAL WITH PELVIS 2-3 VIEWS Jenny Sagastume, WOOL GRADER.LOGISTICS SUPPORT [address] [facility] [place] [address] [place] [address] Referral ID Status Reason Start Date Expiration Date V isits Requested Visits Authorized [id number] Closed Auto-Generate d Referral 04/25/2024 05/25/2025 1 1 [facility] Summary Purpose Family History No Family History Records Found Relationship Condition Age at Onset Recorded Date/T danial mother Coronary artery disease Unknown Diabetes mellitus Unknown brother Coronary artery disease Unknown Advance Directives No Advanced Directives Records Found Advance Directive Response Recorded Date/ Time Advance Directives Yes October 12:59pm Living Will Yes December 24 8:25am Power of Tray Casting Machine Operator Yes December 24, 2021 8:25am Advance Directive Response Recorded Date/ Time Name of Medical Power of Tray Casting Machine Operator December 24, 2021 8:25am Advance Directives Yes March 12 7:10am Living Will Yes March 12, 2022 7:10am Power of Tray Casting Machine Operator Yes March 12 7:10am Advance Directive Response Recorded Date/ Time Name of Medical Power of Tray Casting Machine Operator December 24, 2021 8:25am Advance Directives on File No March 12, 2022 7:10am Name of Medical Power of Tray Casting Machine Operator Carleen (tamicaba nd) March 12, 2022 7:10am Advance Directives Yes March 12 7:10am Living Will No March 30, 2022 2: 45am Power of Tray Casting Machine Operator No March 30, 2022 2:45am Advance Directive Response Recorded Date/ Time Name of Medical Power of Tray Casting Machine Operator December 24, 2021 8:25am Advance Directives on File No March 12, 2022 7:10am Name of Medical Power of Tray Casting Machine Operator Carleen (tamicaba nd) March 12, 2022 7:10am Advance Directives Yes March 12 7:10am Living Will Yes March 31, 2022 7: 11pm Power of Tray Casting Machine Operator Yes March 31, 2022 7:11pm Documents on File Type Date Recorded Patient Warper Fixer Expl anation Advance Directive(s) 05/13/2022 11:10 AM Advance Directive Response Recorded Date/ Time Advance Directives on File No March 12, 2022 7:10am Name of Medical Power of Tray Casting Machine Operator Carleen (joao nd) March 12, 2022 7:10am Name of Medical Power of Tray Casting Machine Operator March 31, 2022 7:11pm Advance Directives Yes March 12 7:10am Living Will Yes July 01, 2022 9:01am Power of Tray Casting Machine Operator Yes March 31, 2022 7:11pm Advance Directives on File No Augus t 2021 9:01am Advance Directive Response Recorded Date/ Time Name of Medical Power of Tray Casting Machine Operator March 31, 2022 7:11pm Advance Directives Yes March 12 7:10am Living Will Yes July 01, 2022 9:01am Power of Tray Casting Machine Operator Yes March 31, 2022 7:11pm Advance Directives on File No Augus t 2021 9:01am Advance Directive Response Recorded Date/ Time Advance Directives on File No Augus t 2021 9:01am Advance Directives Yes March 12 7:10am Living Will Yes July 01, 2022 9:01am Power of Tray Casting Machine Operator Yes March 31, 2022 7:11pm Advance Directive Response Recorded Date/ Time Advance Directives Yes March 12 7:10am Living Will Yes July 01, 2022 9:01am Power of Tray Casting Machine Operator Yes March 31, 2022 7:11pm Advance Directive Response Recorded Date/ Time Name of Medical Power of Tray Casting Machine Operator August 21, 2023 4:09am Advance Directives Yes March 12 7:10am Living Will Yes August 21, 2023 4:09am Power of Tray Casting Machine Operator Yes July 4:09am Advance Directive Response Recorded Date/ Time Advance Directives Yes March 12 7:10am Living Will Yes August 21, 2023 4:09am Power of Tray Casting Machine Operator Yes July 4:09am Advance Directive Response Recorded Date/ Time Advance Directives Yes Altagracia 20th, 2 022 7:10am Chief Complaint and Reason for Visit Chief Complaint arm INT LABS 1 Y FU ( DJN PATIENT ) Reason for Visit Atherosclerotic hear t disease of [place] coronary artery without angina pectoris Essential hypertension History of sudden cardiac arrest successfully resuscitated Hyperlipidemia Stented coronary artery Chief Complaint arm INT LABS 1 Y FU ( DJN PATIENT ) CAD/ASHD, [place], PCI Reason for Visit Atherosclerotic hear t disease of [place] coronary artery without angina pectoris Essential hypertension History of sudden cardiac arrest successfully resuscitated Hyperlipidemia Stented coronary artery Chief Complaint arm INT LABS 1 Y FU ( DJN PATIENT ) CAD/ASHD, [place], PCI ABN STRESS, EKG, CHEST PAIN ABN STRESS, EKG, CHEST PAIN Reason for Visit Atherosclerotic hear t disease of [place] coronary artery without angina pectoris Essential hypertension History of sudden cardiac arrest successfully resuscitated Hyperlipidemia Stented coronary artery Chief Complaint arm INT LABS 1 Y FU ( DJN PATIENT ) CAD/[place]HD, [place], PCI ABN STRESS, EKG, CHEST PAIN ABN STRESS, EKG, CHEST PAIN neck pain Reason for Visit Atherosclerotic hear t disease of [place] coronary artery without angina pectoris Essential hypertension History of sudden cardiac arrest successfully resuscitated Hyperlipidemia Stented coronary artery Chief Complaint arm INT LABS 1 Y FU ( DJN PATIENT ) CAD/[place]HD, [place], PCI ABN STRESS, EKG, CHEST PAIN ABN STRESS, EKG, CHEST PAIN neck pain NECK PAIN Reason for Visit Atherosclerotic hear t disease of [place] coronary artery without angina pectoris Essential hypertension History of sudden cardiac arrest successfully resuscitated Hyperlipidemia Stented coronary artery Chief Complaint ABN STRESS, EKG, CARLOS ST PAIN ABN STRESS, EKG, CHEST PAIN neck pain NECK PAIN S/P CABG (REC'S SCANNED) Z95.1 S/P CABG Reason for Visit History of coronary artery bypass surgery Atherosclerotic heart disease of [place] coronary artery without angina pectoris Essential hypertension Hyperlipidemia Chief Complaint neck pain NECK PAIN S/P CABG (REC'S SCANNED) Z95.1 S/P CABG Reason for Visit History of coronary artery bypass surgery Atherosclerotic heart disease of [place] coronary artery without angina pectoris Essential hypertension Hyperlipidemia Chief Complaint S/P CABG (REC'S SCAN CANDACE) Z95.1 S/P CABG INT LABS S/P CABG 6 M FU Reason for Visit History of coronary artery bypass surgery Atherosclerotic heart disease of [place] coronary artery without angina pectoris Essential hypertension Hyperlipidemia History of coronary artery bypass surgery Atherosclerotic heart disease of [place] coronary artery without angina pectoris Essential hypertension Hyperlipidemia Chief Complaint S/P CABG (REC'S SCAN CANDACE) Z95.1 S/P CABG INT LABS 6 M FU S/P CABG Reason for Visit History of coronary artery bypass surgery Atherosclerotic heart disease of [place] coronary artery without angina pectoris Essential hypertension Hyperlipidemia History of coronary artery bypass surgery Atherosclerotic heart disease of [place] coronary artery without angina pectoris Essential hypertension Hyperlipidemia Chief Complaint S/P CABG (REC'S SCAN CANDACE) Z95.1 S/P CABG INT LABS 6 M FU S/P CABG S/P CABG Reason for Visit History of coronary artery bypass surgery Atherosclerotic heart disease of [place] coronary artery without angina pectoris Essential hypertension Hyperlipidemia History of coronary artery bypass surgery Atherosclerotic heart disease of [place] coronary artery without angina pectoris Essential hypertension Hyperlipidemia Chief Complaint EORDER 6 M FU Reason for Visit Chest pain History of coronary artery bypass surgery Essential hypertension Hyperlipidemia Chief Complaint EORDER 6 M FU CHEST PAIN CHEST PAIN Reason for Visit Chest pain History of coronary artery bypass surgery Postoperative keloid scar Essential hypertension Hyperlipidemia Chief Complaint INT LABS 4 M FU Reason for Visit History of coronary artery bypass surgery Essential hypertension Hyperlipidemia Chief Complaint INT LABS 4 M FU Reason for Visit History of coronary artery bypass surgery Essential hypertension Hyperlipidemia Chief Complaint EORDER 6 M FU Reason for Visit History of coronary artery bypass surgery Essential hypertension Hyperlipidemia Chief Complaint Admit Date E ORDERS July 28, 2025 9:14am 10 M FU August 03, 2025 10:14am Reason for Visit Admit Date Atherosclerotic heart diseas e of [place] coronary artery without angina pectoris August 03, 2025 10:14am Reason for Visit Admit Date Atherosclerotic heart diseas e of [place] coronary artery without angina pectoris August 03, 2025 10:14am Essential hypertension August 03, 2 025 10:14am Hyperlipidemia August 03, 2025 10:14am Reason for Referral Specialty Diagnoses / Procedures Referred By Ugo reyna Referred To Contact CT IMAGING Diagnoses Chest pain, unspecified type Procedures CT CHEST WO IVCON DIAGNOSTIC COMPUTED TOMOGRAPHY THORAX W/O Luz Damian, WOOL GRADER.LOGISTICS SUPPORT 1 [facility] [address] [place] [address] Ct Imaging Referral ID Status Reason Start Date Expiration Date Visits Requested Visits Authorized [id number] Pending Review Auto-Generat ed Referral 04/10/2022 05/10/2023 1 1 Specialty Diagnoses / Procedures Referred By Contac t Referred To Contact US IMAGING Diagnoses Chest pain, unspecified type Syncope and collapse Procedures US CAROTID BILAT Luz Hou, WOOL GRADER.LOGISTICS SUPPORT [address], [address] [place] [address] Us Imaging Referral ID Status Reason Start Date Expiration Date Visits Requested Visits Authorized [id number] Pending Review Auto-Generat ed Referral 04/10/2022 05/10/2023 1 1 Referral ID Status Reason Start Date Expiration Date V isits Requested Visits Authorized [id number] Closed Auto-Generate d Referral 04/10/2022 05/10/2023 1 1 Specialty Diagnoses / Procedures Referred By Contac t Referred To Contact Gynecology Diagnoses Encounter for gynecological examination with abnormal finding Procedures CONSULT TO GYNECOLOGY OFFICE/OUTPATIENT [facility] 60-74 MINUTES Debra Azul, WOOL GRADER.LOGISTICS SUPPORT [address] [place] [address] Referral ID Status Reason Start Date Expiration Date Visits Requested Visits Authorized [id number] Authorized PCP Requested Referral Auto-Generate d Referral 02/20/2023 02/20/2024 1 1 Additional Source Comments INFORMATION SOURCE (unrecogn ized section and content) DATE CREATED AUTHOR 05/14/2018 [facility] DATE CREATED AUTHOR AUTHOR'S ORGANIZ ATION 07/22/2022 [facility] DATE CREATED AUTHOR AUTHOR'S ORGANIZ ATION 08/09/2025 [facility] DATE CREATED AUTHOR AUTHOR'S ORGANIZ ATION 08/26/2025 [facility] Goals (unrecognized section and content) Goals may be documented in a n alternate sectionGoals may be documented in an alternate sectionGoals may be documented in an alternate sectionGoals may be documented in an alternate sectionGoals may be documented in an alternate sectionGoals may be documented in an alternate sectionGoals may be documented in an alternate sectionGoals may be documented in an alternate sectionGoals may be documented in an alternate sectionGoals may be documented in an alternate sectionGoals may be documented in an alternate sectionGoals may be documented in an alternate sectionGoals may be documented in an alternate sectionGoals may be documented in an alternate sectionGoals may be documented in an alternate sectionGoals may be documented in an alternate sectionGoals may be documented in an alternate section Source Comments (unrecognize d section and content) In the event this informatio n is protected by the Federal Confidentiality of Alcohol and Drug Abuse Patient Records regulations: The Federal rules restrict any use of the information to criminally investigate or prosecute any alcohol or drug abuse patient.[facility] the event this information is protected by the Federal Confidentiality of Alcohol and Drug Abuse Patient Records regulations: The Federal rules restrict any use of the information to criminally investigate or prosecute any alcohol or drug abuse patient.[facility] HospitalIn the event this information is protected by the Federal Confidentiality of Alcohol and Drug Abuse Patient Records regulations: The Federal rules restrict any use of the information to criminally investigate or prosecute any alcohol or drug abuse patient.[facility] HospitalIn the event this information is protected by the Federal Confidentiality of Alcohol and Drug Abuse Patient Records regulations: The Federal rules restrict any use of the information to criminally investigate or prosecute any alcohol or drug abuse patient.[facility] HospitalIn the event this information is protected by the Federal Confidentiality of Alcohol and Drug Abuse Patient Records regulations: The Federal rules restrict any use of the information to criminally investigate or prosecute any alcohol or drug abuse patient.[facility] HospitalIn the event this information is protected by the Federal Confidentiality of Alcohol and Drug Abuse Patient Records regulations: The Federal rules restrict any use of the information to criminally investigate or prosecute any alcohol or drug abuse patient.[facility] HospitalIn the event this information is protected by the Federal Confidentiality of Alcohol and Drug Abuse Patient Records regulations: The Federal rules restrict any use of the information to criminally investigate or prosecute any alcohol or drug abuse patient.[facility] HospitalIn the event this information is protected by the Federal Confidentiality of Alcohol and Drug Abuse Patient Records regulations: The Federal rules restrict any use of the information to criminally investigate or prosecute any alcohol or drug abuse patient.[facility] HospitalIn the event this information is protected by the Federal Confidentiality of Alcohol and Drug Abuse Patient Records regulations: The Federal rules restrict any use of the information to criminally investigate or prosecute any alcohol or drug abuse patient.[facility] HospitalIn the event this information is protected by the Federal Confidentiality of Alcohol and Drug Abuse Patient Records regulations: The Federal rules restrict any use of the information to criminally investigate or prosecute any alcohol or drug abuse patient.[facility] HospitalIn the event this information is protected by the Federal Confidentiality of Alcohol and Drug Abuse Patient Records regulations: The Federal rules restrict any use of the information to criminally investigate or prosecute any alcohol or drug abuse patient.[facility] HospitalIn the event this information is protected by the Federal Confidentiality of Alcohol and Drug Abuse Patient Records regulations: The Federal rules restrict any use of the information to criminally investigate or prosecute any alcohol or drug abuse patient.[facility] HospitalIn the event this information is protected by the Federal Confidentiality of Alcohol and Drug Abuse Patient Records regulations: The Federal rules restrict any use of the information to criminally investigate or prosecute any alcohol or drug abuse patient.[facility] HospitalIn the event this information is protected by the Federal Confidentiality of Alcohol and Drug Abuse Patient Records regulations: The Federal rules restrict any use of the information to criminally investigate or prosecute any alcohol or drug abuse patient.[facility] HospitalIn the event this information is protected by the Federal Confidentiality of Alcohol and Drug Abuse Patient Records regulations: The Federal rules restrict any use of the information to criminally investigate or prosecute any alcohol or drug abuse patient.[facility] HospitalIn the event this information is protected by the Federal Confidentiality of Alcohol and Drug Abuse Patient Records regulations: The Federal rules restrict any use of the information to criminally investigate or prosecute any alcohol or drug abuse patient.[facility] HospitalIn the event this information is protected by the Federal Confidentiality of Alcohol and Drug Abuse Patient Records regulations: The Federal rules restrict any use of the information to criminally investigate or prosecute any alcohol or drug abuse patient.[facility] HospitalIn the event this information is protected by the Federal Confidentiality of Alcohol and Drug Abuse Patient Records regulations: The Federal rules restrict any use of the information to criminally investigate or prosecute any alcohol or drug abuse patient.[facility] HospitalIn the event this information is protected by the Federal Confidentiality of Alcohol and Drug Abuse Patient Records regulations: The Federal rules restrict any use of the information to criminally investigate or prosecute any alcohol or drug abuse patient.[facility] HospitalIn the event this information is protected by the Federal Confidentiality of Alcohol and Drug Abuse Patient Records regulations: The Federal rules restrict any use of the information to criminally investigate or prosecute any alcohol or drug abuse patient.[facility] HospitalIn the event this information is protected by the Federal Confidentiality of Alcohol and Drug Abuse Patient Records regulations: The Federal rules restrict any use of the information to criminally investigate or prosecute any alcohol or drug abuse patient.[facility] HospitalIn the event this information is protected by the Federal Confidentiality of Alcohol and Drug Abuse Patient Records regulations: The Federal rules restrict any use of the information to criminally investigate or prosecute any alcohol or drug abuse patient.[facility] HospitalIn the event this information is protected by the Federal Confidentiality of Alcohol and Drug Abuse Patient Records regulations: The Federal rules restrict any use of the information to criminally investigate or prosecute any alcohol or drug abuse patient.[facility] HospitalIn the event this information is protected by the Federal Confidentiality of Alcohol and Drug Abuse Patient Records regulations: The Federal rules restrict any use of the information to criminally investigate or prosecute any alcohol or drug abuse patient.[facility] HospitalIn the event this information is protected by the Federal Confidentiality of Alcohol and Drug Abuse Patient Records regulations: The Federal rules restrict any use of the information to criminally investigate or prosecute any alcohol or drug abuse patient.[facility] HospitalIn the event this information is protected by the Federal Confidentiality of Alcohol and Drug Abuse Patient Records regulations: The Federal rules restrict any use of the information to criminally investigate or prosecute any alcohol or drug abuse patient.[facility] HospitalIn the event this information is protected by the Federal Confidentiality of Alcohol and Drug Abuse Patient Records regulations: The Federal rules restrict any use of the information to criminally investigate or prosecute any alcohol or drug abuse patient.[facility] HospitalIn the event this information is protected by the Federal Confidentiality of Alcohol and Drug Abuse Patient Records regulations: The Federal rules restrict any use of the information to criminally investigate or prosecute any alcohol or drug abuse patient.[facility] HospitalIn the event this information is protected by the Federal Confidentiality of Alcohol and Drug Abuse Patient Records regulations: The Federal rules restrict any use of the information to criminally investigate or prosecute any alcohol or drug abuse patient.[facility] HospitalIn the event this information is protected by the Federal Confidentiality of Alcohol and Drug Abuse Patient Records regulations: The Federal rules restrict any use of the information to criminally investigate or prosecute any alcohol or drug abuse patient.[facility] HospitalIn the event this information is protected by the Federal Confidentiality of Alcohol and Drug Abuse Patient Records regulations: The Federal rules restrict any use of the information to criminally investigate or prosecute any alcohol or drug abuse patient.[facility] HospitalIn the event this information is protected by the Federal Confidentiality of Alcohol and Drug Abuse Patient Records regulations: The Federal rules restrict any use of the information to criminally investigate or prosecute any alcohol or drug abuse patient.[facility] HospitalIn the event this information is protected by the Federal Confidentiality of Alcohol and Drug Abuse Patient Records regulations: The Federal rules restrict any use of the information to criminally investigate or prosecute any alcohol or drug abuse patient.[facility] HospitalIn the event this information is protected by the Federal Confidentiality of Alcohol and Drug Abuse Patient Records regulations: The Federal rules restrict any use of the information to criminally investigate or prosecute any alcohol or drug abuse patient.[facility] HospitalIn the event this information is protected by the Federal Confidentiality of Alcohol and Drug Abuse Patient Records regulations: The Federal rules restrict any use of the information to criminally investigate or prosecute any alcohol or drug abuse patient.[facility] HospitalIn the event this information is protected by the Federal Confidentiality of Alcohol and Drug Abuse Patient Records regulations: The Federal rules restrict any use of the information to criminally investigate or prosecute any alcohol or drug abuse patient.[facility] HospitalIn the event this information is protected by the Federal Confidentiality of Alcohol and Drug Abuse Patient Records regulations: The Federal rules restrict any use of the information to criminally investigate or prosecute any alcohol or drug abuse patient.[facility] HospitalIn the event this information is protected by the Federal Confidentiality of Alcohol and Drug Abuse Patient Records regulations: The Federal rules restrict any use of the information to criminally investigate or prosecute any alcohol or drug abuse patient.[facility] HospitalIn the event this information is protected by the Federal Confidentiality of Alcohol and Drug Abuse Patient Records regulations: The Federal rules restrict any use of the information to criminally investigate or prosecute any alcohol or drug abuse patient.[facility] HospitalIn the event this information is protected by the Federal Confidentiality of Alcohol and Drug Abuse Patient Records regulations: The Federal rules restrict any use of the information to criminally investigate or prosecute any alcohol or drug abuse patient.[facility] HospitalIn the event this information is protected by the Federal Confidentiality of Alcohol and Drug Abuse Patient Records regulations: The Federal rules restrict any use of the information to criminally investigate or prosecute any alcohol or drug abuse patient.[facility] HospitalIn the event this information is protected by the Federal Confidentiality of Alcohol and Drug Abuse Patient Records regulations: The Federal rules restrict any use of the information to criminally investigate or prosecute any alcohol or drug abuse patient.[facility] HospitalIn the event this information is protected by the Federal Confidentiality of Alcohol and Drug Abuse Patient Records regulations: The Federal rules restrict any use of the information to criminally investigate or prosecute any alcohol or drug abuse patient.[facility] the event this information is protected by the Federal Confidentiality of Alcohol and Drug Abuse Patient Records regulations: The Federal rules restrict any use of the information to criminally investigate or prosecute any alcohol or drug abuse patient.[facility] HospitalIn the event this information is protected by the Federal Confidentiality of Alcohol and Drug Abuse Patient Records regulations: The Federal rules restrict any use of the information to criminally investigate or prosecute any alcohol or drug abuse patient.[facility] HospitalIn the event this information is protected by the Federal Confidentiality of Alcohol and Drug Abuse Patient Records regulations: The Federal rules restrict any use of the information to criminally investigate or prosecute any alcohol or drug abuse patient.[facility]In the event this information is protected by the Federal Confidentiality of Alcohol and Drug Abuse Patient Records regulations: The Federal rules restrict any use of the information to criminally investigate or prosecute any alcohol or drug abuse patient.[facility] HospitalIn the event this information is protected by the Federal Confidentiality of Alcohol and Drug Abuse Patient Records regulations: The Federal rules restrict any use of the information to criminally investigate or prosecute any alcohol or drug abuse patient.[facility] Reason for Visit (unrecogniz ed section and content) Reason Comments Coronary Artery Disease Venus is new pt rfd by Dr. Brothers for CABG evaluation Reason Comments Orders Schedule Surgery Reason Comments Appointment Reason Comments Patient Update Reason Comments Difficulty Urinating Pt reported burning with urination x2 days Reason Comments Radiology CT Specialty Diagnoses / Procedures Referred By Contac t Referred To Contact CT IMAGING Diagnoses Chest pain, unspecified type Procedures CT CHEST WO IVCON DIAGNOSTIC COMPUTED TOMOGRAPHY THORAX W/O CNTRST Luz Hou, WOOL GRADER.LOGISTICS SUPPORT [address], [address] [place] [address] Ct Imaging Referral ID Status Reason Start Date Expiration Date V isits Requested Visits Authorized [id number] Closed Auto-Generate d Referral 04/10/2022 05/10/2023 1 1 Reason Comments Coronary Artery Disease Venus is here fo r PAT Reason Comments Appointment Rescheduled surgery time willian nge Reason Onset Date Comments Transition Of Care 05/19/2022 [facility] discharge 05-18-22- initial outreach Reason Comments Home Care Decline Reason Onset Date Comments Transition Of Care 05/20/2022 [facility] discharge 05-18-22- follow up Reason Comments [facility] Reason Comments Post Op 1 week po CABG Reason Comments Faxed to [facility] Reason Onset Date Comments Transition Of Care 05/22/2022 [facility] discharge 05-18-22- follow up Reason Comments home health calling with update Reason Comments Cardiac Rehab referral to [facility] Reason Comments Cardiac Rehab Deferred Reason Comments Post Op Reason Onset Date Comments Transition Of Care 06/19/2022 [facility] discharge 05-18-22- follow up Reason Onset Date Comments Community Monitoring Outreach 06/20/2022 [facility] D CDM Enrollment Reason Onset Date Comments Population Health Navigation Outreach 06/23/2022 CM Pool Reason Comments Hospital F/U quad bipass at [facility] 05/13/22 Reason Comments Recheck 6 month follow up Reason Comments Vaginal Problem Pt reported vaginal irritation, redness, denied discharge, x4 days. Reason Comments Results Reason Comments Yearly Exam Reason Comments Follow Up Seen at [facility] for blood in urine, as of today no pain or burning with urination, patient states I am doing much better Reason Comments F/U 3 Month Reason Comments Lab Orders Reason Comments F/U 6 months c/o uti Reason Onset Date Comments Population Health Navigation Outreach [facility] [place] [facility] Reason Comments Recheck Follow up Care Teams (unrecognized sec tion and content) Return Agent Relationship Specialty Start Date End Date Marielena Ramirez MD [address] [place] [address] PCP - General Internal Medicine 07/20/17 Chirag Brothers [address] [place] [address] Cardiology 04/10/22 Return Agent Relationship Specialty Start Date End Date Marielena Ramirez MD [address] [place] [address] PCP - General Internal Medicine 07/20/17 Chirag Brothers [address] [place] [address] Cardiology 04/10/22 Return Agent Relationship Specialty Start Date End Date Marielena Ramirez MD [address] [facility] [place] [address] PCP - General Internal Medicine 07/20/17 Chirag Brothers [address] [place] [address] Cardiology 04/10/22 Return Agent Relationship Specialty Start Date End Date Marielena Ramirez MD [address] [place] [address] PCP - General Internal Medicine 07/20/17 Chirag Brothers [address] [facility] [address] [place] [address] Cardiology 04/10/22 Return Agent Relationship Specialty Start Date End Date Marielena Ramirez MD [address] [place] [address] PCP - General Internal Medicine 07/20/17 Chirag Brothers [address] [place] [address] Cardiology 04/10/22 Return Agent Relationship Specialty Start Date End Date Marielena Ramirez MD [address] [place] [address] PCP - General Internal Medicine 07/20/17 Chirag Brothers [address] [facility] [address] [place] [address] Cardiology 04/10/22 Return Agent Relationship Specialty Start Date End Date Marielena Ramirez MD [address] [place] [address] PCP - General Internal Medicine 07/20/17 Chirag Brothers [address] [address] Cardiology 04/10/22 Rani Bobo, pbx technician Conflicts Analyst Internal Medicine 05/19/22 06/18/22 Return Agent Relationship Specialty Start Date End Date Marielena Ramirez MD [address] [place] [address] PCP - General Internal Medicine 07/20/17 Chirag Brothers [address] [address] Cardiology 04/10/22 Rani Bobo, pbx technician Conflicts Analyst Internal Medicine 05/19/22 06/18/22 Return Agent Relationship Specialty Start Date End Date Marielena Ramirez MD [address] [place] [address] PCP - General Internal Medicine 07/20/17 Chirag Brothers [address] [facility] [address] [place] [address] Cardiology 04/10/22 Rani Bobo, pbx technician Conflicts Analyst Internal Medicine 05/19/22 06/18/22 Return Agent Relationship Specialty Start Date End Date Marielena Ramirez MD [address] [place] [address] PCP - General Internal Medicine 07/20/17 Chirag Brothers [address] [place] [address] Cardiology 04/10/22 Rani Bobo, pbx technician Conflicts Analyst Internal Medicine 05/19/22 06/18/22 Return Agent Relationship Specialty Start Date End Date Marielena Ramirez MD [address] [place] [address] PCP - General Internal Medicine 07/20/17 Chirag Brothers [address] [facility] [address] [place] [address] Cardiology 04/10/22 Rani Bobo, pbx technician Conflicts Analyst Internal Medicine 05/19/22 06/18/22 Return Agent Relationship Specialty Start Date End Date Marielena Ramirez MD [address] [place] [address] PCP - General Internal Medicine 07/20/17 Chirag Brothers [address] [place] [address] Cardiology 04/10/22 Rani Bobo, pbx technician Conflicts Analyst Internal Medicine 05/19/22 06/18/22 Return Agent Relationship Specialty Start Date End Date Marielena Ramirez MD [address] [place] [address] PCP - General Internal Medicine 07/20/17 Chirag Brothers [address] [place] [address] Cardiology 04/10/22 Return Agent Relationship Specialty Start Date End Date Marielena Ramirez MD [address] [place] [address] PCP - General Internal Medicine 07/20/17 Chirag Brothers [address] [place] [address] Cardiology 04/10/22 Return Agent Relationship Specialty Start Date End Date Marielena Ramirez MD [address] [place] [address] PCP - General Internal Medicine 07/20/17 [facility] [address] [place] [address] Cardiology 04/10/22 Return Agent Relationship Specialty Start Date End Date Marielena Ramirez MD [address] [place] [address] PCP - General Internal Medicine 07/20/17 [facility] [address] [place] [address] Cardiology 04/10/22 Team Status: Active Member Role Status Dates Dr. Marielena Ramirez MD Family Provider Active Dr. Marielena Ramirez MD Primary Care Provider Active Team Status: Inactive Member Role Status Dates Dr. Marielena Ramirez MD Primary Care Provider, Referring Provider Active Brittany Gutierrez TONGUE STITCHER, TONGUE STITCHER-C Attending Provider Active Team Status: Inactive Member Role Status Dates Dr. Marielena Ramirez MD Primary Care Provider Active Maira Hinkle PA, PA Attending Provider, Referr ing Provider Active Return Agent Relationship Specialty Start Date End Date Marielena Ramirez MD [address] [place] [address] PCP - General Internal Medicine 07/20/17 [facility] [address] [place] [address] Cardiology 04/10/22 Return Agent Relationship Specialty Start Date End Date Marielena Ramirez MD [address] [facility] [place] [address] PCP - General Internal Medicine 07/20/17 [facility] [address] [place] [address] Cardiology 04/10/22 Return Agent Relationship Specialty Start Date End Date Marielena Ramirez MD [address] [place] [address] PCP - General Internal Medicine 07/20/17 [facility] [address] [place] [address] Cardiology 04/10/22 Return Agent Relationship Specialty Start Date End Date Marielena Ramirez MD [address] [place] [address] PCP - General Internal Medicine 07/20/17 [facility] [employer] [address] [place] [address] Cardiology 04/10/22 Team Status: Active Member Role Status Dates Dr. Marielena Ramirez MD Primary Care Provider Active Brittany Gutierrez TONGUE STITCHER, TONGUE STITCHER-C Referring Provider, Other Provi yolanda Active Dr. Sanjeev Márquez MD Attending Provider Active Team Status: Inactive Member Role Status Dates Dr. Marielena Ramirez MD Primary Care Provider Active Brittany Gutierrez TONGUE STITCHER, TONGUE STITCHER-C Attending Provider, Referring P cierra Active Return Agent Relationship Specialty Start Date End Date Marielena Ramirez MD [address] [place] [address] PCP - General Internal Medicine 07/20/17 [facility] [address] [place] [address], [place] [address] Cardiology 04/10/22 Return Agent Relationship Specialty Start Date End Date Marielena Ramirez MD [address] [place] [address] PCP - General Internal Medicine 07/20/17 [facility] [address] [place] [address] Cardiology 04/10/22 Return Agent Relationship Specialty Start Date End Date Marielena Ramirez MD [address] [place] [address] PCP - General Internal Medicine 07/20/17 [facility] [employer] [address] [place] [address] Cardiology 04/10/22 Team Status: Inactive Member Role Status Dates Dr. Marielena Ramirez MD Primary Care Provider Active Maira Hinkle PA, PA Attending Provider, Referr ing Provider Active ARLEEN RIVERA , TONGUE STITCHER-C Other Provider Active Return Agent Relationship Specialty Start Date End Date Marielena Ramirez MD [address] [place] [address] PCP - General Internal Medicine 07/20/17 [facility] [employer] [address] [place] [address], [place] [address] Cardiology 04/10/22 Team Status: Inactive Member Role Status Dates Dr. Marielena Ramirez MD Primary Care Provider Active Dr. Tr Hernadez , Emergency Provider Active Return Agent Relationship Specialty Start Date End Date Marielena Ramirez MD [address] [place] [address] PCP - General Internal Medicine 07/20/17 Chirag Brothers MD [address] [place] [address], [place] [address] Cardiology 04/10/22 Return Agent Relationship Specialty Start Date End Date Marielena Ramirez MD [address] [place] [address] PCP - General Internal Medicine 07/20/17 Chirag Brothers MD [address] [place] [address] Cardiology 04/10/22 Return Agent Relationship Specialty Start Date End Date Marielena Ramirez MD [address] [place] [address] PCP - General Internal Medicine 07/20/17 Chirag Brothers MD [address] [place] [address] Cardiology 04/10/22 Return Agent Relationship Specialty Start Date End Date Marielena Ramirez MD [address] [place] [address] PCP - General Internal Medicine 07/20/17 Chirag Brothers MD [address] [place] [address] Cardiology 04/10/22 Return Agent Relationship Specialty Start Date End Date Marielena Ramirez MD [address] [place] [address] PCP - General Internal Medicine 07/20/17 Chirag Brothers MD [address] [place] [address], [place] [address] Cardiology 04/10/22 Return Agent Relationship Specialty Start Date End Date Marielena Ramirez MD [address] [place] [address] PCP - General Internal Medicine 07/20/17 Chirag Brothers MD [address] [address] Cardiology 04/10/22 Return Agent Relationship Specialty Start Date End Date Marielena Ramirez MD [address] [place] [address] PCP - General Internal Medicine 07/20/17 [facility]ag Brothers [facility] [address] [facility] [address] [address] Cardiology 04/10/22 Return Agent Relationship Specialty Start Date End Date Marielena Ramirez MD [address] [place] [address] PCP - General Internal Medicine 07/20/17 [facility]irag Brothers MD [address] [facility] [address] [address] Cardiology 04/10/22 Radha Aviles PA-C [address] [place] [address] [employer] [facility] Family Medicine 10/30/24 Arleen Rivera APRN.CNP [address] [place] [address] [employer] Operator Internal Medicine 10/30/24 Juli Aguirre PA-C [address] [place] [address] [employer] Gr[employer] [facility] Family Medicine 10/30/24 Return Agent Relationship Specialty Start Date End Date Marielena Ramirez MD [address] [place] [address] PCP - General Internal Medicine 07/20/17 Chirag Brothers MD [address] [address] Cardiology 04/10/22 Radha Aviles PA-C [address] [place] [address] [employer] Gr[employer] Operator Family Medicine 10/30/24 Arleen Rivera APRN.LOGISTICS SUPPORT [address] [place] [address] [employer] Gr[employer] Operator Internal Medicine 10/30/24 Juli Aguirre PA-C [address] [place] [address] [employer] Gr[employer] Operator Family Medicine 10/30/24 Return Agent Relationship Specialty Start Date End Date Marielena Ramirez MD [address] [place] [address] PCP - General Internal Medicine 07/20/17 Chirag Brothers MD [address] [address] Cardiology 04/10/22 Radha Aviles PA-C [address] [place] [address] [employer] Grader Operator Family Medicine 10/30/24 Arleen Rivera APRN.LOGISTICS SUPPORT [address] [place] [address] Bump Grader Operator Internal Medicine 10/30/24 Juli Aguirre PA-C [address] [place], [place] [address] [facility] 10/30/24 Return Agent Relationship Specialty Start Date End Date Marielena Ramirez MD [address] [place], [place] [address] PCP - General Internal Medicine 07/20/17 Chirag Brothers MD [address] [id number] Cardiology 04/10/22 Radha Aviles PA-C [address] [place] [address] [facility] 10/30/24 Arleen Rivera APRN.LOGISTICS SUPPORT [address] [place], [place] [address] [facility] Internal [facility] 10/30/24 Juli Aguirre PA-C [address] [place], [place] [address] [facility] 10/30/24 Team Status: Active Member Role/Relationship Status Dates Dr. Marielena Ramirez MD Family Provider Active Dr. Marielena Ramirez MD Primary Care Provider Active Team Status: Active Member Role/Relationship Status Dates Dr. Marielena Ramirez MD Primary Care Provider Active Start: July 28, 2025 Brittany Gutierrez TONGUE STITCHER, TONGUE STITCHER-C Attending Provider Active Start: July 28, 2025 Brittany Gutierrez TONGUE STITCHER, TONGUE STITCHER-C Referring Provider Active Start: July 28, 2025 Team Status: Inactive Member Role/Relationship Status Dates Dr. Marielena Ramirez MD Primary Care Provider Active Start: August 03, 2025 End: August 03, 2025 Dr. Marielena Ramirez MD Referring Provider Active Start: August 03, 2025 End: August 03, 2025 Dr. Hardik Adame MD Attending Provider Active Start: August 03, 2025 End: August 03, 2025 Team Status: Inactive Member Role/Relationship Status Dates Dr. Marielena Ramirez MD Primary Care Provider Active Start: July 28, 2025 End: July 28, 2025 Brittany Gutierrez TONGUE STITCHER, TONGUE STITCHER-C Attending Provider Active Start: July 28, 2025 End: July 28, 2025 Brittany Gutierrez NP, TONGUE STITCHER-C Referring Provider Active Start: July 28, 2025 End: July 28, 2025 FOR RECORDS PERTAINING TO PATIENTS WHO ARE OR HAVE BEEN ENROLLED IN A CHEMICAL DEPENDENCY/SUBSTANCEABUSE PROGRAM, SOME INFORMATION MAY BE OMITTED. This clinical summary was aggregated from multiple sources. Caution should be exercised in using it in the provision of clinical care. This summary normalizes information from multiple sources, and as a consequence, information in this document may materially change the coding, format and clinical context of patient data. In addition, data may be omitted in some cases. CLINICAL DECISIONS SHOULD BE BASED ON THE PRIMARY CLINICAL RECORDS. [facility] [employer] provides no warranty or guarantee of the accuracy or completeness of information in this document.
[2025-11-05 00:22] LABS: Hematocrit 42.4 % (37-47); Hemoglobin 13.5 g/dL (12.0-15.0); Immature Granulocytes Count 0.020 X10^3/uL (0.0-0.0); Mean Corp Hgb Conc 31.8 g/dL (32-36); Mean Corpuscular Volume 86.9 fL (81-99); Mean Platelet Vol. 10.8 fl (6.2-12.0); NRBC Flagged by Analyzer 0 % (0-5); Platelet Count 248 K/mm3 (150-450); RBC Distribution Width CV 13.7 % (11.6-14.6); RBC Distribution Width SD 43.6 fl (35.1-43.9); Red Blood Count 4.88 M/mm3 (4.2-5.4); White Blood Count 7.7 K/mm3 (4.4-11.0)
[2025-11-05 00:38] VITALS: BP 141/63; PULSE 59; RESP 14; O2SAT 96
[2025-11-05 00:45] LABS: AST(SGOT) 17 U/L (<=31); Alanine Aminotransfer ALT/SGPT 13 U/L (<=34); Albumin, Serum 3.9 g/dL (3.4-4.8); Alkaline Phosphatase 109 U/L (35-104); Anion Gap 11 (5-15); BUN 17 mg/dL (4-19); BUN/Creat Ratio 16.0 RATIO (10-20); Bilirubin, Direct 0.21 mg/dL (0.00-0.30); Calcium,Total 10.5 mg/dL (7.6-11.0); Carbon Dioxide 27.4 mmol/L (21.0-32.0); Chloride 103 mmol/L (98-108); Estimated Creatinine Clearance 38.60 ml/min (50-250); Globulin 3.0 g/dL (2.2-4.2); Glucose 99 mg/dL (70-99); Lipase 61 U/L (13-75); Magnesium 2.1 mg/dL (1.5-2.2); Potassium 4.0 mmol/L (3.3-5.1); Troponin T High Sensitivity 15 ng/L (<=14)
[2025-11-05 01:00] VITALS: BP 141/63; PULSE 59; RESP 16; O2SAT 97
--- NOTE | 2025-11-05 01:35 | EKG12_ITS ---
Test Reason : CP Blood Pressure : */* mmHG Vent. Rate : 65 BPM Atrial Rate : 65 BPM P-R Int : 164 ms QRS Dur : 74 ms QT Int : 400 ms P-R-T Axes : 17 -35 41 degrees QTcB Int : 416 ms Normal sinus rhythm Left axis deviation Inferior infarct (cited on or before 25-Oct-2025) Cannot rule out Anterior infarct (cited on or before 25-Oct-2025) Abnormal ECG Confirmed by SAL SY, ALMA DELIA ([id number]), technical editor DALI GRAHAM ([id number]) on 11/06/2025 6:44:47 AM Referred By: ZULMA Confirmed By: ALMA DELIA HUANG MD
[2025-11-05 02:00] VITALS: BP 125/75; PULSE 58; RESP 16; O2SAT 96
[2025-11-05 02:33] LABS: Troponin T High Sens 2 HR 22 ng/L (<=14)
[2025-11-05 02:44] VITALS: BP 157/71; PULSE 62; RESP 16; TEMP 36.8; O2SAT 97
--- NOTE | 2025-11-05 02:50 | PCM.HP.STD ---
HPI - General General Date of Admission: 11/05/25 Date of Service: 11/05/25 Chief Complaint: Chest pain. HPI Narrative The patient is an 80 y/o F w/ PMHx: CAD s/p CABG x 4, HTN, HLD who presents to the [facility] ED on 11/05/2025 with history of upon attempting to go to sleep on evening on day of presentation when she attempted to lay down with onset of upper abdominal discomfort and nausea prompting her to get up and take some Tums with no symptom improvement within the sensation of the discomfort radiating toward her left shoulder prompting EMS call. She does report her son has recently been ill with nausea and emesis to which she has been exposed. Workup in the ED included T98.2, heart 69, BP 160/95, respiratory rate 15, 99% on room air with most recent repeat vitals heart rate 58, BP 125 or 75, respiratory rate 16, 96% on room air, CBC with WBC 7.7, hemoglobin 13.5, platelet 248 without shift, CMP with BUN/creatinine 17/1.09, GFR 51, magnesium 2.1, alk phos 109, troponin initial 15 with repeat delta 22, lipase 61, chest x-ray with no acute cardiopulmonary findings, EKG with sinus rhythm with no acute evidence of ischemia. [facility] Medical History History of left heart catheterization (LHC) (~03/12/22) Chest pain Abnormal ECG during exercise stress test Syncope and collapse 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) Essential hypertension Hyperlipidemia Atherosclerotic heart disease of [place] coronary artery without angina pectoris Home Medications ?Medication ?Instructions ?Recorded ?Last Taken ?Type aspirin 81 mg chewable tablet 81 mg PO DAILY 03/12/16 03/12/22 History cholecalciferol (vitamin D3) 50 2,000 unit PO DAILY 04/22/19 Unknown History mcg (2,000 unit) capsule nitroglycerin 0.4 mg sublingual 0.4 mg sublingual Q5-15M PRN Chest 02/18/24 Unknown Rx tablet Pain #25 tabs atorvastatin 40 mg tablet 40 mg PO QHS #90 tabs 08/03/25 Unknown Rx metoprolol succinate 50 mg 50 mg PO DAILY #90 tabs 08/03/25 Unknown Rx tablet,extended release 24 hr cephalexin 500 mg capsule 500 mg PO Q8H #21 caps 10/25/25 Unknown Rx Allergy/AdvReac Type Severity Reaction Status Date / Time sertraline (From Zoloft) Allergy Unknown Verified 11/04/25 23:39 simvastatin (From Zocor) Allergy Unknown Verified 11/04/25 23:39 lisinopril AdvReac Unknown unknown Verified 11/04/25 23:39 Family History Mother CAD (coronary artery disease) Diabetes Brother CAD (coronary artery disease) Brother CAD (coronary artery disease) Diabetes Surgical History History of coronary artery bypass surgery (~05/13/22) History of hysterectomy History of cholecystectomy Stented coronary artery (07/21/16) Social History Smoking Status: Never smoker alcohol intake: never substance use type: does not use caffeine: No ROS ROS Narrative Admission Review of Systems: CONSTITUTIONAL: No weight loss, fever, chills, + weakness or fatigue. HEENT: Eyes: No visual loss, blurred vision, double vision or yellow sclerae. Ears, Nose, Throat: No hearing loss, sneezing, congestion, runny nose or sore throat. SKIN: No rash or itching, lesions, wounds. CARDIOVASCULAR: + Chest pain. No palpitations, edema, orthopnea, syncopal events. RESPIRATORY: No shortness of breath, cough or sputum, wheezing, hemoptysis. GASTROINTESTINAL: + anorexia, nausea. No vomiting or diarrhea, abdominal pain, melena, BRBPR. GENITOURINARY: No dysuria, frequency, urgency or retention. NEUROLOGICAL: No headache, dizziness, syncope, paralysis, ataxia, numbness or tingling in the extremities, focal weakness, change in bowel or bladder control, seizure. MUSCULOSKELETAL: + muscle, back pain, joint pain or stiffness. HEMATOLOGIC: No anemia, bleeding or bruising. LYMPHATICS: No enlarged nodes. No history of splenectomy. PSYCHIATRIC: No history of depression or anxiety. ENDOCRINOLOGIC: No reports of sweating, cold or heat intolerance. No polyuria or polydipsia. ALLERGIES: No history of asthma, hives, eczema or rhinitis. Vital Signs Vital Signs Vital Signs: 11/04/25 23:39 11/04/25 23:41 11/05/25 00:38 Temperature 98.2 F Temperature Source Oral Pulse Rate 69 59 L Respiratory Rate 15 14 Respiratory Effort Normal Non-Labored Blood Pressure 160/95 H 141/63 H Blood Pressure Mean 116 89 Pulse Ox 99 96 Oxygen Delivery Method Room Air Room Air 11/05/25 01:00 11/05/25 02:00 11/05/25 02:44 Temperature 98.2 F Temperature Source Pulse Rate 59 L 58 L 59 L Respiratory Rate 16 16 16 Respiratory Effort Blood Pressure 141/63 H 125/75 H 151/71 H Blood Pressure Mean 89 91 97 Pulse Ox 97 96 100 Oxygen Delivery Method Room Air Room Air Weight Weight: 159 lb 9.835 oz Body Mass Index (BMI) 28.3 Results Lab / Micro Data 11/04/25 23:45 11/05/25 00:15 Labs: Laboratory Results - last 24 hr 11/04/25 23:45: WBC 7.7, RBC 4.88, Hgb 13.5, Hct 42.4, MCV 86.9, MCH 27.7, MCHC 31.8 L, RDW Std Deviation 43.6, RDW Coeff of Sylvester 13.7, Plt Count 248, MPV 10.8, Immature Gran % (Auto) 0.300, Neut % (Auto) 46.8 L, Lymph % (Auto) 32.8, Dickinson % (Auto) 7.7, Eos % (Auto) 11.5 H, Baso % (Auto) 0.9, Absolute Neuts (auto) 3.6, Absolute Lymphs (auto) 2.51, Nucleated RBC % 0 11/05/25 00:15: Sodium 142, Potassium 4.0, Chloride 103, Carbon Dioxide 27.4, Anion Gap 11, BUN 17, Creatinine 1.09, Estim Creat Clear Calc 38.60 L, Est GFR (MDRD) Non-Af 51 L, BUN/Creatinine Ratio 16.0, Glucose 99, Calcium 10.5, Magnesium 2.1, Total Bilirubin 0.42, Direct Bilirubin 0.21, AST 17, ALT 13, Alkaline Phosphatase 109 H, Troponin T High Sens 15 H D, Total Protein 6.9, Albumin 3.9, Globulin 3.0, Lipase 61 11/05/25 02:10: Troponin T Hi Sens 2 Hr 22 H Imaging Radiology Impression Chest X-Ray 11/05/25 00:10 IMPRESSION: No Acute Findings. Reading Location: [facility] Assessment & Plan Assessment/Plan PLAN: Plan The patient is an 80 y/o F w/ PMHx: CAD s/p CABG x 4, HTN, HLD who presents to the [facility] ED on 11/05/2025 with history of upon attempting to go to sleep on evening on day of presentation when she attempted to lay down with onset of upper abdominal discomfort and nausea prompting her to get up and take some Tums with no symptom improvement within the sensation of the discomfort radiating toward her left shoulder prompting EMS call. She does report her son has recently been ill with nausea and emesis to which she has been exposed. #1. Chest Pain: EKG in ED with sinus rhythm with no acute evidence of ischemia, CXR w/ no acute cardiopulmonary findings, initial trop 15 with repeat delta 22. Will admit to PCU, place on a monitored bed to assure no acute myocardial infarction with serial cardiac enzymes and EKGs. If repeat serial cardiac enzymes remain unremarkable will pursue a.m. cardiac stress testing. FLP in AM. Magnesium normal per ED. ASA, NG, morphine. #2. CAD: Status post CABG x 4 (GARZA to side mid LAD, SVG to side OM1, SVG to side OM2, SVG to side PDA Dr. Lakhani [facility] 05/13/22), will continue aspirin, statin, metoprolol, not on VELASQUEZ inhibitor/ARB. #3. Hypertension: Continue home regimen including metoprolol, PRN hydralazine. #4. Hyperlipidemia: Continue home statin regimen. AM FLP. #5. DVT prophylaxis: Lovenox.
[2025-11-05 03:00] VITALS: BP 151/71; PULSE 59; RESP 16; O2SAT 100
[2025-11-05 04:00] VITALS: BP 148/71; PULSE 62; RESP 16; O2SAT 100
[2025-11-05] MEDS: Lidocaine 2% Viscous15 ML UDC 15 ML PO (04:11)
[2025-11-05 04:51] LABS: Troponin T High Sens 4 HR 16 ng/L (<=14)
== END 2025-11-05 05:08 | disposition home or self-care (01) ==
PROVIDERS: Emergency Provider Emergency Medicine; PCP Nurse Practitioner; Visit Provider Emergency Medicine
DX: R07.89 Other chest pain (principal); I10 Essential (primary) hypertension; I25.10 Atherosclerotic heart disease of native coronary artery without angina pectoris; E78.5 Hyperlipidemia, unspecified; Z95.5 Presence of coronary angioplasty implant and graft
CPT/HCPCS: 71045; 80048; 80076; 83690; 83735; 84484; 85025; 93005; 96374; 99285; A4216; J2405